=== PATIENT | female | born 1970 | race Caucasian/White ===

== ENCOUNTER 2019-10-05 21:14 | Emergency (ER) | payer MEDICARE, MEDICAID, SELFPAY ==
[2019-10-05 21:17] VITALS: BP 150/77; PULSE 112; RESP 20; TEMP 36.2; O2SAT 100
--- NOTE | 2019-10-05 21:22 | ED.BACK ---
HPI - Back Pain/Injury General Chief Complaint: Back Pain/Injury Stated Complaint: upper back pain Time Seen by Provider: 10/05/19 21:20 Source: patient Mode of arrival: ambulatory Limitations: no limitations History of Present Illness HPI Narrative: The pt is a 48 y/o female who presents to the ED with c/o upper back pain that began 3-4 days ago. The pt states that she has spinal stenosis and has always had back pain, but the last 3-4 days have been worse than nml. She has been getting random spells of excruciating pain in between her shoulder blades. She describes this as a stabbing pain that lasts 3-4 minutes and makes her legs and arms lock up. After the episodes, her legs get numb, she is very sore, and she has trouble breathing, which she believes is from the stress of the pain. The pt has tried taking muscle relaxers, Excedrin, Motrin, and Hydrocodone without relief. The pt reports neck pain and urinary frequency, which she relates to high blood glucose, but denies fever, dysuria, or urinary retention. She last had an MRI a couple of years ago to see if the spinal stenosis had worsened, but providers could not tell because of her size. Her PCP is Dipti Viveros NP. The pt has a PMHx of HLD, obesity, and DM. elicited complaint: back pain (upper) Pertinent past history: other (spinal stenosis) Onset (ago): day(s) (3-4) Timing: other (random) Associated symptoms: other (neck pain, urinary frequency) Related Data Home Medications Medication Instructions Recorded Confirmed cyclobenzaprine mg 08/03/19 dapagliflozin [Farxiga] mg 08/03/19 desvenlafaxine succinate mg PO 08/03/19 losartan 08/03/19 metformin mg 08/03/19 metoprolol succinate PO 08/03/19 Allergies Allergy/AdvReac Type Severity Reaction Status Date / Time No Known Allergies Allergy Unknown Unverified 08/03/19 12:02 Review of Systems Review of Systems: All systems reviewed & are unremarkable except as noted in HPI and below Constitutional: Constitutional: Denies fever(s) Genitourinary: Genitourinary: Reports nocturia, Denies dysuria and Denies other (urinary retention) Musculoskeletal: Musculoskeletal: Reports back pain (upper) and Reports neck pain [facility] Past Medical History Medical History Anxiety Arthritis Back pain Bipolar disorder Bronchitis Depression Diabetes Diverticulitis GERD (gastroesophageal reflux disease) Hypercholesteremia Mitral valve prolapse Obesity Seasonal allergies Sleep apnea Spinal stenosis Stress fracture in right foot Surgical History Surgical History History of bunionectomy Hx of cholecystectomy Social History Social History Smoking status: Former smoker Smoking end date: 08/20/06 Exam Const: General: no acute distress Nutritional Appearance: obese morbidly obese HENMT: Mouth: Yes lip normal and Yes moist mucous membranes Eyes: Conjunctivae: conjunctivae normal Pupils: Equal, round and reactive pupils present Resp: Effort & Inspection: normal respiratory effort Auscultation: clear to auscultation bilaterally Cardio: Rate: regular rate Rhythm: regular rhythm Heart sounds: no murmurs GI: GI Palp: Yes Soft to palpation and No Tenderness to palpation present (GI) Auscultation: normal bowel sounds Back/Spine/Pelvis: Back: other (full ROM) Thoracic/Lumbar Spine: other (thoracic paraspinal tenderness) Neuro: General: patient oriented x3 Speech: normal speech Extrem: General: full ROM and normal gait Psych: Mental Status: mental status grossly normal Affect: normal affect Course Vital Signs Vital signs: Vital Signs Temperature 36.2 C L 10/05/19 21:17 Pulse Rate 112 H 10/05/19 21:17 Respiratory Rate 20 10/05/19 21:17 Blood Pressure 150/77 H 10/05/19 21:17 Pulse Oximetry 100 10/05/19 21:17 Temp
[2019-10-05] MEDS: KETOROLAC (*BKC) 60 MG/2 ML VIAL IM (22:11)
== END 2019-10-05 23:00 | disposition home or self-care (01) ==
PROVIDERS: Emergency Provider Emergency Medicine; PCP Nurse Practitioner Family
DX: M54.6 Pain in thoracic spine (principal); G89.29 Other chronic pain; M19.90 Unspecified osteoarthritis, unspecified site; E11.9 Type 2 diabetes mellitus without complications; K21.9 Gastro-esophageal reflux disease without esophagitis; E78.00 Pure hypercholesterolemia, unspecified; I34.1 Nonrheumatic mitral (valve) prolapse; E66.9 Obesity, unspecified; G47.30 Sleep apnea, unspecified; Z87.891 Personal history of nicotine dependence; Z79.84 Long term (current) use of oral hypoglycemic drugs
CPT/HCPCS: 96372; 99284; J1885; J3360

== ENCOUNTER 2020-06-09 08:38 | Outpatient (CLI) | payer MEDICARE, MEDICAID, SELFPAY ==
--- NOTE | ~2020-06-09 | MM_ITS ---
EXAMINATION: MM screening bello BI w yuliet HISTORY: Screening mammogram TECHNIQUE: Craniocaudal and mediolateral oblique 3-D tomosynthesis images were obtained and synthetic 2-D images were generated. CAD analysis was submitted and interpreted. COMPARISON: 05/05/2017 bilateral digital screening mammogram BREAST PARENCHYMAL COMPOSITION: The breasts are almost entirely fatty. FINDINGS: There is no evidence of suspicious mass, calcification, or architectural distortion to sugg est malignancy in either breast. There has been no suspicious interval change. IMPRESSION: 1. No mammographic evidence of malignancy. 2. Recommend routine screening mammography in one year. BI-RADS Category 1: Negative Reviewed, dictated and finalized at location A.
[2020-06-09 09:52] LABS: Alanine Aminotransferase 26 U/L (4-35); Albumin Level 4.3 g/dL (3.5-5.1); Alkaline Phosphatase 93 U/L (38-126); Anion Gap 6 mmol/L (8-16); Aspartate Amino Transferase 26 U/L (14-36); Bilirubin,Total 0.3 mg/dL (0.2-1.3); Blood Urea Nitrogen 13 mg/dL (7-17); Carbon Dioxide 32 mmol/L (22-30); Chloride 101 mmol/L (98-107); Cholesterol 209 mg/dL (0-200); Estimated Glomerular Filt Rate > 60; Glucose 121 mg/dL (65-105); HDL Direct 50 mg/dL; Potassium 4.4 mmol/L (3.4-5.0); Sodium 139 mmol/L (137-145); Triglycerides 171 mg/dL (<150)
[2020-06-09 10:02] LABS: LDL Cholesterol Direct 128 mg/dL
[2020-06-09 11:43] LABS: Hemoglobin A1C 6.4 % (<5.7)
== END 2020-06-09 08:39 | disposition home or self-care (01) ==
PROVIDERS: PCP Nurse Practitioner Family; Visit Provider Nurse Practitioner Family
DX: Z12.31 Encounter for screening mammogram for malignant neoplasm of breast (principal); E11.9 Type 2 diabetes mellitus without complications; I10 Essential (primary) hypertension
CPT/HCPCS: 36415; 77063; 77067; 80053; 80061; 83036

== ENCOUNTER 2020-08-04 08:18 | Outpatient (CLI) | payer MEDICARE, MEDICAID, SELFPAY ==
--- NOTE | ~2020-08-04 | MR_ITS ---
EXAMINATION: MR lumbar spine wo con DATE: 08/04/2020 09:29 INDICATION: Lumbar spinal stenosis. Low back pain. Right leg numbness. TECHNIQUE: Magnetic resonance imaging (MRI) of the lumbar spine was performed without intravenous con trast. Sequences included sagittal T2-weighted FSE, sagittal STIR FSE, sagittal T1-weighted FSE, and axial T2-weighted FSE. COMPARISON: CT abdomen and pelvis 06/05/2019 FINDINGS: Bone alignment is normal. There is mild chronic anterior wedging of T11 and T12 vertebral b odies. There are Schmorl's nodes at multiple levels. The intervertebral disc heights are normal. The distal spinal cord signal intensity is normal. The conus medullaris is at T12-L1. The following disc levels are specifically discussed: L1-L2: The disc is bulging. There is mild bilateral facet joint osteoarthritis. There is mild left ne ural foraminal stenosis. There is mild central canal stenosis. L2-L3: The disc does not extend beyond the endplate margin. There is mild bilateral facet joint osteo arthritis. There is no neural foraminal stenosis. There is no central canal stenosis. L3-L4: The disc does not extend beyond the endplate margin. There is mild bilateral facet joint osteo arthritis. There is no neural foraminal stenosis. There is no central canal stenosis. L4-L5: The disc is bulging and has an annular fissure. There is severe bilateral facet joint osteoart hritis. There is mild bilateral neural foraminal stenosis. There is mild central canal stenosis. L5-S1: The disc is bulging. There is severe bilateral facet joint osteoarthritis. There is mild bilat eral neural foraminal stenosis. There is mild central canal stenosis. IMPRESSION: 1. Mild lumbar spondylosis. Reviewed, dictated and finalized at location A. SURGEON IMPRESSION: 1. Mild lumbar spondylosis.
== END 2020-08-04 08:19 | disposition home or self-care (01) ==
PROVIDERS: PCP Nurse Practitioner Family; Visit Provider Nurse Practitioner Family
DX: M48.061 Spinal stenosis, lumbar region without neurogenic claudication (principal); M47.816 Spondylosis without myelopathy or radiculopathy, lumbar region
CPT/HCPCS: 72148

== ENCOUNTER 2020-10-08 12:02 | Outpatient (CLI) | payer MEDICARE, MEDICAID, SELFPAY ==
--- NOTE | ~2020-10-08 | XR_ITS ---
XR knee LT 3V DATE: 10/08/2020 12:37 INDICATION: Left lower limb pain. Fall one week ago. TECHNIQUE: [place] and AP and lateral views COMPARISON: None FINDINGS: Severe periarticular spurring and joint space narrowing as well as some lateral subluxation at the patellofemoral joint. There is periarticular spurring at the lateral compartment but the medial and lateral compartment ace nt spaces are relatively preserved. No fracture or dislocation or joint effusion, radiopaque intra-articular loose body or chondrocalcino sis is evident. No periosteal reaction or bone destruction. 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 INFERTILITY SPECIALIST IMPRESSION: Osteoarthritis at the lateral and particularly patellofemoral karen rtments; lateral patellar subluxation
== END 2020-10-08 12:03 | disposition home or self-care (01) ==
LOC: ANHIMG 12:13
PROVIDERS: PCP Nurse Practitioner Family; Visit Provider Nurse Practitioner Family
DX: M79.605 Pain in left leg (principal); M17.12 Unilateral primary osteoarthritis, left knee
CPT/HCPCS: 73562

== ENCOUNTER 2020-11-02 18:01 | Inpatient (IN) | payer MEDICARE, MEDICAID, SELFPAY ==
[2020-11-02] VITALS (10 sets, daily range): BP systolic 121–145; BP diastolic 7–95; PULSE 72–85; RESP 16–22; TEMP 36–36.2; O2SAT 90–100; BMI 64.2
--- NOTE | ~2020-11-02 | XR_ITS ---
XR chest 1V DATE: 11/02/2020 19:01 INDICATION: Right facial numbness. History of hypertension. TECHNIQUE: AP chest COMPARISON: 01/06/2017 two-view chest FINDINGS: Normal heart size. No hilar or mediastinal enlargement is evident. The lungs appear clear. Consolidation. No pleural effusion, pulmonary vascular congestion or pneumothorax. Degenerative spurring of the thoracic spine. IMPRESSION: No active cardiopulmonary disease Reviewed, dictated and finalized at location A.
--- NOTE | ~2020-11-02 | US_ITS ---
EXAMINATION: US carotid duplex BI DATE: 11/03/2020 13:23 INDICATION: Subjective visual disturbance TECHNIQUE: Grayscale, color Doppler, and pulsed Doppler images of the cervical carotid arteries were obtained. The degree of vessel stenosis is placed in one of the following categories: normal, <50%, 5 0-69%, >=70% but less than near-occlusion, near-occlusion, or total occlusion. Note that percent sten osis relative to normal distal artery lumen diameter is indirectly measured from velocity measurement s as described by Efrain, et al. Radiology 2003; 229:340-346. COMPARISON: None. FINDINGS: RIGHT: The right common carotid artery (CCA) peak systolic velocity (PSV) is 127 cm/s. The right internal ca rotid artery (ICA) PSV is 67 cm/s. The right ICA end-diastolic velocity (EDV) is 18 cm/s. The right I CA/CCA PSV ratio is 0.5. Grayscale and color Doppler images yield an estimate of <50% diameter reduct ion from minimal plaque in the ICA. The external carotid artery (ECA) PSV is 103 cm/s. There is anteg rade flow in the right vertebral artery. LEFT: The left CCA PSV is 130 cm/s. The left ICA PSV is 84 cm/s. The left ICA EDV is 25 cm/s. The left ICA/ CCA PSV ratio is 0.6. Grayscale and color Doppler images yield an estimate of <50% diameter reduction from minimal plaque in the ICA. The ECA PSV is 83 cm/s. There is antegrade flow in the left vertebra l artery. IMPRESSION: 1. <50% stenosis from minimal plaque in the right internal carotid artery. 2. <50% stenosis from minimal plaque in the left internal carotid artery. Reviewed, dictated and finalized at location B.
--- NOTE | ~2020-11-02 | MR_ITS ---
EXAMINATION: MR brain/brain stem wo/w con DATE: 11/03/2020 12:59 INDICATION: Visual loss. Facial numbness. TECHNIQUE: Magnetic resonance imaging (MRI) of the brain and brainstem was performed without and with 20 mL MultiHance intravenous contrast. Sequences included sagittal and axial T1-weighted FSE, axial diffusion-weighted FS EPI, axial T2*-weighted GRE, axial T2-weighted FLAIR [place], and axial T2-we ighted Propeller. Postcontrast sequences included axial and coronal T1-weighted FSE. Apparent diffusi on coefficient (ADC) maps were created. COMPARISON: Head CT 11/02/2020 FINDINGS: There are scattered areas of nonspecific increased T2-weighted signal intensity in the cere bral white matter, which is within normal limits for the patient's age. There is no intracranial hemo rrhage, acute infarction, or abnormal intracranial mass lesion. The ventricles are normal in size. Th ere is a mucous retention cyst in left maxillary sinus. There is mild mucosal thickening in the ethmo id sinuses. The orbits are normal. There is a trace right mastoid effusion. IMPRESSION: 1. Normal aging brain. Reviewed, dictated and finalized at location A. IMPRESSION: 1. Normal aging brain.
--- NOTE | ~2020-11-02 | CT_ITS ---
EXAMINATION: CT brain wo con DATE: 11/02/2020 19:02 INDICATION: Right sided visual problems. Intermittent facial numbness. TECHNIQUE: Computed tomography (CT) of the head was performed without intravenous contrast. The mA wa s adjusted according to patient size. Iterative reconstruction technique was employed. Exam dose: 68 1.00 mGy-cm total exam DLP. COMPARISON: None FINDINGS: No intracranial mass lesion or hemorrhage or recent cerebrovascular accident. No midline sh ift or mass effect effect. Normal ventricular size. No subdural or epidural hematoma. No orbital mass lesion is evident. A mucus retention cyst or polyp is noted in the floor of the left maxillary sinus. Focal ethmoid air cell opacification is noted anteriorly and posteriorly on the right. The paranasal sinuses otherwise are unremarkable. Normal development and aeration of the mastoid air cells. No fracture or bone destruction of the cranial vault. IMPRESSION: No acute intracranial finding Reviewed, dictated and finalized at Location A. Reviewed, dictated and finalized at location A.
--- NOTE | 2020-11-02 18:39 | ECG_ITS ---
Measurements Intervals [place] Rate: 79 P: 36 RI: 189 QRS: 7 QRSD: 103 T: -1 QT: 353 QTc: 406 Interpretive Statements SINUS RHYTHM BORDERLINE T WAVE ABNORMALITY- INFERIOR LEADS BORDERLINE ECG Electronically Signed On 11-03-2020 9:13:07 CDT by Johann Berg D.O.
[2020-11-02 18:53] LABS: Basophils Absolute Auto 0.1 K/mm3 (0.0-0.1); Basophils Percent Auto 0.5 % (0.2-1.2); Eosinophils Absolute Auto 0.3 K/mm3 (0-0.3); Hematocrit 41.2 % (37.0-47.0); Hemoglobin 13.5 g/dL (12.0-15.0); Immature Granulocyte Absolute 0.02 K/mm3 (0.00-0.031); Immature Granulocyte Percent A 0.2 % (0-0.5); Lymphocytes Absolute Auto 4.32 K/mm3 (0.9-3.2); Lymphocytes Percent Auto 46.9 % (18.3-44.2); Mean Corpuscular HGB Conc 32.8 g/dl (32-36); Mean Corpuscular Hemoglobin 28.6 pg (26-34); Mean Corpuscular Volume 87.3 fl (80-100); Mean Platelet Volume 9.3 fl (7.4-10.4); Monocytes Absolute Auto 0.7 K/mm3 (0.1-0.6); Neutrophils Absolute Auto 3.8 K/mm3 (1.3-6.7); Neutrophils Percent Auto 41.4 % (45.5-73.1); Platelet Count Result 246 k/mm3 (150-375); Red Blood Count 4.72 M/mm3 (4.2-5.4); White Blood Count 9.2 K/mm3 (4.5-10.0)
[2020-11-02 19:03] LABS: INR 0.9; Partial Thromboplastin Time 27.8 SECONDS (22.3-36.8); Prothrombin Time 12.6 Seconds (11.1-14.7)
[2020-11-02 19:08] LABS: Anion Gap 8 mmol/L (8-16); Blood Urea Nitrogen 18 mg/dL (7-17); Calcium 8.6 mg/dL (8.4-10.2); Carbon Dioxide 27 mmol/L (22-30); Chloride 104 mmol/L (98-107); Estimated CRCL calculation 132 ml/min; Estimated Glomerular Filt Rate > 60; Glucose 143 mg/dL (65-105); Sodium 139 mmol/L (137-145)
[2020-11-02 19:20] LABS: Troponin I < 0.012 ng/mL (0.000-0.034)
--- NOTE | 2020-11-02 21:16 | ED.NEUROSD ---
HPI - Neuro Symptoms/Deficit General Chief Complaint: Neuro Symptoms/Deficit Stated Complaint: visual changes, facial numbness Time Seen by Provider: 11/02/20 19:02 Source: patient Mode of arrival: ambulatory Limitations: no limitations History of Present Illness HPI Narrative: 50-year-old with a history of hypertension, hyperlipidemia, diabetes here with complaints of partial loss of vision on the right side she said that she could not see anything on the right lateral aspect of her eye this afternoon she also complains that her face is being none numb on and off for past 1 week however today it was more profound. She states that she called her primary doctor who recommended her to go to the ER. At the time she came to the ER her symptoms have much subsided. She denies any loss of vision or numbness at this time. She denies any motor weakness.. No previous history of strokes. Onset (ago): day(s) (1) Location: right face History of same: Yes Severity: mild Related Data Home Medications Medication Instructions Recorded Confirmed cyclobenzaprine mg 08/03/19 dapagliflozin [Farxiga] mg 08/03/19 desvenlafaxine succinate mg PO 08/03/19 losartan 08/03/19 metformin mg 08/03/19 metoprolol succinate PO 08/03/19 Allergies Allergy/AdvReac Type Severity Reaction Status Date / Time No Known Allergies Allergy Unknown Unverified 10/22/19 13:20 Review of Systems Review of Systems: All systems reviewed & are unremarkable except as noted in HPI and below Constitutional: Constitutional: Reports no additional constitutional complaints Eyes: Eyes: Reports as per HPI ENT: Reports system reviewed and no additional complaints, except as documented Cardiovascular: Cardiovascular: Reports no additional cardiovascular complaints Respiratory: Respiratory: Reports no additional respiratory complaints Gastrointestinal: Gastrointestinal: Reports no additional gastrointestinal complaints Musculoskeletal: Musculoskeletal: Reports no additional musculoskeletal complaints Integumentary/Breasts: Skin/Breast: Reports system reviewed and no additional complaints, except as docu Neurologic: Reports system reviewed and no additional complaints, except as documented PMFSH Past Medical History Medical History Anxiety Arthritis Back pain Bipolar disorder Bronchitis Depression Diabetes Diverticulitis GERD (gastroesophageal reflux disease) Hypercholesteremia Mitral valve prolapse Obesity Seasonal allergies Sleep apnea Spinal stenosis Stress fracture in right foot Surgical History Surgical History History of bunionectomy Hx of cholecystectomy Family History Family History Mother Diabetes mellitus Family history of mental disorder Hypertension Family history of cardiovascular disease Family history of arthritis Family history of chronic obstructive pulmonary disease Sibling Family history of alcoholism Father Family history of alcoholism Social History Social History Smoking status: Former smoker Smoking end date: 08/20/06 Alcohol intake: never Gender identity (if verbalized by the patient): Female Exam Narrative: Exam Narrative: GENERAL: Well-appearing, well-nourished, and in no acute distress. HEAD: Normocephalic, atraumatic. EYES: PERRLA and EOMI. ENT: Nares clear, no rhinorrhea or epistaxis. Mucous membranes moist.no facial droop NECK: Supple. CHEST: Clear to auscultation. No respiratory distress. HEART: Regular rate and rhythm. No murmur heard. Normal peripheral pulses. ABDOMEN: Soft, nontender, nondistended, normal active bowel sounds. EXTREMITIES: Normal range of motion. No edema. SKIN: Warm, dry, no rash. NEURO: No focal deficits. Alert and oriented x3. PSYCH: Nicole
--- NOTE | 2020-11-02 22:29 | PM.IMHP ---
H&P: HPI History of Present Illness Date/Time: 11/02/20 22:29 Chief Complaint: Acute visual field loss and numbness of face+ Narrative: This is a pleasant 50-year-old morbidly obese diabetic female who is also known to have chronic hypertension and presented to the hospital [facility] with a complaint of about 10 minutes of right visual field loss while she was cleaning her ceiling fan. The patient noticed while she was cleaning her fan that she lost the right visual field of vision and this seemed to resolve after about 10 minutes. She did call her physical therapist clinic director who told her that she likely was just having a migraine headache because the patient was also complaining of right spiritism pain at that time. Her physical therapist clinic director also mentions that she believes that her visual deficit could be due to her recently changing her eating habits as the patient is no longer drinking sugary drinks. A short while afterwards the patient started to developed right-sided facial numbness which has now resolved. On further questioning the patient mentions to me that over the past few days she has had intermittent facial numbness which will usually include her whole face and last from 15-20 minutes in duration before it resolves. She reports having 3-4 of these episodes every day. The patient has no previous history of strokes. On my encounter with the patient megan she denies any focal neurological deficit and all of her symptoms have completely resolved. She denies any recent head trauma or seizure-like activity. She also denies any nausea, vomiting, fever, chills, coughing, chest pain, palpitations, abdominal pain, diarrhea, dysuria, hematuria, lower extremity swelling, numbness, tingling, or focal weakness. The patient was evaluated emergency room this evening and routine labs were unremarkable. CT brain was also unremarkable for any acute pathology. We been asked to admit the patient to the hospital for possible TIA. No other complaints at this time. Review of Systems Review of Systems: All systems reviewed & are unremarkable except as noted in HPI and below PMFSH Past Medical History Medical History Anxiety Arthritis Back pain Bipolar disorder Bronchitis Depression Diabetes Diverticulitis GERD (gastroesophageal reflux disease) Hypercholesteremia Mitral valve prolapse Obesity Seasonal allergies Sleep apnea Spinal stenosis Stress fracture in right foot Surgical History Surgical History History of bunionectomy Hx of cholecystectomy Family History Family History Mother Diabetes mellitus Family history of mental disorder Hypertension Family history of cardiovascular disease Family history of arthritis Family history of chronic obstructive pulmonary disease Sibling Family history of alcoholism Father Family history of alcoholism Social History Social History Smoking status: Former smoker Smoking end date: 08/20/06 Alcohol intake: never Gender identity (if verbalized by the patient): Female Meds Home Medications and Allergies Home Medications Medication Instructions Recorded Confirmed Type acetaminophen-codeine 1 tablet PO HS PRN #14 tablet 08/03/19 Rx [Tylenol-Codeine #3] cyclobenzaprine mg 08/03/19 History dapagliflozin [Farxiga] mg 08/03/19 History desvenlafaxine succinate mg PO 08/03/19 History losartan 08/03/19 History metformin mg 08/03/19 History metoprolol succinate PO 08/03/19 History tramadol 50 mg PO BID PRN #15 tablet 08/03/19 Rx diazepam [Valium] 5 mg PO TID PRN #6 tablet 10/05/19 Rx Allergies Allergy/AdvReac Type Severity Reaction Status Date / Time No Known Allergies Allergy Unknown Unverified 10/22/19 13:20 Vital Signs Vital Signs - 24 hr 11/02/20 18:27 03
[2020-11-02] MEDS: ONDANSETRON INJ 4 MG/2 ML VIAL IV PUSH (22:30)
[2020-11-02] MEDS: ACETAMINOPHEN 325 MG TABLET 650 MG PO (22:31)
--- NOTE | 2020-11-02 22:52 | ADMGEN ---
This patient, Shira Isaacs, was admitted to Medical Room 347-. Patient/family oriented to hospital policies and general routines including ID bracelet, bed and alarms, visiting hours, pain management, procedures, bathroom and other care routines, personal items, smoking policy, room service/diet, and visiting hours. Information on how to activate the Rapid Response Team has been discussed. Patient/Family are encouraged to report perceived risks to care and to ask questions if they do not understand what they are told or what they should do.
[2020-11-02 23:14] LABS: Glucose Point of Care 120 (65-105)
[2020-11-03] VITALS (14 sets, daily range): BP systolic 109–131; BP diastolic 62–72; PULSE 63–85; RESP 12–23; TEMP 36.3–36.6; O2SAT 94–97
--- NOTE | 2020-11-03 | ECHO_ITS ---
Patient Info Name: Shira Isaacs Age: 50 years : 1970 Gender: Female Ht: 67 in Wt: 410 lbs BSA: 3.09 m2 HR: 69 bpm BP: 109 / 65 mmHg Heart Rhythm: Sinus Rhythm Technical Quality: Poor Exam Date: 11/03/2020 9:13 AM Exam Location: [facility] Pulmonary Exam Room: 347 Patient Status: Inpatient Admit Date: 11/02/2020 Staff Ordering Physician: Melvin Whitaker MD Healthcare Liaison: Hannah Flaherty RDCS Attending Provider: Melvin Whitaker MD Exam Type: CA echo dop bubble study w con Study Info Indications - TIA R/O CSE Complete two-dimensional, color flow and Doppler transthoracic echocardiogram is performed with agitated saline. Complete two-dimensional, color flow and Doppler transthoracic echocardiogram is performed with contrast to opacify the left ventricle and to improve the deliniation of the left ventricle endocardial borders. Contrast/Agitated Saline Contrast/Ag. Saline: Definity Amount: 1.00 ml Administered By: Juany Hester RN Existing IV Access: Yes IV Access Condition: patent with no signs of infiltration Reason for Poor Study: patient body habitus Summary 1. No intracardiac shunt with injection of agitated saline with and without Valsalva. 2. Left ventricular systolic function is normal, estimated at 65-70%. 3. Left ventricular chamber dimension is normal without regional wall motion abnormalities identified.. 4. Technically difficult study with limited views. Definity echo contrast enhancement utilized to improve endomyocardial border definition. 5. There is moderately increased left ventricular wall thickness. 6. Left atrial chamber dimension is mildly enlarged. 7. There is trace mitral valve regurgitation. 8. There is trace tricuspid valve regurgitation. 9. No pulmonary hypertension, estimated pulmonary arterial systolic pressure is 23 mmHg. Recommendations * Consider transesophageal echocardiogram if clinically indicated. Left Ventricle Left ventricular chamber dimension is normal without regional wall motion abnormalities identified.. Left ventricular systolic function is normal, estimated at 65-70%. There is moderately increased left ventricular wall thickness. The left ventricular diastolic function is normal. Technically difficult study with limited views. Definity echo contrast enhancement utilized to improve endomyocardial border definition. Right Ventricle Right ventricular chamber dimension is normal. Right ventricular systolic function is normal. Left Atria Left atrial chamber dimension is mildly enlarged. Right Atria Right atrial chamber dimension is normal. Atrial Septum No intracardiac shunt with injection of agitated saline with and without Valsalva. Aortic Valve The aortic valve is not well visualized. There is no aortic valve stenosis. There is no aortic valve regurgitation. Pulmonic Valve The pulmonic valve is not well visualized. Mitral Valve The mitral valve has thickened leaflets. There is trace mitral valve regurgitation. The mitral valve annulus is mildly calcified. Tricuspid Valve The tricuspid valve leaflets are not well visualized. There is trace tricuspid valve regurgitation. No pulmonary hypertension, estimated pulmonary arterial systolic pressure is 23 mmHg. Pericardium/Pleural The pericardium appears normal. There is no pericardial effusion. Inferior Vena Cava Normal inferior vena cava with >50% collapse upon
[2020-11-03] MEDS: ASPIRIN 325 MG TABLET PO (00:32)
[2020-11-03] MEDS: LORazepam (*CRX) 0.5 MG TABLET PO (00:33)
[2020-11-03 06:41] LABS: Basophils Absolute Auto 0.1 K/mm3 (0.0-0.1); Basophils Percent Auto 0.8 % (0.2-1.2); Eosinophils Absolute Auto 0.3 K/mm3 (0-0.3); Eosinophils Percent Auto 3.6 % (0-4.4); Hematocrit 40.7 % (37.0-47.0); Hemoglobin 12.9 g/dL (12.0-15.0); Immature Granulocyte Absolute 0.04 K/mm3 (0.00-0.031); Immature Granulocyte Percent A 0.5 % (0-0.5); Lymphocytes Absolute Auto 4.25 K/mm3 (0.9-3.2); Lymphocytes Percent Auto 50.3 % (18.3-44.2); Mean Corpuscular HGB Conc 31.7 g/dl (32-36); Mean Corpuscular Hemoglobin 28.2 pg (26-34); Mean Corpuscular Volume 89.1 fl (80-100); Mean Platelet Volume 9.6 fl (7.4-10.4); Monocytes Absolute Auto 0.9 K/mm3 (0.1-0.6); Monocytes Percent Auto 10.4 % (2.6-8.5); Neutrophils Absolute Auto 2.9 K/mm3 (1.3-6.7); Neutrophils Percent Auto 34.4 % (45.5-73.1); Platelet Count Result 241 k/mm3 (150-375); Red Blood Count 4.57 M/mm3 (4.2-5.4); Red Cell Distribution Width 14.2 % (11.5-14.5); White Blood Count 8.5 K/mm3 (4.5-10.0)
[2020-11-03 06:53] LABS: Anion Gap 7 mmol/L (8-16); Blood Urea Nitrogen 17 mg/dL (7-17); Calcium 8.5 mg/dL (8.4-10.2); Carbon Dioxide 30 mmol/L (22-30); Chloride 103 mmol/L (98-107); Cholesterol 179 mg/dL (0-200); Estimated CRCL calculation 132 ml/min; Estimated Glomerular Filt Rate > 60; Glucose 127 mg/dL (65-105); HDL Direct 36 mg/dL; Magnesium 1.9 mg/dL (1.6-2.3); Potassium 3.9 mmol/L (3.4-5.0); Sodium 140 mmol/L (137-145); Triglycerides 163 mg/dL (<150)
[2020-11-03 07:08] LABS: LDL Cholesterol Direct 106 mg/dL
[2020-11-03] MEDS: LOSARTAN POTASSIUM 100 MG TABLET PO (08:17)
[2020-11-03] MEDS: METOPROLOL SUCCINATE EXT REL 50 MG TABCR PO (08:17)
[2020-11-03] MEDS: metFORMIN HCL 500 MG TABLET PO ×2 (08:17→16:36)
[2020-11-03] MEDS: PANTOPRAZOLE SOD SESQUIHYDRATE 20 MG TAB PO (08:17)
[2020-11-03] MEDS: ASPIRIN 81 MG CHEWABLE TABLET 324 MG PO (08:17)
[2020-11-03] MEDS: ACETAMINOPHEN 325 MG TABLET 650 MG PO ×2 (08:20→20:23)
[2020-11-03] MEDS: PERFLUTREN LIPID MICROSPHERES 1.5 ML VIAL DILUTED TO 10 ML TOTAL VOLUME IV PUSH (10:29)
--- NOTE | 2020-11-03 12:01 | PM.IMPN ---
Progress Note: A&P Assessment and Plan (1) Transient cerebral ischemia: Qualifiers: Transient cerebral ischemia type: unspecified Qualified Code(s): G45.9 - Transient cerebral ischemic attack, unspecified Code(s): G45.9 - Transient cerebral ischemic attack, unspecified Status: Acute Assessment and Plan: With rule out for acute stroke Patient undergoing work up Resolved (2) Sleep apnea: Qualifiers: Sleep apnea type: unspecified type Qualified Code(s): G47.30 - Sleep apnea, unspecified Code(s): G47.30 - Sleep apnea, unspecified Status: Chronic Assessment and Plan: CPAP at nighttime (3) Morbid obesity with BMI of 60.0-69.9, adult: Code(s): E66.01 - Morbid (severe) obesity due to excess calories; Z68.44 - Body mass index [BMI] 60.0-69.9, adult Status: Acute Assessment and Plan: Lifestyle and diet modification Calorie restricted diet to 1800 (4) GERD (gastroesophageal reflux disease): Qualifiers: Esophagitis presence: esophagitis presence not specified Qualified Code(s): K21.9 - Gastro-esophageal reflux disease without esophagitis Code(s): K21.9 - Gastro-esophageal reflux disease without esophagitis Status: Chronic Assessment and Plan: On PPI Continue to monitor (5) HTN (hypertension): Code(s): I10 - Essential (primary) hypertension Status: Acute Assessment and Plan: Continue home meds Continue to monitor or Well controlled (6) T2DM (type 2 diabetes mellitus): Code(s): E11.9 - Type 2 diabetes mellitus without complications Status: Acute Assessment and Plan: On metformin Accu-Cheks AC and HS Insulin sliding scale as needed Subjective Date/time seen: 11/03/20 12:01 I feel just fine. Review of Systems Review of Systems: Narrative: Patient was at home when all of a sudden she felt her right face numbness on the blurry vision of the right eye Constitutional: Comments: No rigors, no chills, no fevers Eyes: Eyes: Reports blurry vision (r eye) Cardiovascular: Comments: No chest pain, no shortness of breath ,no PND no orthopnea, no leg swelling Respiratory: Comments: No shortness of breath, no cough, no sputum production. Gastrointestinal: Comments: No nausea, no vomiting, no diarrhea, no abdominal pain. Musculoskeletal: Comments: No muscle aches or pains no joint pain Integumentary/Breasts: Comments: No rashes Neurologic: Comments: Her right face numbness, her right eye blurry vision Exam Narrative: Exam Narrative: Laying in bed in no acute distress Const: General: cooperative, comfortable, no acute distress, alert, awake and Physically active Nutritional Appearance: overweight (Morbid obesity) HENMT: Head: normal to inspection and normocephalic Ears: hearing grossly normal bilaterally General nose exam: Normal external nose present Face and sinus: normal facial exam Eyes: General: appearance normal, both eyes and all related structures Pupils: Equal, round and reactive pupils present EOM: EOMs intact bilaterally Neck: Neck: no lymphadenopathy, supple and no JVD Resp: Effort & Inspection: normal respiratory effort and able to speak in complete sentences Auscultation: clear to auscultation bilaterally Cardio: Jugular venous distension: no JVD Rate: regular rate Rhythm: regular rhythm GI: Inspection: Pannus present and obesity GI Palp: Yes Soft to palpation and Yes No hepatosplenomegaly present Skin: Rashes: no rashes Neuro: General: patient oriented x3 and CN's II-XI intact bilaterally Cranial nerves: Yes CN's II-XII intact bilaterally and Yes Equal, round and reactive pupils present Cognition (Neuro): normal cognition Speech: normal speech Gait exam (Neuro): Normal gait present Motor exam (neuro): 5/5 motor strength present throughout Extrem: General: no pedal edema Objective Data Vital Signs Vital Signs: Vital Signs - 24 hr 10/18
[2020-11-03 12:07] LABS: Glucose Point of Care 111 (65-105)
--- NOTE | 2020-11-03 12:09 | WPDNEURCNPN ---
Assessment and Plan Assessment and plan (1) T2DM (type 2 diabetes mellitus): Code(s): E11.9 - Type 2 diabetes mellitus without complications Status: Acute (2) HTN (hypertension): Code(s): I10 - Essential (primary) hypertension Status: Acute (3) Transient cerebral ischemia: Qualifiers: Transient cerebral ischemia type: unspecified Qualified Code(s): G45.9 - Transient cerebral ischemic attack, unspecified Code(s): G45.9 - Transient cerebral ischemic attack, unspecified Status: Acute Additional Plan considering the symptomatology started while she was working on the fan with hyperextension of the neck possibility of the posterior circulation insufficiency needs to be ruled out patient will have the MRI of the brain in addition to CTA and further recommendation will be made accordingly Consult date: 11/03/20 Time Seen: 11:00 HPI: Shira Isaacs is a 50 year old femaleAdmitted to the hospital for the complaints of numbness of the face along with the visual field dysfunction. Patient is known to have chronic hypertension she presented to the hospital with the complains of right visual field loss while she was cleaning her ceiling fan the defect resolved after 10 minutes. She initially called her solid waste facility operator who told her that she likely was just having migraine headaches but at the same time patient was also complaining of right judaism pain that made his him think of migraine headache he also thought it could be very well related to sugar drinks but subsequently she started developing right-sided facial numbness which was resolved by the time she came to the hospital she gave the history of intermittent facial numbness lasting for anywhere from 15 to 20 minutes she has had at least 3 to 4 episodes on the day of admission she gave no history of having had a stroke in the past and also she gave no history of associated any generalized symptomatology or neurological symptomatology initial CT scan of the brain in the emergency room was negative patient does have ongoing history of anxiety with bipolar disorder diabetes mellitus mitral valve prolapse hypercholesteremia Review of Systems Review of Systems: All systems reviewed & are unremarkable except as noted in HPI and below PMFSH Past Medical History Medical History Anxiety Arthritis Back pain Bipolar disorder Bronchitis Depression Diabetes Diverticulitis GERD (gastroesophageal reflux disease) Hypercholesteremia Mitral valve prolapse Obesity Seasonal allergies Sleep apnea Spinal stenosis Stress fracture in right foot Surgical History Surgical History History of bunionectomy Hx of cholecystectomy Family History Family History Mother Diabetes mellitus Family history of mental disorder Hypertension Family history of cardiovascular disease Family history of arthritis Family history of chronic obstructive pulmonary disease Sibling Family history of alcoholism Father Family history of alcoholism Social History Social History Smoking status: Former smoker Smoking end date: 08/20/06 Alcohol intake: never Substance use: never Living arrangements: with family Gender identity (if verbalized by the patient): Female Spiritual care concerns: No Meds Home Medications and Allergies Home Medications Medication Instructions Recorded Confirmed Type dapagliflozin [Farxiga] 5 mg PO DAILY 08/03/19 11/02/20 History desvenlafaxine succinate 50 mg PO DAILY 08/03/19 11/02/20 History losartan 100 mg PO DAILY 08/03/19 11/02/20 History metformin 500 mg PO BID 08/03/19 11/02/20 History metoprolol succinate 50 mg PO DAILY 08/03/19 11/02/20 History lurasidone [Latuda] 40 mg PO HS 11/02/20 11/02/20 History oxyb
--- NOTE | 2020-11-03 12:27 | PC.NURSE ---
Patient to MRI via hospital wheelchair.
[2020-11-03] MEDS: ALPRAZolam (*CRX) 0.5 MG TABLET PO (13:50)
[2020-11-03 21:07] LABS: Glucose Point of Care 143 (65-105)
[2020-11-04] VITALS: PULSE 60
[2020-11-04 03:31] VITALS: BP 121/65; PULSE 70; RESP 16; TEMP 36.1; O2SAT 97
[2020-11-04 04:00] VITALS: PULSE 62
[2020-11-04 04:15] VITALS: PULSE 64; RESP 20; O2SAT 97
[2020-11-04 08:00] VITALS: BP 128/68; PULSE 76; RESP 18; TEMP 36.1; O2SAT 97
[2020-11-04 09:33] VITALS: PULSE 76
[2020-11-04] MEDS: ASPIRIN 81 MG CHEWABLE TABLET 324 MG PO (09:33)
[2020-11-04] MEDS: METOPROLOL SUCCINATE EXT REL 50 MG TABCR PO (09:33)
[2020-11-04] MEDS: PANTOPRAZOLE SOD SESQUIHYDRATE 20 MG TAB PO (09:34)
[2020-11-04] MEDS: metFORMIN HCL 500 MG TABLET PO (09:34)
[2020-11-04] MEDS: LOSARTAN POTASSIUM 100 MG TABLET PO (09:34)
--- NOTE | 2020-11-04 10:18 | PM.DS ---
DS: Admitting Diagnosis Admitting Diagnosis Admitting Diagnosis: (1) Transient cerebral ischemia: (2) Chronic hypertension: (3) Sleep apnea: (4) Diabetes: DS: Discharge Diagnosis Discharge Diagnosis (1) T2DM (type 2 diabetes mellitus): Code(s): E11.9 - Type 2 diabetes mellitus without complications Status: Acute Assessment and Plan: orally control on Glucophage follow-up in outpatient setting quarterly glycated hemoglobin (2) HTN (hypertension): Code(s): I10 - Essential (primary) hypertension Status: Acute Assessment and Plan: well controlled continue present management follow-up in outpatient setting (3) Morbid obesity with BMI of 60.0-69.9, adult: Code(s): E66.01 - Morbid (severe) obesity due to excess calories; Z68.44 - Body mass index [BMI] 60.0-69.9, adult Status: Acute Assessment and Plan: lifestyle and diet modification (4) Chronic hypertension: Code(s): I10 - Essential (primary) hypertension Status: Chronic Assessment and Plan: well controlled (5) Sleep apnea: Qualifiers: Sleep apnea type: unspecified type Qualified Code(s): G47.30 - Sleep apnea, unspecified Code(s): G47.30 - Sleep apnea, unspecified Status: Chronic Assessment and Plan: on CPAP at nighttime (6) GERD (gastroesophageal reflux disease): Qualifiers: Esophagitis presence: esophagitis presence not specified Qualified Code(s): K21.9 - Gastro-esophageal reflux disease without esophagitis Code(s): K21.9 - Gastro-esophageal reflux disease without esophagitis Status: Chronic Assessment and Plan: stable follow-up in outpatient setting (7) Transient cerebral ischemia: Qualifiers: Transient cerebral ischemia type: unspecified Qualified Code(s): G45.9 - Transient cerebral ischemic attack, unspecified Code(s): G45.9 - Transient cerebral ischemic attack, unspecified Status: Acute Assessment and Plan: ruled out stroke DS: Summary Hospital Course Reason for hospitalization: Numbness. Hospital Course: This is a 50-year-old morbidly obese diabetic woman who has chronic hypertension and presented to the hospital with a complaint of about 10 minutes of right visual field loss and the blurriness while she was cleaning her ceiling fan. The patient noticed while she was cleaning her fan that she lost the right visual field and this seemed to have resolve after about 10 minutes. She called her baller tender who told her that she likely was just having a migraine headache because the patient was also complaining of right worship pain at that time. Her baller tender also mentions that she believes that her visual deficit could be due to her recently changing her stopping drinking coffee on cutting back on sugar. A short while afterwards the patient started to developed right-sided facial numbness. . CT brain was also unremarkable for any acute bleed. patient was admitted for observation and for their evaluation a neurologist consult was obtained. patient had extensive workup for stroke with no significant findings patient was discharged home in good and stable condition and will follow-up with her primary care physician Review of Systems Time Spent with Patient Time attestation: Total time spent providing and/or coordinating discharge services: Exam Const: General: cooperative, comfortable, no acute distress, alert, awake and Physically active Nutritional Appearance: other (Morbid obesity) Orientation/consciousness: patient oriented x3 HENMT: Head: normal to inspection, normocephalic and atraumatic Ears: hearing grossly normal bilaterally General nose exam: Normal external nose present Face and sinus: normal facial exam Eyes: General: appearance normal, both eyes and all related structures Pupils: Equal, round and reactive pup
== END 2020-11-04 11:00 | disposition home or self-care (01) | DRG 69 ==
LOC: ANHED 21:16 → ANH3MED 22:56
PROVIDERS: Emergency Medicine; Admitting Provider Family Medicine; Emergency Provider Family Medicine; PCP Nurse Practitioner Family; Visit Provider Internal Medicine
DX: G45.9 Transient cerebral ischemic attack, unspecified (principal); Z68.44 Body mass index [BMI] 60.0-69.9, adult; E66.01 Morbid (severe) obesity due to excess calories; E11.9 Type 2 diabetes mellitus without complications; I10 Essential (primary) hypertension; E78.00 Pure hypercholesterolemia, unspecified; G47.30 Sleep apnea, unspecified; K21.9 Gastro-esophageal reflux disease without esophagitis; I34.1 Nonrheumatic mitral (valve) prolapse; F31.9 Bipolar disorder, unspecified; F41.9 Anxiety disorder, unspecified; Z87.891 Personal history of nicotine dependence; Z79.84 Long term (current) use of oral hypoglycemic drugs
CPT/HCPCS: 36415; 70450; 70553; 71045; 80048; 80061; 82948; 83735; 84443; 84484; 85025; 85610; 85730; 93005; 93880; 96374; 96375; 99285; A9270; A9577; C8929; G0378; J2405; Q9957

== ENCOUNTER 2021-07-06 15:26 | Emergency (ER) | payer OTHER, SELFPAY ==
--- NOTE | ~2021-07-06 | XR_ITS ---
EXAMINATION: XR humerus LT DATE: 07/06/2021 16:13 INDICATION: Left upper arm pain. TECHNIQUE: 2 views of left humerus on 3 radiographs were obtained. COMPARISON: None. FINDINGS: Bone alignment is normal. No fracture. There is mild osteoarthritis of the elbow joint and acromioclavicular joint. IMPRESSION: 1. Mild polyarticular osteoarthritis. Reviewed, dictated and finalized at location A. STRIPPER
[2021-07-06 15:57] VITALS: BP 145/90; PULSE 83; RESP 18; TEMP 35.9; O2SAT 99
--- NOTE | 2021-07-06 17:24 | ED.UPPEXIN ---
HPI - Extremity Injury (Upper) General Chief Complaint: Extremity Injury, Upper Stated Complaint: lt arm pain Time Seen by Provider: 07/06/21 17:09 Source: patient and RN notes reviewed Mode of arrival: ambulatory Limitations: no limitations History of Present Illness HPI narrative: Patient presents today complaining of left upper arm pain. She was putting a small item into the back of a car when she felt 2 pops in her left upper arm. Since that time she has been unable to lift her arm at the shoulder and has had severe pain in the bicep area. She reports radiating burning pain to the wrist. Denies numbness or tingling. Denies shoulder pain. She currently rates her pain 1/10 at rest, which increases to 8/10 with movement. She has tried no [id number] treatment prior to arrival. MD complaint: injury to: left and arm Related Data Home Medications Medication Instructions Recorded Confirmed Farxiga 5 mg PO DAILY 08/03/19 07/06/21 desvenlafaxine succinate 50 mg PO DAILY 08/03/19 07/06/21 losartan 100 mg PO DAILY 08/03/19 07/06/21 metformin 500 mg PO BID 08/03/19 07/06/21 metoprolol succinate 50 mg PO DAILY 08/03/19 07/06/21 Latuda 40 mg PO HS 11/02/20 07/06/21 Rybelsus 7 mg PO DAILY 11/02/20 07/06/21 oxybutynin chloride 5 mg PO DAILY 11/02/20 07/06/21 baclofen 10 mg PO QID PRN 07/06/21 07/06/21 Allergies Allergy/AdvReac Type Severity Reaction Status Date / Time [id number] Reductase AdvReac Cough Verified 07/06/21 16:38 Inhibitor Review of Systems Review of Systems: CONSTITUTIONAL: Denies body aches, fever, chills, or sweats. EYES: Denies visual changes, redness, or discharge. ENT: Denies rhinorrhea, congestion, sore throat, or otalgia. CARDIOVASCULAR: Denies chest pain, palpitations, or edema. RESPIRATORY: Denies cough or dyspnea. GASTROINTESTINAL: Denies abdominal pain, nausea, vomiting, or diarrhea. GENITOURINARY: Denies dysuria or hematuria. SKIN: Denies rash, itching, or wounds. MUSCULOSKELETAL: Denies back pain. + Left arm pain NEUROLOGIC: Denies headache, numbness, tingling, or weakness. PSYCH: Denies depression or anxiety. [facility] Past Medical History Medical History Anxiety Arthritis Back pain Bipolar disorder Bronchitis Depression Diabetes Diverticulitis GERD (gastroesophageal reflux disease) Hypercholesteremia Mitral valve prolapse Obesity Seasonal allergies Sleep apnea Spinal stenosis Stress fracture in right foot Surgical History Surgical History History of bunionectomy Hx of cholecystectomy Family History Family History Mother Diabetes mellitus Family history of mental disorder Hypertension Family history of cardiovascular disease Family history of arthritis Family history of chronic obstructive pulmonary disease Sibling Family history of alcoholism Father Family history of alcoholism Social History Social History Smoking status: Former smoker Smoking end date: 08/20/06 Alcohol intake: never Substance use: never Gender identity (if verbalized by the patient): Female Spiritual care concerns: No Comments At time of signature, I have reviewed and agree with nursing past medical, surgical, social and family history unless otherwise noted. Please see nursing chart for further information. There is no relevant family history pertinent to the presenting complaint Exam Narrative: GENERAL: Well-appearing, well-nourished, and in no acute distress. HEAD: Normocephalic, atraumatic. EYES: EOMI. No redness or drainage. Conjunctivae normal. ENT: Mucous membranes pink and moist. NECK: Normal AROM. CHEST: No respiratory distress. EXTREMITIES: Left arm: Tenderness about the bicep. Due to patient's
== END 2021-07-06 17:41 | disposition home or self-care (01) ==
PROVIDERS: Emergency Provider Nurse Practitioner; PCP Nurse Practitioner Family
DX: M25.512 Pain in left shoulder (principal); Z87.891 Personal history of nicotine dependence; M19.90 Unspecified osteoarthritis, unspecified site; E11.9 Type 2 diabetes mellitus without complications; K21.9 Gastro-esophageal reflux disease without esophagitis; E78.00 Pure hypercholesterolemia, unspecified; I34.1 Nonrheumatic mitral (valve) prolapse; E66.9 Obesity, unspecified; Z68.44 Body mass index [BMI] 60.0-69.9, adult; G47.30 Sleep apnea, unspecified; M48.00 Spinal stenosis, site unspecified; F31.9 Bipolar disorder, unspecified
CPT/HCPCS: 73060; 99213; G0463

== ENCOUNTER 2021-10-02 16:02 | Emergency (ER) | payer OTHER, SELFPAY ==
--- NOTE | ~2021-10-02 | CT_ITS ---
EXAMINATION: CT abdomen pelvis w con INDICATION: Abdominal pain TECHNIQUE: Computed tomographic images of the abdomen and pelvis were obtained after the administrati on of 100 cc of Omnipaque 350 intravenous contrast. The dose-length product (DLP) was 1632.50 mGy-cm. Automated exposure control and iterative reconstruction technique were employed. COMPARISON: 06/05/2019 FINDINGS: The lung bases are clear. The heart size is normal. The liver is diffusely low in attenuati on when compared with the spleen, consistent with hepatic steatosis. The gallbladder is surgically ab sent. The pancreas and adrenal glands are normal. There is a 4 mm nonobstructing stone of the left ki dney. Cysts of the right kidney measure up to 1.5 cm. There is calcified atherosclerosis of the aorta and many of the other arteries. No pathologically enlarged abdominal or pelvic lymph nodes are ident ified. A small amount of free fluid in the pelvis is likely physiologic. There is mild wall thickenin g of the sigmoid colon. There is moderate lumbar spondylosis at L5-S1. IMPRESSION: 1. Mild wall thickening of the sigmoid colon which could be inflammatory however, would recommend cor relation with colonoscopy history as malignancy could have a similar appearance. Reviewed, dictated and finalized at location F. MANAGER IMPRESSION: 1. Mild wall thickening of the sigmoid colon which could be inflammatory suraj r, would recommend correlation with colonoscopy history as malignancy could hav e a similar appearance.
[2021-10-02 16:07] VITALS: BP 139/77; PULSE 85; RESP 20; TEMP 35.7; O2SAT 100
--- NOTE | 2021-10-02 17:02 | ED.GENADULT ---
HPI - General Adult General Chief complaint: Abdominal Pain Stated complaint: Left side abd pain that radiates to back/shoulder Time Seen by Provider: 10/02/21 16:17 Source: patient Mode of arrival: ambulatory Limitations: no limitations History of Present Illness HPI narrative: Patient presents for evaluation of left-sided abdominal pain for the last 4 to 5 days. She states the pain was initially intermittent but is now constant, rated between 6 and 7 out of 10 in severity. She describes the pain as stabbing. She has a history of diverticulitis and colitis and her current pain is consistent with that previously experienced with those. Her last bowel movement was this morning, loose in consistency, without the presence of blood or mucus in the stool. She has experienced nausea without vomiting. No fever or chills but she has experienced sweats. She has chronic urinary frequency, which is unchanged from her baseline. She denies other urinary symptoms. No vaginal bleeding or discharge. She does have underlying DM and states her BS have been in 110-120's at home. She is compliant with her oral diabetic medications. She does not consume ETOH. She is UTD on colonoscopy and states previous colonoscopy showed polyps. She believes she is next due in two years. Related Data Home Medications Medication Instructions Recorded Confirmed Farxiga 5 mg PO DAILY 08/03/19 07/06/21 desvenlafaxine succinate 50 mg PO DAILY 08/03/19 07/06/21 losartan 100 mg PO DAILY 08/03/19 07/06/21 metformin 500 mg PO BID 08/03/19 07/06/21 metoprolol succinate 50 mg PO DAILY 08/03/19 07/06/21 Latuda 40 mg PO HS 11/02/20 07/06/21 Rybelsus 7 mg PO DAILY 11/02/20 07/06/21 oxybutynin chloride 5 mg PO DAILY 11/02/20 07/06/21 baclofen 10 mg PO QID PRN 07/06/21 07/06/21 Allergies Allergy/AdvReac Type Severity Reaction Status Date / Time [id number] Reductase AdvReac Cough Verified 10/02/21 16:21 Inhibitor Review of Systems Review of Systems: CONSTITUTIONAL: Reports sweats. Denies fever and chills EYES: Denies visual changes, redness, or discharge. ENT: Denies rhinorrhea, congestion, sore throat, or otalgia. CARDIOVASCULAR: Denies chest pain, palpitations, or edema. RESPIRATORY: Denies cough or dyspnea. GASTROINTESTINAL: Reports abdominal pain, and nausea. Reports loose stool. Denies any vomiting, blood or mucus in the stool. GENITOURINARY: Reports chronic urinary frequency, unchanged. Denies dysuria or hematuria. SKIN: Denies rash or itching. MUSCULOSKELETAL: Denies back pain, joint pain, or myalgia. NEUROLOGIC: Denies headache, numbness, dizziness, or weakness. PSYCHIATRIC: Denies anxiety or depression. [facility] Past Medical History Medical History (Updated 10/02/21 @ 20:31 by Stu Schultz, NATALIA, BC) Abdominal pain Anxiety Arthritis Back pain Bipolar disorder Bronchitis Colitis Depression Diabetes Diverticulitis GERD (gastroesophageal reflux disease) Hypercholesteremia Mitral valve prolapse Obesity Seasonal allergies Sleep apnea Spinal stenosis Stress fracture in right foot Surgical History Surgical History History of bunionectomy Hx of cholecystectomy Family History Family History Mother Diabetes mellitus Family history of mental disorder Hypertension Family history of cardiovascular disease Family history of arthritis Family history of chronic obstructive pulmonary disease Sibling Family history of alcoholism Father Family history of alcoholism Social History Social History Smoking status: Former smoker Smoking end date: 08/20/06 Alcohol intake: never Substance use: never Gender identity (if verbalized by the patient): Female Spiritual care concerns: No Exam Narrative: GENERAL: Well-appearing, well
[2021-10-02 17:49] LABS: Basophils Absolute Auto 0.1 K/mm3 (0.0-0.1); Basophils Percent Auto 0.5 % (0.2-1.2); Eosinophils Absolute Auto 0.2 K/mm3 (0-0.3); Eosinophils Percent Auto 2.1 % (0-4.4); Hematocrit 43.9 % (37.0-47.0); Hemoglobin 14.5 g/dL (12.0-15.0); Immature Granulocyte Absolute 0.04 K/mm3 (0.00-0.031); Immature Granulocyte Percent A 0.4 % (0-0.5); Lymphocytes Absolute Auto 4.43 K/mm3 (0.9-3.2); Lymphocytes Percent Auto 45.9 % (18.3-44.2); Mean Corpuscular Hemoglobin 29.9 pg (26-34); Mean Corpuscular Volume 90.5 fl (80-100); Mean Platelet Volume 9.6 fl (7.4-10.4); Monocytes Absolute Auto 0.7 K/mm3 (0.1-0.6); Monocytes Percent Auto 7.7 % (2.6-8.5); Neutrophils Absolute Auto 4.2 K/mm3 (1.3-6.7); Neutrophils Percent Auto 43.4 % (45.5-73.1); Platelet Count Result 238 k/mm3 (150-375); Red Blood Count 4.85 M/mm3 (4.2-5.4); Red Cell Distribution Width 13.3 % (11.5-14.5); White Blood Count 9.7 K/mm3 (4.5-10.0)
[2021-10-02] MEDS: MORPHINE SULFATE (*CRX) 4 MG/ML INJ IV PUSH (17:49)
[2021-10-02] MEDS: SODIUM CHLORIDE 0.9% IV 1,000 ML 999 ML IV CONT (17:51)
[2021-10-02] MEDS: ONDANSETRON INJ 4 MG/2 ML VIAL IV PUSH (17:52)
[2021-10-02 18:01] LABS: Alanine Aminotransferase 33 U/L (4-35); Albumin Level 4.2 g/dL (3.5-5.1); Alkaline Phosphatase 101 U/L (38-126); Anion Gap 9 mmol/L (8-16); Aspartate Amino Transferase 30 U/L (14-36); Bilirubin,Total 0.3 mg/dL (0.2-1.3); Blood Urea Nitrogen 14 mg/dL (7-17); Calcium 9.2 mg/dL (8.4-10.2); Carbon Dioxide 27 mmol/L (22-30); Chloride 100 mmol/L (98-107); Estimated CRCL calculation 173 ml/min; Estimated Glomerular Filt Rate > 60; Glucose 125 mg/dL (65-110); Lipase 94 U/L (23-300); Potassium 4.1 mmol/L (3.4-5.0); Sodium 136 mmol/L (137-145)
[2021-10-02 18:10] LABS: INR 0.9; Prothrombin Time 12.1 Seconds (11.1-14.7)
[2021-10-02 18:11] LABS: Partial Thromboplastin Time 28.9 SECONDS (22.3-36.8)
[2021-10-02 18:13] LABS: Pregnancy On Board Control Positive; Urine Pregnancy Test Negative
[2021-10-02 18:18] LABS: Add Urine Microscopic? YES; Appearance Urine Clear (Clear); Bilirubin Urine Negative (Negative); Blood Urine Negative (Negative); Color Urine Yellow (Yellow); Glucose Urine UA 3+ mg/dL (Negative); Ketones Urine Negative (Negative); Leukocyte Esterase Ur Negative LEU/UL (Negative); Mucus Urine Rare /lpf; Nitrate Urine Negative (Negative); Protein Urine Negative (Negative); RBC Urine 0-2 /hpf (0-2); Specific Grav Ur 1.025 (1.001-1.035); Squamous Epithelial Cell Urine Moderate /hpf (Few); Urobilinogen Urine Negative mg/dL (<2.0); WBC Urine 0-3 /hpf
[2021-10-02 18:21] LABS: Atypical Lymphocytes Present; Platelet Estimate Adequate (Adequate)
[2021-10-02 18:46] VITALS: BP 114/66; PULSE 80; RESP 18; O2SAT 99
--- NOTE | 2021-10-02 19:11 | PC.NURSE ---
Report received from ELSA Malik. This RN assumed care of patient at this time.
[2021-10-02] MEDS: oxyCODONE/ACETAMINOPHEN (*CRX) 5-325 MG TABLET 2 TABLET PO (19:23)
--- NOTE | 2021-10-02 19:27 | PC.NURSE ---
Patient tearful in room, requesting to speak with provider. ERP notified.
[2021-10-02 20:53] VITALS: BP 109/53; PULSE 96; RESP 16; O2SAT 96
== END 2021-10-02 20:53 | disposition home or self-care (01) ==
PROVIDERS: Emergency Provider Nurse Practitioner; PCP Nurse Practitioner Family
DX: K52.9 Noninfective gastroenteritis and colitis, unspecified (principal); R10.84 Generalized abdominal pain; E11.9 Type 2 diabetes mellitus without complications; K21.9 Gastro-esophageal reflux disease without esophagitis; E78.00 Pure hypercholesterolemia, unspecified; I34.1 Nonrheumatic mitral (valve) prolapse; M19.90 Unspecified osteoarthritis, unspecified site; G47.30 Sleep apnea, unspecified; E66.9 Obesity, unspecified; F41.9 Anxiety disorder, unspecified; F31.9 Bipolar disorder, unspecified; Z79.84 Long term (current) use of oral hypoglycemic drugs; Z87.891 Personal history of nicotine dependence
CPT/HCPCS: 36415; 74177; 80053; 81001; 81025; 83690; 85025; 85610; 85730; 96361; 96374; 96375; 99284; A9270; J2270; J2405; J7030; Q9967

== ENCOUNTER 2022-02-23 18:33 | Observation (INO) | payer OTHER, SELFPAY ==
[2022-02-23] VITALS (22 sets, daily range): BP systolic 113–149; BP diastolic 63–88; PULSE 75–87; RESP 12–24; TEMP 36.3–36.4; O2SAT 94–98
--- NOTE | ~2022-02-23 | MR_ITS ---
EXAMINATION: MR brain/brain stem wo/w con DATE: 02/24/2022 11:21 CDT INDICATION: Visual loss. Facial numbness. TECHNIQUE: Magnetic resonance imaging (MRI) of the brain and brainstem was performed without and with 20 cc MultiHance intravenous contrast. Sequences included sagittal and axial T1-weighted SE, axial diffusion-weighted FS SE, axial T2*-weighted GRE, axial T2-weighted FLAIR Propeller, and axial T2-jovany ghted Propeller. Apparent diffusion coefficient (ADC) maps were created. COMPARISON: CT dated 02/23/2022 and MRI dated 11/03/2020 FINDINGS: The brain volume and ventricular system are within normal limits. The brain parenchymal si gnal intensity pattern and kendall/white matter is normal and there is no evidence of hemorrhage, space occupying masses or infarctions. The flow signal voids of the major arterial structures about the [place] of [place] and within the noah r dural venous sinuses appear grossly unremarkable and patent. The seventh and eighth cranial nerve complexes are normal. The mid sagittal image demonstrates a normal craniovertebral junction and jessica us callosum. There is a small mucous retention cyst of the left maxillary sinus. Orbits are symmetric without disconjugate gaze. No abnormal contrast enhancement was appreciated. IMPRESSION: 1: Unremarkable MRI of the brain.No significant interval change. Reviewed, dictated and finalized at location A.
--- NOTE | ~2022-02-23 | CT_ITS ---
EXAMINATION: CT brain wo con DATE: 02/23/2022 18:55 INDICATION: Right facial numbness TECHNIQUE: Computed tomography (CT) of the head was performed without intravenous contrast. The mA wa s adjusted according to patient size. Iterative reconstruction technique was employed. Exam dose: 68 1.00 mGy-cm total exam DLP. COMPARISON: 11/03/2020 MRI brain/brainstem 11/02/2020 CT brain FINDINGS: Vertebral, basilar and bilateral carotid siphon internal carotid artery calcifications. No intracranial mass lesion or hemorrhage or cerebrovascular accident, midline shift or mass effect i s noted. Normal ventricular size. No subdural or epidural hematoma. No orbital mass lesion. There is prominent mucoperiosteal thickening of the lower portion of the left axillary sinus, minimal new comparison thickening of the lower lateral wall the right maxillary sinus and minimal focal opac ification of right ethmoid air cells. The mastoid air cells are normally developed and aerated. No fracture or bone destruction of the cranial vault. IMPRESSION: Cerebral atherosclerosis No acute intracranial finding Reviewed, dictated and finalized at Location A. Reviewed, dictated and finalized at location A.
--- NOTE | ~2022-02-23 | XR_ITS ---
XR chest 1V DATE: 02/23/2022 19:03 INDICATION: Stroke symptoms TECHNIQUE: AP chest COMPARISON: 11/02/2020 AP chest FINDINGS: Normal heart size. No hilar or mediastinal enlargement. Mild bibasilar infiltrate or atelectasis. The lungs otherwise appear clear. No apparent pleural effus ion. No pulmonary vascular congestion or pneumothorax. IMPRESSION: Mild bibasilar infiltrate or atelectasis Reviewed, dictated and finalized at location A.
[2022-02-23 18:41] LABS: Glucose Point of Care 126 mg/dl (65-105)
--- NOTE | 2022-02-23 18:43 | ECG_ITS ---
Measurements Intervals [place] Rate: 76 P: 29 MT: 184 QRS: 8 QRSD: 138 T: 2 QT: 355 QTc: 399 Interpretive Statements SINUS RHYTHM DELAYED PRECORDIAL R/S TRANSITION BORDERLINE T WAVE ABNORMALITY- INFERIOR LEADS BASELINE ARTIFACT- I, III, AVL, AVF BORDERLINE ECG Electronically Signed On 02-23-2022 20:28:43 CDT by Johann Berg D.O.
[2022-02-23 19:14] LABS: Basophils Absolute Auto 0.1 K/mm3 (0.0-0.1); Basophils Percent Auto 0.6 % (0.2-1.2); Eosinophils Absolute Auto 0.3 K/mm3 (0-0.3); Hematocrit 41.4 % (37.0-47.0); Hemoglobin 13.8 g/dL (12.0-15.0); Immature Granulocyte Absolute 0.05 K/mm3 (0.00-0.031); Immature Granulocyte Percent A 0.5 % (0-0.5); Lymphocytes Absolute Auto 4.86 K/mm3 (0.9-3.2); Lymphocytes Percent Auto 45.1 % (18.3-44.2); Mean Corpuscular HGB Conc 33.3 g/dl (32-36); Mean Corpuscular Hemoglobin 30.3 pg (26-34); Mean Platelet Volume 9.2 fl (7.4-10.4); Monocytes Absolute Auto 0.8 K/mm3 (0.1-0.6); Monocytes Percent Auto 7.4 % (2.6-8.5); Neutrophils Absolute Auto 4.7 K/mm3 (1.3-6.7); Neutrophils Percent Auto 43.4 % (45.5-73.1); Platelet Count Result 274 k/mm3 (150-375); Red Blood Count 4.55 M/mm3 (4.2-5.4); Red Cell Distribution Width 12.8 % (11.5-14.5); White Blood Count 10.8 K/mm3 (4.5-10.0)
--- NOTE | 2022-02-23 19:17 | ED.NEUROSD ---
HPI - Neuro Symptoms/Deficit General Chief Complaint: Neuro Symptoms/Deficit Stated Complaint: numbness Time Seen by Provider: 02/23/22 18:40 History of Present Illness HPI Narrative: Patient is a 51-year-old female who presents ER with right-sided jaw numbness. Began 1 hour and a half prior to arrival. Still persistent. No facial droop or slurred speech. Patient reports yesterday she had left-sided headache with right-sided facial tingling. It is associated with forgetfulness and confusion while at a store and she had difficulty seeing out of her right eye. She reports a little bit of cloudiness in her right eye that was short-lived but tingling still persist. She reports she was seen for similar symptoms a year ago and diagnosed with TIA. She does not take any antiplatelet medication. Related Data Home Medications Medication Instructions Recorded Confirmed dapagliflozin 5 mg tablet (Farxiga) 5 mg PO DAILY 08/03/19 07/06/21 desvenlafaxine succinate 50 mg 50 mg PO DAILY 08/03/19 07/06/21 tablet,extended release 24 hr losartan 100 mg tablet 100 mg PO DAILY 08/03/19 07/06/21 metformin 500 mg tablet 500 mg PO BID 08/03/19 07/06/21 metoprolol succinate 50 mg 50 mg PO DAILY 08/03/19 07/06/21 tablet,extended release 24 hr lurasidone 40 mg tablet (Latuda) 40 mg PO HS 11/02/20 07/06/21 oxybutynin chloride 5 mg 5 mg PO DAILY 11/02/20 07/06/21 tablet,extended release 24 hr semaglutide 7 mg tablet (Rybelsus) 7 mg PO DAILY 11/02/20 07/06/21 baclofen 10 mg tablet 10 mg PO QID PRN Muscle Spasm 07/06/21 07/06/21 Allergies Allergy/AdvReac Type Severity Reaction Status Date / Time [id number] Reductase AdvReac Cough Verified 10/02/21 16:21 Inhibitor Review of Systems Review of Systems: All systems reviewed & are unremarkable except as noted in HPI and below Constitutional: Constitutional: Denies chills, Denies fatigue and Denies fever(s) Eyes: Eyes: Reports change in vision ENT: Denies nasal congestion and Denies sore throat Cardiovascular: Cardiovascular: Denies chest pain, Denies rapid heart rate and Denies radiating jaw, neck or arm pain Respiratory: Respiratory: Denies cough and Denies dyspnea Gastrointestinal: Gastrointestinal: Denies abdominal pain, Denies nausea and Denies vomiting Neurologic: Denies syncope, Reports headache(s), Denies focal weakness and Denies numbness Comments: facial tingling PMFSH Past Medical History Medical History (Updated 10/03/21 @ 00:00 by Background Daemon) Abdominal pain Anxiety Arthritis Back pain Bipolar disorder Bronchitis Colitis Depression Diabetes Diverticulitis GERD (gastroesophageal reflux disease) Hypercholesteremia Mitral valve prolapse Obesity Seasonal allergies Sleep apnea Spinal stenosis Stress fracture in right foot Surgical History Surgical History History of bunionectomy Hx of cholecystectomy Family History Family History Mother Diabetes mellitus Family history of mental disorder Hypertension Family history of cardiovascular disease Family history of arthritis Family history of chronic obstructive pulmonary disease Sibling Family history of alcoholism Father Family history of alcoholism Social History Social History Smoking status: Former smoker Smoking end date: 08/20/06 Alcohol intake: never Substance use: never Gender identity (if verbalized by the patient): Female Spiritual care concerns: No Exam Narrative: GENERAL: Well-appearing, well-nourished, and in no acute distress. HEAD: Normocephalic, atraumatic. EYES: PERRL and EOMI. ENT: Mucous membranes moist. CHEST: Clear to auscultation. No respiratory distress. HEART: Regular rate and rhythm. Normal peripheral pulses. ABDOMEN: Soft, nontender, nondistend
[2022-02-23 19:24] LABS: Alanine Aminotransferase 36 U/L (6-35); Albumin Level 4.4 g/dL (3.5-5.1); Alkaline Phosphatase 104 U/L (38-126); Anion Gap 7 mmol/L (8-16); Aspartate Amino Transferase 28 U/L (14-36); Bilirubin,Total < 0.1 mg/dL (0.2-1.3); Blood Urea Nitrogen 15 mg/dL (7-17); Calcium 8.9 mg/dL (8.4-10.2); Carbon Dioxide 27 mmol/L (22-30); Chloride 101 mmol/L (98-107); Estimated Glomerular Filt Rate > 60; Glucose 124 mg/dL (65-110); Sodium 135 mmol/L (137-145)
[2022-02-23 19:35] LABS: Troponin I < 0.012 ng/mL (0.000-0.034)
[2022-02-23 19:40] LABS: Prothrombin Time 12.8 Seconds (11.1-14.7)
[2022-02-23 19:41] LABS: Partial Thromboplastin Time 28.8 SECONDS (22.3-36.8)
[2022-02-23] MEDS: ASPIRIN 325 MG TABLET PO (20:18)
--- NOTE | 2022-02-23 20:25 | PC.NURSE ---
urine preg canceled pt reports she is in a same sex marriage and did not feel this was a necessary test needed
--- NOTE | 2022-02-23 22:40 | ADMGEN ---
This patient, Shira Isaacs, was admitted to Medical Room 253-01. Patient/family oriented to hospital policies and general routines including ID bracelet, bed and alarms, visiting hours, pain management, procedures, bathroom and other care routines, personal items, smoking policy, room service/diet, and visiting hours. Information on how to activate the Rapid Response Team has been discussed. Patient/Family are encouraged to report perceived risks to care and to ask questions if they do not understand what they are told or what they should do.
[2022-02-24] VITALS (7 sets, daily range): BP systolic 105–120; BP diastolic 63–68; PULSE 64–103; RESP 16–18; TEMP 36.3–36.4; O2SAT 94–100; BMI 64.3
--- NOTE | 2022-02-24 00:03 | PM.IMHP ---
H&P: HPI History of Present Illness Date/Time: 02/23/22 23:30 Chief Complaint: Facial numbness Narrative: 51-year-old female with past medical history of bipolar depression, anxiety, morbid obesity, obstructive sleep apnea and type 2 diabetes mellitus who presented to the ER with complaints of right facial paresthesias and transient vision changes.The patient's distribution of neurologic symptoms seems odd. Moved her having localized paresthesias 1st to the lateral cheek and then to the corner of the mouth. She reports that the symptoms and rates lasted about 10 minutes and felt as if she had had some lidocaine. She felt as if the corner of her right eye was drooping. Towards into the symptoms she did have a brief episode where she had dimming of her vision in her right eye for less than a minute. She had an MRI October 2020 due to similar symptoms that was negative. She received aspirin via EMS. Her symptoms had essentially resolved by cm came to the ER except for the corner of the right mouth still felt ?tingly?. She reports that the symptoms occurred while she was dealing with severe social stressors. She evidently has custody of her step grandson and was in a disagreement with her stepson due to some family issues. For she denies feeling anxious at the time of the onset of the symptoms. She states that she was sitting still and not doing anything in the few minutes prior to the onset of symptoms. She did not have any accompanying symptoms to the unilateral arm or leg. She reports that her right leg is always weak but this is unchanged from baseline. On exam patient's strength of the right upper extremity or equal compared to the left. Apnea she denies any chest pain or palpitations. She reports that she started on phentermine about a month ago to do attempt with weight loss. She has been evaluated in the past for possible bariatric surgery but she is scared to have bariatric surgery due to some complications her daughter had with bariatric surgery. She has lost 20 lb on the phentermine. She reports there her allergy to statin was cough. But after further discussion it sounds as if her allergy may have been too lisinopril not to statin therapy. Review of Systems Review of Systems: 12 systems were reviewed with pertinent positives and negatives per HPI. Except as documented in the HPI, all other systems were reviewed and are negative. [facility] Past Medical History Medical History (Updated 02/24/22 @ 05:34 by April Perez DO) Anxiety Arthritis Bipolar disorder Diverticulitis (07/2016) With multiple episodes of diverticulitis starting in January of 2016 Essential hypertension GERD (gastroesophageal reflux disease) Hypercholesteremia Mitral valve prolapse Morbid obesity with BMI of 60.0-69.9, adult Seasonal allergies Sleep apnea CPAP of 11 Spinal stenosis Stress fracture in right foot Type 2 diabetes mellitus Surgical History Surgical History (Updated 02/24/22 @ 02:19 by April Perez DO) History of bunionectomy History of myringotomy Hx of cholecystectomy Bilateral Family History Family History Mother Diabetes mellitus Family history of mental disorder Hypertension Family history of cardiovascular disease Family history of arthritis Family history of chronic obstructive pulmonary disease Sibling Family history of alcoholism Father Family history of alcoholism Social History Social History (Updated 02/24/22 @ 05:38 by April Perez DO) Social History: Code status: Full code Surrogate decision maker: Smoking packs per day: 0.5 Smoking cigarettes per day: 10.0 Years smoked: 21 Smoking pack-years: 10.50 Smoking status: Former smoker Tobacco type: cigarettes Smoking end date: 08/20/06 Additional smoking assessment comments: She smoked from age 15 to age 36. Alcohol intake: never Substance us
[2022-02-24] MEDS: EMPAGLIFLOZIN 10 MG TABLET BY MOUTH (08:39)
[2022-02-24] MEDS: metFORMIN HCL 500 MG TABLET PO (08:39)
[2022-02-24] MEDS: DESVENLAFAXINE SUCCINATE 50 MG TAB.ER.24H PO (08:40)
[2022-02-24] MEDS: METOPROLOL SUCCINATE EXT REL 50 MG TABCR PO (08:40)
[2022-02-24] MEDS: LOSARTAN POTASSIUM 100 MG TABLET PO (08:40)
[2022-02-24] MEDS: LORazepam INJ (*CRX) 2 MG/ML VIAL 1 MG IV PUSH (09:30)
--- NOTE | 2022-02-24 10:09 | WPDNEURCNPN ---
Assessment and Plan Assessment and plan (1) Facial paresthesia: Code(s): R20.2 - Paresthesia of skin Status: Acute Plan considering the symptomatology brainstem involvement needs to be ruled out before making the diagnosis of brief considering the diagnosis of peripheral max and mandibular division of trigeminal nerve involvement. MRI of the brain and brainstem will be obtained Consult date: 02/24/22 Time Seen: 09:00 Reason for consult: Numbness HPI: Shira Isaacs is a 51 year old female admitted to the [facility] through the emergency room for the complaints of numbness of the right side of the jaw of 1-1/2 hours duration before coming to the emergency room without associated facial droop or dysarthria or dysphagia but in addition to the complaints of left-sided headache at the same time she also complained of forgetfulness on confusion while she was at a store and having difficulties seeing out of her right eye the cloudiness in the right eye was very short-lived lasting but the tingling of the face persisted she had the same symptomatology about a year ago and was diagnosed to have TIA . Her outpatient medications included farxiga 5mg daily, losartan 100 mg daily, metformin 500 mg twice a day, metoprolol 50 mg daily, Latuda 40 mg HS, oxybutynin 5 mg daily, Major glue tight 7 mg p.o. daily, and baclofen 10 mg q.i.d. on p.r.n. basis, she has ongoing history of anxiety with bipolar disorder chronic back pain depression, diabetes mellitus, and mitral valve prolapse, she is a former smoker but no alcohol intake, initial examination in the emergency room was normal and evaluation included routine blood studies which were normal except the borderline sodium and blood sugar, CT scan of the head revealed no evidence of bleed or space-occupying lesion and x-ray chest documented mild bibasilar infiltration or atelectasis EKG revealed no atrial fibrillation Review of Systems Review of Systems: All systems reviewed & are unremarkable except as noted in HPI and below [facility] Past Medical History Medical History (Updated 02/24/22 @ 05:34 by April Perez DO) Anxiety Arthritis Bipolar disorder Diverticulitis (07/2016) With multiple episodes of diverticulitis starting in January of 2016 Essential hypertension GERD (gastroesophageal reflux disease) Hypercholesteremia Mitral valve prolapse Morbid obesity with BMI of 60.0-69.9, adult Seasonal allergies Sleep apnea CPAP of 11 Spinal stenosis Stress fracture in right foot Type 2 diabetes mellitus Surgical History Surgical History (Updated 02/24/22 @ 02:19 by April Perez DO) History of bunionectomy History of myringotomy Hx of cholecystectomy Bilateral Family History Family History Mother Diabetes mellitus Family history of mental disorder Hypertension Family history of cardiovascular disease Family history of arthritis Family history of chronic obstructive pulmonary disease Sibling Family history of alcoholism Father Family history of alcoholism Social History Social History (Updated 02/24/22 @ 05:38 by April Perez DO) Social History: Code status: Full code Surrogate decision maker: Smoking packs per day: 0.5 Smoking cigarettes per day: 10.0 Years smoked: 21 Smoking pack-years: 10.50 Smoking status: Former smoker Tobacco type: cigarettes Smoking end date: 08/20/06 Additional smoking assessment comments: She smoked from age 15 to age 36. Alcohol intake: never Substance use: never Additional living arrangements comments: She lives at home with her of 22 years. They have 6 children. She has 1 biological child and 5 adopted children who are all girls. Her age is [id number] who of all moved out and 3 daughters remain at home age 18 and 2 12-year-old twins. One of the twins has autism. Additional occupation/education comments:
--- NOTE | 2022-02-24 11:46 | PCCCNOTE ---
On 02/24/22, the student, [Franny Smith ], provided care and completed [facility] documentation on this patient. I have reviewed the student's documentation and agree with the findings.
--- NOTE | 2022-02-24 14:28 | PM.DS ---
DS: Admitting Diagnosis Discharge Date 02/24/2022 1428 Admitting Diagnosis Facial paresthesia DS: Discharge Diagnosis Discharge Diagnosis (1) Facial paresthesia: Code(s): R20.2 - Paresthesia of skin Status: Acute (2) Diabetes with neurologic complications: Code(s): E11.49 - Type 2 diabetes mellitus with other diabetic neurological complication Status: Acute DS: Summary Hospital Course Reason for hospitalization: Facial numbness Hospital Course: Shira Isaacs is a 51-year-old female with past medical history of bipolar depression, anxiety, morbid obesity, obstructive sleep apnea and type 2 diabetes mellitus. She presented to the ER with complaints of right facial paresthesias and transient vision changes. She reported localized paresthesias 1st to the lateral cheek and then to the corner of the mouth on the right side.? She reports symptoms lasted about 10 minutes and felt as if she had had some lidocaine.? She felt as if the corner of her right eye was drooping and a brief episode where she had dimming of her vision in her right eye for less than a minute.? She had an MRI October 2020 due to similar symptoms that was negative.? She received aspirin 325 mg PO via EMS.? Her symptoms had essentially resolved by the time she came to the ER except for the corner of the right mouth still felt ?tingly?.? She reported that the symptoms occurred while she was dealing with severe social stressors.? She evidently has custody of her step grandson and was in a disagreement for family issues.? She denies feeling anxious at the time of the onset of the symptoms.? She was sitting still and not doing anything in the few minutes prior to the onset of symptoms.? She did not have any accompanying symptoms to the unilateral arm or leg.? Her right leg is always weak but this is unchanged from baseline.? On exam patient's strength of the right upper extremity or equal compared to the left.? No chest pain or palpitations.? She started on phentermine about a month ago to attempt weight loss.?She has lost 20 lb on the phentermine. She was referred for observation. Neurology was consulted. CT head and Brain MRI was completed and unremarkable. Her facial paresthesia was thought to be associated to her diabetes and neuropathy. Her pregabalin was increased to 150 mg BID. The patient was discharged home in stable condition. Status at Discharge Cognitive/behavioral status at discharge: AAOx4, pleasant Functional status at discharge: independent ambulation Overall status at discharge: patient is back to baseline Time Spent with Patient Time attestation: Total time spent providing and/or coordinating discharge services: Time spent: Less than 30 minutes Exam Narrative: General: No acute distress.? Obese adult female lying in bed. Mental Status/Psych: Awake, alert and oriented to person and place with clear speech. Neutral mood and affect. Pleasant and cooperate. Skin: fair, warm, dry and intact without rashes or lesions. No open wounds. Good turgor.? HEENT: Normocephalic. Conjunctivae are clear. Sclera is non-icteric. EOM intact. PERRL. Grossly normal hearing. Oral mucosa pink and moist. Tongue midline. Oropharynx within normal limits. Neck: Supple. Thyroid not palpable. Trachea midline. No JVD. Heart: S1 and S2 regular rate and rhythm. No murmurs, gallops, or rubs auscultated. Chest: Respirations even and unlabored. Lung sounds are clear to auscultation in all lobes bilaterally without wheezes, rhonchi, or rales. Abdomen: Soft, round and non-tender to palpation.? Bowel sounds present in all 4 quadrants. Extremities:? Grossly normal ROM all extremities. No edema. Radial and dorsalis pedis pulses +2 bilaterally. Neurological: Cranial nerves 2-12 intact.?Muscle strength 5/5 all extremities, hand grasps equal, decreased sensation to light touch right facial region at corner of upper and lower lips. DS: Data Data Completed and Pending
[2022-02-24] MEDS: GABAPENTIN 100 MG CAPSULE PO (14:52)
== END 2022-02-24 15:10 | disposition home or self-care (01) ==
LOC: ANHED 19:17 → ANH2MED 21:59
PROVIDERS: Admitting Provider Internal Medicine; Emergency Provider Emergency Medicine; PCP Nurse Practitioner Family; Visit Provider Internal Medicine
DX: R20.2 Paresthesia of skin (principal); R41.0 Disorientation, unspecified; R41.3 Other amnesia; H53.8 Other visual disturbances; I67.2 Cerebral atherosclerosis; R91.8 Other nonspecific abnormal finding of lung field; F41.9 Anxiety disorder, unspecified; F31.9 Bipolar disorder, unspecified; E11.49 Type 2 diabetes mellitus with other diabetic neurological complication; E78.00 Pure hypercholesterolemia, unspecified; I10 Essential (primary) hypertension; M48.00 Spinal stenosis, site unspecified; E66.01 Morbid (severe) obesity due to excess calories; Z68.44 Body mass index [BMI] 60.0-69.9, adult; G47.33 Obstructive sleep apnea (adult) (pediatric); Z87.891 Personal history of nicotine dependence; Z79.84 Long term (current) use of oral hypoglycemic drugs; Z79.899 Other long term (current) drug therapy; Z79.891 Long term (current) use of opiate analgesic
CPT/HCPCS: 36415; 70450; 70553; 71045; 80053; 82948; 84484; 85025; 85610; 85730; 93005; 96374; 99285; A9270; A9577; G0378; J2060

== ENCOUNTER 2023-09-13 17:09 | Emergency (ER) | payer OTHER, SELFPAY ==
--- NOTE | 2023-09-13 17:17 | ED.EAR ---
HPI - Ear Problem General Chief complaint: Ear Stated complaint: rt earache Time Seen by Provider: 09/13/23 17:16 Source: patient Mode of arrival: ambulatory Limitations: no limitations History of Present Illness HPI Narrative: Shira is a 52 year old female patient presenting to the clinic today with complaints of right ear pain x3 day. She reports she is getting some tarry wax out of her ear that started yesterday. She reports no known fever or chills. Related Data Home Medications Medication Instructions Recorded Confirmed dapagliflozin propanediol 5 mg 5 mg PO DAILY 08/03/19 02/23/22 tablet (Farxiga) desvenlafaxine succinate 50 mg 50 mg PO DAILY 08/03/19 02/23/22 tablet,extended release 24 hr losartan 100 mg tablet 100 mg PO DAILY 08/03/19 02/23/22 metformin 500 mg tablet 500 mg PO BID 08/03/19 02/23/22 metoprolol succinate 50 mg 50 mg PO DAILY 08/03/19 02/23/22 tablet,extended release 24 hr lurasidone 40 mg tablet (Latuda) 40 mg PO HS 11/02/20 02/23/22 oxybutynin chloride 5 mg 5 mg PO DAILY 11/02/20 02/23/22 tablet,extended release 24 hr Allergies Allergy/AdvReac Type Severity Reaction Status Date / Time [id number] Reductase AdvReac Cough Verified 09/13/23 17:26 Inhibitor Review of Systems Review of Systems: Pertinent positives per HPI. Patient denies any fever, chills, rash, headache, visual changes, dizziness, cough, shortness of breath, chest pain, palpitations, nausea, vomiting, diarrhea, constipation, abdominal pain, or any urinary issues. [facility] Past Medical History Medical History (Updated 09/13/23 @ 17:35 by Gerald Aldrich APRN) Anxiety Arthritis Bipolar disorder Diverticulitis (07/2016) With multiple episodes of diverticulitis starting in January of 2016 Essential hypertension GERD (gastroesophageal reflux disease) Hypercholesteremia Mitral valve prolapse Morbid obesity with BMI of 60.0-69.9, adult Seasonal allergies Sleep apnea CPAP of 11 Spinal stenosis Stress fracture in right foot Type 2 diabetes mellitus Surgical History Surgical History History of bunionectomy History of myringotomy Hx of cholecystectomy Bilateral Family History Family History Mother Diabetes mellitus Family history of mental disorder Hypertension Family history of cardiovascular disease Family history of arthritis Family history of chronic obstructive pulmonary disease Sibling Family history of alcoholism Father Family history of alcoholism Social History Social History Social History: Code status: Full code Surrogate decision maker: Smoking packs per day: 0.5 Smoking cigarettes per day: 10.0 Years smoked: 21 Smoking pack-years: 10.50 Smoking status: Former smoker Tobacco type: cigarettes Smoking end date: 08/20/06 Additional smoking assessment comments: She smoked from age 15 to age 36. Alcohol intake: never Substance use: never Living arrangements: with family Additional living arrangements comments: She lives at home with her of 22 years. They have 6 children. She has 1 biological child and 5 adopted children who are all girls. Her age is [id number] who of all moved out and 3 daughters remain at home age 18 and 2 12-year-old twins. One of the twins has autism. Additional occupation/education comments: She is on disability due to her psychiatric illnesses. 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 Gender identity (if verbalized by the patient): Female Spiritual care concerns: No Comments At the time of my signature, I reviewed and agree with the nursing past medical, surgical, social, and family history. There is no relevant family history pertinent to the patient complaint. Exam Narrative: General: Well-developed, morbidly ob
[2023-09-13 17:27] VITALS: BP 131/66; PULSE 66; RESP 20; TEMP 36.4; O2SAT 96
== END 2023-09-13 17:38 | disposition home or self-care (01) ==
PROVIDERS: Emergency Provider Nurse Practitioner Family; PCP Nurse Practitioner Family
DX: H66.91 Otitis media, unspecified, right ear (principal); Z87.891 Personal history of nicotine dependence; M19.90 Unspecified osteoarthritis, unspecified site; I10 Essential (primary) hypertension; K21.9 Gastro-esophageal reflux disease without esophagitis; E78.00 Pure hypercholesterolemia, unspecified; I34.1 Nonrheumatic mitral (valve) prolapse; E66.01 Morbid (severe) obesity due to excess calories; Z68.44 Body mass index [BMI] 60.0-69.9, adult; G47.33 Obstructive sleep apnea (adult) (pediatric); M48.00 Spinal stenosis, site unspecified; E11.9 Type 2 diabetes mellitus without complications
CPT/HCPCS: 99213; G0463

== ENCOUNTER 2023-09-16 10:31 | Emergency (ER) | payer OTHER, SELFPAY ==
--- NOTE | ~2023-09-16 | CT_ITS ---
EXAMINATION: CT abdomen pelvis w con DATE: 09/16/2023 14:58 INDICATION: LLQ tenderness, hx of diverticulitis TECHNIQUE: Computed tomography (CT) of the abdomen and pelvis was performed with 100 mL Omnipaque-350 intravenous contrast. Automated exposure control and iterative reconstruction technique were employe d. The dose-length product was 1713.80 mGy-cm. COMPARISON: 10/02/2021. FINDINGS: Lower thorax: Mitral and coronary artery calcification. Liver: Enlarged. Diffuse fatty infiltration. Biliary/Gallbladder: Gallbladder is absent. No bile duct dilation. Pancreas: No mass or duct dilation. Spleen: Normal. Adrenals:No mass. Kidneys: No suspicious mass, obstructing stone, or hydronephrosis. The previously described 4 mm left lower pole calcification no longer present. Simple right midpole cyst. GI tract: No small or large bowel dilation. Normal appendix. Diverticulosis. Inflamed diverticulum wi th perisigmoid inflammatory changes in the proximal sigmoid, in the left lower quadrant. Segmental wa ll thickening in the proximal sigmoid. No abscess or free air. Mesentery/Peritoneum: No ascites, mass, or free air. Retroperitoneum: No mass. Atherosclerotic abdominal aortic and/or arterial calcifications. Pelvis: Pelvic organs are within normal limits. Soft Tissues: Small fat-containing uncomplicated umbilical hernia. Bones: No acute osseous finding. IMPRESSION: Hepatomegaly and steatosis. Acute uncomplicated proximal sigmoid diverticulitis. There is persistent segmental wall thickening in the proximal sigmoid, to a greater extent than expec luan. As previously recommended, consider referral for nonemergent but timely colonoscopy, unless alre chris performed. Reviewed, dictated and finalized at location K. ACT CENTER MANAGER IMPRESSION: Hepatomegaly and steatosis. Acute uncomplicated proximal sigmoid diverticulitis. There is persistent segmental wall thickening in the proximal sigmoid, to a gre ater extent than expected. As previously recommended, consider referral for non emergent but timely colonoscopy, unless already performed.
[2023-09-16 10:50] VITALS: BP 130/72; PULSE 87; RESP 18; TEMP 36.2; O2SAT 99
--- NOTE | 2023-09-16 13:44 | ED.ABDPAIN ---
HPI - Abdominal Pain General Chief Complaint: Abdominal Pain Stated Complaint: abd pain Time Seen by Provider: 09/16/23 13:28 History of Present Illness HPI narrative: Patient is a 52-year-old female presenting with abdominal pain. States that she has a history of diverticulitis and that is what it feels like. Started a couple nights ago, most severe is in the left lower quadrant. Associated diarrhea and nausea. States that she called her PCP called in Cipro and Flagyl of which she has taken 2 doses and she continues to have severe pain. Also complains of dysuria. No further complaints. Related Data Home Medications Medication Instructions Recorded Confirmed dapagliflozin propanediol 5 mg 5 mg PO DAILY 08/03/19 09/13/23 tablet (Farxiga) desvenlafaxine succinate 50 mg 50 mg PO DAILY 08/03/19 09/13/23 tablet,extended release 24 hr losartan 100 mg tablet 100 mg PO DAILY 08/03/19 09/13/23 metformin 500 mg tablet 500 mg PO BID 08/03/19 09/13/23 metoprolol succinate 50 mg 50 mg PO DAILY 08/03/19 09/13/23 tablet,extended release 24 hr lurasidone 40 mg tablet (Latuda) 40 mg PO HS 11/02/20 09/13/23 oxybutynin chloride 5 mg 5 mg PO DAILY 11/02/20 09/13/23 tablet,extended release 24 hr Allergies Allergy/AdvReac Type Severity Reaction Status Date / Time Kcwnlfm-YIC-[id number] Reductase AdvReac Cough Verified 09/13/23 17:26 Inhibitor Review of Systems Review of Systems: All systems reviewed & are unremarkable except as noted in HPI and below PMFSH Past Medical History Medical History Anxiety Arthritis Bipolar disorder Diverticulitis (07/2016) With multiple episodes of diverticulitis starting in January of 2016 Essential hypertension GERD (gastroesophageal reflux disease) Hypercholesteremia Mitral valve prolapse Morbid obesity with BMI of 60.0-69.9, adult Seasonal allergies Sleep apnea CPAP of 11 Spinal stenosis Stress fracture in right foot Type 2 diabetes mellitus Surgical History Surgical History History of bunionectomy History of myringotomy Hx of cholecystectomy Bilateral Family History Family History Mother Diabetes mellitus Family history of mental disorder Hypertension Family history of cardiovascular disease Family history of arthritis Family history of chronic obstructive pulmonary disease Sibling Family history of alcoholism Father Family history of alcoholism Social History Social History Social History: Code status: Full code Surrogate decision maker: Smoking packs per day: 0.5 Smoking cigarettes per day: 10.0 Years smoked: 21 Smoking pack-years: 10.50 Smoking status: Former smoker Tobacco type: cigarettes Smoking end date: 08/20/06 Additional smoking assessment comments: She smoked from age 15 to age 36. Alcohol intake: never Substance use: never Living arrangements: with family Additional living arrangements comments: She lives at home with her of 22 years. They have 6 children. She has 1 biological child and 5 adopted children who are all girls. Her age is [id number] who of all moved out and 3 daughters remain at home age 18 and 2 12-year-old twins. One of the twins has autism. Additional occupation/education comments: She is on disability due to her psychiatric illnesses. 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 Gender identity (if verbalized by the patient): Female Spiritual care concerns: No Exam Narrative: GENERAL: Nontoxic, no acute distress HEAD: Normocephalic, atraumatic. EYES: PERRLA and EOMI. ENT: Mucous membranes moist. NECK: Supple. CHEST: Clear to auscultation. No respiratory distress. HEART: Regular rate and rhythm ABDOMEN: Soft, +LLQ tenderness w/o
[2023-09-16 13:53] VITALS: BP 124/75; PULSE 86; RESP 22; O2SAT 97
[2023-09-16] MEDS: SODIUM CHLORIDE 0.9% IV 1,000 ML 999 ML IV CONT (14:04)
[2023-09-16] MEDS: ONDANSETRON INJ 4 MG/2 ML VIAL IV PUSH (14:04)
[2023-09-16] MEDS: HYDROmorphone HCL INJ (*CRX) 1 MG/ML SYR IV PUSH (14:04)
[2023-09-16 14:09] LABS: Basophils Absolute Auto 0.1 K/mm3 (0.0-0.1); Basophils Percent Auto 0.5 % (0.2-1.2); Eosinophils Absolute Auto 0.1 K/mm3 (0-0.3); Eosinophils Percent Auto 0.8 % (0-4.4); Hematocrit 48.8 % (37.0-47.0); Hemoglobin 15.5 g/dL (12.0-15.0); Immature Granulocyte Absolute 0.05 K/mm3 (0.00-0.031); Immature Granulocyte Percent A 0.4 % (0-0.5); Lymphocytes Absolute Auto 3.47 K/mm3 (0.9-3.2); Lymphocytes Percent Auto 26.2 % (18.3-44.2); Mean Corpuscular HGB Conc 31.8 g/dl (32-36); Mean Corpuscular Hemoglobin 29.5 pg (26-34); Mean Platelet Volume 9.7 fl (7.4-10.4); Monocytes Absolute Auto 1.2 K/mm3 (0.1-0.6); Monocytes Percent Auto 8.7 % (2.6-8.5); Neutrophils Absolute Auto 8.4 K/mm3 (1.3-6.7); Neutrophils Percent Auto 63.4 % (45.5-73.1); Platelet Count Result 235 k/mm3 (150-375); Red Blood Count 5.25 M/mm3 (4.2-5.4); Red Cell Distribution Width 13.3 % (11.5-14.5); White Blood Count 13.2 K/mm3 (4.5-10.0)
[2023-09-16 14:21] LABS: Alanine Aminotransferase 49 U/L (6-35); Albumin Level 4.4 g/dL (3.5-5.1); Alkaline Phosphatase 112 U/L (38-126); Anion Gap 8 mmol/L (8-16); Aspartate Amino Transferase 39 U/L (14-36); Bilirubin,Total 0.8 mg/dL (0.2-1.3); Blood Urea Nitrogen 13 mg/dL (7-17); Calcium 9.1 mg/dL (8.4-10.2); Carbon Dioxide 26 mmol/L (22-30); Chloride 100 mmol/L (98-107); Estimated Glomerular Filt Rate > 60; Glucose 137 mg/dL (65-110); Lipase 47 U/L (23-300); Potassium 4.2 mmol/L (3.4-5.0); Sodium 134 mmol/L (137-145)
[2023-09-16 15:59] VITALS: PULSE 86; RESP 23; O2SAT 98
[2023-09-16 16:06] LABS: Appearance Urine Clear (Clear); Bilirubin Urine Negative (Negative); Blood Urine Negative (Negative); Color Urine Yellow (Yellow); Glucose Urine UA 3+ mg/dL (Negative); Ketones Urine Negative (Negative); Leukocyte Esterase Ur Negative LEU/UL (Negative); Nitrate Urine Negative (Negative); Protein Urine Negative (Negative); Urobilinogen Urine 0.2 mg/dL (<2.0)
[2023-09-16 16:10] LABS: Add Urine Microscopic? NO
[2023-09-16] MEDS: oxyCODONE/ACETAMINOPHEN (*CRX) 5-325 MG TABLET 1 TABLET PO (16:13)
[2023-09-16] MEDS: ONDANSETRON HCL ODT 4 MG TABLET PO (16:13)
[2023-09-16 18:00] VITALS: BP 128/71; PULSE 87; RESP 20; O2SAT 98
== END 2023-09-16 18:00 | disposition home or self-care (01) ==
PROVIDERS: Emergency Provider Emergency Medicine; PCP Nurse Practitioner Family
DX: K57.32 Diverticulitis of large intestine without perforation or abscess without bleeding (principal); I10 Essential (primary) hypertension; I34.1 Nonrheumatic mitral (valve) prolapse; E11.9 Type 2 diabetes mellitus without complications; E78.00 Pure hypercholesterolemia, unspecified; E66.01 Morbid (severe) obesity due to excess calories; G47.30 Sleep apnea, unspecified; K21.9 Gastro-esophageal reflux disease without esophagitis; M19.90 Unspecified osteoarthritis, unspecified site; F31.9 Bipolar disorder, unspecified; Z87.891 Personal history of nicotine dependence; Z79.84 Long term (current) use of oral hypoglycemic drugs; K76.0 Fatty (change of) liver, not elsewhere classified
CPT/HCPCS: 36415; 74177; 80053; 81003; 83690; 85025; 96361; 96374; 96375; 99284; A9270; J1170; J2405; J7030; Q9967

== ENCOUNTER 2023-09-28 08:33 | Outpatient (CLI) | payer OTHER, SELFPAY | END 2023-09-28 08:34 | disposition home or self-care (01) | LOC: ANHAUDIO 08:33 | PROVIDERS: PCP Nurse Practitioner Family; Visit Provider Nurse Practitioner Family | DX: H90.71 Mixed conductive and sensorineural hearing loss, unilateral, right ear, with unrestricted hearing on the contralateral side (principal); H90.42 Sensorineural hearing loss, unilateral, left ear, with unrestricted hearing on the contralateral side | CPT/HCPCS: 92557; 92567 ==

== ENCOUNTER 2023-10-19 08:27 | Outpatient (CLI) | payer OTHER, SELFPAY ==
--- NOTE | ~2023-10-19 | MM_ITS ---
EXAMINATION: MM screening bello BI w yuliet HISTORY: Screening TECHNIQUE: Craniocaudal and mediolateral oblique 3-D tomosynthesis images were obtained and synthetic 2-D images were generated. CAD analysis was submitted and interpreted. COMPARISON: No prior mammogram is available for comparison at this institution. BREAST PARENCHYMAL COMPOSITION: Not Dense: Breast are almost entirely fatty. FINDINGS: There is no evidence of suspicious mass, calcification, or architectural distortion to sugg est malignancy in either breast. There has been no suspicious interval change. IMPRESSION: 1. No mammographic evidence of malignancy. 2. Recommend routine screening mammography in one year. BI-RADS Category 1: Negative Reviewed, dictated and finalized at location A. OLOGIC TECHNOLOGY PROGRAM DIRECTOR
== END 2023-10-19 08:28 | disposition home or self-care (01) ==
LOC: ANHIMG 08:31
PROVIDERS: PCP Nurse Practitioner Family; Visit Provider Nurse Practitioner Family
DX: Z12.31 Encounter for screening mammogram for malignant neoplasm of breast (principal)
CPT/HCPCS: 77063; 77067

== ENCOUNTER 2023-11-01 14:11 | Emergency (ER) | payer OTHER, SELFPAY ==
--- NOTE | ~2023-11-01 | XR_ITS ---
XR thoracic spine 3V 11/01/2023 17:30 Indication: Back pain with muscle spasm Procedure: 4 views thoracic spine Comparison: No prior studies for comparison. Findings: There is diffuse idiopathic skeletal hyperostosis (DISH) of the thoracic spine. Mildly acce ntuated thoracic kyphosis. No paraspinal soft tissue abnormality. Surrounding osseous structures with in normal limits. Evaluation of C1 and C2 is limited due to patient body habitus. Mild multilevel tho racic spondylosis. Impression: 1: Mild thoracic spondylosis. Evaluation of the upper thoracic spine limited due to patient body habi tus. Reviewed, dictated and finalized at location A. Impression: 1: Mild thoracic spondylosis. Evaluation of the upper thoracic spine limited du e to patient body habitus.
[2023-11-01 14:13] VITALS: BP 137/84; PULSE 97; RESP 18; TEMP 36.4; O2SAT 97
[2023-11-01] MEDS: KETOROLAC (*BKC) 60 MG/2 ML VIAL IM (17:29)
[2023-11-01] MEDS: diazePAM (*CRX) 5 MG TABLET PO (17:33)
--- NOTE | 2023-11-01 19:31 | ED.BACK ---
HPI - Back Pain/Injury General Chief Complaint: Back Pain/Injury Stated Complaint: shooting back pain Time Seen by Provider: 11/01/23 16:35 History of Present Illness HPI Narrative: Patient is a 53-year-old female who presents to the ER with back pain. Intermittent for the last few months. No trauma. She has been on muscle relaxers without improvement. No numbness or tingling to the arms or legs. No focal weakness. Denies fevers or chills or sweats. She has not yet had imaging. Related Data Home Medications Medication Instructions Recorded Confirmed dapagliflozin propanediol 5 mg 5 mg PO DAILY 08/03/19 10/03/23 tablet (Farxiga) desvenlafaxine succinate 50 mg 50 mg PO DAILY 08/03/19 10/03/23 tablet,extended release 24 hr losartan 100 mg tablet 100 mg PO DAILY 08/03/19 10/03/23 metformin 500 mg tablet 500 mg PO BID 08/03/19 10/03/23 metoprolol succinate 50 mg 50 mg PO DAILY 08/03/19 10/03/23 tablet,extended release 24 hr oxybutynin chloride 5 mg 5 mg PO DAILY 11/02/20 10/03/23 tablet,extended release 24 hr lurasidone 40 mg tablet (Latuda) 60 mg PO HS 09/25/23 10/03/23 Allergies Allergy/AdvReac Type Severity Reaction Status Date / Time Qxykcam-EFF-LmC Reductase AdvReac Cough Verified 10/03/23 10:56 Inhibitor Review of Systems Constitutional: Constitutional: Reports no additional constitutional complaints Respiratory: Respiratory: Reports no additional respiratory complaints Gastrointestinal: Gastrointestinal: Reports no additional gastrointestinal complaints Musculoskeletal: Musculoskeletal: Reports back pain, Denies arthralgias and Denies joint swelling Neurologic: Denies focal weakness and Denies numbness [facility] Past Medical History Medical History (Updated 11/01/23 @ 19:39 by Shon Rangel MD) Anxiety Arthritis Bipolar disorder Diverticulitis (07/2016) With multiple episodes of diverticulitis starting in January of 2016 Diverticulitis of sigmoid colon Essential hypertension GERD (gastroesophageal reflux disease) Hypercholesteremia Lumbar spinal stenosis Mitral valve prolapse Morbid obesity with BMI of 60.0-69.9, adult Mural thickening of sigmoid colon Obstructive sleep apnea Seasonal allergies Sleep apnea CPAP of 11 Spinal stenosis Stress fracture in right foot Type 2 diabetes mellitus Surgical History Surgical History History of bunionectomy History of myringotomy Hx of cholecystectomy Bilateral Family History Family History Mother Diabetes mellitus Family history of mental disorder Hypertension Family history of cardiovascular disease Family history of arthritis Family history of chronic obstructive pulmonary disease Sibling Family history of alcoholism Father Family history of alcoholism Social History Social History (Updated 09/25/23 @ 09:31 by Araceli Garcia MA) Social History: Code status: Full code Surrogate decision maker: Smoking packs per day: 0.5 Smoking cigarettes per day: 10.0 Years smoked: 21 Smoking pack-years: 10.50 Smoking status: Former smoker Tobacco type: cigarettes Smoking end date: 08/20/06 Additional smoking assessment comments: She smoked from age 15 to age 36. Alcohol intake: never Substance use: never Do You Feel Safe in your Home?: Yes Lack of Transportation: No Lack of Food: Sometimes True Current Housing: I Do Not Have Housing Concerned About Future Housing: No Difficulty Paying Gas/Electric Bills: No Difficulty Paying for Meds: No Currently Unemployed: No Education: High School Diploma/GED Difficulty w/ Childcare or Family Care: No Living arrangements: with family Additional living arrangements comments: She lives at home with her of 22 years. They have 6 children. She has 1 biological child and 5 adopted children who are all girls.
== END 2023-11-01 20:30 | disposition home or self-care (01) ==
PROVIDERS: Emergency Provider Emergency Medicine; PCP Nurse Practitioner Family
DX: M62.830 Muscle spasm of back (principal); I10 Essential (primary) hypertension; I34.1 Nonrheumatic mitral (valve) prolapse; E78.00 Pure hypercholesterolemia, unspecified; E66.01 Morbid (severe) obesity due to excess calories; Z68.45 Body mass index [BMI] 70 or greater, adult; G47.33 Obstructive sleep apnea (adult) (pediatric); E11.9 Type 2 diabetes mellitus without complications; K21.9 Gastro-esophageal reflux disease without esophagitis; M19.90 Unspecified osteoarthritis, unspecified site; F31.9 Bipolar disorder, unspecified; F41.9 Anxiety disorder, unspecified; Z87.891 Personal history of nicotine dependence; Z90.49 Acquired absence of other specified parts of digestive tract; Z79.84 Long term (current) use of oral hypoglycemic drugs; M47.814 Spondylosis without myelopathy or radiculopathy, thoracic region
CPT/HCPCS: 72072; 96372; 99283; A9270; J1885

== ENCOUNTER 2024-01-10 17:45 | Emergency (ER) | payer OTHER, SELFPAY ==
--- NOTE | ~2024-01-10 | XR_ITS ---
EXAMINATION: XR chest 2V DATE: 01/10/2024 20:35 INDICATION: Weakness and headaches TECHNIQUE: PA and lateral views of the chest were obtained. COMPARISON: Chest radiograph dated 02/23/2022 FINDINGS: The lungs remain clear with no focal airspace opacities, pulmonary edema, pleural effusion or pneumot horax. The cardiomediastinal silhouette is normal. There are prominent anterior bridging osteophytes at multiple levels consistent with diffuse idiopathic skeletal hyperostosis (DISH). Likely cholecyst ectomy clips the upper abdomen. IMPRESSION: 1. No acute cardiopulmonary disease. Reviewed, dictated and finalized at location A.
--- NOTE | ~2024-01-10 | CT_ITS ---
EXAMINATION: CTA BRAIN/CAROTID DATE: 01/10/2024 22:45 INDICATION: Headache and facial numbness TECHNIQUE: Computed tomographic angiography (CTA) of the head and neck was performed with 100 mL Omni paque-350 intravenous contrast. Multiplanar reconstructions and maximum intensity projection 3D-recon structions of the carotid arteries and of the intracranial arteries were created by the technologist on a separate workstation. Precontrast CT of the head was also obtained. Automated exposure control and iterative reconstruction technique were employed.The dose-length product was 1793.10 mGy-cm. COMPARISON: CT dated 02/23/2022 and MRI dated 02/24/2022 FINDINGS: Carotid arteries: Visualized portion of the aortic arch is normal in caliber with no dissection. There is 0% stenosis o f the right and left carotid bulbs relative to normal distal artery lumen diameter (NASCET criteria). Visualized portion of the upper lungs are clear. Mild cervical and upper thoracic spondylosis. Cervi rafael soft tissues are otherwise unremarkable. Head: No acute intracranial hemorrhage, acute infarction or abnormal extra axial fluid collection. Ventricl es are normal and symmetric. 9 x 8 x 7 mm partially calcified enhancing extra-axial mass along the an terior left side of the falx which is without significant interval change since the prior MRI consist ent with a meningioma. Mucous retention cyst along the base of the left maxillary sinus. The orbits a nd mastoid air cells are normal. Intracranial arteries There is suboptimal contrast opacification of the cerebral arteries with the majority of the contrast seen in the cerebral veins. There is no hemodynamically significant stenosis in the vertebral, basil ar and internal carotid arteries. Vertebral arteries are codominant. There are no aneurysms identifie d. Both A1 and P1 segments are patent. The left P1 segment is diminutive with the majority of flow t o the left posterior cerebral artery supplied via a patent large caliber left posterior communicating artery. There also appears be a contribution to the right posterior cerebral artery via a diminutive right posterior communicating artery. Cerebral arterial arborization appears symmetric. IMPRESSION: 1. 0% stenosis of the right and left carotid bulbs relative to normal distal artery lumen diameter (N ASCET criteria). 2. No hemodynamically significant cerebral arterial stenosis, aneurysm or thrombosis. Evaluation is m ildly limited by suboptimal timing of the contrast bolus. 3. No acute intracranial process. 4. Stable 9 x 8 x 7 mm meningioma along the left side of the anterior falx. Reviewed, dictated and finalized at location A. IMPRESSION: 1. 0% stenosis of the right and left carotid bulbs relative to normal distal ar macy lumen diameter (NASCET criteria). 2. No hemodynamically significant cerebral arterial stenosis, aneurysm or throm bosis. Evaluation is mildly limited by suboptimal timing of the contrast bolus. 3. No acute intracranial process. 4. Stable 9 x 8 x 7 mm meningioma along the left side of the anterior falx.
[2024-01-10 17:49] VITALS: BP 140/75; PULSE 78; RESP 16; TEMP 36.3; O2SAT 98
[2024-01-10 20:19] VITALS: PULSE 72
[2024-01-10 20:20] VITALS: BP 118/66; PULSE 72; RESP 16; O2SAT 98; O2SAT 99
[2024-01-10 20:57] LABS: Alanine Aminotransferase 38 U/L (6-35); Albumin Level 4.2 g/dL (3.5-5.1); Alkaline Phosphatase 106 U/L (38-126); Anion Gap 4 mmol/L (4-12); Aspartate Amino Transferase 29 U/L (14-36); Bilirubin,Total 0.5 mg/dL (0.2-1.3); Blood Urea Nitrogen 14 mg/dL (7-17); Calcium 9.6 mg/dL (8.4-10.2); Carbon Dioxide 29 mmol/L (22-30); Chloride 104 mmol/L (98-107); Estimated CRCL calculation 146 ml/min; Estimated Glomerular Filt Rate > 60; Glucose 106 mg/dL (65-110); Potassium 4.1 mmol/L (3.4-5.0); Sodium 137 mmol/L (137-145)
[2024-01-10 21:00] LABS: Basophils Absolute Auto 0.1 K/mm3 (0.0-0.1); Basophils Percent Auto 0.6 % (0.2-1.2); Eosinophils Absolute Auto 0.3 K/mm3 (0-0.3); Eosinophils Percent Auto 3.2 % (0-4.4); Hematocrit 44.7 % (37.0-47.0); Hemoglobin 14.8 g/dL (12.0-15.0); Immature Granulocyte Absolute 0.03 K/mm3 (0.00-0.031); Immature Granulocyte Percent A 0.3 % (0-0.5); Lymphocytes Absolute Auto 4.87 K/mm3 (0.9-3.2); Lymphocytes Percent Auto 50.9 % (18.3-44.2); Mean Corpuscular HGB Conc 33.1 g/dl (32-36); Mean Corpuscular Hemoglobin 30.1 pg (26-34); Mean Corpuscular Volume 90.9 fl (80-100); Mean Platelet Volume 9.5 fl (7.4-10.4); Monocytes Absolute Auto 0.8 K/mm3 (0.1-0.6); Monocytes Percent Auto 8.6 % (2.6-8.5); Neutrophils Absolute Auto 3.5 K/mm3 (1.3-6.7); Neutrophils Percent Auto 36.4 % (45.5-73.1); Platelet Count Result 225 k/mm3 (150-375); Red Blood Count 4.92 M/mm3 (4.2-5.4); Red Cell Distribution Width 13.2 % (11.5-14.5); White Blood Count 9.6 K/mm3 (4.5-10.0)
[2024-01-10 21:11] LABS: Appearance Urine Cloudy (Clear); Bacteria Urine 4+ /hpf; Bilirubin Urine Negative (Negative); Blood Urine Negative (Negative); Color Urine Yellow (Yellow); Glucose Urine UA Negative (Negative); Ketones Urine Trace mg/dL (Negative); Leukocyte Esterase Ur 2+ LEU/UL (Negative); Need Manual Microscopic Reviewed; Nitrate Urine Positive (Negative); Non Pathogenic Casts 0-2; Protein Urine Negative (Negative); Specific Grav Ur 1.022 (1.001-1.035); Squamous Epithelial Cell Urine Few /hpf (Few); WBC Urine >100 /hpf (0-3); pH Urine 5.5 (5.0-9.0)
[2024-01-10 21:12] LABS: Add Urine Microscopic? YES
[2024-01-11 00:03] VITALS: BP 112/66; PULSE 78; RESP 16; O2SAT 96
--- NOTE | 2024-01-11 01:03 | ED.GENADULT ---
HPI - General Adult General Chief complaint: Weakness Stated complaint: L face sided numbness Time Seen by Provider: 01/10/24 20:46 History of Present Illness HPI narrative: This is a 53-year-old female presenting ED with chief complaint of left face numbness. Starting at 11:00 a.m. this morning patient developed pain on the left side of her tongue that then developed into a numbness of her tongue and the left side of her face. She then developed a throbbing left-sided headache and streaks of light in her vision. Symptoms lasted several hours before resolving without intervention. Patient denies similar symptoms in the past however in review of the EMR she was seen for identical presentation in 2020 and 2021 where she was admitted for extensive TIA/ CVA workup which was negative. Related Data Home Medications Medication Instructions Recorded Confirmed dapagliflozin propanediol 5 mg 5 mg PO DAILY 08/03/19 11/13/23 tablet (Farxiga) desvenlafaxine succinate 50 mg 50 mg PO DAILY 08/03/19 11/13/23 tablet,extended release 24 hr losartan 100 mg tablet 100 mg PO DAILY 08/03/19 11/13/23 metformin 500 mg tablet 500 mg PO BID 08/03/19 11/13/23 metoprolol succinate 50 mg 50 mg PO DAILY 08/03/19 11/13/23 tablet,extended release 24 hr oxybutynin chloride 5 mg 5 mg PO DAILY 11/02/20 11/13/23 tablet,extended release 24 hr lurasidone 40 mg tablet (Latuda) 60 mg PO HS 09/25/23 11/13/23 Allergies Allergy/AdvReac Type Severity Reaction Status Date / Time Gsebetm-OIH-ReM Reductase AdvReac Cough Verified 11/13/23 10:39 Inhibitor [facility] Past Medical History Medical History Anxiety Arthritis Bipolar disorder Diverticulitis (07/2016) With multiple episodes of diverticulitis starting in January of 2016 Diverticulitis of sigmoid colon Essential hypertension GERD (gastroesophageal reflux disease) Hypercholesteremia Lumbar spinal stenosis Mitral valve prolapse Morbid obesity with BMI of 60.0-69.9, adult Mural thickening of sigmoid colon Obstructive sleep apnea Seasonal allergies Sleep apnea CPAP of 11 Spinal stenosis Stress fracture in right foot Type 2 diabetes mellitus Surgical History Surgical History History of bunionectomy History of myringotomy Hx of cholecystectomy Bilateral Family History Family History Mother Diabetes mellitus Family history of mental disorder Hypertension Family history of cardiovascular disease Family history of arthritis Family history of chronic obstructive pulmonary disease Sibling Family history of alcoholism Father Family history of alcoholism Social History Social History Social History: Code status: Full code Surrogate decision maker: Smoking packs per day: 0.5 Smoking cigarettes per day: 10.0 Years smoked: 21 Smoking pack-years: 10.50 Smoking status: Former smoker Tobacco type: cigarettes Smoking end date: 10/24/23 Additional smoking assessment comments: She smoked from age 15 to age 36. Alcohol intake: never Substance use: never Substance use type: does not use Do You Feel Safe in your Home?: Yes Lack of Transportation: No Lack of Food: Sometimes True Current Housing: I Do Not Have Housing Concerned About Future Housing: No Difficulty Paying Gas/Electric Bills: No Difficulty Paying for Meds: No Currently Unemployed: No Education: High School Diploma/GED Difficulty w/ Childcare or Family Care: No Living arrangements: with family Additional living arrangements comments: She lives at home with her of 22 years. They have 6 children. She has 1 biological child and 5 adopted children who are all girls. Her age is [id number] who of all moved out and 3 daughters remain at home age
[2024-01-11] MEDS: CEPHALEXIN 500 MG CAPSULE PO (01:38)
[2024-01-11 01:40] VITALS: BP 128/84; PULSE 76; RESP 15; O2SAT 96
--- NOTE | 2024-01-18 12:43 | PCCARD ---
NO EKG IN CHART OR ON MACHINES - CHARTED DONE AT 21:04 BUT CAN NOT FIND EKG - CANCELLING EKG ORDER NOT DONE
== END 2024-01-11 01:41 | disposition home or self-care (01) ==
PROVIDERS: Emergency Provider Emergency Medicine
DX: G43.909 Migraine, unspecified, not intractable, without status migrainosus (principal); N39.0 Urinary tract infection, site not specified; I34.1 Nonrheumatic mitral (valve) prolapse; I10 Essential (primary) hypertension; E11.9 Type 2 diabetes mellitus without complications; E78.00 Pure hypercholesterolemia, unspecified; E66.01 Morbid (severe) obesity due to excess calories; Z68.44 Body mass index [BMI] 60.0-69.9, adult; G47.33 Obstructive sleep apnea (adult) (pediatric); K21.9 Gastro-esophageal reflux disease without esophagitis; M19.90 Unspecified osteoarthritis, unspecified site; F31.9 Bipolar disorder, unspecified; F41.9 Anxiety disorder, unspecified; Z79.84 Long term (current) use of oral hypoglycemic drugs; Z79.899 Other long term (current) drug therapy; Z87.891 Personal history of nicotine dependence; Z90.49 Acquired absence of other specified parts of digestive tract
CPT/HCPCS: 36415; 70496; 70498; 71046; 80053; 81001; 81025; 85025; 87077; 87086; 87088; 87186; 99284; A9270; Q9967

== ENCOUNTER 2024-02-16 09:34 | Emergency (ER) | payer OTHER, SELFPAY ==
--- NOTE | 2024-02-16 09:36 | ED.SKABFB ---
HPI - Skin/Abscess/Foreign Bdy General Chief complaint: Skin/Abscess/Foreign Body Stated complaint: pos spider bite all over body Time Seen by Provider: 02/16/24 09:36 Source: patient Mode of arrival: ambulatory Limitations: no limitations History of Present Illness HPI narrative: Shira is a 53-year-old female patient presenting to the clinic today with complaints of possible insect bite to her right upper arm. She reports that she noticed an insect bite 2 days ago to her right upper arm that was very small. States she showed it to her primary care provider and they recommend she watch the area and follow-up with the urgent care/ER if states her symptoms worsen. Patient reports that the redness and itching has increased and worsened. She denies any fever or chills. Just finished up Augmentin yesterday for a throat condition. States that she is now developed a rash on her chest and her face feels itchy as well. She denies any shortness of breath, chest pain, tongue swelling, drooling, or difficulty swallowing. Denies any environmental changes. Related Data Home Medications Medication Instructions Recorded Confirmed dapagliflozin propanediol 5 mg 5 mg PO DAILY 08/03/19 02/16/24 tablet (Farxiga) desvenlafaxine succinate 50 mg 50 mg PO DAILY 08/03/19 02/16/24 tablet,extended release 24 hr losartan 100 mg tablet 100 mg PO DAILY 08/03/19 02/16/24 metformin 500 mg tablet 500 mg PO BID 08/03/19 02/16/24 metoprolol succinate 50 mg 50 mg PO DAILY 08/03/19 02/16/24 tablet,extended release 24 hr oxybutynin chloride 5 mg 5 mg PO DAILY 11/02/20 02/16/24 tablet,extended release 24 hr lurasidone 40 mg tablet (Latuda) 60 mg PO HS 09/25/23 02/16/24 amoxicillin 875 mg-potassium tablet 02/16/24 02/16/24 clavulanate 125 mg tablet sulfamethoxazole 800 1 tablet PO BID 02/16/24 02/16/24 mg-trimethoprim 160 mg tablet Allergies Allergy/AdvReac Type Severity Reaction Status Date / Time [id number]-WYO-UwO Reductase AdvReac Cough Verified 11/13/23 10:39 Inhibitor Review of Systems Review of Systems: Pertinent positives per HPI. Patient denies any fever, chills, headache, visual changes, dizziness, cough, runny nose, sore throat, shortness of breath, chest pain, palpitations, nausea, vomiting, diarrhea, constipation, abdominal pain, or any urinary issues. [facility] Past Medical History Medical History Anxiety Arthritis Bipolar disorder Diverticulitis (07/2016) With multiple episodes of diverticulitis starting in January of 2016 Diverticulitis of sigmoid colon Essential hypertension GERD (gastroesophageal reflux disease) Hypercholesteremia Lumbar spinal stenosis Mitral valve prolapse Morbid obesity with BMI of 60.0-69.9, adult Mural thickening of sigmoid colon Obstructive sleep apnea Seasonal allergies Sleep apnea CPAP of 11 Spinal stenosis Stress fracture in right foot Type 2 diabetes mellitus Surgical History Surgical History History of bunionectomy History of myringotomy Hx of cholecystectomy Bilateral Family History Family History Mother Diabetes mellitus Family history of mental disorder Hypertension Family history of cardiovascular disease Family history of arthritis Family history of chronic obstructive pulmonary disease Sibling Family history of alcoholism Father Family history of alcoholism Social History Social History Social History: Code status: Full code Surrogate decision maker: Smoking packs per day: 0.5 Smoking cigarettes per day: 10.0 Years smoked: 21 Smoking pack-years: 10.50 Smoking status: Former smoker Tobacco type: cigarettes Smoking end date: 10/24/23 Additional smoking assessment comments: She smok
[2024-02-16 09:45] VITALS: BP 114/64; PULSE 80; RESP 20; TEMP 36.7; O2SAT 99
== END 2024-02-16 09:59 | disposition home or self-care (01) ==
PROVIDERS: Emergency Provider Nurse Practitioner Family
DX: S40.861A Insect bite (nonvenomous) of right upper arm, initial encounter (principal); W57.XXXA Bitten or stung by nonvenomous insect and other nonvenomous arthropods, initial encounter; T78.40XA Allergy, unspecified, initial encounter; Z87.891 Personal history of nicotine dependence; I10 Essential (primary) hypertension; K21.9 Gastro-esophageal reflux disease without esophagitis; E78.00 Pure hypercholesterolemia, unspecified; M48.061 Spinal stenosis, lumbar region without neurogenic claudication; I34.1 Nonrheumatic mitral (valve) prolapse; E66.01 Morbid (severe) obesity due to excess calories; Z68.44 Body mass index [BMI] 60.0-69.9, adult; G47.30 Sleep apnea, unspecified; E11.9 Type 2 diabetes mellitus without complications; Z79.84 Long term (current) use of oral hypoglycemic drugs; F31.9 Bipolar disorder, unspecified
CPT/HCPCS: 99213; G0463

== ENCOUNTER 2024-02-20 19:25 | Emergency (ER) | payer OTHER, SELFPAY ==
--- NOTE | 2024-02-20 19:58 | PC.NURSE ---
redness is currently 18cm x 11cm and border is marked. patient states that on Sunday it was measuring 12 cm x 9cm.
[2024-02-20 20:40] VITALS: BP 122/67; PULSE 74; RESP 13; TEMP 35.9; O2SAT 96
--- NOTE | 2024-02-20 21:51 | ED.SKABFB ---
HPI - Skin/Abscess/Foreign Bdy General Chief complaint: Skin/Abscess/Foreign Body Stated complaint: worsening brown recluse bite Time Seen by Provider: 02/20/24 21:34 Source: patient Limitations: no limitations History of Present Illness HPI narrative: Patient is a 53-year-old female presents to the emergency department complaining of a wound and rash to her right upper arm. Patient notes this all started on she started developing a rash, thought it was maybe allergic reaction but then saw that there was a small amount of necrotic tissue on her right upper medial arm and that is a brown recluse bite, she was started on antibiotics being doxycycline on Sunday this been taking these as prescribed in addition to she was also prescribed a steroid cream and Benadryl and overall she felt like they redness was markedly improved but now seems to be returning, not rapidly spreading, overall does feel itchy, was told she needed to see a surgeon for possible excision of the tissue with denies any severe increase in pain, denies fever. Related Data Home Medications Medication Instructions Recorded Confirmed dapagliflozin propanediol 5 mg 5 mg PO DAILY 08/03/19 02/16/24 tablet (Farxiga) desvenlafaxine succinate 50 mg 50 mg PO DAILY 08/03/19 02/16/24 tablet,extended release 24 hr losartan 100 mg tablet 100 mg PO DAILY 08/03/19 02/16/24 metformin 500 mg tablet 500 mg PO BID 08/03/19 02/16/24 metoprolol succinate 50 mg 50 mg PO DAILY 08/03/19 02/16/24 tablet,extended release 24 hr oxybutynin chloride 5 mg 5 mg PO DAILY 11/02/20 02/16/24 tablet,extended release 24 hr lurasidone 40 mg tablet (Latuda) 60 mg PO HS 09/25/23 02/16/24 amoxicillin 875 mg-potassium tablet 02/16/24 02/16/24 clavulanate 125 mg tablet sulfamethoxazole 800 1 tablet PO BID 02/16/24 02/16/24 mg-trimethoprim 160 mg tablet Allergies Allergy/AdvReac Type Severity Reaction Status Date / Time Khilciv-OHC-ZuG Reductase AdvReac Cough Verified 02/20/24 19:26 Inhibitor Review of Systems Review of Systems: A 10 system review of systems was completed on the patient and is negative except for what is stated in the HPI. Nursing and ancillary documentation was reviewed. FOR[facility]LY [facility] Past Medical History Medical History Anxiety Arthritis Bipolar disorder Diverticulitis (07/2016) With multiple episodes of diverticulitis starting in January of 2016 Diverticulitis of sigmoid colon Essential hypertension GERD (gastroesophageal reflux disease) Hypercholesteremia Lumbar spinal stenosis Mitral valve prolapse Morbid obesity with BMI of 60.0-69.9, adult Mural thickening of sigmoid colon Obstructive sleep apnea Seasonal allergies Sleep apnea CPAP of 11 Spinal stenosis Stress fracture in right foot Type 2 diabetes mellitus Surgical History Surgical History History of bunionectomy History of myringotomy Hx of cholecystectomy Bilateral Family History Family History Mother Diabetes mellitus Family history of mental disorder Hypertension Family history of cardiovascular disease Family history of arthritis Family history of chronic obstructive pulmonary disease Sibling Family history of alcoholism Father Family history of alcoholism Social History Social History Social History: Code status: Full code Surrogate decision maker: Smoking packs per day: 0.5 Smoking cigarettes per day: 10.0 Years smoked: 21 Smoking pack-years: 10.50 Smoking status: Former smoker Tobacco type: cigarettes Smoking end date: 10/24/23 Additional smoking assessment comments: She smoked from age 15 to age 36. Alcohol intake: never Substance use: never Substance use type: does not use Do
[2024-02-20] MEDS: CEPHALEXIN 500 MG CAPSULE PO (22:13)
== END 2024-02-20 22:20 | disposition home or self-care (01) ==
PROVIDERS: Emergency Provider Student in an Organized Health Care Education/Training Program
DX: L03.113 Cellulitis of right upper limb (principal); F31.9 Bipolar disorder, unspecified; K21.9 Gastro-esophageal reflux disease without esophagitis; E78.00 Pure hypercholesterolemia, unspecified; E66.01 Morbid (severe) obesity due to excess calories; Z68.44 Body mass index [BMI] 60.0-69.9, adult; G47.33 Obstructive sleep apnea (adult) (pediatric); E11.9 Type 2 diabetes mellitus without complications; Z87.891 Personal history of nicotine dependence
CPT/HCPCS: 99283; A9270

== ENCOUNTER 2024-06-14 11:28 | Outpatient (CLI) | payer OTHER, SELFPAY ==
[2024-06-14 12:57] LABS: Vitamin D 25 Hydroxy 26.5 ng/mL
== END 2024-06-14 11:29 | disposition home or self-care (01) ==
DX: Z01.818 Encounter for other preprocedural examination (principal); E55.9 Vitamin D deficiency, unspecified
CPT/HCPCS: 36415; 82306

== ENCOUNTER 2025-03-25 18:10 | Emergency (ER) | payer OTHER, SELFPAY ==
--- NOTE | ~2025-03-25 | CT_ITS ---
CLINICAL INDICATION: Right flank pain COMPARISON: 09/16/2023. TECHNIQUE: Multiple contiguous axial images of the abdomen and pelvis were performed without the admi nistration of intravenous contrast The dose-length product (DLP) was 2431.57 mGy-cm. Automated exposure control and iterative reconstruction technique were employed. FINDINGS/OBSERVATIONS: Visualized lower thorax: The bilateral lung bases are clear. The heart is of normal size, without pericardial effusion. Liver: The liver demonstrates homogeneous attenuation and is enlarged, unchanged, measuring 24 cm in longitu dinal dimension. Gallbladder and biliary system: The gallbladder is surgically absent. Pancreas: Limited evaluation of the pancreas secondary to the lack of intravenous contrast. Spleen: The spleen demonstrates homogeneous attenuation and is not enlarged. Kidneys: The bilateral kidneys are unremarkable, without hydronephrosis or renal calculi. Adrenal glands: Unremarkable. Gastrointestinal tract: Colonic diverticulosis without surrounding inflammatory change. Appendix: The air-filled appendix is of normal caliber (axial series, images 135 through 140). Vasculature: Narrowing of the infrarenal abdominal aorta with dense wall calcifications measuring 16 x 9.6 mm just above the bifurcation. Lymph nodes: Limited evaluation without intravenous contrast Pelvic structures: The bladder is decompressed, limiting its evaluation The uterus is anteverted and anteflexed, and otherwise unremarkable. Body wall and musculoskeletal: Small fat-containing umbilical hernia. 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 IMPRESSION: No obstructive uropathy. Abdominal aortic stenosis for which follow-up with vascular surgery is recommended. Reviewed, dictated and finalized at location A. IMPRESSION: No obstructive uropathy. Abdominal aortic stenosis for which follow-up with vascular surgery is recommen ded.
[2025-03-25 18:13] VITALS: BP 127/69; PULSE 81; RESP 20; TEMP 36.3; O2SAT 95
--- OUTSIDE RECORDS SUMMARY | 2025-03-25 18:14 | XMS_ITS | Clinical Summary ---
Author Organization [facility] [employer] Address [address] [place] [address] Care Team Providers Care Retail Client Solutions Consultant Name Role Phone Eliz Haywood Primary Care Provider [phone] Source Comments [facility] [employer],non-owned Affiliates and Associated Physician Practices is amultiple site organization consisting of ambulatory clinics and hospital sitesin [place], [place], [place] and [place]. This disclosure is being madepursuant to the Care Everywhere program and may not contain all information available regarding this patient. Last updated 18.[employer] Allergies Active Allergy Reactions Criticality Noted Date Comments Pseudoephedrine Base Unknown 01/13/2011 Hmg-Coa-R Inhibitors Cough 09/29/2021 Medications * Be aware that medications may not be up to date on this document. Alwaysverify current medications with the patient. desvenlafaxine succinate ER 24hr (Pristiq) 100 MG tablet Take 1 (one) tablet by mouth once daily Active losartan (COZAAR) 100 MG tablet Take 1 (one) tablet by mouth once daily Active pregabalin (LYRICA) 150 MG capsule pregabalin 150 mg capsule TAKE 1 CAPSULE BY MOUTH TWICE DAILY Active ibuprofen (Motrin) 200 MG tablet Take 4 (four) tablets by mouth every 6 hours as needed for Pain Active Farxiga 10 MG tablet Take 1 (one) tablet by mouth once daily 3 Active lurasidone (Latuda) 60 MG tablet Take 1 (one) tablet by mouth once daily 4 Active omeprazole (PriLOSEC) 20 MG capsule Take 1 (one) capsule by mouth as needed Active ALPRAZolam (Xanax) 0.5 MG tablet Take 1 (one) tablet by mouth 3 times daily as needed Active tiZANidine (Zanaflex) 4 MG tablet TAKE 1 TABLET BY MOUTH EVERY 8 HOURS NEEDED FOR MUSCLE SPASTICITY. 4 Active metoprolol succinate XL 24hr (Toprol XL) 25 MG tablet Oral 4 Active Mounjaro 7.5 MG/0.5ML injection Inject 0.5 mL every week by subcutaneous route as directed for 28 days. Active Continuous Glucose Sensor (FreeStyle Jonathan 3 Sensor) MISC as directed 4 Active Multiple Vitamins-Minera ls (CENTRUM SILVER PO) Take 1 tablet by mouth once daily Active oxyBUTYnin CR 24hr (Ditropan XL) 15 MG tablet Take 1 (one) tablet by mouth once daily 4 Active vitamin D, ergocalciferol, (Drisdol) 1.25 MG (19426 UT) capsuleIndicati ons:Vitamin D Deficiency Take 1 (one) capsule by mouth every 7 days Reasons: Vitamin D Deficiency 4 capsule 3 4 Active Active Problems Problem Noted Date Diagnosed Date Morbid obesity with BMI of 60.0-69.9, adult 12/2023 Palpitations 10/23/2023 History of diverticulitis of colon 10/23/2023 Other hemorrhoids 10/23/2023 Hyperplastic colon polyp 10/23/2023 Anxiety 10/23/2023 Gastroesophageal reflux disease without esophagi tis 10/23/2023 Depressive disorder 10/23/2023 Ex-smoker 10/23/2023 Diabetes Hypertension Joint pain Sleep apnea Overview (10/23/2023): Has CPAP Arthritis Family History Medical History Relation Name Comments CAD (Coronary Artery Disease) Maternal Grandmother Cancer Maternal Grandmother Diabetes - Type 2 Maternal Grandmother CAD (Coronary Artery Disease) Mother Diabetes - Type 2 Mother Relation Name Status Comments Maternal Grandmother Mother Social History Tobacco Use Types Packs/Day Years Used Date Smoking Tobacco: Former Cigarettes Q uit: 2006 Smokeless Tobacco: Never Tobacco Cessation:Counseling Given: Not Answered Alcohol Use Standard Drinks/Week Comments Not Currently 0 (1 standard drink = 0.6 oz pur e alcohol) PHQ-2 Answer Date Recorded Patient Health Questionnaire-2 Score 6 06/16/2024 Comments No Sex and Gender Information Value Date Recorded Sex Assigned at Not on file Legal Sex Female 10:10 AM COREMAKER HELPER Gender Identity Not on file Sexual Orientation Not on file Last Filed Vital Signs Vital Sign Reading Time Taken Comments Blood Pressure 127/85 06/16/2024 10:26 AM CDT Pulse 81 06/16/2024 10:26 AM CDT Temperature 36 C (96.8 F) 06/16/2024 10:26 AM CDT Respiratory Rate 20 06/16/2024 10:26 AM CDT Oxygen Saturation 95% 06/16/2024 10:26 AM CDT Inhaled Oxygen Concentration 95% 04/07/2024 8 :57 AM CDT Weight 189.1 kg (417 lb) 08/14/2024 10:00 AM COREMAKER HELPER Height 165.1 cm (5' 5) 08/14/2024 10:00 AM COREMAKER HELPER Body Mass Index 69.39 08/14/2024 10:00 AM COREMAKER HELPER Plan of Treatment Health Maintenance Due Date Last Done Comments COLOGUARD (AGES 45-75) - COLON CA SCREENING 1972 COLON MONITORING 1972 COLONOSCOPY - COLON CA SCREENING 1972 CT COLONOGRAPHY - COLON CA SCREENING 1972 Colorectal Cancer Screening 1972 FIT - COLON CA SCREENING 1972 FLEX SIG - COLON CA SCREENING 1972 MAMMOGRAM 1972 HIV SCREENING 10/26/1987 HEPATITIS C SCREENING 10/21/1990 DTAP/TDAP/TD VACCINES (1 - Tdap) 10/26/1991 HEPATITIS B VACCINE (1 of 3 - 19+ 3-dose series) 10/26/1991 PNEUMOCOCCAL VACCINE 50+ (1 of 2 - PCV) 10/26/1991 PAP SMEAR 1993 DIABETES-STATIN 2012 ZOSTER VACCINE (1 of 2) 2022 DIABETES RETINOPATHY SCREENING 10/23/2023 DIABETES-FOOT EXAM WITH MONOFILAMENT 10/23/2023 COVID-19 VACCINE (1 - season) 2024 DIABETES-HGB A1C 04/24/2024 10/23/2023, 01/18/2022 DEPRESSION SCREENING 08/20/2024 10/23/2023 DIABETES - URINE PROTEIN SCREENING 08/20/2024 DIABETES-SERUM CREATININE 10/22/2024 10/23/2023, 08/2021 INFLUENZA VACCINE (#1) 2025 2, 05/30/2021, 06/17/2020, Additional history exists HIB VACCINE Aged Out No longer eligi ble based on patient's age to complete this topic HPV VACCINE Aged Out No longer eligi ble based on patient's age to complete this topic MENINGOCOCCAL (Group B) VACCINE SHARED DECISION-MAKING Aged Out No longer eligible based on patient's age to complete this topic MENINGOCOCCAL GROUPS A/C/Y/W VACCINE Aged Out No longer eligible based on patient's age to complete this topic Procedures Procedure Name Priority Date/Time Associated Diagnosis Comments COMPREHENSIVE METABOLIC PANEL Routine 10/23/2023 2:57 PM COREMAKER HELPER Pre-op testing Morbid obesity HEMOGLOBIN A1C Routine 10/23/2023 2:57 PM COREMAKER HELPER Pre-op testing Morbid obesity from Last 3 Months or Most Recently Relevant to Health Maintenance Results * (ABNORMAL) HEMOGLOBIN A1C (10/23/2023 2:57 PM COREMAKER HELPER) Hemoglobin A1c 7.4(H) 4.2 - 5.6 % 10/23/2023 3:33 PM COREMAKER HELPER [facility] Estimated Average Glucose 166 mg/dL 10/23/2023 3:33 PM COREMAKER HELPER [facility] Blood BLOOD SPECIMEN / Unknown Venipuncture / Unknown 10/23/2023 2:57 PM COREMAKER HELPER 10/23/2023 3:14 PM COREMAKER HELPER Narrative [facility] - 10/23/2023 3:33 PM COREMAKER HELPER HbA1c Interpretation: Normal: < 5.7% Pre-diabetes: 5.7-6.4% Diabetes: Equal to or greater than 6.5% Test results diagnostic of diabetes should be repeated for confirmation. Treatment target values recommended by ADA and other clinical organizations should be used to evaluate metabolic control in patients. This test should not replace glucose testing for patients with Type 1 diabetes, pediatric patients, or women. Falsely low HbA1c results may be observed in patients with clinical conditions that shorten erythrocyte life span or decrease mean erythrocyte age such as the presence of unstable hemoglobin variants, elevated hemoglobin F level or other causes of hemolytic anemia. HbA1c may not accurately reflect glycemic control when clinical conditions that affect erythrocyte survival are present. Severe Iron deficiency anemia may yield falsely high results. Hemoglobin A1c assay should not be used to diagnose or monitor diabetes in patients with malignancy, recent blood transfusion, chronic kidney or liver disease. This method may yield falsely low results when hemoglobin (HbF) exceeds 5% in the specimen. The Damon Alinity assay for the measurement of HbA1c is a National Glycohemoglobin Standardization Program (NGSP) certified method. Naz Barbour BROKERAGE OFFICE MANAGER-MATERIALS INSPECTOR LAB - CHEMISTRY ORDERABLES F inal Result [facility] [address] [place], [place] [id number] [place] [address] * (ABNORMAL) COMPREHENSIVE METABOLIC PANEL (10/23/2023 2:57 PM COREMAKER HELPER) Glucose 182(H) 70 - 125 mg/dL 10/23/2023 3:41 PM COREMAKER HELPER [facility] Sodium 139 136 - 145 mmol/L 10/23/2023 3:41 PM COREMAKER HELPER [facility] Potassium 4.0 3.4 - 5.1 mmol/L 10/23/2023 3:41 PM COREMAKER HELPER [facility] Chloride 102 98 - 107 mmol/L 10/23/2023 3:41 PM COREMAKER HELPER [facility] CO2 29 22 - 29 mmol/L 10/23/2023 3:41 PM COREMAKER HELPER [facility] Calcium 9.33 8.4 - 10.2 mg/dL 10/23/2023 3:41 PM COREMAKER HELPER [facility] Anion Gap 8 6 - 16 mmol/L 10/23/2023 3:41 PM COREMAKER HELPER [facility] BUN 12.6 9.8 - 20.1 mg/dL 10/23/2023 3:41 PM COREMAKER HELPER [facility] Creatinine 0.69 0.57 - 1.11 mg/dL 10/23/2023 3:41 PM COREMAKER HELPER [facility] Alkaline Phosphatase 123 40 - 150 U/L 10/23/2023 3:41 PM COREMAKER HELPER [facility] ALT 36 <=55 U/L 10/23/2023 3:41 PM COREMAKER HELPER [facility] AST 20 5 - 34 U/L 10/23/2023 3:41 PM COREMAKER HELPER [facility] Protein Total 7.4 6.4 - 8.3 gm/dL 10/23/2023 3:41 PM COREMAKER HELPER [facility] Albumin 3.7 3.4 - 4.8 gm/dL 10/23/2023 3:41 PM COREMAKER HELPER [facility] Globulin Total 3.7 2.6 - 4.0 gm/dL 10/23/2023 3:41 PM COREMAKER HELPER [facility] Albumin/Globulin Ratio 1.0 0.9 - 1.6 10/23/2023 3:41 PM COREMAKER HELPER [facility] Bilirubin Total 0.3 0.2 - 1.2 mg/dL 10/23/2023 3:41 PM COREMAKER HELPER [facility] eGFR >90 >90 mL/min/1.7 3m2 10/23/2023 3:41 PM COREMAKER HELPER [facility] Comment:The GFR result was c alculated using the updated CKD-EPI Creatinine Equation (2020). Blood BLOOD SPECIMEN / Unknown Venipuncture / Unknown 10/23/2023 2:57 PM COREMAKER HELPER 10/23/2023 3:14 PM COREMAKER HELPER Naz Barbour BROKERAGE OFFICE MANAGER-MATERIALS INSPECTOR LAB - CHEMISTRY ORDERABLES F inal Result [facility] [address] [place] [address], [facility] from Last 3 Months or Most Recently Relevant to Health Maintenance Insurance MEDICARE MANAGED CARE PLAN GENERIC MEDICARE ADV Care Teams Retail Client Solutions Consultant Relationship Specialty Start Date End Date Eliz Haywood [address] [place] [address] PCP - General 12/18/23 Dipti Viveros [address] [place] [address] Primary Care Provider 10/30/23
--- OUTSIDE RECORDS SUMMARY | 2025-03-25 18:14 | XMS_ITS | Patient Health Record ---
Author Organization [facility] Address [address] [address] Care Team Providers Care Alining Inspector Name Role Phone Brayden Rainey Primary Care Provider Reason For Referral No Information Plan Of Treatment No Information Insurance Providers Payer Name Payer Address Payer Phone Subscriber Number Group Number Insured Name Patient Relationship to Insured Coverage Start Date Coverage End Date MEDICARE PART AB [address] [place] [address] [phone] [id number] JAVIER MAXWELL Self - patient is the insured [place] [address] [address] [place], [place] [id number] JAVIER MAXWELL Self - patient is the insured
--- OUTSIDE RECORDS SUMMARY | 2025-03-25 18:15 | XMS_ITS | Patient Health Record ---
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 Name Role Phone Eliz Whitman Primary Care Provider Unavaila Vicki Alonzo Unavailable [phone] Allergies Allergen (clinical drug ingredient) Drug/Non Drug Allergy documented on EMR Reaction Allergy Type Onset Date Status lamotrigine lamoTRIgine Unknown Drug Allergy 11/27/2023 Ac tive Reason For Referral No Information Medications Medication SIG (Take, Route, Frequency, Duration) Notes Start Date End Date Status Lurasidone HCl 60 MG 1 tablet with food Oral Once a day; Duration: 90 days Active Ketoconazole 2% External 11/27/2023 Act delmer Lurasidone HCl 60 MG 1 tablet with food Oral Once a day; Duration: 30 days appointment needed Active ALPRAZolam 0.5 MG 1 tablet Oral once a day; Duration: 30 days As needed 02/09/2025 Active Triamcinolone Acetonide 0.1% External 11/27/2023 Active lamoTRIgine 25 MG 2 tablets daily Orally 2 tablets daily; Duration: 90 days Active hydrOXYzine HCl 25 MG 1 tablet Orally twice a day; Duration: 90 days No PA needed d/c 10 mg dose Active oxyBUTYnin Chloride ER 15 MG Oral 11/27/2023 Active tiZANidine HCl 4 MG Oral PRN 11/27/2023 Active Ondansetron HCl 8 MG Oral PRN 11/27/2023 Active oxyBUTYnin Chloride ER 10 MG Oral 11/27/2023 Active Diclofenac Sodium 75 MG Oral 11/27/2023 Active Losartan Potassium 100 MG Oral 11/27/2023 Active Farxiga 10 MG Oral 11/27/2023 Activ e Metoprolol Succinate ER 50 MG Oral 11/27/2023 Active Dicyclomine HCl 20 MG Oral 11/27/2023 Active Pregabalin 150 MG Oral 11/27/2023 A ctive Desvenlafaxine Succinate ER 100 MG 1 tablet Oral Once a day; Duration: 90 days Active Omeprazole 20 MG Oral 11/27/2023 Ac tive Mounjaro 10 MG/0.5ML as directed Subcutaneous *Reorder from [facility] for eRx and Interaction Alerts* 11/27/2023 Active Immunizations Vaccine Route Administration Date Status Comme nts Influenza, seasonal, injecta ble, preservative free, 3 yrs and above Unknown 05/27/2014 Administered Influenza, unspecified formulation Unknown 06/20/2022 A dministered Novel [id number], preservative free Unknown 06/24/2019 Administered Novel [id number], preservative free Unknown 06/17/2020 Administered Social History Tobacco Use: Social History Observation Description Date Details (start date - stop date) Former Smoker NA - NA Sex Assigned At : Social History Observation Description Sex Assigned At Female Tobacco Control (Standard) Question Answer Notes Tobacco use: Former smoker AUDIT-C (Standard) Question Answer Notes Did you have a drink containing alcohol in the p ast year? No Section Notes: Do you or have you ever smok ed tobacco?: Former smokerHow many years have you smoked tobacco?: 15How much tobacco do you smoke?: NoneWhen did you quit smoking?: 11- 15 years since last cigaretteDo you or have you ever used any other forms of tobacco or nicotine?: NoDo you or have you ever used e-cigarettes or vape?: Never used electronic cigarettesDo you or have you ever used smokeless tobacco?: Never used smokeless tobaccoHow much tobacco do you chew?: noneWhat was the date of your most recent tobacco screening?: 11/27/2023Has tobacco cessation counseling been provided?: NoOn what date was tobacco cessation counseling provided?: (Notes: [email or web address] answered No to the Tobacco cessation counseling provided question .)What is your level of alcohol consumption?: NoneDo you use any illicit or recreational drugs?: NoWhich illicit or recreational drugs have you used?: noneHave you used IV drugs?: NoWhat is your level of caffeine consumption?: NoneEducation and OccupationWhat is the highest grade or level of school you have completed or the highest degree you have received?: Some college, no degreeAre you currently in school?: NoAre you currently employed?: NoMarriage and SexualityWhat is your relationship status?: Domestic partnerAre you sexually active?: NoDo you use protection during sex?: NoHow many children do you have?: 6Home and EnvironmentAre you a caregiver?: NoDo you have any pets?: YesDo you have smoke and carbon monoxide detectors in your home?: YesAre there any smokers in your house?: NoAre there any guns present in your home?: NoLifestyleDo you feel stressed (tense, restless, nervous, or anxious, or unable to sleep at night)?: To some extentDo you use your seat belt or car seat routinely?: YesAdvance DirectiveDo you have an advance directive?: YesWhat is your code status?: Full CodeDo you have a medical power of civil attorney?: NoActivities of Daily LivingAre you able to care for yourself?: YesAre you blind or do you have difficulty seeing?: NoAre you deaf or do you have serious difficulty hearing? : NoDo you have difficulty concentrating, remembering or making decisions?: YesDo you have difficulty walking or climbing stairs?: YesDo you have difficulty dressing or bathing?: NoDo you have difficulty doing errands alone?: NoAre you able to walk?: Yes: walks without restrictionsDo you have transportation difficulties?: NoOtherPast steroid/HgH use?: NoGender Identity and LGBTQ IdentityGender identity: Identifies as FemaleAssigned sex at : FemaleSexual orientation: Lesbian, john or homosexual Problems Problem Type SNOMED Code ICD Code Onset Dates Problem Status W/U Status Risk Notes Problem Generalized anxiety disorder (42419854) Generalized anxiety disorder (F41.1) 4 Active confirmed Problem Posttraumatic stress disorder (07682065) Post-traumatic stress disorder, chronic (F43.12) 4 Active confirmed Problem Primary insomnia (5810795) Primary insomnia (F51.01) 4 Active confirmed Problem Long-term current use of drug therapy (297457163) Other half-way (current) drug therapy (Z79.899) 4 Active confirmed Problem Obsessive compulsive disorder (572526910) Other obsessive-compul sive disorder (F42.8) 4 Active confirmed Problem Primary hypertension (28269966) Primary hypertension (I10) Active confirmed Problem Bipolar disorder (25564016) Bipolar disorder with depression (F31.9) Active confirmed Vital Signs Heart Rate 77 /min 02/09/2025 Height-cm 170.18 cm 02/09/2025 Blood pressure diastolic 74 mm Hg 02/09/2025 Weight-kg 182.8 kg 02/09/2025 Height 67.00 in 02/09/2025 Blood pressure systolic 117 mm Hg 02/09/2025 Weight 403.0 lbs 02/09/2025 BMI 63.11 kg/m2 02/09/2025 Encounters Encounter Location Date Provider Diagnosis [facility] [employer] [facility] [address] [facility] [address] [address] 08/19/2024 Vicki Mobley Bipolar disorder wit h depression F31.9 ; Generalized anxiety disorder F41.1 ; Post-traumatic stress disorder, chronic F43.12 ; Other obsessive-compulsive disorder F42.8 ; Primary insomnia F51.01 ; Other intermediate project manager (current) drug therapy Z79.899 and Primary hypertension I10 [facility] [facility] [address] [facility] [address] [address] 09/16/2024 Vicki Mobley Bipolar disorder wit h depression F31.9 ; Generalized anxiety disorder F41.1 ; Post-traumatic stress disorder, chronic F43.12 ; Other obsessive-compulsive disorder F42.8 ; Primary insomnia F51.01 ; Other intermediate project manager (current) drug therapy Z79.899 and Primary hypertension I10 [facility] [address] [facility] [address] [address] 11/10/2024 Vicki Mobley Bipolar disorder wit h depression F31.9 ; Generalized anxiety disorder F41.1 ; Post-traumatic stress disorder, chronic F43.12 ; Other obsessive-compulsive disorder F42.8 ; Primary insomnia F51.01 ; Other intermediate project manager (current) drug therapy Z79.899 ; Primary hypertension I10 and Encounter for screening for depression Z13.31 [facility] [address] [place] [address] 02/09/2025 Vicki Mobley Encounter for screen ing for depression Z13.31 ; Bipolar disorder with depression F31.9 ; Encounter for screening for cardiovascular disorders Z13.6 ; Generalized anxiety disorder F41.1 ; Post-traumatic stress disorder, chronic F43.12 ; Other obsessive-compulsive disorder F42.8 ; Primary insomnia F51.01 ; Other intermediate project manager (current) drug therapy Z79.899 and Primary hypertension I10 [facility] [facility] [address] [place] [address] 11/10/2024 Vicki Mobley Assessments Encounter Date Diagnosis (ICD Code) Assessment Notes Treatment Notes Treatment Clinical Notes Section Notes 08/19/2024 Generalized anxiety disorder (ICD-10 - F41.1) Learning About Generalized Anxiety Disorder material was published, Generalized Anxiety Disorder: Care Instructions material was published, Learning About Anxiety Disorders material was published 1. Bipolar I disorder - Latuda 60 mg in eveningeat 350 calories with Latuda educated and discuss adding LAMOTRIGINE 25 mg daily for 2 weeks then increase to 50 mg daily Lamotrigine lamotrigine has a serious rashes requiring hospitalization and discontinue treatment including Jacques Rudi syndrome rare case of toxic epidermal necrolysis and cache related deaths. Incidence with adjunct of epilepsy treatment 0.8% in 2 to 16 years old and 0.3% in adults, bipolar and other mood disorders incidence 0.8% this initial monotherapy and 0.13% as adjunctive treatment. Other risk factor may include concomitant use of valproate acid derivative or exceeding initial lamotrigine does or does as clinician recommendation; most life-threatening rash of occurring first 2 to 8 week of treatment with isolated cases after prolonged treatment; though benign may occur, discontinue treatment at first sign of rash unless clearly not a drug related; TC treatment may not prevent trash from becoming life-threatening or permanently disabling or disfiguring. Comment reaction include, nausea/vomiting, dizziness/vertigo, visual disturbances, somnolence, ataxia, pruritus/rash, pharyngitis, headache, rhinitis, diarrhea, fever, asthenia, insomnia, tremor, abdominal pain, cough, accidental injury, constipation, dysmenorrhea, incoordination, anxiety, seizures, irritability, anorexia, xerostomia, and photosensitivity. Serious reactions include: Rash, severe; Jackson Rudi syndrome; toxic epidermal necrosis; injury edema, hypersensitivity reactions. Including fatal, multiple organ failure to safe fatal, rash with eosinophilia systemic symptoms, DIC, neutropenia, leukopenia, thrombocytopenia, pancytopenia, aplastic anemia, hemolytic anemia, i pancreatitis, hepatic failure, rhabdomyolysis, worsening of suicidal ideation, worsening of depression, cleft lip/palate [first trimester use] DO not Change Cosmetic, perfumes or soap for next 4 weeks. The patient was advice to take lamotrigine as prescribed the patient was instructed not to deviate from the prescription dosages. Stop lamotrigine is the first sign of rash. Patient was insisted to inform office if any of the serious side effect develops. discuss [place] pharmacy and pill packs and patient is wanting all rx sent educated on all medications, benefits, side effects and risk, and educated on depression, anxiety, and , mood d/o and educated on compliance of medications, metabolic and movement d/o education appointment's, continue therapy discussion with patient about course of treatmentand patient instructions. SSRI/SNRI side effects discussed including but not limited to, gastric upset, nausea, vomiting, diarrhea and/or constipation, weight changes, sexual side effects including loss of libido, increased suicidal thoughts/behaviors in children and young adults, and serotonin syndrome.Second generation antipsychotics (SGAs) have metabolic syndrome issues with weight gain, increase in prolactin, increased waist circumference, increased lipids, and increased glucose. Thus routine monitoring of weight, metabolic labs, etc. is indicated. A general rank ordering of antipsychotics that have the greatest to the least risk of metabolic effects is olanzapine, quetiapine, risperidone, ziprasidone, and aripiprazole. However, weight gain can occur with all of these drugs and considerable variability exists among patients receiving the same drug regarding the risk of metabolic effects. Anti-psychotic agents not only increase the risk of metabolic disorder, they also increase the risk of CVA, akathisia, and movement disorders including EPS or tardive dyskinesia (more common with first generation antipsychotics) and more. AIMS= 0 10/29/23 AIMS= 0 08/19/24 [place] Prescription program reviewed therapy refer [facility] 2. Generalized anxiety disorder - therapy Pristiq 100 mg daily- monitor B/P -Monitor depression and anxiety Xanax 0.5 mg daily as needed - not taking rx often - refill needed today Discussed and educated pt regarding benzodiazepines are generally not intended for prolonged use and that use can cause tolerance, dependence, depression, and associated memory issues including dementias (this list is not exhaustive). Benzodiazepine use is generally not recommended concurrently with pain medications and/or other controlled substances due to increased risks of profound sedation, respiratory depression, coma, and even . They are not to be used with any alcohol, as this combination can also be lethal. Patient was provided caution 3. Primary insomnia -Melatonin 3-5 mg OTC CPAP 4. Chronic post-traumatic stress disorder - refer to therapy- situational stress with family 5. Obsessive-compulsi ve disorder - therapy stable 6. Long-term drug therapy 08/19/2024 Bipolar disorder with depression (ICD-10 - F31.9) 1. Bipolar I disorder - Latuda 60 mg in eveningeat 350 calories with Latuda educated and discuss adding LAMOTRIGINE 25 mg daily for 2 weeks then increase to 50 mg daily Lamotrigine lamotrigine has a serious rashes requiring hospitalization and discontinue treatment including Jacques Rudi syndrome rare case of toxic epidermal necrolysis and cache related deaths. Incidence with adjunct of epilepsy treatment 0.8% in 2 to 16 years old and 0.3% in adults, bipolar and other mood disorders incidence 0.8% this initial monotherapy and 0.13% as adjunctive treatment. Other risk factor may include concomitant use of valproate acid derivative or exceeding initial lamotrigine does or does as clinician recommendation; most life-threatening rash of occurring first 2 to 8 week of treatment with isolated cases after prolonged treatment; though benign may occur, discontinue treatment at first sign of rash unless clearly not a drug related; TC treatment may not prevent trash from becoming life-threatening or permanently disabling or disfiguring. Comment reaction include, nausea/vomiting, dizziness/vertigo, visual disturbances, somnolence, ataxia, pruritus/rash, pharyngitis, headache, rhinitis, diarrhea, fever, asthenia, insomnia, tremor, abdominal pain, cough, accidental injury, constipation, dysmenorrhea, incoordination, anxiety, seizures, irritability, anorexia, xerostomia, and photosensitivity. Serious reactions include: Rash, severe; Jackson Rudi syndrome; toxic epidermal necrosis; injury edema, hypersensitivity reactions. Including fatal, multiple organ failure to safe fatal, rash with eosinophilia systemic symptoms, DIC, neutropenia, leukopenia, thrombocytopenia, pancytopenia, aplastic anemia, hemolytic anemia, i pancreatitis, hepatic failure, rhabdomyolysis, worsening of suicidal ideation, worsening of depression, cleft lip/palate [first trimester use] DO not Change Cosmetic, perfumes or soap for next 4 weeks. The patient was advice to take lamotrigine as prescribed the patient was instructed not to deviate from the prescription dosages. Stop lamotrigine is the first sign of rash. Patient was insisted to inform office if any of the serious side effect develops. discuss [place] pharmacy and pill packs and patient is wanting all rx sent educated on all medications, benefits, side effects and risk, and educated on depression, anxiety, and , mood d/o and educated on compliance of medications, metabolic and movement d/o education appointment's, continue therapy discussion with patient about course of treatmentand patient instructions. SSRI/SNRI side effects discussed including but not limited to, gastric upset, nausea, vomiting, diarrhea and/or constipation, weight changes, sexual side effects including loss of libido, increased suicidal thoughts/behaviors in children and young adults, and serotonin syndrome.Second generation antipsychotics (SGAs) have metabolic syndrome issues with weight gain, increase in prolactin, increased waist circumference, increased lipids, and increased glucose. Thus routine monitoring of weight, metabolic labs, etc. is indicated. A general rank ordering of antipsychotics that have the greatest to the least risk of metabolic effects is olanzapine, quetiapine, risperidone, ziprasidone, and aripiprazole. However, weight gain can occur with all of these drugs and considerable variability exists among patients receiving the same drug regarding the risk of metabolic effects. Anti-psychotic agents not only increase the risk of metabolic disorder, they also increase the risk of CVA, akathisia, and movement disorders including EPS or tardive dyskinesia (more common with first generation antipsychotics) and more. AIMS= 0 10/29/23 AIMS= 0 08/19/24 [place] Prescription program reviewed therapy refer [facility] 2. Generalized anxiety disorder - therapy Pristiq 100 mg daily- monitor B/P -Monitor depression and anxiety Xanax 0.5 mg daily as needed - not taking rx often - refill needed today Discussed and educated pt regarding benzodiazepines are generally not intended for prolonged use and that use can cause tolerance, dependence, depression, and associated memory issues including dementias (this list is not exhaustive). Benzodiazepine use is generally not recommended concurrently with pain medications and/or other controlled substances due to increased risks of profound sedation, respiratory depression, coma, and even . They are not to be used with any alcohol, as this combination can also be lethal. Patient was provided caution 3. Primary insomnia -Melatonin 3-5 mg OTC CPAP 4. Chronic post-traumatic stress disorder - refer to therapy- situational stress with family 5. Obsessive-compulsi ve disorder - therapy stable 6. Long-term drug therapy 09/16/2024 Bipolar disorder with depression (ICD-10 - F31.9) 1. Bipolar I disorder - Latuda 60 mg in evening eat 350 calories with Latuda educated and discuss all RX LAMOTRIGINE 50 mg daily- start this week Lamotrigine lamotrigine has a serious rashes requiring hospitalization and discontinue treatment including Jacques Rudi syndrome rare case of toxic epidermal necrolysis and cache related deaths. Incidence with adjunct of epilepsy treatment 0.8% in 2 to 16 years old and 0.3% in adults, bipolar and other mood disorders incidence 0.8% this initial monotherapy and 0.13% as adjunctive treatment. Other risk factor may include concomitant use of valproate acid derivative or exceeding initial lamotrigine does or does as clinician recommendation; most life-threatening rash of occurring first 2 to 8 week of treatment with isolated cases after prolonged treatment; though benign may occur, discontinue treatment at first sign of rash unless clearly not a drug related; TC treatment may not prevent trash from becoming life-threatening or permanently disabling or disfiguring. Comment reaction include, nausea/vomiting, dizziness/vertigo, visual disturbances, somnolence, ataxia, pruritus/rash, pharyngitis, headache, rhinitis, diarrhea, fever, asthenia, insomnia, tremor, abdominal pain, cough, accidental injury, constipation, dysmenorrhea, incoordination, anxiety, seizures, irritability, anorexia, xerostomia, and photosensitivity. Serious reactions include: Rash, severe; Jackson Rudi syndrome; toxic epidermal necrosis; injury edema, hypersensitivity reactions. Including fatal, multiple organ failure to safe fatal, rash with eosinophilia systemic symptoms, DIC, neutropenia, leukopenia, thrombocytopenia, pancytopenia, aplastic anemia, hemolytic anemia, i pancreatitis, hepatic failure, rhabdomyolysis, worsening of suicidal ideation, worsening of depression, cleft lip/palate [first trimester use] DO not Change Cosmetic, perfumes or soap for next 4 weeks. The patient was advice to take lamotrigine as prescribed the patient was instructed not to deviate from the prescription dosages. Stop lamotrigine is the first sign of rash. Patient was insisted to inform office if any of the serious side effect develops. discuss [place] pharmacy and pill packs and patient is wanting all rx sent educated on all medications, benefits, side effects and risk, and educated on depression, anxiety, and , mood d/o and educated on compliance of medications, metabolic and movement d/o education appointment's, continue therapy discussion with patient about course of treatmentand patient instructions. SSRI/SNRI side effects discussed including but not limited to, gastric upset, nausea, vomiting, diarrhea and/or constipation, weight changes, sexual side effects including loss of libido, increased suicidal thoughts/behaviors in children and young adults, and serotonin syndrome.Second generation antipsychotics (SGAs) have metabolic syndrome issues with weight gain, increase in prolactin, increased waist circumference, increased lipids, and increased glucose. Thus routine monitoring of weight, metabolic labs, etc. is indicated. A general rank ordering of antipsychotics that have the greatest to the least risk of metabolic effects is olanzapine, quetiapine, risperidone, ziprasidone, and aripiprazole. However, weight gain can occur with all of these drugs and considerable variability exists among patients receiving the same drug regarding the risk of metabolic effects. Anti-psychotic agents not only increase the risk of metabolic disorder, they also increase the risk of CVA, akathisia, and movement disorders including EPS or tardive dyskinesia (more common with first generation antipsychotics) and more. AIMS= 0 10/29/23 AIMS= 0 08/19/24 [place] Prescription program reviewed therapy refer [facility] 2. Generalized anxiety disorder - therapy Pristiq 100 mg daily- monitor B/P -Monitor depression and anxiety Xanax 0.5 mg daily as needed - not taking rx often - refill needed today- educated to take daily if needed- reported taking every other day and having anxiety more recently Discussed and educated pt regarding benzodiazepines are generally not intended for prolonged use and that use can cause tolerance, dependence, depression, and associated memory issues including dementias (this list is not exhaustive). Benzodiazepine use is generally not recommended concurrently with pain medications and/or other controlled substances due to increased risks of profound sedation, respiratory depression, coma, and even . They are not to be used with any alcohol, as this combination can also be lethal. Patient was provided caution 3. Primary insomnia -Melatonin 3-5 mg OTC CPAP 4. Chronic post-traumatic stress disorder - refer to therapy- situational stress with family 5. Obsessive-compulsi ve disorder - therapy stable 6. Long-term drug therapy 11/10/2024 Bipolar disorder with depression (ICD-10 - F31.9) 1. Bipolar I disorder - stable Latuda 60 mg in evening eat 350 calories with Latuda educated and discuss all RX LAMOTRIGINE 50 mg daily- Lamotrigine lamotrigine has a serious rashes requiring hospitalization and discontinue treatment including Jacques Rudi syndrome rare case of toxic epidermal necrolysis and cache related deaths. Incidence with adjunct of epilepsy treatment 0.8% in 2 to 16 years old and 0.3% in adults, bipolar and other mood disorders incidence 0.8% this initial monotherapy and 0.13% as adjunctive treatment. Other risk factor may include concomitant use of valproate acid derivative or exceeding initial lamotrigine does or does as clinician recommendation; most life-threatening rash of occurring first 2 to 8 week of treatment with isolated cases after prolonged treatment; though benign may occur, discontinue treatment at first sign of rash unless clearly not a drug related; TC treatment may not prevent trash from becoming life-threatening or permanently disabling or disfiguring. Comment reaction include, nausea/vomiting, dizziness/vertigo, visual disturbances, somnolence, ataxia, pruritus/rash, pharyngitis, headache, rhinitis, diarrhea, fever, asthenia, insomnia, tremor, abdominal pain, cough, accidental injury, constipation, dysmenorrhea, incoordination, anxiety, seizures, irritability, anorexia, xerostomia, and photosensitivity. Serious reactions include: Rash, severe; Jackson Rudi syndrome; toxic epidermal necrosis; injury edema, hypersensitivity reactions. Including fatal, multiple organ failure to safe fatal, rash with eosinophilia systemic symptoms, DIC, neutropenia, leukopenia, thrombocytopenia, pancytopenia, aplastic anemia, hemolytic anemia, i pancreatitis, hepatic failure, rhabdomyolysis, worsening of suicidal ideation, worsening of depression, cleft lip/palate [first trimester use] DO not Change Cosmetic, perfumes or soap for next 4 weeks. The patient was advice to take lamotrigine as prescribed the patient was instructed not to deviate from the prescription dosages. Stop lamotrigine is the first sign of rash. Patient was insisted to inform office if any of the serious side effect develops. discuss [place] pharmacy and pill packs and patient is wanting all rx sent educated on all medications, benefits, side effects and risk, and educated on depression, anxiety, and , mood d/o and educated on compliance of medications, metabolic and movement d/o education appointment's, continue therapy discussion with patient about course of treatmentand patient instructions. SSRI/SNRI side effects discussed including but not limited to, gastric upset, nausea, vomiting, diarrhea and/or constipation, weight changes, sexual side effects including loss of libido, increased suicidal thoughts/behaviors in children and young adults, and serotonin syndrome.Second generation antipsychotics (SGAs) have metabolic syndrome issues with weight gain, increase in prolactin, increased waist circumference, increased lipids, and increased glucose. Thus routine monitoring of weight, metabolic labs, etc. is indicated. A general rank ordering of antipsychotics that have the greatest to the least risk of metabolic effects is olanzapine, quetiapine, risperidone, ziprasidone, and aripiprazole. However, weight gain can occur with all of these drugs and considerable variability exists among patients receiving the same drug regarding the risk of metabolic effects. Anti-psychotic agents not only increase the risk of metabolic disorder, they also increase the risk of CVA, akathisia, and movement disorders including EPS or tardive dyskinesia (more common with first generation antipsychotics) and more. AIMS= 0 10/29/23 AIMS= 0 08/19/24 [place] Prescription program reviewed therapy refer [facility] 2. Generalized anxiety disorder - therapy discuss and educated on adding Vistaril 10 mg twice a day as needed for anxiety Pristiq 100 mg daily- monitor B/P -Monitor depression and anxiety Xanax 0.5 mg daily as needed - not taking rx often - refill NO needed today- educated to take daily if needed- reported takes PRN Discussed and educated pt regarding benzodiazepines are generally not intended for prolonged use and that use can cause tolerance, dependence, depression, and associated memory issues including dementias (this list is not exhaustive). Benzodiazepine use is generally not recommended concurrently with pain medications and/or other controlled substances due to increased risks of profound sedation, respiratory depression, coma, and even . They are not to be used with any alcohol, as this combination can also be lethal. Patient was provided caution 3. Primary insomnia -Melatonin 3-5 mg OTC CPAP 4. Chronic post-traumatic stress disorder - refer to therapy- situational stress with family 5. Obsessive-compulsi ve disorder - therapy stable 6. Long-term drug therapy 02/09/2025 Encounter for screening for depression (ICD-10 - Z13.31) 1. Bipolar I disorder - stable Latuda 60 mg in evening eat 350 calories with Latuda educated and discuss all RX LAMOTRIGINE 50 mg daily- Lamotrigine lamotrigine has a serious rashes requiring hospitalization and discontinue treatment including Jacques Rudi syndrome rare case of toxic epidermal necrolysis and cache related deaths. Incidence with adjunct of epilepsy treatment 0.8% in 2 to 16 years old and 0.3% in adults, bipolar and other mood disorders incidence 0.8% this initial monotherapy and 0.13% as adjunctive treatment. Other risk factor may include concomitant use of valproate acid derivative or exceeding initial lamotrigine does or does as clinician recommendation; most life-threatening rash of occurring first 2 to 8 week of treatment with isolated cases after prolonged treatment; though benign may occur, discontinue treatment at first sign of rash unless clearly not a drug related; TC treatment may not prevent trash from becoming life-threatening or permanently disabling or disfiguring. Comment reaction include, nausea/vomiting, dizziness/vertigo, visual disturbances, somnolence, ataxia, pruritus/rash, pharyngitis, headache, rhinitis, diarrhea, fever, asthenia, insomnia, tremor, abdominal pain, cough, accidental injury, constipation, dysmenorrhea, incoordination, anxiety, seizures, irritability, anorexia, xerostomia, and photosensitivity. Serious reactions include: Rash, severe; Jackson Rudi syndrome; toxic epidermal necrosis; injury edema, hypersensitivity reactions. Including fatal, multiple organ failure to safe fatal, rash with eosinophilia systemic symptoms, DIC, neutropenia, leukopenia, thrombocytopenia, pancytopenia, aplastic anemia, hemolytic anemia, i pancreatitis, hepatic failure, rhabdomyolysis, worsening of suicidal ideation, worsening of depression, cleft lip/palate [first trimester use] DO not Change Cosmetic, perfumes or soap for next 4 weeks. The patient was advice to take lamotrigine as prescribed the patient was instructed not to deviate from the prescription dosages. Stop lamotrigine is the first sign of rash. Patient was insisted to inform office if any of the serious side effect develops. discuss [place] pharmacy and pill packs and patient is wanting all rx sent educated on all medications, benefits, side effects and risk, and educated on depression, anxiety, and , mood d/o and educated on compliance of medications, metabolic and movement d/o education appointment's, continue therapy discussion with patient about course of treatmentand patient instructions. SSRI/SNRI side effects discussed including but not limited to, gastric upset, nausea, vomiting, diarrhea and/or constipation, weight changes, sexual side effects including loss of libido, increased suicidal thoughts/behaviors in children and young adults, and serotonin syndrome.Second generation antipsychotics (SGAs) have metabolic syndrome issues with weight gain, increase in prolactin, increased waist circumference, increased lipids, and increased glucose. Thus routine monitoring of weight, metabolic labs, etc. is indicated. A general rank ordering of antipsychotics that have the greatest to the least risk of metabolic effects is olanzapine, quetiapine, risperidone, ziprasidone, and aripiprazole. However, weight gain can occur with all of these drugs and considerable variability exists among patients receiving the same drug regarding the risk of metabolic effects. Anti-psychotic agents not only increase the risk of metabolic disorder, they also increase the risk of CVA, akathisia, and movement disorders including EPS or tardive dyskinesia (more common with first generation antipsychotics) and more. AIMS= 0 10/29/23 AIMS= 0 08/19/24 AIMS= 0 02/09/25 [place] Prescription program reviewed therapy refer [facility] 2. Generalized anxiety disorder - therapy discuss and educated on all rx Increase Vistaril 25 mg twice a day as needed for anxiety Pristiq 100 mg daily- monitor B/P -Monitor depression and anxiety Xanax 0.5 mg daily as needed - not taking rx often - refill NO needed today- educated to take daily if needed- reported takes PRN Discussed and educated pt regarding benzodiazepines are generally not intended for prolonged use and that use can cause tolerance, dependence, depression, and associated memory issues including dementias (this list is not exhaustive). Benzodiazepine use is generally not recommended concurrently with pain medications and/or other controlled substances due to increased risks of profound sedation, respiratory depression, coma, and even . They are not to be used with any alcohol, as this combination can also be lethal. Patient was provided caution 3. Primary insomnia - Melatonin 3-5 mg OTC- REPORTED NOT TAKING CPAP 4. Chronic post-traumatic stress disorder - refer to therapy- situational stress with family 5. Obsessive-compulsi ve disorder - therapy stable 6. Long-term drug therapy 02/09/2025 Bipolar disorder with depression (ICD-10 - F31.9) 1. Bipolar I disorder - stable Latuda 60 mg in evening eat 350 calories with Latuda educated and discuss all RX LAMOTRIGINE 50 mg daily- Lamotrigine lamotrigine has a serious rashes requiring hospitalization and discontinue treatment including Jacques Rudi syndrome rare case of toxic epidermal necrolysis and cache related deaths. Incidence with adjunct of epilepsy treatment 0.8% in 2 to 16 years old and 0.3% in adults, bipolar and other mood disorders incidence 0.8% this initial monotherapy and 0.13% as adjunctive treatment. Other risk factor may include concomitant use of valproate acid derivative or exceeding initial lamotrigine does or does as clinician recommendation; most life-threatening rash of occurring first 2 to 8 week of treatment with isolated cases after prolonged treatment; though benign may occur, discontinue treatment at first sign of rash unless clearly not a drug related; TC treatment may not prevent trash from becoming life-threatening or permanently disabling or disfiguring. Comment reaction include, nausea/vomiting, dizziness/vertigo, visual disturbances, somnolence, ataxia, pruritus/rash, pharyngitis, headache, rhinitis, diarrhea, fever, asthenia, insomnia, tremor, abdominal pain, cough, accidental injury, constipation, dysmenorrhea, incoordination, anxiety, seizures, irritability, anorexia, xerostomia, and photosensitivity. Serious reactions include: Rash, severe; Jackson Rudi syndrome; toxic epidermal necrosis; injury edema, hypersensitivity reactions. Including fatal, multiple organ failure to safe fatal, rash with eosinophilia systemic symptoms, DIC, neutropenia, leukopenia, thrombocytopenia, pancytopenia, aplastic anemia, hemolytic anemia, i pancreatitis, hepatic failure, rhabdomyolysis, worsening of suicidal ideation, worsening of depression, cleft lip/palate [first trimester use] DO not Change Cosmetic, perfumes or soap for next 4 weeks. The patient was advice to take lamotrigine as prescribed the patient was instructed not to deviate from the prescription dosages. Stop lamotrigine is the first sign of rash. Patient was insisted to inform office if any of the serious side effect develops. discuss [place] pharmacy and pill packs and patient is wanting all rx sent educated on all medications, benefits, side effects and risk, and educated on depression, anxiety, and , mood d/o and educated on compliance of medications, metabolic and movement d/o education appointment's, continue therapy discussion with patient about course of treatmentand patient instructions. SSRI/SNRI side effects discussed including but not limited to, gastric upset, nausea, vomiting, diarrhea and/or constipation, weight changes, sexual side effects including loss of libido, increased suicidal thoughts/behaviors in children and young adults, and serotonin syndrome.Second generation antipsychotics (SGAs) have metabolic syndrome issues with weight gain, increase in prolactin, increased waist circumference, increased lipids, and increased glucose. Thus routine monitoring of weight, metabolic labs, etc. is indicated. A general rank ordering of antipsychotics that have the greatest to the least risk of metabolic effects is olanzapine, quetiapine, risperidone, ziprasidone, and aripiprazole. However, weight gain can occur with all of these drugs and considerable variability exists among patients receiving the same drug regarding the risk of metabolic effects. Anti-psychotic agents not only increase the risk of metabolic disorder, they also increase the risk of CVA, akathisia, and movement disorders including EPS or tardive dyskinesia (more common with first generation antipsychotics) and more. AIMS= 0 10/29/23 AIMS= 0 08/19/24 AIMS= 0 02/09/25 [place] Prescription program reviewed therapy refer [facility] 2. Generalized anxiety disorder - therapy discuss and educated on all rx Increase Vistaril 25 mg twice a day as needed for anxiety Pristiq 100 mg daily- monitor B/P -Monitor depression and anxiety Xanax 0.5 mg daily as needed - not taking rx often - refill NO needed today- educated to take daily if needed- reported takes PRN Discussed and educated pt regarding benzodiazepines are generally not intended for prolonged use and that use can cause tolerance, dependence, depression, and associated memory issues including dementias (this list is not exhaustive). Benzodiazepine use is generally not recommended concurrently with pain medications and/or other controlled substances due to increased risks of profound sedation, respiratory depression, coma, and even . They are not to be used with any alcohol, as this combination can also be lethal. Patient was provided caution 3. Primary insomnia - Melatonin 3-5 mg OTC- REPORTED NOT TAKING CPAP 4. Chronic post-traumatic stress disorder - refer to therapy- situational stress with family 5. Obsessive-compulsi ve disorder - therapy stable 6. Long-term drug therapy 02/09/2025 Encounter for screening for cardiovascular disorders (ICD-10 - Z13.6) 1. Bipolar I disorder - stable Latuda 60 mg in evening eat 350 calories with Latuda educated and discuss all RX LAMOTRIGINE 50 mg daily- Lamotrigine lamotrigine has a serious rashes requiring hospitalization and discontinue treatment including Jacqeus Rudi syndrome rare case of toxic epidermal necrolysis and cache related deaths. Incidence with adjunct of epilepsy treatment 0.8% in 2 to 16 years old and 0.3% in adults, bipolar and other mood disorders incidence 0.8% this initial monotherapy and 0.13% as adjunctive treatment. Other risk factor may include concomitant use of valproate acid derivative or exceeding initial lamotrigine does or does as clinician recommendation; most life-threatening rash of occurring first 2 to 8 week of treatment with isolated cases after prolonged treatment; though benign may occur, discontinue treatment at first sign of rash unless clearly not a drug related; TC treatment may not prevent trash from becoming life-threatening or permanently disabling or disfiguring. Comment reaction include, nausea/vomiting, dizziness/vertigo, visual disturbances, somnolence, ataxia, pruritus/rash, pharyngitis, headache, rhinitis, diarrhea, fever, asthenia, insomnia, tremor, abdominal pain, cough, accidental injury, constipation, dysmenorrhea, incoordination, anxiety, seizures, irritability, anorexia, xerostomia, and photosensitivity. Serious reactions include: Rash, severe; Jackson Rudi syndrome; toxic epidermal necrosis; injury edema, hypersensitivity reactions. Including fatal, multiple organ failure to safe fatal, rash with eosinophilia systemic symptoms, DIC, neutropenia, leukopenia, thrombocytopenia, pancytopenia, aplastic anemia, hemolytic anemia, i pancreatitis, hepatic failure, rhabdomyolysis, worsening of suicidal ideation, worsening of depression, cleft lip/palate [first trimester use] DO not Change Cosmetic, perfumes or soap for next 4 weeks. The patient was advice to take lamotrigine as prescribed the patient was instructed not to deviate from the prescription dosages. Stop lamotrigine is the first sign of rash. Patient was insisted to inform office if any of the serious side effect develops. discuss [place] pharmacy and pill packs and patient is wanting all rx sent educated on all medications, benefits, side effects and risk, and educated on depression, anxiety, and , mood d/o and educated on compliance of medications, metabolic and movement d/o education appointment's, continue therapy discussion with patient about course of treatmentand patient instructions. SSRI/SNRI side effects discussed including but not limited to, gastric upset, nausea, vomiting, diarrhea and/or constipation, weight changes, sexual side effects including loss of libido, increased suicidal thoughts/behaviors in children and young adults, and serotonin syndrome.Second generation antipsychotics (SGAs) have metabolic syndrome issues with weight gain, increase in prolactin, increased waist circumference, increased lipids, and increased glucose. Thus routine monitoring of weight, metabolic labs, etc. is indicated. A general rank ordering of antipsychotics that have the greatest to the least risk of metabolic effects is olanzapine, quetiapine, risperidone, ziprasidone, and aripiprazole. However, weight gain can occur with all of these drugs and considerable variability exists among patients receiving the same drug regarding the risk of metabolic effects. Anti-psychotic agents not only increase the risk of metabolic disorder, they also increase the risk of CVA, akathisia, and movement disorders including EPS or tardive dyskinesia (more common with first generation antipsychotics) and more. AIMS= 0 10/29/23 AIMS= 0 08/19/24 AIMS= 0 02/09/25 [place] Prescription program reviewed therapy refer [facility] 2. Generalized anxiety disorder - therapy discuss and educated on all rx Increase Vistaril 25 mg twice a day as needed for anxiety Pristiq 100 mg daily- monitor B/P -Monitor depression and anxiety Xanax 0.5 mg daily as needed - not taking rx often - refill NO needed today- educated to take daily if needed- reported takes PRN Discussed and educated pt regarding benzodiazepines are generally not intended for prolonged use and that use can cause tolerance, dependence, depression, and associated memory issues including dementias (this list is not exhaustive). Benzodiazepine use is generally not recommended concurrently with pain medications and/or other controlled substances due to increased risks of profound sedation, respiratory depression, coma, and even . They are not to be used with any alcohol, as this combination can also be lethal. Patient was provided caution 3. Primary insomnia - Melatonin 3-5 mg OTC- REPORTED NOT TAKING CPAP 4. Chronic post-traumatic stress disorder - refer to therapy- situational stress with family 5. Obsessive-compulsi ve disorder - therapy stable 6. Long-term drug therapy 11/10/2024 Generalized anxiety disorder (ICD-10 - F41.1) Learning About Generalized Anxiety Disorder material was published, Generalized Anxiety Disorder: Care Instructions material was published, Learning About Anxiety Disorders material was published Electronic Prior Authorization was requested for hydrOXYzine HCl 10 MG Tablet. Provider can order medication once approval received. 1. Bipolar I disorder - stable Latuda 60 mg in evening eat 350 calories with Latuda educated and discuss all RX LAMOTRIGINE 50 mg daily- Lamotrigine lamotrigine has a serious rashes requiring hospitalization and discontinue treatment including Jacques Rudi syndrome rare case of toxic epidermal necrolysis and cache related deaths. Incidence with adjunct of epilepsy treatment 0.8% in 2 to 16 years old and 0.3% in adults, bipolar and other mood disorders incidence 0.8% this initial monotherapy and 0.13% as adjunctive treatment. Other risk factor may include concomitant use of valproate acid derivative or exceeding initial lamotrigine does or does as clinician recommendation; most life-threatening rash of occurring first 2 to 8 week of treatment with isolated cases after prolonged treatment; though benign may occur, discontinue treatment at first sign of rash unless clearly not a drug related; TC treatment may not prevent trash from becoming life-threatening or permanently disabling or disfiguring. Comment reaction include, nausea/vomiting, dizziness/vertigo, visual disturbances, somnolence, ataxia, pruritus/rash, pharyngitis, headache, rhinitis, diarrhea, fever, asthenia, insomnia, tremor, abdominal pain, cough, accidental injury, constipation, dysmenorrhea, incoordination, anxiety, seizures, irritability, anorexia, xerostomia, and photosensitivity. Serious reactions include: Rash, severe; Jackson Rudi syndrome; toxic epidermal necrosis; injury edema, hypersensitivity reactions. Including fatal, multiple organ failure to safe fatal, rash with eosinophilia systemic symptoms, DIC, neutropenia, leukopenia, thrombocytopenia, pancytopenia, aplastic anemia, hemolytic anemia, i pancreatitis, hepatic failure, rhabdomyolysis, worsening of suicidal ideation, worsening of depression, cleft lip/palate [first trimester use] DO not Change Cosmetic, perfumes or soap for next 4 weeks. The patient was advice to take lamotrigine as prescribed the patient was instructed not to deviate from the prescription dosages. Stop lamotrigine is the first sign of rash. Patient was insisted to inform office if any of the serious side effect develops. discuss [place] pharmacy and pill packs and patient is wanting all rx sent educated on all medications, benefits, side effects and risk, and educated on depression, anxiety, and , mood d/o and educated on compliance of medications, metabolic and movement d/o education appointment's, continue therapy discussion with patient about course of treatmentand patient instructions. SSRI/SNRI side effects discussed including but not limited to, gastric upset, nausea, vomiting, diarrhea and/or constipation, weight changes, sexual side effects including loss of libido, increased suicidal thoughts/behaviors in children and young adults, and serotonin syndrome.Second generation antipsychotics (SGAs) have metabolic syndrome issues with weight gain, increase in prolactin, increased waist circumference, increased lipids, and increased glucose. Thus routine monitoring of weight, metabolic labs, etc. is indicated. A general rank ordering of antipsychotics that have the greatest to the least risk of metabolic effects is olanzapine, quetiapine, risperidone, ziprasidone, and aripiprazole. However, weight gain can occur with all of these drugs and considerable variability exists among patients receiving the same drug regarding the risk of metabolic effects. Anti-psychotic agents not only increase the risk of metabolic disorder, they also increase the risk of CVA, akathisia, and movement disorders including EPS or tardive dyskinesia (more common with first generation antipsychotics) and more. AIMS= 0 10/29/23 AIMS= 0 08/19/24 [place] Prescription program reviewed therapy refer [facility] 2. Generalized anxiety disorder - therapy discuss and educated on adding Vistaril 10 mg twice a day as needed for anxiety Pristiq 100 mg daily- monitor B/P -Monitor depression and anxiety Xanax 0.5 mg daily as needed - not taking rx often - refill NO needed today- educated to take daily if needed- reported takes PRN Discussed and educated pt regarding benzodiazepines are generally not intended for prolonged use and that use can cause tolerance, dependence, depression, and associated memory issues including dementias (this list is not exhaustive). Benzodiazepine use is generally not recommended concurrently with pain medications and/or other controlled substances due to increased risks of profound sedation, respiratory depression, coma, and even . They are not to be used with any alcohol, as this combination can also be lethal. Patient was provided caution 3. Primary insomnia -Melatonin 3-5 mg OTC CPAP 4. Chronic post-traumatic stress disorder - refer to therapy- situational stress with family 5. Obsessive-compulsi ve disorder - therapy stable 6. Long-term drug therapy 09/16/2024 Generalized anxiety disorder (ICD-10 - F41.1) Learning About Generalized Anxiety Disorder material was published, Generalized Anxiety Disorder: Care Instructions material was published, Learning About Anxiety Disorders material was published 1. Bipolar I disorder - Latuda 60 mg in evening eat 350 calories with Latuda educated and discuss all RX LAMOTRIGINE 50 mg daily- start this week Lamotrigine lamotrigine has a serious rashes requiring hospitalization and discontinue treatment including Jacques Rudi syndrome rare case of toxic epidermal necrolysis and cache related deaths. Incidence with adjunct of epilepsy treatment 0.8% in 2 to 16 years old and 0.3% in adults, bipolar and other mood disorders incidence 0.8% this initial monotherapy and 0.13% as adjunctive treatment. Other risk factor may include concomitant use of valproate acid derivative or exceeding initial lamotrigine does or does as clinician recommendation; most life-threatening rash of occurring first 2 to 8 week of treatment with isolated cases after prolonged treatment; though benign may occur, discontinue treatment at first sign of rash unless clearly not a drug related; TC treatment may not prevent trash from becoming life-threatening or permanently disabling or disfiguring. Comment reaction include, nausea/vomiting, dizziness/vertigo, visual disturbances, somnolence, ataxia, pruritus/rash, pharyngitis, headache, rhinitis, diarrhea, fever, asthenia, insomnia, tremor, abdominal pain, cough, accidental injury, constipation, dysmenorrhea, incoordination, anxiety, seizures, irritability, anorexia, xerostomia, and photosensitivity. Serious reactions include: Rash, severe; Jackson Rudi syndrome; toxic epidermal necrosis; injury edema, hypersensitivity reactions. Including fatal, multiple organ failure to safe fatal, rash with eosinophilia systemic symptoms, DIC, neutropenia, leukopenia, thrombocytopenia, pancytopenia, aplastic anemia, hemolytic anemia, i pancreatitis, hepatic failure, rhabdomyolysis, worsening of suicidal ideation, worsening of depression, cleft lip/palate [first trimester use] DO not Change Cosmetic, perfumes or soap for next 4 weeks. The patient was advice to take lamotrigine as prescribed the patient was instructed not to deviate from the prescription dosages. Stop lamotrigine is the first sign of rash. Patient was insisted to inform office if any of the serious side effect develops. discuss [place] pharmacy and pill packs and patient is wanting all rx sent educated on all medications, benefits, side effects and risk, and educated on depression, anxiety, and , mood d/o and educated on compliance of medications, metabolic and movement d/o education appointment's, continue therapy discussion with patient about course of treatmentand patient instructions. SSRI/SNRI side effects discussed including but not limited to, gastric upset, nausea, vomiting, diarrhea and/or constipation, weight changes, sexual side effects including loss of libido, increased suicidal thoughts/behaviors in children and young adults, and serotonin syndrome.Second generation antipsychotics (SGAs) have metabolic syndrome issues with weight gain, increase in prolactin, increased waist circumference, increased lipids, and increased glucose. Thus routine monitoring of weight, metabolic labs, etc. is indicated. A general rank ordering of antipsychotics that have the greatest to the least risk of metabolic effects is olanzapine, quetiapine, risperidone, ziprasidone, and aripiprazole. However, weight gain can occur with all of these drugs and considerable variability exists among patients receiving the same drug regarding the risk of metabolic effects. Anti-psychotic agents not only increase the risk of metabolic disorder, they also increase the risk of CVA, akathisia, and movement disorders including EPS or tardive dyskinesia (more common with first generation antipsychotics) and more. AIMS= 0 10/29/23 AIMS= 0 08/19/24 [place] Prescription program reviewed therapy refer [facility] 2. Generalized anxiety disorder - therapy Pristiq 100 mg daily- monitor B/P -Monitor depression and anxiety Xanax 0.5 mg daily as needed - not taking rx often - refill needed today- educated to take daily if needed- reported taking every other day and having anxiety more recently Discussed and educated pt regarding benzodiazepines are generally not intended for prolonged use and that use can cause tolerance, dependence, depression, and associated memory issues including dementias (this list is not exhaustive). Benzodiazepine use is generally not recommended concurrently with pain medications and/or other controlled substances due to increased risks of profound sedation, respiratory depression, coma, and even . They are not to be used with any alcohol, as this combination can also be lethal. Patient was provided caution 3. Primary insomnia -Melatonin 3-5 mg OTC CPAP 4. Chronic post-traumatic stress disorder - refer to therapy- situational stress with family 5. Obsessive-compulsi ve disorder - therapy stable 6. Long-term drug therapy 08/19/2024 Post-traumatic stress disorder, chronic (ICD-10 - F43.12) Post-Traumatic Stress Disorder (PTSD): Care Instructions material was published 1. Bipolar I disorder - Latuda 60 mg in eveningeat 350 calories with Latuda educated and discuss adding LAMOTRIGINE 25 mg daily for 2 weeks then increase to 50 mg daily Lamotrigine lamotrigine has a serious rashes requiring hospitalization and discontinue treatment including Jacques Rudi syndrome rare case of toxic epidermal necrolysis and cache related deaths. Incidence with adjunct of epilepsy treatment 0.8% in 2 to 16 years old and 0.3% in adults, bipolar and other mood disorders incidence 0.8% this initial monotherapy and 0.13% as adjunctive treatment. Other risk factor may include concomitant use of valproate acid derivative or exceeding initial lamotrigine does or does as clinician recommendation; most life-threatening rash of occurring first 2 to 8 week of treatment with isolated cases after prolonged treatment; though benign may occur, discontinue treatment at first sign of rash unless clearly not a drug related; TC treatment may not prevent trash from becoming life-threatening or permanently disabling or disfiguring. Comment reaction include, nausea/vomiting, dizziness/vertigo, visual disturbances, somnolence, ataxia, pruritus/rash, pharyngitis, headache, rhinitis, diarrhea, fever, asthenia, insomnia, tremor, abdominal pain, cough, accidental injury, constipation, dysmenorrhea, incoordination, anxiety, seizures, irritability, anorexia, xerostomia, and photosensitivity. Serious reactions include: Rash, severe; Jackson Rudi syndrome; toxic epidermal necrosis; injury edema, hypersensitivity reactions. Including fatal, multiple organ failure to safe fatal, rash with eosinophilia systemic symptoms, DIC, neutropenia, leukopenia, thrombocytopenia, pancytopenia, aplastic anemia, hemolytic anemia, i pancreatitis, hepatic failure, rhabdomyolysis, worsening of suicidal ideation, worsening of depression, cleft lip/palate [first trimester use] DO not Change Cosmetic, perfumes or soap for next 4 weeks. The patient was advice to take lamotrigine as prescribed the patient was instructed not to deviate from the prescription dosages. Stop lamotrigine is the first sign of rash. Patient was insisted to inform office if any of the serious side effect develops. discuss [place] pharmacy and pill packs and patient is wanting all rx sent educated on all medications, benefits, side effects and risk, and educated on depression, anxiety, and , mood d/o and educated on compliance of medications, metabolic and movement d/o education appointment's, continue therapy discussion with patient about course of treatmentand patient instructions. SSRI/SNRI side effects discussed including but not limited to, gastric upset, nausea, vomiting, diarrhea and/or constipation, weight changes, sexual side effects including loss of libido, increased suicidal thoughts/behaviors in children and young adults, and serotonin syndrome.Second generation antipsychotics (SGAs) have metabolic syndrome issues with weight gain, increase in prolactin, increased waist circumference, increased lipids, and increased glucose. Thus routine monitoring of weight, metabolic labs, etc. is indicated. A general rank ordering of antipsychotics that have the greatest to the least risk of metabolic effects is olanzapine, quetiapine, risperidone, ziprasidone, and aripiprazole. However, weight gain can occur with all of these drugs and considerable variability exists among patients receiving the same drug regarding the risk of metabolic effects. Anti-psychotic agents not only increase the risk of metabolic disorder, they also increase the risk of CVA, akathisia, and movement disorders including EPS or tardive dyskinesia (more common with first generation antipsychotics) and more. AIMS= 0 10/29/23 AIMS= 0 08/19/24 [place] Prescription program reviewed therapy refer [facility] 2. Generalized anxiety disorder - therapy Pristiq 100 mg daily- monitor B/P -Monitor depression and anxiety Xanax 0.5 mg daily as needed - not taking rx often - refill needed today Discussed and educated pt regarding benzodiazepines are generally not intended for prolonged use and that use can cause tolerance, dependence, depression, and associated memory issues including dementias (this list is not exhaustive). Benzodiazepine use is generally not recommended concurrently with pain medications and/or other controlled substances due to increased risks of profound sedation, respiratory depression, coma, and even . They are not to be used with any alcohol, as this combination can also be lethal. Patient was provided caution 3. Primary insomnia -Melatonin 3-5 mg OTC CPAP 4. Chronic post-traumatic stress disorder - refer to therapy- situational stress with family 5. Obsessive-compulsi ve disorder - therapy stable 6. Long-term drug therapy 09/16/2024 Post-traumatic stress disorder, chronic (ICD-10 - F43.12) Post-Traumatic Stress Disorder (PTSD): Care Instructions material was published 1. Bipolar I disorder - Latuda 60 mg in evening eat 350 calories with Latuda educated and discuss all RX LAMOTRIGINE 50 mg daily- start this week Lamotrigine lamotrigine has a serious rashes requiring hospitalization and discontinue treatment including Jacques Rudi syndrome rare case of toxic epidermal necrolysis and cache related deaths. Incidence with adjunct of epilepsy treatment 0.8% in 2 to 16 years old and 0.3% in adults, bipolar and other mood disorders incidence 0.8% this initial monotherapy and 0.13% as adjunctive treatment. Other risk factor may include concomitant use of valproate acid derivative or exceeding initial lamotrigine does or does as clinician recommendation; most life-threatening rash of occurring first 2 to 8 week of treatment with isolated cases after prolonged treatment; though benign may occur, discontinue treatment at first sign of rash unless clearly not a drug related; TC treatment may not prevent trash from becoming life-threatening or permanently disabling or disfiguring. Comment reaction include, nausea/vomiting, dizziness/vertigo, visual disturbances, somnolence, ataxia, pruritus/rash, pharyngitis, headache, rhinitis, diarrhea, fever, asthenia, insomnia, tremor, abdominal pain, cough, accidental injury, constipation, dysmenorrhea, incoordination, anxiety, seizures, irritability, anorexia, xerostomia, and photosensitivity. Serious reactions include: Rash, severe; Jackson Rudi syndrome; toxic epidermal necrosis; injury edema, hypersensitivity reactions. Including fatal, multiple organ failure to safe fatal, rash with eosinophilia systemic symptoms, DIC, neutropenia, leukopenia, thrombocytopenia, pancytopenia, aplastic anemia, hemolytic anemia, i pancreatitis, hepatic failure, rhabdomyolysis, worsening of suicidal ideation, worsening of depression, cleft lip/palate [first trimester use] DO not Change Cosmetic, perfumes or soap for next 4 weeks. The patient was advice to take lamotrigine as prescribed the patient was instructed not to deviate from the prescription dosages. Stop lamotrigine is the first sign of rash. Patient was insisted to inform office if any of the serious side effect develops. discuss [place] pharmacy and pill packs and patient is wanting all rx sent educated on all medications, benefits, side effects and risk, and educated on depression, anxiety, and , mood d/o and educated on compliance of medications, metabolic and movement d/o education appointment's, continue therapy discussion with patient about course of treatmentand patient instructions. SSRI/SNRI side effects discussed including but not limited to, gastric upset, nausea, vomiting, diarrhea and/or constipation, weight changes, sexual side effects including loss of libido, increased suicidal thoughts/behaviors in children and young adults, and serotonin syndrome.Second generation antipsychotics (SGAs) have metabolic syndrome issues with weight gain, increase in prolactin, increased waist circumference, increased lipids, and increased glucose. Thus routine monitoring of weight, metabolic labs, etc. is indicated. A general rank ordering of antipsychotics that have the greatest to the least risk of metabolic effects is olanzapine, quetiapine, risperidone, ziprasidone, and aripiprazole. However, weight gain can occur with all of these drugs and considerable variability exists among patients receiving the same drug regarding the risk of metabolic effects. Anti-psychotic agents not only increase the risk of metabolic disorder, they also increase the risk of CVA, akathisia, and movement disorders including EPS or tardive dyskinesia (more common with first generation antipsychotics) and more. AIMS= 0 10/29/23 AIMS= 0 08/19/24 [place] Prescription program reviewed therapy refer [facility] 2. Generalized anxiety disorder - therapy Pristiq 100 mg daily- monitor B/P -Monitor depression and anxiety Xanax 0.5 mg daily as needed - not taking rx often - refill needed today- educated to take daily if needed- reported taking every other day and having anxiety more recently Discussed and educated pt regarding benzodiazepines are generally not intended for prolonged use and that use can cause tolerance, dependence, depression, and associated memory issues including dementias (this list is not exhaustive). Benzodiazepine use is generally not recommended concurrently with pain medications and/or other controlled substances due to increased risks of profound sedation, respiratory depression, coma, and even . They are not to be used with any alcohol, as this combination can also be lethal. Patient was provided caution 3. Primary insomnia -Melatonin 3-5 mg OTC CPAP 4. Chronic post-traumatic stress disorder - refer to therapy- situational stress with family 5. Obsessive-compulsi ve disorder - therapy stable 6. Long-term drug therapy 08/19/2024 Other obsessive-compuls delmer disorder (ICD-10 - F42.8) Obsessive-Compu lsive Disorder: Care Instructions material was published 1. Bipolar I disorder - Latuda 60 mg in eveningeat 350 calories with Latuda educated and discuss adding LAMOTRIGINE 25 mg daily for 2 weeks then increase to 50 mg daily Lamotrigine lamotrigine has a serious rashes requiring hospitalization and discontinue treatment including Jacques Rudi syndrome rare case of toxic epidermal necrolysis and cache related deaths. Incidence with adjunct of epilepsy treatment 0.8% in 2 to 16 years old and 0.3% in adults, bipolar and other mood disorders incidence 0.8% this initial monotherapy and 0.13% as adjunctive treatment. Other risk factor may include concomitant use of valproate acid derivative or exceeding initial lamotrigine does or does as clinician recommendation; most life-threatening rash of occurring first 2 to 8 week of treatment with isolated cases after prolonged treatment; though benign may occur, discontinue treatment at first sign of rash unless clearly not a drug related; TC treatment may not prevent trash from becoming life-threatening or permanently disabling or disfiguring. Comment reaction include, nausea/vomiting, dizziness/vertigo, visual disturbances, somnolence, ataxia, pruritus/rash, pharyngitis, headache, rhinitis, diarrhea, fever, asthenia, insomnia, tremor, abdominal pain, cough, accidental injury, constipation, dysmenorrhea, incoordination, anxiety, seizures, irritability, anorexia, xerostomia, and photosensitivity. Serious reactions include: Rash, severe; Jackson Rudi syndrome; toxic epidermal necrosis; injury edema, hypersensitivity reactions. Including fatal, multiple organ failure to safe fatal, rash with eosinophilia systemic symptoms, DIC, neutropenia, leukopenia, thrombocytopenia, pancytopenia, aplastic anemia, hemolytic anemia, i pancreatitis, hepatic failure, rhabdomyolysis, worsening of suicidal ideation, worsening of depression, cleft lip/palate [first trimester use] DO not Change Cosmetic, perfumes or soap for next 4 weeks. The patient was advice to take lamotrigine as prescribed the patient was instructed not to deviate from the prescription dosages. Stop lamotrigine is the first sign of rash. Patient was insisted to inform office if any of the serious side effect develops. discuss [place] pharmacy and pill packs and patient is wanting all rx sent educated on all medications, benefits, side effects and risk, and educated on depression, anxiety, and , mood d/o and educated on compliance of medications, metabolic and movement d/o education appointment's, continue therapy discussion with patient about course of treatmentand patient instructions. SSRI/SNRI side effects discussed including but not limited to, gastric upset, nausea, vomiting, diarrhea and/or constipation, weight changes, sexual side effects including loss of libido, increased suicidal thoughts/behaviors in children and young adults, and serotonin syndrome.Second generation antipsychotics (SGAs) have metabolic syndrome issues with weight gain, increase in prolactin, increased waist circumference, increased lipids, and increased glucose. Thus routine monitoring of weight, metabolic labs, etc. is indicated. A general rank ordering of antipsychotics that have the greatest to the least risk of metabolic effects is olanzapine, quetiapine, risperidone, ziprasidone, and aripiprazole. However, weight gain can occur with all of these drugs and considerable variability exists among patients receiving the same drug regarding the risk of metabolic effects. Anti-psychotic agents not only increase the risk of metabolic disorder, they also increase the risk of CVA, akathisia, and movement disorders including EPS or tardive dyskinesia (more common with first generation antipsychotics) and more. AIMS= 0 10/29/23 AIMS= 0 08/19/24 [place] Prescription program reviewed therapy refer [facility] 2. Generalized anxiety disorder - therapy Pristiq 100 mg daily- monitor B/P -Monitor depression and anxiety Xanax 0.5 mg daily as needed - not taking rx often - refill needed today Discussed and educated pt regarding benzodiazepines are generally not intended for prolonged use and that use can cause tolerance, dependence, depression, and associated memory issues including dementias (this list is not exhaustive). Benzodiazepine use is generally not recommended concurrently with pain medications and/or other controlled substances due to increased risks of profound sedation, respiratory depression, coma, and even . They are not to be used with any alcohol, as this combination can also be lethal. Patient was provided caution 3. Primary insomnia -Melatonin 3-5 mg OTC CPAP 4. Chronic post-traumatic stress disorder - refer to therapy- situational stress with family 5. Obsessive-compulsi ve disorder - therapy stable 6. Long-term drug therapy 11/10/2024 Post-traumatic stress disorder, chronic (ICD-10 - F43.12) Post-Traumatic Stress Disorder (PTSD): Care Instructions material was published 1. Bipolar I disorder - stable Latuda 60 mg in evening eat 350 calories with Latuda educated and discuss all RX LAMOTRIGINE 50 mg daily- Lamotrigine lamotrigine has a serious rashes requiring hospitalization and discontinue treatment including Jacques Rudi syndrome rare case of toxic epidermal necrolysis and cache related deaths. Incidence with adjunct of epilepsy treatment 0.8% in 2 to 16 years old and 0.3% in adults, bipolar and other mood disorders incidence 0.8% this initial monotherapy and 0.13% as adjunctive treatment. Other risk factor may include concomitant use of valproate acid derivative or exceeding initial lamotrigine does or does as clinician recommendation; most life-threatening rash of occurring first 2 to 8 week of treatment with isolated cases after prolonged treatment; though benign may occur, discontinue treatment at first sign of rash unless clearly not a drug related; TC treatment may not prevent trash from becoming life-threatening or permanently disabling or disfiguring. Comment reaction include, nausea/vomiting, dizziness/vertigo, visual disturbances, somnolence, ataxia, pruritus/rash, pharyngitis, headache, rhinitis, diarrhea, fever, asthenia, insomnia, tremor, abdominal pain, cough, accidental injury, constipation, dysmenorrhea, incoordination, anxiety, seizures, irritability, anorexia, xerostomia, and photosensitivity. Serious reactions include: Rash, severe; Jackson Rudi syndrome; toxic epidermal necrosis; injury edema, hypersensitivity reactions. Including fatal, multiple organ failure to safe fatal, rash with eosinophilia systemic symptoms, DIC, neutropenia, leukopenia, thrombocytopenia, pancytopenia, aplastic anemia, hemolytic anemia, i pancreatitis, hepatic failure, rhabdomyolysis, worsening of suicidal ideation, worsening of depression, cleft lip/palate [first trimester use] DO not Change Cosmetic, perfumes or soap for next 4 weeks. The patient was advice to take lamotrigine as prescribed the patient was instructed not to deviate from the prescription dosages. Stop lamotrigine is the first sign of rash. Patient was insisted to inform office if any of the serious side effect develops. discuss [place] pharmacy and pill packs and patient is wanting all rx sent educated on all medications, benefits, side effects and risk, and educated on depression, anxiety, and , mood d/o and educated on compliance of medications, metabolic and movement d/o education appointment's, continue therapy discussion with patient about course of treatmentand patient instructions. SSRI/SNRI side effects discussed including but not limited to, gastric upset, nausea, vomiting, diarrhea and/or constipation, weight changes, sexual side effects including loss of libido, increased suicidal thoughts/behaviors in children and young adults, and serotonin syndrome.Second generation antipsychotics (SGAs) have metabolic syndrome issues with weight gain, increase in prolactin, increased waist circumference, increased lipids, and increased glucose. Thus routine monitoring of weight, metabolic labs, etc. is indicated. A general rank ordering of antipsychotics that have the greatest to the least risk of metabolic effects is olanzapine, quetiapine, risperidone, ziprasidone, and aripiprazole. However, weight gain can occur with all of these drugs and considerable variability exists among patients receiving the same drug regarding the risk of metabolic effects. Anti-psychotic agents not only increase the risk of metabolic disorder, they also increase the risk of CVA, akathisia, and movement disorders including EPS or tardive dyskinesia (more common with first generation antipsychotics) and more. AIMS= 0 10/29/23 AIMS= 0 08/19/24 [place] Prescription program reviewed therapy refer [facility] 2. Generalized anxiety disorder - therapy discuss and educated on adding Vistaril 10 mg twice a day as needed for anxiety Pristiq 100 mg daily- monitor B/P -Monitor depression and anxiety Xanax 0.5 mg daily as needed - not taking rx often - refill NO needed today- educated to take daily if needed- reported takes PRN Discussed and educated pt regarding benzodiazepines are generally not intended for prolonged use and that use can cause tolerance, dependence, depression, and associated memory issues including dementias (this list is not exhaustive). Benzodiazepine use is generally not recommended concurrently with pain medications and/or other controlled substances due to increased risks of profound sedation, respiratory depression, coma, and even . They are not to be used with any alcohol, as this combination can also be lethal. Patient was provided caution 3. Primary insomnia -Melatonin 3-5 mg OTC CPAP 4. Chronic post-traumatic stress disorder - refer to therapy- situational stress with family 5. Obsessive-compulsi ve disorder - therapy stable 6. Long-term drug therapy 02/09/2025 Generalized anxiety disorder (ICD-10 - F41.1) Learning About Generalized Anxiety Disorder material was published, Generalized Anxiety Disorder: Care Instructions material was published, Learning About Anxiety Disorders material was published Electronic Prior Authorization was requested for hydrOXYzine HCl 10 MG Tablet. Provider can order medication once approval received. 1. Bipolar I disorder - stable Latuda 60 mg in evening eat 350 calories with Latuda educated and discuss all RX LAMOTRIGINE 50 mg daily- Lamotrigine lamotrigine has a serious rashes requiring hospitalization and discontinue treatment including Jacques Rudi syndrome rare case of toxic epidermal necrolysis and cache related deaths. Incidence with adjunct of epilepsy treatment 0.8% in 2 to 16 years old and 0.3% in adults, bipolar and other mood disorders incidence 0.8% this initial monotherapy and 0.13% as adjunctive treatment. Other risk factor may include concomitant use of valproate acid derivative or exceeding initial lamotrigine does or does as clinician recommendation; most life-threatening rash of occurring first 2 to 8 week of treatment with isolated cases after prolonged treatment; though benign may occur, discontinue treatment at first sign of rash unless clearly not a drug related; TC treatment may not prevent trash from becoming life-threatening or permanently disabling or disfiguring. Comment reaction include, nausea/vomiting, dizziness/vertigo, visual disturbances, somnolence, ataxia, pruritus/rash, pharyngitis, headache, rhinitis, diarrhea, fever, asthenia, insomnia, tremor, abdominal pain, cough, accidental injury, constipation, dysmenorrhea, incoordination, anxiety, seizures, irritability, anorexia, xerostomia, and photosensitivity. Serious reactions include: Rash, severe; Jackson Rudi syndrome; toxic epidermal necrosis; injury edema, hypersensitivity reactions. Including fatal, multiple organ failure to safe fatal, rash with eosinophilia systemic symptoms, DIC, neutropenia, leukopenia, thrombocytopenia, pancytopenia, aplastic anemia, hemolytic anemia, i pancreatitis, hepatic failure, rhabdomyolysis, worsening of suicidal ideation, worsening of depression, cleft lip/palate [first trimester use] DO not Change Cosmetic, perfumes or soap for next 4 weeks. The patient was advice to take lamotrigine as prescribed the patient was instructed not to deviate from the prescription dosages. Stop lamotrigine is the first sign of rash. Patient was insisted to inform office if any of the serious side effect develops. discuss [place] pharmacy and pill packs and patient is wanting all rx sent educated on all medications, benefits, side effects and risk, and educated on depression, anxiety, and , mood d/o and educated on compliance of medications, metabolic and movement d/o education appointment's, continue therapy discussion with patient about course of treatmentand patient instructions. SSRI/SNRI side effects discussed including but not limited to, gastric upset, nausea, vomiting, diarrhea and/or constipation, weight changes, sexual side effects including loss of libido, increased suicidal thoughts/behaviors in children and young adults, and serotonin syndrome.Second generation antipsychotics (SGAs) have metabolic syndrome issues with weight gain, increase in prolactin, increased waist circumference, increased lipids, and increased glucose. Thus routine monitoring of weight, metabolic labs, etc. is indicated. A general rank ordering of antipsychotics that have the greatest to the least risk of metabolic effects is olanzapine, quetiapine, risperidone, ziprasidone, and aripiprazole. However, weight gain can occur with all of these drugs and considerable variability exists among patients receiving the same drug regarding the risk of metabolic effects. Anti-psychotic agents not only increase the risk of metabolic disorder, they also increase the risk of CVA, akathisia, and movement disorders including EPS or tardive dyskinesia (more common with first generation antipsychotics) and more. AIMS= 0 10/29/23 AIMS= 0 08/19/24 AIMS= 0 02/09/25 [place] Prescription program reviewed therapy refer [facility] 2. Generalized anxiety disorder - therapy discuss and educated on all rx Increase Vistaril 25 mg twice a day as needed for anxiety Pristiq 100 mg daily- monitor B/P -Monitor depression and anxiety Xanax 0.5 mg daily as needed - not taking rx often - refill NO needed today- educated to take daily if needed- reported takes PRN Discussed and educated pt regarding benzodiazepines are generally not intended for prolonged use and that use can cause tolerance, dependence, depression, and associated memory issues including dementias (this list is not exhaustive). Benzodiazepine use is generally not recommended concurrently with pain medications and/or other controlled substances due to increased risks of profound sedation, respiratory depression, coma, and even . They are not to be used with any alcohol, as this combination can also be lethal. Patient was provided caution 3. Primary insomnia - Melatonin 3-5 mg OTC- REPORTED NOT TAKING CPAP 4. Chronic post-traumatic stress disorder - refer to therapy- situational stress with family 5. Obsessive-compulsi ve disorder - therapy stable 6. Long-term drug therapy 02/09/2025 Post-traumatic stress disorder, chronic (ICD-10 - F43.12) Post-Traumatic Stress Disorder (PTSD): Care Instructions material was published 1. Bipolar I disorder - stable Latuda 60 mg in evening eat 350 calories with Latuda educated and discuss all RX LAMOTRIGINE 50 mg daily- Lamotrigine lamotrigine has a serious rashes requiring hospitalization and discontinue treatment including Jacques Rudi syndrome rare case of toxic epidermal necrolysis and cache related deaths. Incidence with adjunct of epilepsy treatment 0.8% in 2 to 16 years old and 0.3% in adults, bipolar and other mood disorders incidence 0.8% this initial monotherapy and 0.13% as adjunctive treatment. Other risk factor may include concomitant use of valproate acid derivative or exceeding initial lamotrigine does or does as clinician recommendation; most life-threatening rash of occurring first 2 to 8 week of treatment with isolated cases after prolonged treatment; though benign may occur, discontinue treatment at first sign of rash unless clearly not a drug related; TC treatment may not prevent trash from becoming life-threatening or permanently disabling or disfiguring. Comment reaction include, nausea/vomiting, dizziness/vertigo, visual disturbances, somnolence, ataxia, pruritus/rash, pharyngitis, headache, rhinitis, diarrhea, fever, asthenia, insomnia, tremor, abdominal pain, cough, accidental injury, constipation, dysmenorrhea, incoordination, anxiety, seizures, irritability, anorexia, xerostomia, and photosensitivity. Serious reactions include: Rash, severe; Jackson Rudi syndrome; toxic epidermal necrosis; injury edema, hypersensitivity reactions. Including fatal, multiple organ failure to safe fatal, rash with eosinophilia systemic symptoms, DIC, neutropenia, leukopenia, thrombocytopenia, pancytopenia, aplastic anemia, hemolytic anemia, i pancreatitis, hepatic failure, rhabdomyolysis, worsening of suicidal ideation, worsening of depression, cleft lip/palate [first trimester use] DO not Change Cosmetic, perfumes or soap for next 4 weeks. The patient was advice to take lamotrigine as prescribed the patient was instructed not to deviate from the prescription dosages. Stop lamotrigine is the first sign of rash. Patient was insisted to inform office if any of the serious side effect develops. discuss [place] pharmacy and pill packs and patient is wanting all rx sent educated on all medications, benefits, side effects and risk, and educated on depression, anxiety, and , mood d/o and educated on compliance of medications, metabolic and movement d/o education appointment's, continue therapy discussion with patient about course of treatmentand patient instructions. SSRI/SNRI side effects discussed including but not limited to, gastric upset, nausea, vomiting, diarrhea and/or constipation, weight changes, sexual side effects including loss of libido, increased suicidal thoughts/behaviors in children and young adults, and serotonin syndrome.Second generation antipsychotics (SGAs) have metabolic syndrome issues with weight gain, increase in prolactin, increased waist circumference, increased lipids, and increased glucose. Thus routine monitoring of weight, metabolic labs, etc. is indicated. A general rank ordering of antipsychotics that have the greatest to the least risk of metabolic effects is olanzapine, quetiapine, risperidone, ziprasidone, and aripiprazole. However, weight gain can occur with all of these drugs and considerable variability exists among patients receiving the same drug regarding the risk of metabolic effects. Anti-psychotic agents not only increase the risk of metabolic disorder, they also increase the risk of CVA, akathisia, and movement disorders including EPS or tardive dyskinesia (more common with first generation antipsychotics) and more. AIMS= 0 10/29/23 AIMS= 0 08/19/24 AIMS= 0 02/09/25 [place] Prescription program reviewed therapy refer [facility] 2. Generalized anxiety disorder - therapy discuss and educated on all rx Increase Vistaril 25 mg twice a day as needed for anxiety Pristiq 100 mg daily- monitor B/P -Monitor depression and anxiety Xanax 0.5 mg daily as needed - not taking rx often - refill NO needed today- educated to take daily if needed- reported takes PRN Discussed and educated pt regarding benzodiazepines are generally not intended for prolonged use and that use can cause tolerance, dependence, depression, and associated memory issues including dementias (this list is not exhaustive). Benzodiazepine use is generally not recommended concurrently with pain medications and/or other controlled substances due to increased risks of profound sedation, respiratory depression, coma, and even . They are not to be used with any alcohol, as this combination can also be lethal. Patient was provided caution 3. Primary insomnia - Melatonin 3-5 mg OTC- REPORTED NOT TAKING CPAP 4. Chronic post-traumatic stress disorder - refer to therapy- situational stress with family 5. Obsessive-compulsi ve disorder - therapy stable 6. Long-term drug therapy 11/10/2024 Other obsessive-compuls delmer disorder (ICD-10 - F42.8) Obsessive-Compu lsive Disorder: Care Instructions material was published 1. Bipolar I disorder - stable Latuda 60 mg in evening eat 350 calories with Latuda educated and discuss all RX LAMOTRIGINE 50 mg daily- Lamotrigine lamotrigine has a serious rashes requiring hospitalization and discontinue treatment including Jacques Urdi syndrome rare case of toxic epidermal necrolysis and cache related deaths. Incidence with adjunct of epilepsy treatment 0.8% in 2 to 16 years old and 0.3% in adults, bipolar and other mood disorders incidence 0.8% this initial monotherapy and 0.13% as adjunctive treatment. Other risk factor may include concomitant use of valproate acid derivative or exceeding initial lamotrigine does or does as clinician recommendation; most life-threatening rash of occurring first 2 to 8 week of treatment with isolated cases after prolonged treatment; though benign may occur, discontinue treatment at first sign of rash unless clearly not a drug related; TC treatment may not prevent trash from becoming life-threatening or permanently disabling or disfiguring. Comment reaction include, nausea/vomiting, dizziness/vertigo, visual disturbances, somnolence, ataxia, pruritus/rash, pharyngitis, headache, rhinitis, diarrhea, fever, asthenia, insomnia, tremor, abdominal pain, cough, accidental injury, constipation, dysmenorrhea, incoordination, anxiety, seizures, irritability, anorexia, xerostomia, and photosensitivity. Serious reactions include: Rash, severe; Jackson Rudi syndrome; toxic epidermal necrosis; injury edema, hypersensitivity reactions. Including fatal, multiple organ failure to safe fatal, rash with eosinophilia systemic symptoms, DIC, neutropenia, leukopenia, thrombocytopenia, pancytopenia, aplastic anemia, hemolytic anemia, i pancreatitis, hepatic failure, rhabdomyolysis, worsening of suicidal ideation, worsening of depression, cleft lip/palate [first trimester use] DO not Change Cosmetic, perfumes or soap for next 4 weeks. The patient was advice to take lamotrigine as prescribed the patient was instructed not to deviate from the prescription dosages. Stop lamotrigine is the first sign of rash. Patient was insisted to inform office if any of the serious side effect develops. discuss [place] pharmacy and pill packs and patient is wanting all rx sent educated on all medications, benefits, side effects and risk, and educated on depression, anxiety, and , mood d/o and educated on compliance of medications, metabolic and movement d/o education appointment's, continue therapy discussion with patient about course of treatmentand patient instructions. SSRI/SNRI side effects discussed including but not limited to, gastric upset, nausea, vomiting, diarrhea and/or constipation, weight changes, sexual side effects including loss of libido, increased suicidal thoughts/behaviors in children and young adults, and serotonin syndrome.Second generation antipsychotics (SGAs) have metabolic syndrome issues with weight gain, increase in prolactin, increased waist circumference, increased lipids, and increased glucose. Thus routine monitoring of weight, metabolic labs, etc. is indicated. A general rank ordering of antipsychotics that have the greatest to the least risk of metabolic effects is olanzapine, quetiapine, risperidone, ziprasidone, and aripiprazole. However, weight gain can occur with all of these drugs and considerable variability exists among patients receiving the same drug regarding the risk of metabolic effects. Anti-psychotic agents not only increase the risk of metabolic disorder, they also increase the risk of CVA, akathisia, and movement disorders including EPS or tardive dyskinesia (more common with first generation antipsychotics) and more. AIMS= 0 10/29/23 AIMS= 0 08/19/24 [place] Prescription program reviewed therapy refer [facility] 2. Generalized anxiety disorder - therapy discuss and educated on adding Vistaril 10 mg twice a day as needed for anxiety Pristiq 100 mg daily- monitor B/P -Monitor depression and anxiety Xanax 0.5 mg daily as needed - not taking rx often - refill NO needed today- educated to take daily if needed- reported takes PRN Discussed and educated pt regarding benzodiazepines are generally not intended for prolonged use and that use can cause tolerance, dependence, depression, and associated memory issues including dementias (this list is not exhaustive). Benzodiazepine use is generally not recommended concurrently with pain medications and/or other controlled substances due to increased risks of profound sedation, respiratory depression, coma, and even . They are not to be used with any alcohol, as this combination can also be lethal. Patient was provided caution 3. Primary insomnia -Melatonin 3-5 mg OTC CPAP 4. Chronic post-traumatic stress disorder - refer to therapy- situational stress with family 5. Obsessive-compulsi ve disorder - therapy stable 6. Long-term drug therapy 09/16/2024 Other obsessive-compuls delmer disorder (ICD-10 - F42.8) Obsessive-Compu lsive Disorder: Care Instructions material was published 1. Bipolar I disorder - Latuda 60 mg in evening eat 350 calories with Latuda educated and discuss all RX LAMOTRIGINE 50 mg daily- start this week Lamotrigine lamotrigine has a serious rashes requiring hospitalization and discontinue treatment including Jacques Rudi syndrome rare case of toxic epidermal necrolysis and cache related deaths. Incidence with adjunct of epilepsy treatment 0.8% in 2 to 16 years old and 0.3% in adults, bipolar and other mood disorders incidence 0.8% this initial monotherapy and 0.13% as adjunctive treatment. Other risk factor may include concomitant use of valproate acid derivative or exceeding initial lamotrigine does or does as clinician recommendation; most life-threatening rash of occurring first 2 to 8 week of treatment with isolated cases after prolonged treatment; though benign may occur, discontinue treatment at first sign of rash unless clearly not a drug related; TC treatment may not prevent trash from becoming life-threatening or permanently disabling or disfiguring. Comment reaction include, nausea/vomiting, dizziness/vertigo, visual disturbances, somnolence, ataxia, pruritus/rash, pharyngitis, headache, rhinitis, diarrhea, fever, asthenia, insomnia, tremor, abdominal pain, cough, accidental injury, constipation, dysmenorrhea, incoordination, anxiety, seizures, irritability, anorexia, xerostomia, and photosensitivity. Serious reactions include: Rash, severe; Jackson Rudi syndrome; toxic epidermal necrosis; injury edema, hypersensitivity reactions. Including fatal, multiple organ failure to safe fatal, rash with eosinophilia systemic symptoms, DIC, neutropenia, leukopenia, thrombocytopenia, pancytopenia, aplastic anemia, hemolytic anemia, i pancreatitis, hepatic failure, rhabdomyolysis, worsening of suicidal ideation, worsening of depression, cleft lip/palate [first trimester use] DO not Change Cosmetic, perfumes or soap for next 4 weeks. The patient was advice to take lamotrigine as prescribed the patient was instructed not to deviate from the prescription dosages. Stop lamotrigine is the first sign of rash. Patient was insisted to inform office if any of the serious side effect develops. discuss [place] pharmacy and pill packs and patient is wanting all rx sent educated on all medications, benefits, side effects and risk, and educated on depression, anxiety, and , mood d/o and educated on compliance of medications, metabolic and movement d/o education appointment's, continue therapy discussion with patient about course of treatmentand patient instructions. SSRI/SNRI side effects discussed including but not limited to, gastric upset, nausea, vomiting, diarrhea and/or constipation, weight changes, sexual side effects including loss of libido, increased suicidal thoughts/behaviors in children and young adults, and serotonin syndrome.Second generation antipsychotics (SGAs) have metabolic syndrome issues with weight gain, increase in prolactin, increased waist circumference, increased lipids, and increased glucose. Thus routine monitoring of weight, metabolic labs, etc. is indicated. A general rank ordering of antipsychotics that have the greatest to the least risk of metabolic effects is olanzapine, quetiapine, risperidone, ziprasidone, and aripiprazole. However, weight gain can occur with all of these drugs and considerable variability exists among patients receiving the same drug regarding the risk of metabolic effects. Anti-psychotic agents not only increase the risk of metabolic disorder, they also increase the risk of CVA, akathisia, and movement disorders including EPS or tardive dyskinesia (more common with first generation antipsychotics) and more. AIMS= 0 10/29/23 AIMS= 0 08/19/24 [place] Prescription program reviewed therapy refer [facility] 2. Generalized anxiety disorder - therapy Pristiq 100 mg daily- monitor B/P -Monitor depression and anxiety Xanax 0.5 mg daily as needed - not taking rx often - refill needed today- educated to take daily if needed- reported taking every other day and having anxiety more recently Discussed and educated pt regarding benzodiazepines are generally not intended for prolonged use and that use can cause tolerance, dependence, depression, and associated memory issues including dementias (this list is not exhaustive). Benzodiazepine use is generally not recommended concurrently with pain medications and/or other controlled substances due to increased risks of profound sedation, respiratory depression, coma, and even . They are not to be used with any alcohol, as this combination can also be lethal. Patient was provided caution 3. Primary insomnia -Melatonin 3-5 mg OTC CPAP 4. Chronic post-traumatic stress disorder - refer to therapy- situational stress with family 5. Obsessive-compulsi ve disorder - therapy stable 6. Long-term drug therapy 08/19/2024 Primary insomnia (ICD-10 - F51.01) Insomnia: Care Instructions material was published, Learning About Sleeping Well material was published 1. Bipolar I disorder - Latuda 60 mg in eveningeat 350 calories with Latuda educated and discuss adding LAMOTRIGINE 25 mg daily for 2 weeks then increase to 50 mg daily Lamotrigine lamotrigine has a serious rashes requiring hospitalization and discontinue treatment including Jacques Rudi syndrome rare case of toxic epidermal necrolysis and cache related deaths. Incidence with adjunct of epilepsy treatment 0.8% in 2 to 16 years old and 0.3% in adults, bipolar and other mood disorders incidence 0.8% this initial monotherapy and 0.13% as adjunctive treatment. Other risk factor may include concomitant use of valproate acid derivative or exceeding initial lamotrigine does or does as clinician recommendation; most life-threatening rash of occurring first 2 to 8 week of treatment with isolated cases after prolonged treatment; though benign may occur, discontinue treatment at first sign of rash unless clearly not a drug related; TC treatment may not prevent trash from becoming life-threatening or permanently disabling or disfiguring. Comment reaction include, nausea/vomiting, dizziness/vertigo, visual disturbances, somnolence, ataxia, pruritus/rash, pharyngitis, headache, rhinitis, diarrhea, fever, asthenia, insomnia, tremor, abdominal pain, cough, accidental injury, constipation, dysmenorrhea, incoordination, anxiety, seizures, irritability, anorexia, xerostomia, and photosensitivity. Serious reactions include: Rash, severe; Jackson Rudi syndrome; toxic epidermal necrosis; injury edema, hypersensitivity reactions. Including fatal, multiple organ failure to safe fatal, rash with eosinophilia systemic symptoms, DIC, neutropenia, leukopenia, thrombocytopenia, pancytopenia, aplastic anemia, hemolytic anemia, i pancreatitis, hepatic failure, rhabdomyolysis, worsening of suicidal ideation, worsening of depression, cleft lip/palate [first trimester use] DO not Change Cosmetic, perfumes or soap for next 4 weeks. The patient was advice to take lamotrigine as prescribed the patient was instructed not to deviate from the prescription dosages. Stop lamotrigine is the first sign of rash. Patient was insisted to inform office if any of the serious side effect develops. discuss [place] pharmacy and pill packs and patient is wanting all rx sent educated on all medications, benefits, side effects and risk, and educated on depression, anxiety, and , mood d/o and educated on compliance of medications, metabolic and movement d/o education appointment's, continue therapy discussion with patient about course of treatmentand patient instructions. SSRI/SNRI side effects discussed including but not limited to, gastric upset, nausea, vomiting, diarrhea and/or constipation, weight changes, sexual side effects including loss of libido, increased suicidal thoughts/behaviors in children and young adults, and serotonin syndrome.Second generation antipsychotics (SGAs) have metabolic syndrome issues with weight gain, increase in prolactin, increased waist circumference, increased lipids, and increased glucose. Thus routine monitoring of weight, metabolic labs, etc. is indicated. A general rank ordering of antipsychotics that have the greatest to the least risk of metabolic effects is olanzapine, quetiapine, risperidone, ziprasidone, and aripiprazole. However, weight gain can occur with all of these drugs and considerable variability exists among patients receiving the same drug regarding the risk of metabolic effects. Anti-psychotic agents not only increase the risk of metabolic disorder, they also increase the risk of CVA, akathisia, and movement disorders including EPS or tardive dyskinesia (more common with first generation antipsychotics) and more. AIMS= 0 10/29/23 AIMS= 0 08/19/24 [place] Prescription program reviewed therapy refer [facility] 2. Generalized anxiety disorder - therapy Pristiq 100 mg daily- monitor B/P -Monitor depression and anxiety Xanax 0.5 mg daily as needed - not taking rx often - refill needed today Discussed and educated pt regarding benzodiazepines are generally not intended for prolonged use and that use can cause tolerance, dependence, depression, and associated memory issues including dementias (this list is not exhaustive). Benzodiazepine use is generally not recommended concurrently with pain medications and/or other controlled substances due to increased risks of profound sedation, respiratory depression, coma, and even . They are not to be used with any alcohol, as this combination can also be lethal. Patient was provided caution 3. Primary insomnia -Melatonin 3-5 mg OTC CPAP 4. Chronic post-traumatic stress disorder - refer to therapy- situational stress with family 5. Obsessive-compulsi ve disorder - therapy stable 6. 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 Bipolar I disorder - Latuda 60 mg in eveningeat 350 calories with Latuda educated and discuss adding LAMOTRIGINE 25 mg daily for 2 weeks then increase to 50 mg daily Lamotrigine lamotrigine has a serious rashes requiring hospitalization and discontinue treatment including Jacques Rudi syndrome rare case of toxic epidermal necrolysis and cache related deaths. Incidence with adjunct of epilepsy treatment 0.8% in 2 to 16 years old and 0.3% in adults, bipolar and other mood disorders incidence 0.8% this initial monotherapy and 0.13% as adjunctive treatment. Other risk factor may include concomitant use of valproate acid derivative or exceeding initial lamotrigine does or does as clinician recommendation; most life-threatening rash of occurring first 2 to 8 week of treatment with isolated cases after prolonged treatment; though benign may occur, discontinue treatment at first sign of rash unless clearly not a drug related; TC treatment may not prevent trash from becoming life-threatening or permanently disabling or disfiguring. Comment reaction include, nausea/vomiting, dizziness/vertigo, visual disturbances, somnolence, ataxia, pruritus/rash, pharyngitis, headache, rhinitis, diarrhea, fever, asthenia, insomnia, tremor, abdominal pain, cough, accidental injury, constipation, dysmenorrhea, incoordination, anxiety, seizures, irritability, anorexia, xerostomia, and photosensitivity. Serious reactions include: Rash, severe; Jackson Rudi syndrome; toxic epidermal necrosis; injury edema, hypersensitivity reactions. Including fatal, multiple organ failure to safe fatal, rash with eosinophilia systemic symptoms, DIC, neutropenia, leukopenia, thrombocytopenia, pancytopenia, aplastic anemia, hemolytic anemia, i pancreatitis, hepatic failure, rhabdomyolysis, worsening of suicidal ideation, worsening of depression, cleft lip/palate [first trimester use] DO not Change Cosmetic, perfumes or soap for next 4 weeks. The patient was advice to take lamotrigine as prescribed the patient was instructed not to deviate from the prescription dosages. Stop lamotrigine is the first sign of rash. Patient was insisted to inform office if any of the serious side effect develops. discuss [place] pharmacy and pill packs and patient is wanting all rx sent educated on all medications, benefits, side effects and risk, and educated on depression, anxiety, and , mood d/o and educated on compliance of medications, metabolic and movement d/o education appointment's, continue therapy discussion with patient about course of treatmentand patient instructions. SSRI/SNRI side effects discussed including but not limited to, gastric upset, nausea, vomiting, diarrhea and/or constipation, weight changes, sexual side effects including loss of libido, increased suicidal thoughts/behaviors in children and young adults, and serotonin syndrome.Second generation antipsychotics (SGAs) have metabolic syndrome issues with weight gain, increase in prolactin, increased waist circumference, increased lipids, and increased glucose. Thus routine monitoring of weight, metabolic labs, etc. is indicated. A general rank ordering of antipsychotics that have the greatest to the least risk of metabolic effects is olanzapine, quetiapine, risperidone, ziprasidone, and aripiprazole. However, weight gain can occur with all of these drugs and considerable variability exists among patients receiving the same drug regarding the risk of metabolic effects. Anti-psychotic agents not only increase the risk of metabolic disorder, they also increase the risk of CVA, akathisia, and movement disorders including EPS or tardive dyskinesia (more common with first generation antipsychotics) and more. AIMS= 0 10/29/23 AIMS= 0 08/19/24 [place] Prescription program reviewed therapy refer [facility] 2. Generalized anxiety disorder - therapy Pristiq 100 mg daily- monitor B/P -Monitor depression and anxiety Xanax 0.5 mg daily as needed - not taking rx often - refill needed today Discussed and educated pt regarding benzodiazepines are generally not intended for prolonged use and that use can cause tolerance, dependence, depression, and associated memory issues including dementias (this list is not exhaustive). Benzodiazepine use is generally not recommended concurrently with pain medications and/or other controlled substances due to increased risks of profound sedation, respiratory depression, coma, and even . They are not to be used with any alcohol, as this combination can also be lethal. Patient was provided caution 3. Primary insomnia -Melatonin 3-5 mg OTC CPAP 4. Chronic post-traumatic stress disorder - refer to therapy- situational stress with family 5. Obsessive-compulsi ve disorder - therapy stable 6. Long-term drug therapy 09/16/2024 Primary insomnia (ICD-10 - F51.01) Insomnia: Care Instructions material was published, [facility] material was published 1. Bipolar I disorder - Latuda 60 mg in evening eat 350 calories with Latuda educated and discuss all RX LAMOTRIGINE 50 mg daily- start this week Lamotrigine lamotrigine has a serious rashes requiring hospitalization and discontinue treatment including Jacques Rudi syndrome rare case of toxic epidermal necrolysis and cache related deaths. Incidence with adjunct of epilepsy treatment 0.8% in 2 to 16 years old and 0.3% in adults, bipolar and other mood disorders incidence 0.8% this initial monotherapy and 0.13% as adjunctive treatment. Other risk factor may include concomitant use of valproate acid derivative or exceeding initial lamotrigine does or does as clinician recommendation; most life-threatening rash of occurring first 2 to 8 week of treatment with isolated cases after prolonged treatment; though benign may occur, discontinue treatment at first sign of rash unless clearly not a drug related; TC treatment may not prevent trash from becoming life-threatening or permanently disabling or disfiguring. Comment reaction include, nausea/vomiting, dizziness/vertigo, visual disturbances, somnolence, ataxia, pruritus/rash, pharyngitis, headache, rhinitis, diarrhea, fever, asthenia, insomnia, tremor, abdominal pain, cough, accidental injury, constipation, dysmenorrhea, incoordination, anxiety, seizures, irritability, anorexia, xerostomia, and photosensitivity. Serious reactions include: Rash, severe; Jackson Rudi syndrome; toxic epidermal necrosis; injury edema, hypersensitivity reactions. Including fatal, multiple organ failure to safe fatal, rash with eosinophilia systemic symptoms, DIC, neutropenia, leukopenia, thrombocytopenia, pancytopenia, aplastic anemia, hemolytic anemia, i pancreatitis, hepatic failure, rhabdomyolysis, worsening of suicidal ideation, worsening of depression, cleft lip/palate [first trimester use] DO not Change Cosmetic, perfumes or soap for next 4 weeks. The patient was advice to take lamotrigine as prescribed the patient was instructed not to deviate from the prescription dosages. Stop lamotrigine is the first sign of rash. Patient was insisted to inform office if any of the serious side effect develops. discuss [place] pharmacy and pill packs and patient is wanting all rx sent educated on all medications, benefits, side effects and risk, and educated on depression, anxiety, and , mood d/o and educated on compliance of medications, metabolic and movement d/o education appointment's, continue therapy discussion with patient about course of treatmentand patient instructions. SSRI/SNRI side effects discussed including but not limited to, gastric upset, nausea, vomiting, diarrhea and/or constipation, weight changes, sexual side effects including loss of libido, increased suicidal thoughts/behaviors in children and young adults, and serotonin syndrome.Second generation antipsychotics (SGAs) have metabolic syndrome issues with weight gain, increase in prolactin, increased waist circumference, increased lipids, and increased glucose. Thus routine monitoring of weight, metabolic labs, etc. is indicated. A general rank ordering of antipsychotics that have the greatest to the least risk of metabolic effects is olanzapine, quetiapine, risperidone, ziprasidone, and aripiprazole. However, weight gain can occur with all of these drugs and considerable variability exists among patients receiving the same drug regarding the risk of metabolic effects. Anti-psychotic agents not only increase the risk of metabolic disorder, they also increase the risk of CVA, akathisia, and movement disorders including EPS or tardive dyskinesia (more common with first generation antipsychotics) and more. AIMS= 0 10/29/23 AIMS= 0 08/19/24 [place] Prescription program reviewed therapy refer [facility] 2. Generalized anxiety disorder - therapy Pristiq 100 mg daily- monitor B/P -Monitor depression and anxiety Xanax 0.5 mg daily as needed - not taking rx often - refill needed today- educated to take daily if needed- reported taking every other day and having anxiety more recently Discussed and educated pt regarding benzodiazepines are generally not intended for prolonged use and that use can cause tolerance, dependence, depression, and associated memory issues including dementias (this list is not exhaustive). Benzodiazepine use is generally not recommended concurrently with pain medications and/or other controlled substances due to increased risks of profound sedation, respiratory depression, coma, and even . They are not to be used with any alcohol, as this combination can also be lethal. Patient was provided caution 3. Primary insomnia -Melatonin 3-5 mg OTC CPAP 4. Chronic post-traumatic stress disorder - refer to therapy- situational stress with family 5. Obsessive-compulsi ve disorder - therapy stable 6. Long-term drug therapy 11/10/2024 Primary insomnia (ICD-10 - F51.01) Insomnia: Care Instructions material was published, [facility] material was published 1. Bipolar I disorder - stable Latuda 60 mg in evening eat 350 calories with Latuda educated and discuss all RX LAMOTRIGINE 50 mg daily- Lamotrigine lamotrigine has a serious rashes requiring hospitalization and discontinue treatment including Jacques Rudi syndrome rare case of toxic epidermal necrolysis and cache related deaths. Incidence with adjunct of epilepsy treatment 0.8% in 2 to 16 years old and 0.3% in adults, bipolar and other mood disorders incidence 0.8% this initial monotherapy and 0.13% as adjunctive treatment. Other risk factor may include concomitant use of valproate acid derivative or exceeding initial lamotrigine does or does as clinician recommendation; most life-threatening rash of occurring first 2 to 8 week of treatment with isolated cases after prolonged treatment; though benign may occur, discontinue treatment at first sign of rash unless clearly not a drug related; TC treatment may not prevent trash from becoming life-threatening or permanently disabling or disfiguring. Comment reaction include, nausea/vomiting, dizziness/vertigo, visual disturbances, somnolence, ataxia, pruritus/rash, pharyngitis, headache, rhinitis, diarrhea, fever, asthenia, insomnia, tremor, abdominal pain, cough, accidental injury, constipation, dysmenorrhea, incoordination, anxiety, seizures, irritability, anorexia, xerostomia, and photosensitivity. Serious reactions include: Rash, severe; Jackson Rudi syndrome; toxic epidermal necrosis; injury edema, hypersensitivity reactions. Including fatal, multiple organ failure to safe fatal, rash with eosinophilia systemic symptoms, DIC, neutropenia, leukopenia, thrombocytopenia, pancytopenia, aplastic anemia, hemolytic anemia, i pancreatitis, hepatic failure, rhabdomyolysis, worsening of suicidal ideation, worsening of depression, cleft lip/palate [first trimester use] DO not Change Cosmetic, perfumes or soap for next 4 weeks. The patient was advice to take lamotrigine as prescribed the patient was instructed not to deviate from the prescription dosages. Stop lamotrigine is the first sign of rash. Patient was insisted to inform office if any of the serious side effect develops. discuss [place] pharmacy and pill packs and patient is wanting all rx sent educated on all medications, benefits, side effects and risk, and educated on depression, anxiety, and , mood d/o and educated on compliance of medications, metabolic and movement d/o education appointment's, continue therapy discussion with patient about course of treatmentand patient instructions. SSRI/SNRI side effects discussed including but not limited to, gastric upset, nausea, vomiting, diarrhea and/or constipation, weight changes, sexual side effects including loss of libido, increased suicidal thoughts/behaviors in children and young adults, and serotonin syndrome.Second generation antipsychotics (SGAs) have metabolic syndrome issues with weight gain, increase in prolactin, increased waist circumference, increased lipids, and increased glucose. Thus routine monitoring of weight, metabolic labs, etc. is indicated. A general rank ordering of antipsychotics that have the greatest to the least risk of metabolic effects is olanzapine, quetiapine, risperidone, ziprasidone, and aripiprazole. However, weight gain can occur with all of these drugs and considerable variability exists among patients receiving the same drug regarding the risk of metabolic effects. Anti-psychotic agents not only increase the risk of metabolic disorder, they also increase the risk of CVA, akathisia, and movement disorders including EPS or tardive dyskinesia (more common with first generation antipsychotics) and more. AIMS= 0 10/29/23 AIMS= 0 08/19/24 [place] Prescription program reviewed therapy refer [facility] 2. Generalized anxiety disorder - therapy discuss and educated on adding Vistaril 10 mg twice a day as needed for anxiety Pristiq 100 mg daily- monitor B/P -Monitor depression and anxiety Xanax 0.5 mg daily as needed - not taking rx often - refill NO needed today- educated to take daily if needed- reported takes PRN Discussed and educated pt regarding benzodiazepines are generally not intended for prolonged use and that use can cause tolerance, dependence, depression, and associated memory issues including dementias (this list is not exhaustive). Benzodiazepine use is generally not recommended concurrently with pain medications and/or other controlled substances due to increased risks of profound sedation, respiratory depression, coma, and even . They are not to be used with any alcohol, as this combination can also be lethal. Patient was provided caution 3. Primary insomnia -Melatonin 3-5 mg OTC CPAP 4. Chronic post-traumatic stress disorder - refer to therapy- situational stress with family 5. Obsessive-compulsi ve disorder - therapy stable 6. Long-term drug therapy 02/09/2025 Other obsessive-compuls delmer disorder (ICD-10 - F42.8) Obsessive-Compu lsive Disorder: Care Instructions material was published 1. Bipolar I disorder - stable Latuda 60 mg in evening eat 350 calories with Latuda educated and discuss all RX LAMOTRIGINE 50 mg daily- Lamotrigine lamotrigine has a serious rashes requiring hospitalization and discontinue treatment including Jacques Rudi syndrome rare case of toxic epidermal necrolysis and cache related deaths. Incidence with adjunct of epilepsy treatment 0.8% in 2 to 16 years old and 0.3% in adults, bipolar and other mood disorders incidence 0.8% this initial monotherapy and 0.13% as adjunctive treatment. Other risk factor may include concomitant use of valproate acid derivative or exceeding initial lamotrigine does or does as clinician recommendation; most life-threatening rash of occurring first 2 to 8 week of treatment with isolated cases after prolonged treatment; though benign may occur, discontinue treatment at first sign of rash unless clearly not a drug related; TC treatment may not prevent trash from becoming life-threatening or permanently disabling or disfiguring. Comment reaction include, nausea/vomiting, dizziness/vertigo, visual disturbances, somnolence, ataxia, pruritus/rash, pharyngitis, headache, rhinitis, diarrhea, fever, asthenia, insomnia, tremor, abdominal pain, cough, accidental injury, constipation, dysmenorrhea, incoordination, anxiety, seizures, irritability, anorexia, xerostomia, and photosensitivity. Serious reactions include: Rash, severe; Jackson Rudi syndrome; toxic epidermal necrosis; injury edema, hypersensitivity reactions. Including fatal, multiple organ failure to safe fatal, rash with eosinophilia systemic symptoms, DIC, neutropenia, leukopenia, thrombocytopenia, pancytopenia, aplastic anemia, hemolytic anemia, i pancreatitis, hepatic failure, rhabdomyolysis, worsening of suicidal ideation, worsening of depression, cleft lip/palate [first trimester use] DO not Change Cosmetic, perfumes or soap for next 4 weeks. The patient was advice to take lamotrigine as prescribed the patient was instructed not to deviate from the prescription dosages. Stop lamotrigine is the first sign of rash. Patient was insisted to inform office if any of the serious side effect develops. discuss [place] pharmacy and pill packs and patient is wanting all rx sent educated on all medications, benefits, side effects and risk, and educated on depression, anxiety, and , mood d/o and educated on compliance of medications, metabolic and movement d/o education appointment's, continue therapy discussion with patient about course of treatmentand patient instructions. SSRI/SNRI side effects discussed including but not limited to, gastric upset, nausea, vomiting, diarrhea and/or constipation, weight changes, sexual side effects including loss of libido, increased suicidal thoughts/behaviors in children and young adults, and serotonin syndrome.Second generation antipsychotics (SGAs) have metabolic syndrome issues with weight gain, increase in prolactin, increased waist circumference, increased lipids, and increased glucose. Thus routine monitoring of weight, metabolic labs, etc. is indicated. A general rank ordering of antipsychotics that have the greatest to the least risk of metabolic effects is olanzapine, quetiapine, risperidone, ziprasidone, and aripiprazole. However, weight gain can occur with all of these drugs and considerable variability exists among patients receiving the same drug regarding the risk of metabolic effects. Anti-psychotic agents not only increase the risk of metabolic disorder, they also increase the risk of CVA, akathisia, and movement disorders including EPS or tardive dyskinesia (more common with first generation antipsychotics) and more. AIMS= 0 10/29/23 AIMS= 0 08/19/24 AIMS= 0 02/09/25 [place] Prescription program reviewed therapy refer [facility] 2. Generalized anxiety disorder - therapy discuss and educated on all rx Increase Vistaril 25 mg twice a day as needed for anxiety Pristiq 100 mg daily- monitor B/P -Monitor depression and anxiety Xanax 0.5 mg daily as needed - not taking rx often - refill NO needed today- educated to take daily if needed- reported takes PRN Discussed and educated pt regarding benzodiazepines are generally not intended for prolonged use and that use can cause tolerance, dependence, depression, and associated memory issues including dementias (this list is not exhaustive). Benzodiazepine use is generally not recommended concurrently with pain medications and/or other controlled substances due to increased risks of profound sedation, respiratory depression, coma, and even . They are not to be used with any alcohol, as this combination can also be lethal. Patient was provided caution 3. Primary insomnia - Melatonin 3-5 mg OTC- REPORTED NOT TAKING CPAP 4. Chronic post-traumatic stress disorder - refer to therapy- situational stress with family 5. Obsessive-compulsi ve disorder - therapy stable 6. Long-term drug therapy 11/10/2024 Other half-way (current) drug therapy (ICD-10 - Z79.899) Medication Refill: Care Instructions material was published 1. Bipolar I disorder - stable Latuda 60 mg in evening eat 350 calories with Latuda educated and discuss all RX LAMOTRIGINE 50 mg daily- Lamotrigine lamotrigine has a serious rashes requiring hospitalization and discontinue treatment including Jacques Rudi syndrome rare case of toxic epidermal necrolysis and cache related deaths. Incidence with adjunct of epilepsy treatment 0.8% in 2 to 16 years old and 0.3% in adults, bipolar and other mood disorders incidence 0.8% this initial monotherapy and 0.13% as adjunctive treatment. Other risk factor may include concomitant use of valproate acid derivative or exceeding initial lamotrigine does or does as clinician recommendation; most life-threatening rash of occurring first 2 to 8 week of treatment with isolated cases after prolonged treatment; though benign may occur, discontinue treatment at first sign of rash unless clearly not a drug related; TC treatment may not prevent trash from becoming life-threatening or permanently disabling or disfiguring. Comment reaction include, nausea/vomiting, dizziness/vertigo, visual disturbances, somnolence, ataxia, pruritus/rash, pharyngitis, headache, rhinitis, diarrhea, fever, asthenia, insomnia, tremor, abdominal pain, cough, accidental injury, constipation, dysmenorrhea, incoordination, anxiety, seizures, irritability, anorexia, xerostomia, and photosensitivity. Serious reactions include: Rash, severe; Jackson Rudi syndrome; toxic epidermal necrosis; injury edema, hypersensitivity reactions. Including fatal, multiple organ failure to safe fatal, rash with eosinophilia systemic symptoms, DIC, neutropenia, leukopenia, thrombocytopenia, pancytopenia, aplastic anemia, hemolytic anemia, i pancreatitis, hepatic failure, rhabdomyolysis, worsening of suicidal ideation, worsening of depression, cleft lip/palate [first trimester use] DO not Change Cosmetic, perfumes or soap for next 4 weeks. The patient was advice to take lamotrigine as prescribed the patient was instructed not to deviate from the prescription dosages. Stop lamotrigine is the first sign of rash. Patient was insisted to inform office if any of the serious side effect develops. discuss [place] [facility] and pill packs and patient is wanting all rx sent educated on all medications, benefits, side effects and risk, and educated on depression, anxiety, and , mood d/o and educated on compliance of medications, metabolic and movement d/o education appointment's, continue therapy discussion with patient about course of treatmentand patient instructions. SSRI/SNRI side effects discussed including but not limited to, gastric upset, nausea, vomiting, diarrhea and/or constipation, weight changes, sexual side effects including loss of libido, increased suicidal thoughts/behaviors in children and young adults, and serotonin syndrome.Second generation antipsychotics (SGAs) have metabolic syndrome issues with weight gain, increase in prolactin, increased waist circumference, increased lipids, and increased glucose. Thus routine monitoring of weight, metabolic labs, etc. is indicated. A general rank ordering of antipsychotics that have the greatest to the least risk of metabolic effects is olanzapine, quetiapine, risperidone, ziprasidone, and aripiprazole. However, weight gain can occur with all of these drugs and considerable variability exists among patients receiving the same drug regarding the risk of metabolic effects. Anti-psychotic agents not only increase the risk of metabolic disorder, they also increase the risk of CVA, akathisia, and movement disorders including EPS or tardive dyskinesia (more common with first generation antipsychotics) and more. AIMS= 0 10/29/23 AIMS= 0 08/19/24 [place] Prescription program reviewed therapy refer [facility] 2. Generalized anxiety disorder - therapy discuss and educated on adding Vistaril 10 mg twice a day as needed for anxiety Pristiq 100 mg daily- monitor B/P -Monitor depression and anxiety Xanax 0.5 mg daily as needed - not taking rx often - refill NO needed today- educated to take daily if needed- reported takes PRN Discussed and educated pt regarding benzodiazepines are generally not intended for prolonged use and that use can cause tolerance, dependence, depression, and associated memory issues including dementias (this list is not exhaustive). Benzodiazepine use is generally not recommended concurrently with pain medications and/or other controlled substances due to increased risks of profound sedation, respiratory depression, coma, and even . They are not to be used with any alcohol, as this combination can also be lethal. Patient was provided caution 3. Primary insomnia -Melatonin 3-5 mg OTC CPAP 4. Chronic post-traumatic stress disorder - refer to therapy- situational stress with family 5. Obsessive-compulsi ve disorder - therapy stable 6. Long-term drug therapy 02/09/2025 Primary insomnia (ICD-10 - F51.01) Insomnia: Care Instructions material was published, [facility] material was published 1. Bipolar I disorder - stable Latuda 60 mg in evening eat 350 calories with Latuda educated and discuss all RX LAMOTRIGINE 50 mg daily- Lamotrigine lamotrigine has a serious rashes requiring hospitalization and discontinue treatment including Jacques Rudi syndrome rare case of toxic epidermal necrolysis and cache related deaths. Incidence with adjunct of epilepsy treatment 0.8% in 2 to 16 years old and 0.3% in adults, bipolar and other mood disorders incidence 0.8% this initial monotherapy and 0.13% as adjunctive treatment. Other risk factor may include concomitant use of valproate acid derivative or exceeding initial lamotrigine does or does as clinician recommendation; most life-threatening rash of occurring first 2 to 8 week of treatment with isolated cases after prolonged treatment; though benign may occur, discontinue treatment at first sign of rash unless clearly not a drug related; TC treatment may not prevent trash from becoming life-threatening or permanently disabling or disfiguring. Comment reaction include, nausea/vomiting, dizziness/vertigo, visual disturbances, somnolence, ataxia, pruritus/rash, pharyngitis, headache, rhinitis, diarrhea, fever, asthenia, insomnia, tremor, abdominal pain, cough, accidental injury, constipation, dysmenorrhea, incoordination, anxiety, seizures, irritability, anorexia, xerostomia, and photosensitivity. Serious reactions include: Rash, severe; Jackson Rudi syndrome; toxic epidermal necrosis; injury edema, hypersensitivity reactions. Including fatal, multiple organ failure to safe fatal, rash with eosinophilia systemic symptoms, DIC, neutropenia, leukopenia, thrombocytopenia, pancytopenia, aplastic anemia, hemolytic anemia, i pancreatitis, hepatic failure, rhabdomyolysis, worsening of suicidal ideation, worsening of depression, cleft lip/palate [first trimester use] DO not Change Cosmetic, perfumes or soap for next 4 weeks. The patient was advice to take lamotrigine as prescribed the patient was instructed not to deviate from the prescription dosages. Stop lamotrigine is the first sign of rash. Patient was insisted to inform office if any of the serious side effect develops. discuss [place] pharmacy and pill packs and patient is wanting all rx sent educated on all medications, benefits, side effects and risk, and educated on depression, anxiety, and , mood d/o and educated on compliance of medications, metabolic and movement d/o education appointment's, continue therapy discussion with patient about course of treatmentand patient instructions. SSRI/SNRI side effects discussed including but not limited to, gastric upset, nausea, vomiting, diarrhea and/or constipation, weight changes, sexual side effects including loss of libido, increased suicidal thoughts/behaviors in children and young adults, and serotonin syndrome.Second generation antipsychotics (SGAs) have metabolic syndrome issues with weight gain, increase in prolactin, increased waist circumference, increased lipids, and increased glucose. Thus routine monitoring of weight, metabolic labs, etc. is indicated. A general rank ordering of antipsychotics that have the greatest to the least risk of metabolic effects is olanzapine, quetiapine, risperidone, ziprasidone, and aripiprazole. However, weight gain can occur with all of these drugs and considerable variability exists among patients receiving the same drug regarding the risk of metabolic effects. Anti-psychotic agents not only increase the risk of metabolic disorder, they also increase the risk of CVA, akathisia, and movement disorders including EPS or tardive dyskinesia (more common with first generation antipsychotics) and more. AIMS= 0 10/29/23 AIMS= 0 08/19/24 AIMS= 0 02/09/25 [place] Prescription program reviewed therapy refer [facility] 2. Generalized anxiety disorder - therapy discuss and educated on all rx Increase Vistaril 25 mg twice a day as needed for anxiety Pristiq 100 mg daily- monitor B/P -Monitor depression and anxiety Xanax 0.5 mg daily as needed - not taking rx often - refill NO needed today- educated to take daily if needed- reported takes PRN Discussed and educated pt regarding benzodiazepines are generally not intended for prolonged use and that use can cause tolerance, dependence, depression, and associated memory issues including dementias (this list is not exhaustive). Benzodiazepine use is generally not recommended concurrently with pain medications and/or other controlled substances due to increased risks of profound sedation, respiratory depression, coma, and even . They are not to be used with any alcohol, as this combination can also be lethal. Patient was provided caution 3. Primary insomnia - Melatonin 3-5 mg OTC- REPORTED NOT TAKING CPAP 4. Chronic post-traumatic stress disorder - refer to therapy- situational stress with family 5. Obsessive-compulsi ve disorder - therapy stable 6. Long-term drug therapy 09/16/2024 Other half-way (current) drug therapy (ICD-10 - Z79.899) Medication Refill: Care Instructions material was published 1. Bipolar I disorder - Latuda 60 mg in evening eat 350 calories with Latuda educated and discuss all RX LAMOTRIGINE 50 mg daily- start this week Lamotrigine lamotrigine has a serious rashes requiring hospitalization and discontinue treatment including Jacques Rudi syndrome rare case of toxic epidermal necrolysis and cache related deaths. Incidence with adjunct of epilepsy treatment 0.8% in 2 to 16 years old and 0.3% in adults, bipolar and other mood disorders incidence 0.8% this initial monotherapy and 0.13% as adjunctive treatment. Other risk factor may include concomitant use of valproate acid derivative or exceeding initial lamotrigine does or does as clinician recommendation; most life-threatening rash of occurring first 2 to 8 week of treatment with isolated cases after prolonged treatment; though benign may occur, discontinue treatment at first sign of rash unless clearly not a drug related; TC treatment may not prevent trash from becoming life-threatening or permanently disabling or disfiguring. Comment reaction include, nausea/vomiting, dizziness/vertigo, visual disturbances, somnolence, ataxia, pruritus/rash, pharyngitis, headache, rhinitis, diarrhea, fever, asthenia, insomnia, tremor, abdominal pain, cough, accidental injury, constipation, dysmenorrhea, incoordination, anxiety, seizures, irritability, anorexia, xerostomia, and photosensitivity. Serious reactions include: Rash, severe; Jackson Rudi syndrome; toxic epidermal necrosis; injury edema, hypersensitivity reactions. Including fatal, multiple organ failure to safe fatal, rash with eosinophilia systemic symptoms, DIC, neutropenia, leukopenia, thrombocytopenia, pancytopenia, aplastic anemia, hemolytic anemia, i pancreatitis, hepatic failure, rhabdomyolysis, worsening of suicidal ideation, worsening of depression, cleft lip/palate [first trimester use] DO not Change Cosmetic, perfumes or soap for next 4 weeks. The patient was advice to take lamotrigine as prescribed the patient was instructed not to deviate from the prescription dosages. Stop lamotrigine is the first sign of rash. Patient was insisted to inform office if any of the serious side effect develops. discuss [place] pharmacy and pill packs and patient is wanting all rx sent educated on all medications, benefits, side effects and risk, and educated on depression, anxiety, and , mood d/o and educated on compliance of medications, metabolic and movement d/o education appointment's, continue therapy discussion with patient about course of treatmentand patient instructions. SSRI/SNRI side effects discussed including but not limited to, gastric upset, nausea, vomiting, diarrhea and/or constipation, weight changes, sexual side effects including loss of libido, increased suicidal thoughts/behaviors in children and young adults, and serotonin syndrome.Second generation antipsychotics (SGAs) have metabolic syndrome issues with weight gain, increase in prolactin, increased waist circumference, increased lipids, and increased glucose. Thus routine monitoring of weight, metabolic labs, etc. is indicated. A general rank ordering of antipsychotics that have the greatest to the least risk of metabolic effects is olanzapine, quetiapine, risperidone, ziprasidone, and aripiprazole. However, weight gain can occur with all of these drugs and considerable variability exists among patients receiving the same drug regarding the risk of metabolic effects. Anti-psychotic agents not only increase the risk of metabolic disorder, they also increase the risk of CVA, akathisia, and movement disorders including EPS or tardive dyskinesia (more common with first generation antipsychotics) and more. AIMS= 0 10/29/23 AIMS= 0 08/19/24 [place] Prescription program reviewed therapy refer [facility] 2. Generalized anxiety disorder - therapy Pristiq 100 mg daily- monitor B/P -Monitor depression and anxiety Xanax 0.5 mg daily as needed - not taking rx often - refill needed today- educated to take daily if needed- reported taking every other day and having anxiety more recently Discussed and educated pt regarding benzodiazepines are generally not intended for prolonged use and that use can cause tolerance, dependence, depression, and associated memory issues including dementias (this list is not exhaustive). Benzodiazepine use is generally not recommended concurrently with pain medications and/or other controlled substances due to increased risks of profound sedation, respiratory depression, coma, and even . They are not to be used with any alcohol, as this combination can also be lethal. Patient was provided caution 3. Primary insomnia -Melatonin 3-5 mg OTC CPAP 4. Chronic post-traumatic stress disorder - refer to therapy- situational stress with family 5. Obsessive-compulsi ve disorder - therapy stable 6. Long-term drug therapy 08/19/2024 Primary hypertension (ICD-10 - I10) 1. Bipolar I disorder - Latuda 60 mg in eveningeat 350 calories with Latuda educated and discuss adding LAMOTRIGINE 25 mg daily for 2 weeks then increase to 50 mg daily Lamotrigine lamotrigine has a serious rashes requiring hospitalization and discontinue treatment including Jacques Rudi syndrome rare case of toxic epidermal necrolysis and cache related deaths. Incidence with adjunct of epilepsy treatment 0.8% in 2 to 16 years old and 0.3% in adults, bipolar and other mood disorders incidence 0.8% this initial monotherapy and 0.13% as adjunctive treatment. Other risk factor may include concomitant use of valproate acid derivative or exceeding initial lamotrigine does or does as clinician recommendation; most life-threatening rash of occurring first 2 to 8 week of treatment with isolated cases after prolonged treatment; though benign may occur, discontinue treatment at first sign of rash unless clearly not a drug related; TC treatment may not prevent trash from becoming life-threatening or permanently disabling or disfiguring. Comment reaction include, nausea/vomiting, dizziness/vertigo, visual disturbances, somnolence, ataxia, pruritus/rash, pharyngitis, headache, rhinitis, diarrhea, fever, asthenia, insomnia, tremor, abdominal pain, cough, accidental injury, constipation, dysmenorrhea, incoordination, anxiety, seizures, irritability, anorexia, xerostomia, and photosensitivity. Serious reactions include: Rash, severe; Jackson Rudi syndrome; toxic epidermal necrosis; injury edema, hypersensitivity reactions. Including fatal, multiple organ failure to safe fatal, rash with eosinophilia systemic symptoms, DIC, neutropenia, leukopenia, thrombocytopenia, pancytopenia, aplastic anemia, hemolytic anemia, i pancreatitis, hepatic failure, rhabdomyolysis, worsening of suicidal ideation, worsening of depression, cleft lip/palate [first trimester use] DO not Change Cosmetic, perfumes or soap for next 4 weeks. The patient was advice to take lamotrigine as prescribed the patient was instructed not to deviate from the prescription dosages. Stop lamotrigine is the first sign of rash. Patient was insisted to inform office if any of the serious side effect develops. discuss [place] pharmacy and pill packs and patient is wanting all rx sent educated on all medications, benefits, side effects and risk, and educated on depression, anxiety, and , mood d/o and educated on compliance of medications, metabolic and movement d/o education appointment's, continue therapy discussion with patient about course of treatmentand patient instructions. SSRI/SNRI side effects discussed including but not limited to, gastric upset, nausea, vomiting, diarrhea and/or constipation, weight changes, sexual side effects including loss of libido, increased suicidal thoughts/behaviors in children and young adults, and serotonin syndrome.Second generation antipsychotics (SGAs) have metabolic syndrome issues with weight gain, increase in prolactin, increased waist circumference, increased lipids, and increased glucose. Thus routine monitoring of weight, metabolic labs, etc. is indicated. A general rank ordering of antipsychotics that have the greatest to the least risk of metabolic effects is olanzapine, quetiapine, risperidone, ziprasidone, and aripiprazole. However, weight gain can occur with all of these drugs and considerable variability exists among patients receiving the same drug regarding the risk of metabolic effects. Anti-psychotic agents not only increase the risk of metabolic disorder, they also increase the risk of CVA, akathisia, and movement disorders including EPS or tardive dyskinesia (more common with first generation antipsychotics) and more. AIMS= 0 10/29/23 AIMS= 0 08/19/24 [place] Prescription program reviewed therapy refer [facility] 2. Generalized anxiety disorder - therapy Pristiq 100 mg daily- monitor B/P -Monitor depression and anxiety Xanax 0.5 mg daily as needed - not taking rx often - refill needed today Discussed and educated pt regarding benzodiazepines are generally not intended for prolonged use and that use can cause tolerance, dependence, depression, and associated memory issues including dementias (this list is not exhaustive). Benzodiazepine use is generally not recommended concurrently with pain medications and/or other controlled substances due to increased risks of profound sedation, respiratory depression, coma, and even . They are not to be used with any alcohol, as this combination can also be lethal. Patient was provided caution 3. Primary insomnia -Melatonin 3-5 mg OTC CPAP 4. Chronic post-traumatic stress disorder - refer to therapy- situational stress with family 5. Obsessive-compulsi ve disorder - therapy stable 6. Long-term drug therapy 09/16/2024 Primary hypertension (ICD-10 - I10) 1. Bipolar I disorder - Latuda 60 mg in evening eat 350 calories with Latuda educated and discuss all RX LAMOTRIGINE 50 mg daily- start this week Lamotrigine lamotrigine has a serious rashes requiring hospitalization and discontinue treatment including Jacques Rudi syndrome rare case of toxic epidermal necrolysis and cache related deaths. Incidence with adjunct of epilepsy treatment 0.8% in 2 to 16 years old and 0.3% in adults, bipolar and other mood disorders incidence 0.8% this initial monotherapy and 0.13% as adjunctive treatment. Other risk factor may include concomitant use of valproate acid derivative or exceeding initial lamotrigine does or does as clinician recommendation; most life-threatening rash of occurring first 2 to 8 week of treatment with isolated cases after prolonged treatment; though benign may occur, discontinue treatment at first sign of rash unless clearly not a drug related; TC treatment may not prevent trash from becoming life-threatening or permanently disabling or disfiguring. Comment reaction include, nausea/vomiting, dizziness/vertigo, visual disturbances, somnolence, ataxia, pruritus/rash, pharyngitis, headache, rhinitis, diarrhea, fever, asthenia, insomnia, tremor, abdominal pain, cough, accidental injury, constipation, dysmenorrhea, incoordination, anxiety, seizures, irritability, anorexia, xerostomia, and photosensitivity. Serious reactions include: Rash, severe; Jackson Rudi syndrome; toxic epidermal necrosis; injury edema, hypersensitivity reactions. Including fatal, multiple organ failure to safe fatal, rash with eosinophilia systemic symptoms, DIC, neutropenia, leukopenia, thrombocytopenia, pancytopenia, aplastic anemia, hemolytic anemia, i pancreatitis, hepatic failure, rhabdomyolysis, worsening of suicidal ideation, worsening of depression, cleft lip/palate [first trimester use] DO not Change Cosmetic, perfumes or soap for next 4 weeks. The patient was advice to take lamotrigine as prescribed the patient was instructed not to deviate from the prescription dosages. Stop lamotrigine is the first sign of rash. Patient was insisted to inform office if any of the serious side effect develops. discuss [place] pharmacy and pill packs and patient is wanting all rx sent educated on all medications, benefits, side effects and risk, and educated on depression, anxiety, and , mood d/o and educated on compliance of medications, metabolic and movement d/o education appointment's, continue therapy discussion with patient about course of treatmentand patient instructions. SSRI/SNRI side effects discussed including but not limited to, gastric upset, nausea, vomiting, diarrhea and/or constipation, weight changes, sexual side effects including loss of libido, increased suicidal thoughts/behaviors in children and young adults, and serotonin syndrome.Second generation antipsychotics (SGAs) have metabolic syndrome issues with weight gain, increase in prolactin, increased waist circumference, increased lipids, and increased glucose. Thus routine monitoring of weight, metabolic labs, etc. is indicated. A general rank ordering of antipsychotics that have the greatest to the least risk of metabolic effects is olanzapine, quetiapine, risperidone, ziprasidone, and aripiprazole. However, weight gain can occur with all of these drugs and considerable variability exists among patients receiving the same drug regarding the risk of metabolic effects. Anti-psychotic agents not only increase the risk of metabolic disorder, they also increase the risk of CVA, akathisia, and movement disorders including EPS or tardive dyskinesia (more common with first generation antipsychotics) and more. AIMS= 0 10/29/23 AIMS= 0 08/19/24 [place] Prescription program reviewed therapy refer [facility] 2. Generalized anxiety disorder - therapy Pristiq 100 mg daily- monitor B/P -Monitor depression and anxiety Xanax 0.5 mg daily as needed - not taking rx often - refill needed today- educated to take daily if needed- reported taking every other day and having anxiety more recently Discussed and educated pt regarding benzodiazepines are generally not intended for prolonged use and that use can cause tolerance, dependence, depression, and associated memory issues including dementias (this list is not exhaustive). Benzodiazepine use is generally not recommended concurrently with pain medications and/or other controlled substances due to increased risks of profound sedation, respiratory depression, coma, and even . They are not to be used with any alcohol, as this combination can also be lethal. Patient was provided caution 3. Primary insomnia -Melatonin 3-5 mg OTC CPAP 4. Chronic post-traumatic stress disorder - refer to therapy- situational stress with family 5. Obsessive-compulsi ve disorder - therapy stable 6. Long-term drug therapy 02/09/2025 Other half-way (current) drug therapy (ICD-10 - Z79.899) Medication Refill: Care Instructions material was published 1. Bipolar I disorder - stable Latuda 60 mg in evening eat 350 calories with Latuda educated and discuss all RX LAMOTRIGINE 50 mg daily- Lamotrigine lamotrigine has a serious rashes requiring hospitalization and discontinue treatment including Jacques Rudi syndrome rare case of toxic epidermal necrolysis and cache related deaths. Incidence with adjunct of epilepsy treatment 0.8% in 2 to 16 years old and 0.3% in adults, bipolar and other mood disorders incidence 0.8% this initial monotherapy and 0.13% as adjunctive treatment. Other risk factor may include concomitant use of valproate acid derivative or exceeding initial lamotrigine does or does as clinician recommendation; most life-threatening rash of occurring first 2 to 8 week of treatment with isolated cases after prolonged treatment; though benign may occur, discontinue treatment at first sign of rash unless clearly not a drug related; TC treatment may not prevent trash from becoming life-threatening or permanently disabling or disfiguring. Comment reaction include, nausea/vomiting, dizziness/vertigo, visual disturbances, somnolence, ataxia, pruritus/rash, pharyngitis, headache, rhinitis, diarrhea, fever, asthenia, insomnia, tremor, abdominal pain, cough, accidental injury, constipation, dysmenorrhea, incoordination, anxiety, seizures, irritability, anorexia, xerostomia, and photosensitivity. Serious reactions include: Rash, severe; Jackson Rudi syndrome; toxic epidermal necrosis; injury edema, hypersensitivity reactions. Including fatal, multiple organ failure to safe fatal, rash with eosinophilia systemic symptoms, DIC, neutropenia, leukopenia, thrombocytopenia, pancytopenia, aplastic anemia, hemolytic anemia, i pancreatitis, hepatic failure, rhabdomyolysis, worsening of suicidal ideation, worsening of depression, cleft lip/palate [first trimester use] DO not Change Cosmetic, perfumes or soap for next 4 weeks. The patient was advice to take lamotrigine as prescribed the patient was instructed not to deviate from the prescription dosages. Stop lamotrigine is the first sign of rash. Patient was insisted to inform office if any of the serious side effect develops. discuss [place] pharmacy and pill packs and patient is wanting all rx sent educated on all medications, benefits, side effects and risk, and educated on depression, anxiety, and , mood d/o and educated on compliance of medications, metabolic and movement d/o education appointment's, continue therapy discussion with patient about course of treatmentand patient instructions. SSRI/SNRI side effects discussed including but not limited to, gastric upset, nausea, vomiting, diarrhea and/or constipation, weight changes, sexual side effects including loss of libido, increased suicidal thoughts/behaviors in children and young adults, and serotonin syndrome.Second generation antipsychotics (SGAs) have metabolic syndrome issues with weight gain, increase in prolactin, increased waist circumference, increased lipids, and increased glucose. Thus routine monitoring of weight, metabolic labs, etc. is indicated. A general rank ordering of antipsychotics that have the greatest to the least risk of metabolic effects is olanzapine, quetiapine, risperidone, ziprasidone, and aripiprazole. However, weight gain can occur with all of these drugs and considerable variability exists among patients receiving the same drug regarding the risk of metabolic effects. Anti-psychotic agents not only increase the risk of metabolic disorder, they also increase the risk of CVA, akathisia, and movement disorders including EPS or tardive dyskinesia (more common with first generation antipsychotics) and more. AIMS= 0 10/29/23 AIMS= 0 08/19/24 AIMS= 0 02/09/25 [place] Prescription program reviewed therapy refer EMILEE 2. Generalized anxiety disorder - therapy discuss and educated on all rx Increase Vistaril 25 mg twice a day as needed for anxiety Pristiq 100 mg daily- monitor B/P -Monitor depression and anxiety Xanax 0.5 mg daily as needed - not taking rx often - refill NO needed today- educated to take daily if needed- reported takes PRN Discussed and educated pt regarding benzodiazepines are generally not intended for prolonged use and that use can cause tolerance, dependence, depression, and associated memory issues including dementias (this list is not exhaustive). Benzodiazepine use is generally not recommended concurrently with pain medications and/or other controlled substances due to increased risks of profound sedation, respiratory depression, coma, and even . They are not to be used with any alcohol, as this combination can also be lethal. Patient was provided caution 3. Primary insomnia - Melatonin 3-5 mg OTC- REPORTED NOT TAKING CPAP 4. Chronic post-traumatic stress disorder - refer to therapy- situational stress with family 5. Obsessive-compulsi ve disorder - therapy stable 6. Long-term drug therapy 11/10/2024 Primary hypertension (ICD-10 - I10) 1. Bipolar I disorder - stable Latuda 60 mg in evening eat 350 calories with Latuda educated and discuss all RX LAMOTRIGINE 50 mg daily- Lamotrigine lamotrigine has a serious rashes requiring hospitalization and discontinue treatment including Jacques Rudi syndrome rare case of toxic epidermal necrolysis and cache related deaths. Incidence with adjunct of epilepsy treatment 0.8% in 2 to 16 years old and 0.3% in adults, bipolar and other mood disorders incidence 0.8% this initial monotherapy and 0.13% as adjunctive treatment. Other risk factor may include concomitant use of valproate acid derivative or exceeding initial lamotrigine does or does as clinician recommendation; most life-threatening rash of occurring first 2 to 8 week of treatment with isolated cases after prolonged treatment; though benign may occur, discontinue treatment at first sign of rash unless clearly not a drug related; TC treatment may not prevent trash from becoming life-threatening or permanently disabling or disfiguring. Comment reaction include, nausea/vomiting, dizziness/vertigo, visual disturbances, somnolence, ataxia, pruritus/rash, pharyngitis, headache, rhinitis, diarrhea, fever, asthenia, insomnia, tremor, abdominal pain, cough, accidental injury, constipation, dysmenorrhea, incoordination, anxiety, seizures, irritability, anorexia, xerostomia, and photosensitivity. Serious reactions include: Rash, severe; Jackson Rudi syndrome; toxic epidermal necrosis; injury edema, hypersensitivity reactions. Including fatal, multiple organ failure to safe fatal, rash with eosinophilia systemic symptoms, DIC, neutropenia, leukopenia, thrombocytopenia, pancytopenia, aplastic anemia, hemolytic anemia, i pancreatitis, hepatic failure, rhabdomyolysis, worsening of suicidal ideation, worsening of depression, cleft lip/palate [first trimester use] DO not Change Cosmetic, perfumes or soap for next 4 weeks. The patient was advice to take lamotrigine as prescribed the patient was instructed not to deviate from the prescription dosages. Stop lamotrigine is the first sign of rash. Patient was insisted to inform office if any of the serious side effect develops. discuss [place] pharmacy and pill packs and patient is wanting all rx sent educated on all medications, benefits, side effects and risk, and educated on depression, anxiety, and , mood d/o and educated on compliance of medications, metabolic and movement d/o education appointment's, continue therapy discussion with patient about course of treatmentand patient instructions. SSRI/SNRI side effects discussed including but not limited to, gastric upset, nausea, vomiting, diarrhea and/or constipation, weight changes, sexual side effects including loss of libido, increased suicidal thoughts/behaviors in children and young adults, and serotonin syndrome.Second generation antipsychotics (SGAs) have metabolic syndrome issues with weight gain, increase in prolactin, increased waist circumference, increased lipids, and increased glucose. Thus routine monitoring of weight, metabolic labs, etc. is indicated. A general rank ordering of antipsychotics that have the greatest to the least risk of metabolic effects is olanzapine, quetiapine, risperidone, ziprasidone, and aripiprazole. However, weight gain can occur with all of these drugs and considerable variability exists among patients receiving the same drug regarding the risk of metabolic effects. Anti-psychotic agents not only increase the risk of metabolic disorder, they also increase the risk of CVA, akathisia, and movement disorders including EPS or tardive dyskinesia (more common with first generation antipsychotics) and more. AIMS= 0 10/29/23 AIMS= 0 08/19/24 [place] Prescription program reviewed therapy refer EMILEE 2. Generalized anxiety disorder - therapy discuss and educated on adding Vistaril 10 mg twice a day as needed for anxiety Pristiq 100 mg daily- monitor B/P -Monitor depression and anxiety Xanax 0.5 mg daily as needed - not taking rx often - refill NO needed today- educated to take daily if needed- reported takes PRN Discussed and educated pt regarding benzodiazepines are generally not intended for prolonged use and that use can cause tolerance, dependence, depression, and associated memory issues including dementias (this list is not exhaustive). Benzodiazepine use is generally not recommended concurrently with pain medications and/or other controlled substances due to increased risks of profound sedation, respiratory depression, coma, and even . They are not to be used with any alcohol, as this combination can also be lethal. Patient was provided caution 3. Primary insomnia -Melatonin 3-5 mg OTC CPAP 4. Chronic post-traumatic stress disorder - refer to therapy- situational stress with family 5. Obsessive-compulsi ve disorder - therapy stable 6. Long-term drug therapy 11/10/2024 Encounter for screening for depression (ICD-10 - Z13.31) 1. Bipolar I disorder - stable Latuda 60 mg in evening eat 350 calories with Latuda educated and discuss all RX LAMOTRIGINE 50 mg daily- Lamotrigine lamotrigine has a serious rashes requiring hospitalization and discontinue treatment including Jacques Rudi syndrome rare case of toxic epidermal necrolysis and cache related deaths. Incidence with adjunct of epilepsy treatment 0.8% in 2 to 16 years old and 0.3% in adults, bipolar and other mood disorders incidence 0.8% this initial monotherapy and 0.13% as adjunctive treatment. Other risk factor may include concomitant use of valproate acid derivative or exceeding initial lamotrigine does or does as clinician recommendation; most life-threatening rash of occurring first 2 to 8 week of treatment with isolated cases after prolonged treatment; though benign may occur, discontinue treatment at first sign of rash unless clearly not a drug related; TC treatment may not prevent trash from becoming life-threatening or permanently disabling or disfiguring. Comment reaction include, nausea/vomiting, dizziness/vertigo, visual disturbances, somnolence, ataxia, pruritus/rash, pharyngitis, headache, rhinitis, diarrhea, fever, asthenia, insomnia, tremor, abdominal pain, cough, accidental injury, constipation, dysmenorrhea, incoordination, anxiety, seizures, irritability, anorexia, xerostomia, and photosensitivity. Serious reactions include: Rash, severe; Jackson Rudi syndrome; toxic epidermal necrosis; injury edema, hypersensitivity reactions. Including fatal, multiple organ failure to safe fatal, rash with eosinophilia systemic symptoms, DIC, neutropenia, leukopenia, thrombocytopenia, pancytopenia, aplastic anemia, hemolytic anemia, i pancreatitis, hepatic failure, rhabdomyolysis, worsening of suicidal ideation, worsening of depression, cleft lip/palate [first trimester use] DO not Change Cosmetic, perfumes or soap for next 4 weeks. The patient was advice to take lamotrigine as prescribed the patient was instructed not to deviate from the prescription dosages. Stop lamotrigine is the first sign of rash. Patient was insisted to inform office if any of the serious side effect develops. discuss [place] pharmacy and pill packs and patient is wanting all rx sent educated on all medications, benefits, side effects and risk, and educated on depression, anxiety, and , mood d/o and educated on compliance of medications, metabolic and movement d/o education appointment's, continue therapy discussion with patient about course of treatmentand patient instructions. SSRI/SNRI side effects discussed including but not limited to, gastric upset, nausea, vomiting, diarrhea and/or constipation, weight changes, sexual side effects including loss of libido, increased suicidal thoughts/behaviors in children and young adults, and serotonin syndrome.Second generation antipsychotics (SGAs) have metabolic syndrome issues with weight gain, increase in prolactin, increased waist circumference, increased lipids, and increased glucose. Thus routine monitoring of weight, metabolic labs, etc. is indicated. A general rank ordering of antipsychotics that have the greatest to the least risk of metabolic effects is olanzapine, quetiapine, risperidone, ziprasidone, and aripiprazole. However, weight gain can occur with all of these drugs and considerable variability exists among patients receiving the same drug regarding the risk of metabolic effects. Anti-psychotic agents not only increase the risk of metabolic disorder, they also increase the risk of CVA, akathisia, and movement disorders including EPS or tardive dyskinesia (more common with first generation antipsychotics) and more. AIMS= 0 10/29/23 AIMS= 0 08/19/24 [place] Prescription program reviewed therapy refer EMILEE 2. Generalized anxiety disorder - therapy discuss and educated on adding Vistaril 10 mg twice a day as needed for anxiety Pristiq 100 mg daily- monitor B/P -Monitor depression and anxiety Xanax 0.5 mg daily as needed - not taking rx often - refill NO needed today- educated to take daily if needed- reported takes PRN Discussed and educated pt regarding benzodiazepines are generally not intended for prolonged use and that use can cause tolerance, dependence, depression, and associated memory issues including dementias (this list is not exhaustive). Benzodiazepine use is generally not recommended concurrently with pain medications and/or other controlled substances due to increased risks of profound sedation, respiratory depression, coma, and even . They are not to be used with any alcohol, as this combination can also be lethal. Patient was provided caution 3. Primary insomnia -Melatonin 3-5 mg OTC CPAP 4. Chronic post-traumatic stress disorder - refer to therapy- situational stress with family 5. Obsessive-compulsi ve disorder - therapy stable 6. Long-term drug therapy 02/09/2025 Primary hypertension (ICD-10 - I10) 1. Bipolar I disorder - stable Latuda 60 mg in evening eat 350 calories with Latuda educated and discuss all RX LAMOTRIGINE 50 mg daily- Lamotrigine lamotrigine has a serious rashes requiring hospitalization and discontinue treatment including Jacques Rudi syndrome rare case of toxic epidermal necrolysis and cache related deaths. Incidence with adjunct of epilepsy treatment 0.8% in 2 to 16 years old and 0.3% in adults, bipolar and other mood disorders incidence 0.8% this initial monotherapy and 0.13% as adjunctive treatment. Other risk factor may include concomitant use of valproate acid derivative or exceeding initial lamotrigine does or does as clinician recommendation; most life-threatening rash of occurring first 2 to 8 week of treatment with isolated cases after prolonged treatment; though benign may occur, discontinue treatment at first sign of rash unless clearly not a drug related; TC treatment may not prevent trash from becoming life-threatening or permanently disabling or disfiguring. Comment reaction include, nausea/vomiting, dizziness/vertigo, visual disturbances, somnolence, ataxia, pruritus/rash, pharyngitis, headache, rhinitis, diarrhea, fever, asthenia, insomnia, tremor, abdominal pain, cough, accidental injury, constipation, dysmenorrhea, incoordination, anxiety, seizures, irritability, anorexia, xerostomia, and photosensitivity. Serious reactions include: Rash, severe; Jackson Urdi syndrome; toxic epidermal necrosis; injury edema, hypersensitivity reactions. Including fatal, multiple organ failure to safe fatal, rash with eosinophilia systemic symptoms, DIC, neutropenia, leukopenia, thrombocytopenia, pancytopenia, aplastic anemia, hemolytic anemia, i pancreatitis, hepatic failure, rhabdomyolysis, worsening of suicidal ideation, worsening of depression, cleft lip/palate [first trimester use] DO not Change Cosmetic, perfumes or soap for next 4 weeks. The patient was advice to take lamotrigine as prescribed the patient was instructed not to deviate from the prescription dosages. Stop lamotrigine is the first sign of rash. Patient was insisted to inform office if any of the serious side effect develops. discuss [place] pharmacy and pill packs and patient is wanting all rx sent educated on all medications, benefits, side effects and risk, and educated on depression, anxiety, and , mood d/o and educated on compliance of medications, metabolic and movement d/o education appointment's, continue therapy discussion with patient about course of treatmentand patient instructions. SSRI/SNRI side effects discussed including but not limited to, gastric upset, nausea, vomiting, diarrhea and/or constipation, weight changes, sexual side effects including loss of libido, increased suicidal thoughts/behaviors in children and young adults, and serotonin syndrome.Second generation antipsychotics (SGAs) have metabolic syndrome issues with weight gain, increase in prolactin, increased waist circumference, increased lipids, and increased glucose. Thus routine monitoring of weight, metabolic labs, etc. is indicated. A general rank ordering of antipsychotics that have the greatest to the least risk of metabolic effects is olanzapine, quetiapine, risperidone, ziprasidone, and aripiprazole. However, weight gain can occur with all of these drugs and considerable variability exists among patients receiving the same drug regarding the risk of metabolic effects. Anti-psychotic agents not only increase the risk of metabolic disorder, they also increase the risk of CVA, akathisia, and movement disorders including EPS or tardive dyskinesia (more common with first generation antipsychotics) and more. AIMS= 0 10/29/23 AIMS= 0 08/19/24 AIMS= 0 02/09/25 [place] Prescription program reviewed therapy refer EMILEE 2. Generalized anxiety disorder - therapy discuss and educated on all rx Increase Vistaril 25 mg twice a day as needed for anxiety Pristiq 100 mg daily- monitor B/P -Monitor depression and anxiety Xanax 0.5 mg daily as needed - not taking rx often - refill NO needed today- educated to take daily if needed- reported takes PRN Discussed and educated pt regarding benzodiazepines are generally not intended for prolonged use and that use can cause tolerance, dependence, depression, and associated memory issues including dementias (this list is not exhaustive). Benzodiazepine use is generally not recommended concurrently with pain medications and/or other controlled substances due to increased risks of profound sedation, respiratory depression, coma, and even . They are not to be used with any alcohol, as this combination can also be lethal. Patient was provided caution 3. Primary insomnia - Melatonin 3-5 mg OTC- REPORTED NOT TAKING CPAP 4. Chronic post-traumatic stress disorder - refer to therapy- situational stress with family 5. Obsessive-compulsi ve disorder - therapy stable 6. Long-term drug therapy Plan Of Treatment Next Appt Details Provider Name:Vicki Mobley , 05/11/2025 09:00:00 AM, [address], [address], [place], [address], Insurance Providers Payer Name Payer Address Payer Phone Subscriber Number Group Number Insured Name Patient Relationship to Insured Coverage Start Date Coverage End Date [facility] - On Or After 2020 [address] [place] [address] [id number] TEETEE JAVIER PRATT Self - patient is the insured Medical (General) History Medical History History ICD Code Problems: Bipolar I disorder Chronic post-traumatic stress disorder Generalized anxiety disorder Long-term drug therapy Moderate recurrent major depression Obesity Obsessive-compulsive disorder Primary insomnia , Past Psychiatric Hospitaliza tions: Y Past Suicide Attempt: Y if yes, how many attempts in the past: Y - age 17, Methods use: Cutting: Y - age 17 Methods use: other: Y - to jump off bridge 2016 thoughts no FOID card Anxiety Disorder: Y Bipolar Disorder: Y Depression Major: Y Panic Episodes: Y PTSD: Y Substance Abuse: Y Alcoholism: Y Asthma: Y Colitis: Y Diabetes Mellitus: Y GERD/Reflux: Y Hypertension: Y Obesity: Y Osteoarthritis: Y Notes: spinal stenosis Surgical History Surgery Date(Month/Year) Removal of gallbladder (29703) Removal of gallbladder gallbladder, cath , feet surgery bunion,
--- OUTSIDE RECORDS SUMMARY | 2025-03-25 18:15 | XMS_ITS | Clinical Summary ---
Author Organization [facility] Address [address] [place] [address] Phone Care Team Providers Care [employer] Nurse Name Role Phone Eliz Haywood KATHERIN, DARREN Primary Care Provider [phone] Allergies Active Allergy Reactions Criticality Noted Date Comments Statins Other (see Comments) 03/04/2025 myalgias Medications ALPRAZolam (XANAX) 0.5 MG Tablet Take 0.5 mg by mouth. Active Desvenlafaxine Succinate 100 MG TABLET SR 24 HR Take by mouth. Activ e Dapagliflozin Propanediol (Farxiga) 10 MG Tablet Take 10 mg by mouth daily. Active HYDROcodone-Hermes taminophen 7.5-325 MG/15ML Solution Take by mouth every 6 hours as needed. Active lamoTRIgine (LaMICtal) 25 MG Tablet Take 25 mg by mouth daily. Active losartan (COZAAR) 100 MG Tablet Take 100 mg by mouth daily. Active Lurasidone HCl 60 MG Tablet Take by mouth. Ac tive metoprolol Succinate (TOPROL-XL) 25 MG TABLET SR 24 HR Take 25 mg by mouth daily. Active Tirzepatide (Mounjaro) 12.5 MG/0.5ML Solution Auto-injector by Subcutaneous route. Active omeprazole (PriLOSEC) 20 MG CAPSULE DELAYED RELEASE Take 20 mg by mouth daily. Active oxybutynin (DITROPAN-XL) 10 MG TABLET SR 24 HR Take 10 mg by mouth daily. Active pregabalin (LYRICA) 225 MG Capsule Take 225 mg by mouth 2 times daily. Active tiZANidine HCl 4 MG Capsule Take 4 mg by mouth 3 times daily. Active Social History Tobacco Use Types Packs/Day Years Used Date Smoking Tobacco: Former Cigarettes Smokeless Tobacco: Never Tobacco Cessation:Counseling Given: Not Answered Sexually Active Control Partners Comments Never Comments Unknown Sex and Gender Information Value Date Recorded Sex Assigned at Not on file Legal Sex Female 5:41 PM CDT Gender Identity Not on file Sexual Orientation Not on file Last Filed Vital Signs Vital Sign Reading Time Taken Comments Blood Pressure - - Pulse - - Temperature - - Respiratory Rate - - Oxygen Saturation - - Inhaled Oxygen Concentration - - Weight - - Height 170.2 cm (5' 7) 03/04/2025 8:21 AM CDT Body Mass Index - - Plan of Treatment Upcoming Encounters Date Type Department Care Team (Late st Contact Info) Description 09/21/2025 9:30 AM [facility] [facility] Office Visit [facility] - [facility]rology - [place] [address] [place] [address] Yehuda Ortega MD [address] [place] [address] Health Maintenance Due Date Last Done Comments Hepatitis C Virus (HCV) Screening 1972 Mammogram 1972 TdaP Immunization 1972 Hepatitis B Immunization (1 of 3 - 19+ 3-dose series) 10/26/1991 Pap Smear 1993 Cervical Cancer Screening (CCS) 2002 HPV/Cotest 2002 Cologuard 2017 Colonoscopy 2017 Colorectal Cancer Screening 2017 Immunochemical Fecal Occult Blood 2017 Pneumococcal Immunization (50+ years) (1 of 1 - PCV) 2022 Zoster Immunization (1 of 2) 2022 SARS-COV-2 Immunization ( - season) 2024 Influenza Immunization (#1) 04/20/202505/20, 06/17/2020, 06/24/2019, Additional history exists Respiratory Syncytial Virus (RSV) Immunization (Adult) (1 - 1-dose 75+ series) 10/26/2047 Human Papillomavirus (HPV) Immunization Aged Out No longer eligible based on patient's age to complete this topic Meningococcal Immunization (ACWY) Aged Out No longer eligible based on patient's age to complete this topic Rotavirus Immunization Aged Out No lo nger eligible based on patient's age to complete this topic Insurance MEDICAID [facility] Care Teams [employer] Nurse Relationship Specialty Start Date End Date Eliz Haywood APRN, [employer] [address] [place] [id number] PCP - General Advanced Practice Nurse 03/04/25
--- OUTSIDE RECORDS SUMMARY | 2025-03-25 18:15 | XMS_ITS | Encounter Summary ---
Author Organization [facility] Address [address] [place] [address] Phone Care Team Providers Care Highway Maintenance Supervisor Name Role Phone Dipti Viveros APRN, DARREN Primary Care Pro vider Eliz Haywood APRN, CNP Primary Care Provider [phone] Reason for Referral * Radiology Services (Routine) - Closed Specialty Diagnoses / Procedures Referred By Loida t Referred To Contact Radiology Diagnoses Bilateral low back pain with bilateral sciatica, unspecified chronicity Procedures MRI L-SPINE W/O CONTRAST Dipti Viveros APRN, CNP [address] [place] [address] Phone: tel: fax: Referral ID Status Reason Start Date Expiration Date Visits Re quested Visits Authorized [id number] Closed 04/06/2023 1 1 Encounter Details Date Type Department Care Team (Late st Contact Info) Description 04/06/2023 Transcribe Orders [facility] Central Scheduling [address] [place] [address] Dipti Viveros APRN, CNP [address] [place] [address] Bilateral low back pain with bilateral sciatica, unspecified chronicity (Primary Dx) Social History Tobacco Use Types Packs/Day Years Used Date Smoking Tobacco: Never Assessed Comments Unknown Sex and Gender Information Value Date Recorded Sex Assigned at Not on file Legal Sex Female 5:41 PM CDT Gender Identity Not on file Sexual Orientation Not on file documented as of this encounter Plan of Treatment Upcoming Encounters Date Type Department Care Team (Late st Contact Info) Description 09/21/2025 9:30 AM CAR LUBRICATOR Office Visit [facility] - Neurology [facility] [address] [place] [address] Yehuda Ortega MD [address] [place] [address] Scheduled Orders Name Type Priority Associated Diagnoses Orde r Schedule MRI L-SPINE W/O CONTRAST Imaging Routine Bilateral low back pain with bilateral sciatica, unspecified chronicity Expected: 04/06/2023, Expires: 04/06/2024 documented as of this encounter Visit Diagnoses Diagnosis Bilateral low back pain with bilateral sciatica, unspecified chronicity- Primary documented in this encounter Care Teams Highway Maintenance Supervisor Relationship Specialty Start Date End Date Dipti Viveros APRN, ADDICTION SOCIAL WORKER [address] [place] [address] PCP - General Certified Nurse Practitioner 04/06/23 03/03/25 Eliz Haywood APRN, ADDICTION SOCIAL WORKER [address] [place] [address] PCP - General Advanced Practice Nurse 03/04/25 documented as of this encounter
--- NOTE | 2025-03-25 18:17 | ED.GENADULT ---
HPI - General Adult General Chief complaint: Urogenital-Female <Rob Pate JeovanyMINAL porrasN - Last Filed: 03/25/25 18:19> Stated complaint: right back pain <Rob Pate JeovanyKATHERIN porras - Last Filed: 03/25/25 18:19> Time Seen by Provider: 03/25/25 19:43 <Rob Pate JeovanyMINAL porrasN - Last Filed: 03/25/25 18:19> Focused HPI: 54-year-old female presents [facility] complaining of right flank pain for proximal month. Patient denies any injuries or falls. Patient denies any urinary symptoms, or bloody urine. Patient denies any fevers, body aches, chills, nausea vomiting, diarrhea. Patient has a history of kidney stones. Patient has a history of diabetes. GENERAL: Well-appearing, well-nourished, and in no acute distress. Patient is morbidly obese. Physical exam limited due to large body habitus. HEAD: Normocephalic, atraumatic. CHEST: Clear to auscultation. ?No respiratory distress. HEART: Regular rate and rhythm.? NEURO: ?Alert and oriented x3. GI: Right flank tenderness to palpation. Abdomen large, nontender, nondistended. Bowel sounds present. No guarding or rigidity. No rebound tenderness. Patient screened in triage and initial orders placed.? ?Additional care and disposition to be based upon?diagnostic testing and treatment. <Rob Keller APRN - Last Filed: 03/25/25 18:19> History of Present Illness HPI narrative: Agree with the above with the following additions/corrections: Patient presents with right back/flank pain of 1 month duration no increasing over the past 2 weeks. She confirms she has a primary care physician, Eliz Da Silva. She denies any hematuria, urgency, frequency, dysuria. She notes occasionally she will experience intermittent nausea 0 when the pain intensifies but other than that is not constant. No vomiting, diarrhea, fevers or chills. She denies any vaginal discharge. She denies any buttock pain although she states that occasionally her right leg will not work right although she has been told that she has spinal stenosis and issues with her disc. Denies any paresthesias or saddle anesthesia. Denies any bowel or bladder incontinence. No IV drug use. She denies any midline pain only that it is across her right back and does not extend into her abdomen. Not chronically on steroids and no history of cancer. She knows that she is on hydrocodone for an issue related to her right jaw pain that is prescribed by her primary care physician and she also has trialed Excedrin/Motrin. <Carlee Gomez MD - Last Filed: 03/26/25 18:46> Related Data Home medications: Home Medications ?Medication ?Instructions ?Recorded ?Confirmed ?Last Taken ?Type dapagliflozin propanediol 5 mg 5 mg PO DAILY 08/03/19 02/16/24 Unknown History tablet (Farxiga) desvenlafaxine succinate 50 mg 50 mg PO DAILY 08/03/19 02/16/24 Unknown History tablet,extended release 24 hr losartan 100 mg tablet 100 mg PO DAILY 08/03/19 02/16/24 Unknown History metformin 500 mg tablet 500 mg PO BID 08/03/19 02/16/24 Unknown History metoprolol succinate 50 mg 50 mg PO DAILY 08/03/19 02/16/24 Unknown History tablet,extended release 24 hr oxybutynin chloride 5 mg 5 mg PO DAILY 11/02/20 02/16/24 Unknown History tablet,extended release 24 hr lurasidone 40 mg tablet (Latuda) 60 mg PO HS 09/25/23 02/16/24 Unknown History amoxicillin 875 mg-potassium tablet 02/16/24 02/16/24 Unknown History clavulanate 125 mg tablet sulfamethoxazole 800 1 tablet PO BID 02/16/24 02/16/24 Unknown History mg-trimethoprim 160 mg tablet <Rob Keller APRN - Last Filed: 03/25/25 18:19> Allergies/adverse reactions: Allergies Allergy/AdvReac Type Severity Reaction Status Date / Time Noponrv-AIU-GmT Reductase AdvReac Cough Verified 03/25/25 18:20 Inhibitor <Rob Keller APRN - Last Filed: 03/25/25 18:19> [facility] Past Medical History Medical History: Medical History Diverticulitis of sigmoid colon Mural thickening of sigmoid colon Lumbar spinal stenosis Obstructive sleep apnea Essential hypertension Type 2 diabetes mellitus Morbid obesity with BMI of 60.0-69.9, adult Bipolar disorder Anxiety Spinal stenosis Arthritis GERD (gastroesophageal reflux disease) Diverticulitis (07/2016) With multiple episodes of diverticulitis starting in January of 2016 Sleep apnea CPAP of 11 Hypercholesteremia Seasonal allergies Mitral valve prolapse Stress fracture in right foot <Rob Keller APRN - Last Filed: 03/25/25 18:19> Surgical History Surgical History: Surgical History History of myringotomy History of bunionectomy Hx of cholecystectomy Bilateral <Rob Keller APRN - Last Filed: 03/25/25 18:19> Family History Family History: Family History Mother Diabetes mellitus Family history of mental disorder Hypertension Family history of cardiovascular disease Family history of arthritis Family history of chronic obstructive pulmonary disease Sibling Family history of alcoholism Father Family history of alcoholism <Rob Keller APRN - Last Filed: 03/25/25 18:19> Social History Social History: Social History Social History: Code status: Full code Surrogate decision maker: Smoking packs per day: 0.5 Smoking cigarettes per day: 10.0 Years smoked: 21 Smoking pack-years: 10.50 Smoking status: Former smoker Tobacco type: cigarettes Smoking end date: 10/24/23 Additional smoking assessment comments: She smoked from age 15 to age 36. Alcohol intake: never Substance use: never Substance use type: does not use Do You Feel Safe in your Home?: Yes Lack of Transportation: No Lack of Food: Sometimes True Current Housing: I Do Not Have Housing Concerned About Future Housing: No Difficulty Paying Gas/Electric Bills: No Difficulty Paying for Meds: No Currently Unemployed: No Education: High School Diploma/GED Difficulty w/ Childcare or Family Care: No Living arrangements: with family Additional living arrangements comments: She lives at home with her of 22 years. They have 6 children. She has 1 biological child and 5 adopted children who are all girls. Her age is [id number] who of all moved out and 3 daughters remain at home age 18 and 2 12-year-old twins. One of the twins has autism. Occupation/Education: other Additional occupation/education comments: She is on disability due to her psychiatric illnesses. 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 Gender identity (if verbalized by the patient): Female Spiritual care concerns: No <Rob Keller APRN - Last Filed: 03/25/25 18:19> Exam Narrative: GENERAL: Well-appearing, well-nourished, and in no acute distress. HEAD: Normocephalic, atraumatic. EYES: Non injected, non icteric ENT: Nares clear, no rhinorrhea or epistaxis. Gross auditory acuity intact. NECK: Supple. No meningismus. CHEST: Speaking in full sentences. No respiratory distress. HEART: Regular rate and rhythm. . Back/: No midline TTP of thoracic/lumbar spinal processes which are midline and without bony step-offs. No obvious bony deformity. No paraspinal/paravertebral tenderness. No appreciable muscle spasm. Deep palpation right back/flank does not reproduce pain. No CVA tenderness. ABDOMEN: Morbidly obese but Soft, nondistended. No rigidity or guarding. Not peritoneal EXTREMITIES: No lower extremity edema. She is able to move her legs. SKIN: Warm, dry, no rash. NEURO: No focal deficits. Alert and oriented. Answering questions. Following commands. Normal speech without aphasia or dysarthria. Sensation intact to touch in bilateral lower extremities. PSYCH: Normal mood and affect. <Carlee Gomez MD - Last Filed: 03/26/25 18:46> Course Vital Signs Vital signs: Vital Signs Temperature 97.4 F L 03/25/25 18:13 Pulse Rate 81 03/25/25 18:13 Respiratory Rate 20 03/25/25 18:13 Blood Pressure 127/69 03/25/25 18:13 Pulse Oximetry 95 03/25/25 18:13 Oxygen Delivery Room Air 03/25/25 18:13 Temperature 97.4 F L 03/25/25 18:13 Pulse Rate 82 03/25/25 21:39 Respiratory Rate 16 03/25/25 21:39 Blood Pressure 121/72 03/25/25 21:39 Pulse Oximetry 94 03/25/25 21:39 Oxygen Delivery Room Air 03/25/25 19:42 <Rob Keller APRN - Last Filed: 03/25/25 18:19> Vital Signs Temperature 97.4 F L 03/25/25 18:13 Pulse Rate 81 03/25/25 18:13 Respiratory Rate 20 03/25/25 18:13 Blood Pressure 127/69 03/25/25 18:13 Pulse Oximetry 95 03/25/25 18:13 Oxygen Delivery Room Air 03/25/25 18:13 Temperature 97.4 F L 03/25/25 18:13 Pulse Rate 82 03/25/25 21:39 Respiratory Rate 16 03/25/25 21:39 Blood Pressure 121/72 03/25/25 21:39 Pulse Oximetry 94 03/25/25 21:39 Oxygen Delivery Room Air 03/25/25 19:42 <Carlee Gomez MD - Last Filed: 03/26/25 18:46> Medical Decision Making MDM Narrative Medical decision making narrative: Patient presents with right back/flank pain of approximately 1 months duration but increasing over the past 2 weeks. In the emergency department they are afebrile with vital signs within normal limits. Very mild leukocytosis and hemoglobin and hematocrit are slightly elevated. These are likely due to a degree of hemoconcentration. Given Dilaudid for pain. She has evidence of urinary tract infection. Urine culture is in process. Previous culture from 01/11/2024 grew E coli that was sensitive to: Ceftazidime, cefepime, ceftriaxone, gentamicin, imipenem, meropenem, nitrofurantoin, PipTazo, and Bactrim. Although patient is without the other classic signs of pyelonephritis such as fevers and nausea (only intermittently) she is otherwise well-appearing, given the presence of flank pain in the duration of symptoms, reasonable to treat as such. Bactrim DS BID 10 days Rx; also given a dose in the ED CT with the findings as below although this does not appear to be an emergent issue. Discharged home with prescriptions for [id number]-[id number] analgesics medication as well. Advised follow-up with primary care provider. Given strict ED return precautions. Patient otherwise stable for discharge. Vital signs have remained normal. <Carlee Gomez MD - Last Filed: 03/26/25 18:46> Differential Diagnosis Differential Diagnosis: Musculoskeletal/sprain or strain, pyelonephritis, spinal stenosis; constipation; diverticulitis <Carlee Gomez MD - Last Filed: 03/26/25 18:46> Vital Signs Vital Signs: Vital Signs Temperature 97.4 F L 03/25/25 18:13 Pulse Rate 81 03/25/25 18:13 Respiratory Rate 20 03/25/25 18:13 Blood Pressure 127/69 03/25/25 18:13 Pulse Oximetry 95 03/25/25 18:13 Oxygen Delivery Room Air 03/25/25 18:13 Temperature 97.4 F L 03/25/25 18:13 Pulse Rate 82 03/25/25 21:39 Respiratory Rate 16 03/25/25 21:39 Blood Pressure 121/72 03/25/25 21:39 Pulse Oximetry 94 03/25/25 21:39 Oxygen Delivery Room Air 03/25/25 19:42 <Rob Keller APRN - Last Filed: 03/25/25 18:19> Vital Signs Temperature 97.4 F L 03/25/25 18:13 Pulse Rate 81 03/25/25 18:13 Respiratory Rate 20 03/25/25 18:13 Blood Pressure 127/69 03/25/25 18:13 Pulse Oximetry 95 03/25/25 18:13 Oxygen Delivery Room Air 03/25/25 18:13 Temperature 97.4 F L 03/25/25 18:13 Pulse Rate 82 03/25/25 21:39 Respiratory Rate 16 03/25/25 21:39 Blood Pressure 121/72 03/25/25 21:39 Pulse Oximetry 94 03/25/25 21:39 Oxygen Delivery Room Air 03/25/25 19:42 <Carlee Gomez MD - Last Filed: 03/26/25 18:46> Lab Data Lab results reviewed: Yes I reviewed the patient's lab results. <Carlee Gomez MD - Last Filed: 03/26/25 18:46> Result diagrams: 03/25/25 20:00 03/25/25 20:00 <Rob Keller APRN - Last Filed: 03/25/25 18:19> Labs: Lab Results 03/25/25 Range/Units 20:00 WBC 10.6 H (4.5-10.0) K/mm3 RBC 5.24 (4.2-5.4) M/mm3 Hgb 15.6 H (12.0-15.0) g/dL Hct 47.1 H (37.0-47.0) % MCV 89.9 (80-100) fl MCH 29.8 (26-34) pg MCHC 33.1 (32-36) g/dl RDW 12.9 (11.5-14.5) % Plt Count 273 (150-375) k/mm3 MPV 9.2 (7.4-10.4) fl Immature Gran % (Auto) 0.4 (0-0.5) % Neut % (Auto) 41.2 L (45.5-73.1) % Lymph % (Auto) 46.7 H (18.3-44.2) % [place] % (Auto) 7.3 (2.6-8.5) % Eos % (Auto) 3.7 (0-4.4) % Baso % (Auto) 0.7 (0.2-1.2) % Lymph # (Auto) 4.95 H (0.9-3.2) K/mm3 [place] # (Auto) 0.8 H (0.1-0.6) K/mm3 Eos # (Auto) 0.4 H (0-0.3) K/mm3 Baso # (Auto) 0.1 (0.0-0.1) K/mm3 Abs Immat Gran (auto) 0.04 H (0.00-0.031) K/mm3 Absolute Neuts (auto) 4.4 (1.3-6.7) K/mm3 Absolute Nucleated RBC 0.000 (0.0-0.012) K/mm3 Nucleated RBC % 0.0 (0.0-0.2) % Sodium 139 (137-145) mmol/L Potassium 4.2 (3.4-5.0) mmol/L Chloride 104 (98-107) mmol/L Carbon Dioxide 24 (22-30) mmol/L Anion Gap 11 (4-12) mmol/L BUN 15 (7-17) mg/dL Creatinine 0.83 (0.7-1.0) mg/dL Estim Creat Clear Calc 122 ml/min Estimated GFR > 60 (59 - ) Glucose 100 (65-110) mg/dL Calcium 9.0 (8.4-10.2) mg/dL Total Bilirubin 0.4 (0.2-1.3) mg/dL AST 30 (14-36) U/L ALT 31 (6-35) U/L Alkaline Phosphatase 113 (38-126) U/L Total Protein 7.9 (6.3-8.2) g/dL Albumin 4.2 (3.5-5.1) g/dL Lipase 87 (23-300) U/L Urine Color Yellow (Yellow) Urine Appearance Cloudy H (Clear) Urine pH 5.5 (5.0-9.0) Ur Specific [place] 1.029 (1.001-1.035) Urine Protein Negative (Negative) mg/dL Urine Glucose (UA) 3+ H (Negative) mg/dL Urine Ketones Negative (Negative) mg/dL Ur Blood (Man) Negative (Negative) Urine Nitrate Negative (Negative) Urine Bilirubin Negative (Negative) Urine Urobilinogen 1.0 (<2.0) mg/dL Add Ur Microanalysis Reviewed Leukocyte Esterase Rfl Trace H (Negative) DURAN/UL Urine RBC 6-10 H (0-2) /hpf Urine WBC 21-50 H (0-3) /hpf Ur Squamous Epith Cells Occasional (Few) /hpf Urine Bacteria 4+ H /hpf Urine Casts 0-2 <Rob Keller, DEVELOPMENT TEAM LEAD - Last Filed: 03/25/25 18:19> Lab Results 03/25/25 Range/Units 20:00 WBC 10.6 H (4.5-10.0) K/mm3 RBC 5.24 (4.2-5.4) M/mm3 Hgb 15.6 H (12.0-15.0) g/dL Hct 47.1 H (37.0-47.0) % MCV 89.9 (80-100) fl MCH 29.8 (26-34) pg MCHC 33.1 (32-36) g/dl RDW 12.9 (11.5-14.5) % Plt Count 273 (150-375) k/mm3 MPV 9.2 (7.4-10.4) fl Immature Gran % (Auto) 0.4 (0-0.5) % Neut % (Auto) 41.2 L (45.5-73.1) % Lymph % (Auto) 46.7 H (18.3-44.2) % [place] % (Auto) 7.3 (2.6-8.5) % Eos % (Auto) 3.7 (0-4.4) % Baso % (Auto) 0.7 (0.2-1.2) % Lymph # (Auto) 4.95 H (0.9-3.2) K/mm3 [place] # (Auto) 0.8 H (0.1-0.6) K/mm3 Eos # (Auto) 0.4 H (0-0.3) K/mm3 Baso # (Auto) 0.1 (0.0-0.1) K/mm3 Abs Immat Gran (auto) 0.04 H (0.00-0.031) K/mm3 Absolute Neuts (auto) 4.4 (1.3-6.7) K/mm3 Absolute Nucleated RBC 0.000 (0.0-0.012) K/mm3 Nucleated RBC % 0.0 (0.0-0.2) % Sodium 139 (137-145) mmol/L Potassium 4.2 (3.4-5.0) mmol/L Chloride 104 (98-107) mmol/L Carbon Dioxide 24 (22-30) mmol/L Anion Gap 11 (4-12) mmol/L BUN 15 (7-17) mg/dL Creatinine 0.83 (0.7-1.0) mg/dL Estim Creat Clear Calc 122 ml/min Estimated GFR > 60 (59 - ) Glucose 100 (65-110) mg/dL Calcium 9.0 (8.4-10.2) mg/dL Total Bilirubin 0.4 (0.2-1.3) mg/dL AST 30 (14-36) U/L ALT 31 (6-35) U/L Alkaline Phosphatase 113 (38-126) U/L Total Protein 7.9 (6.3-8.2) g/dL Albumin 4.2 (3.5-5.1) g/dL Lipase 87 (23-300) U/L Urine Color Yellow (Yellow) Urine Appearance Cloudy H (Clear) Urine pH 5.5 (5.0-9.0) Ur Specific [place] 1.029 (1.001-1.035) Urine Protein Negative (Negative) mg/dL Urine Glucose (UA) 3+ H (Negative) mg/dL Urine Ketones Negative (Negative) mg/dL Ur Blood (Man) Negative (Negative) Urine Nitrate Negative (Negative) Urine Bilirubin Negative (Negative) Urine Urobilinogen 1.0 (<2.0) mg/dL Add Ur Microanalysis Reviewed Leukocyte Esterase Rfl Trace H (Negative) DURAN/UL Urine RBC 6-10 H (0-2) /hpf Urine WBC 21-50 H (0-3) /hpf Ur Squamous Epith Cells Occasional (Few) /hpf Urine Bacteria 4+ H /hpf Urine Casts 0-2 <Carlee Gomez MD - Last Filed: 03/26/25 18:46> Imaging Data Radiologist's impression: Impressions Abdomen/Pelvis CT 03/25/25 20:16 IMPRESSION: No obstructive uropathy. Abdominal aortic stenosis for which follow-up with vascular surgery is recommended. <Carlee Gomez MD - Last Filed: 03/26/25 18:46> Discharge Plan Discharge Clinical Impression: Right-sided back pain, UTI (urinary tract infection), Abdominal aortic stenosis <Rob Keller APRN - Last Filed: 03/25/25 18:19> Patient Disposition: Home <Rob Keller APRN - Last Filed: 03/25/25 18:19> Condition: Stable <Rob Keller APRN - Last Filed: 03/25/25 18:19> Instructions: Antibiotic Form, Urinary Tract Infection in Women (ED), Kidney Infection (ED), Flank Pain (ED), Aortic Disease (DC) <Rob Keller APRN - Last Filed: 03/25/25 18:19> Additional Instructions: You have evidence of urinary tract infection and sometimes this infection can ascend towards the kidney and become a kidney infection known as pyelonephritis. You are being treated for this with a course of antibiotics. Incidentally noted on your CT scan: Narrowing of the infrarenal abdominal aorta with dense wall calcifications measuring 16 x 9.6 mm just above the bifurcation. Follow-up with primary care physician who can refer you to a vascular surgeon for follow up of this abdominal aortic stenosis. Acetaminophen/Tylenol (maximum 4000 mg per day) is safe to take with NSAIDs (ibuprofen/Motrin) for pain relief. Return to the ER if you have increased pain in your back, you develop lower extremity weakness/numbness/paralysis, you have numbness or tingling in your private parts, or you are unable to control your ability to urinate/stool. <Rob Keller APRN - Last Filed: 03/25/25 18:19> Patient Language: Icelandic <Rob Keller APRN - Last Filed: 03/25/25 18:19> Prescriptions: New acetaminophen 500 mg capsule 1,000 mg PO Q6H PRN (Reason: pain) Qty: 30 0RF ibuprofen 800 mg tablet 800 mg PO TID PRN (Reason: pain) Qty: 30 0RF sulfamethoxazole-trimethoprim [Bactrim DS] 800-160 mg tablet 1 tablet PO Q12H 10 Days Qty: 20 0RF No Action sulfamethoxazole-trimethoprim 800-160 mg tablet 1 tablet PO BID amoxicillin-pot clavulanate 875-125 mg tablet triamcinolone acetonide 0.1 % cream 1 applic topical BID 7 Days Qty: 30 0RF prednisone 20 mg tablet 40 mg PO DAILY 5 Days Qty: 10 0RF doxycycline monohydrate 100 mg capsule 100 mg PO BID 7 Days Qty: 14 0RF fluconazole 150 mg tablet 150 mg PO ONCE Qty: 2 0RF Rx Instructions: as a single dose. May repeat in 72 hours if needed. metformin 500 mg tablet 500 mg PO BID metoprolol succinate 50 mg tablet extended release 24 hr 50 mg PO DAILY losartan 100 mg tablet 100 mg PO DAILY desvenlafaxine succinate 50 mg tablet extended release 24 hr 50 mg PO DAILY dapagliflozin propanediol [Farxiga] 5 mg tablet 5 mg PO DAILY pregabalin 150 mg capsule 150 mg PO BID Qty: 180 1RF oxybutynin chloride 5 mg tablet extended release 24hr 5 mg PO DAILY lurasidone [Latuda] 40 mg tablet 60 mg PO HS cephalexin 500 mg capsule 500 mg PO Q6H 7 Days Qty: 28 0RF acetaminophen 500 mg tablet 500 mg PO Q6H PRN (Reason: pain) Qty: 30 0RF Rybelsus 7 mg tablet 7 mg PO DAILY Qty: 30 0RF Rx Instructions: use second Rybelsus 14 mg tablet 14 mg PO DAILY Qty: 90 0RF Rx Instructions: use 3rd and continuous months tizanidine 4 mg tablet 4 mg PO Q8H PRN (Reason: muscle spasticity) Qty: 90 2RF Rx Instructions: dc capsules...too $$$ <Rob Keller APRN - Last Filed: 03/25/25 18:19> Follow-up/Referrals: Chastity,Eliz Pate, DEVELOPMENT TEAM LEAD [Primary Care Provider] - <Rob Keller APRN - Last Filed: 03/25/25 18:19> Stand Alone Forms: Work/School Release IP <Rob Keller APRN - Last Filed: 03/25/25 18:19> Time of Disposition: 21:27 <Rob Keller APRN - Last Filed: 03/25/25 18:19> 21:27 <Carlee Gomez MD - Last Filed: 03/26/25 18:46>
[2025-03-25 19:42] VITALS: BP 147/76; PULSE 77; RESP 13; O2SAT 99
--- OUTSIDE RECORDS SUMMARY | 2025-03-25 19:57 | XMS_ITS | Encounter Summary ---
Author Organization [facility] Address [address] [address] Phone Care Team Providers Care Transit Operations Supervisor Name Role Phone Dipti Viveros APRN, DARREN Primary Care Pro vider Eliz Haywood APRN, CNP Primary Care Provider [phone] Reason for Referral * Radiology Services (Routine) - Closed Specialty Diagnoses / Procedures Referred By Loida t Referred To Contact Radiology Diagnoses Bilateral low back pain with bilateral sciatica, unspecified chronicity Procedures MRI L-SPINE W/O CONTRAST Dipti Viveros APRN, CNP [address] [place] [address] Phone: tel: fax: Referral ID Status Reason Start Date Expiration Date Visits Re quested Visits Authorized [id number] Closed 04/06/2023 1 1 Encounter Details Date Type Department Care Team (Late st Contact Info) Description 04/06/2023 Transcribe Orders [facility] Central Scheduling [address] [place] [address] Dipti Viveros APRN, CNP [address] [place] [address] Bilateral low back pain with [...] st Contact Info) Description 09/21/2025 9:30 AM JET OPERATOR Office Visit [facility] - Neurology [facility] [address] [place] [address] Yehuda Ortega MD [address] [place] [address] Scheduled Orders Name Type Priority Associated Diagnoses Orde r Schedule MRI L-SPINE W/O CONTRAST Imaging Routine Bilateral low back pain with bilateral sciatica, unspecified chronicity Expected: 04/06/2023, Expires: 04/06/2024 documented as of this encounter Visit Diagnoses Diagnosis Bilateral low back pain with bilateral sciatica, unspecified chronicity- Primary documented in this encounter Care Teams Transit Operations Supervisor Relationship Specialty Start Date End Date Dipti Viveros APRN, ENGINEERING TEACHER [address] [place] [address] PCP - General Certified Nurse Practitioner 04/06/23 03/03/25 Eliz Haywood APRN, ENGINEERING TEACHER [address] [place] [address] PCP - General Advanced Practice Nurse 03/04/25 documented as of this encounter
--- OUTSIDE RECORDS SUMMARY | 2025-03-25 19:57 | XMS_ITS | Clinical Summary ---
Author Organization [facility] Address [address] [place] [address] Phone Care Team Providers Care Grain Miller Helper Name Role Phone Eliz Haywood KATHERIN, DARREN Primary Care Provider [phone] Allergies Active Allergy Reactions Criticality Noted Date [...] st Contact Info) Description 09/21/2025 9:30 AM INFORMATION SYSTEMS ANALYST Office Visit [facility] - [facility]rology - [place] [address] [place] [address] Yehuda Ortega MD [address] [place] [address] Health Maintenance Due Date Last Done Comments [...] age to complete this topic Insurance MEDICAID [facility] [employer] Care Teams Grain Miller Helper Relationship Specialty Start Date End Date Eliz Haywood APRN, GASOLINE PUMP INSTALLER [address] [place] [id number] PCP - General Advanced Practice Nurse 03/04/25
--- OUTSIDE RECORDS SUMMARY | 2025-03-25 19:57 | XMS_ITS | Clinical Summary ---
Author Organization [facility] [employer] Address [address] [place] [address] Care Team Providers Care Hearing Aid Fitter Name Role Phone Eliz Haywood Primary Care Provider [phone] Source Comments [facility] [employer],non-owned Affiliates and Associated Physician Practices is amultiple site organization consisting of ambulatory clinics and hospital sitesin [place], [place], [place] and [place]. This disclosure is being madepursuant to the Care Everywhere program and may not contain all information available regarding this patient. Last updated 18.[employer] Allergies Active Allergy Reactions Criticality Noted Date [...] Active vitamin D, ergocalciferol, (Drisdol) 1.25 MG (15448 UT) capsuleIndicati ons:Vitamin D Deficiency Take 1 [...] on file Legal Sex Female 10:10 AM BOTTOM PAINTER Gender Identity Not on file Sexual Orientation [...] 189.1 kg (417 lb) 08/14/2024 10:00 AM BOTTOM PAINTER Height 165.1 cm (5' 5) 08/14/2024 10:00 AM BOTTOM PAINTER Body Mass Index 69.39 08/14/2024 10:00 AM BOTTOM PAINTER Plan of Treatment Health Maintenance Due Date [...] COMPREHENSIVE METABOLIC PANEL Routine 10/23/2023 2:57 PM BOTTOM PAINTER Pre-op testing Morbid obesity HEMOGLOBIN A1C Routine 10/23/2023 2:57 PM BOTTOM PAINTER Pre-op testing Morbid obesity from Last 3 Months or Most Recently Relevant to Health Maintenance Results * (ABNORMAL) HEMOGLOBIN A1C (10/23/2023 2:57 PM BOTTOM PAINTER) Hemoglobin A1c 7.4(H) 4.2 - 5.6 % 10/23/2023 3:33 PM BOTTOM PAINTER [facility] Estimated Average Glucose 166 mg/dL 10/23/2023 3:33 PM BOTTOM PAINTER [facility] Blood BLOOD SPECIMEN / Unknown Venipuncture / Unknown 10/23/2023 2:57 PM BOTTOM PAINTER 10/23/2023 3:14 PM BOTTOM PAINTER Narrative [facility] - 10/23/2023 3:33 PM BOTTOM PAINTER HbA1c Interpretation: Normal: < 5.7% Pre-diabetes: 5.7-6.4% [...] Standardization Program (NGSP) certified method. Naz Barbour CELL MAKER-APPLIED BIOLOGY PROFESSOR LAB - CHEMISTRY ORDERABLES F inal Result [facility] [address] [place], [place] [id number] [place] [address] * (ABNORMAL) COMPREHENSIVE METABOLIC PANEL (10/23/2023 2:57 PM BOTTOM PAINTER) Glucose 182(H) 70 - 125 mg/dL 10/23/2023 3:41 PM BOTTOM PAINTER [facility] Sodium 139 136 - 145 mmol/L 10/23/2023 3:41 PM BOTTOM PAINTER [facility] Potassium 4.0 3.4 - 5.1 mmol/L 10/23/2023 3:41 PM BOTTOM PAINTER [facility] Chloride 102 98 - 107 mmol/L 10/23/2023 3:41 PM BOTTOM PAINTER [facility] CO2 29 22 - 29 mmol/L 10/23/2023 3:41 PM BOTTOM PAINTER [facility] Calcium 9.33 8.4 - 10.2 mg/dL 10/23/2023 3:41 PM BOTTOM PAINTER [facility] Anion Gap 8 6 - 16 mmol/L 10/23/2023 3:41 PM BOTTOM PAINTER [facility] BUN 12.6 9.8 - 20.1 mg/dL 10/23/2023 3:41 PM BOTTOM PAINTER [facility] Creatinine 0.69 0.57 - 1.11 mg/dL 10/23/2023 3:41 PM BOTTOM PAINTER [facility] Alkaline Phosphatase 123 40 - 150 U/L 10/23/2023 3:41 PM BOTTOM PAINTER [facility] ALT 36 <=55 U/L 10/23/2023 3:41 PM BOTTOM PAINTER [facility] AST 20 5 - 34 U/L 10/23/2023 3:41 PM BOTTOM PAINTER [facility] Protein Total 7.4 6.4 - 8.3 gm/dL 10/23/2023 3:41 PM BOTTOM PAINTER [facility] Albumin 3.7 3.4 - 4.8 gm/dL 10/23/2023 3:41 PM BOTTOM PAINTER [facility] Globulin Total 3.7 2.6 - 4.0 gm/dL 10/23/2023 3:41 PM BOTTOM PAINTER [facility] Albumin/Globulin Ratio 1.0 0.9 - 1.6 10/23/2023 3:41 PM BOTTOM PAINTER [facility] Bilirubin Total 0.3 0.2 - 1.2 mg/dL 10/23/2023 3:41 PM BOTTOM PAINTER [facility] eGFR >90 >90 mL/min/1.7 3m2 10/23/2023 3:41 PM BOTTOM PAINTER [facility] Comment:The GFR result was c alculated using the updated CKD-EPI Creatinine Equation (2020). Blood BLOOD SPECIMEN / Unknown Venipuncture / Unknown 10/23/2023 2:57 PM BOTTOM PAINTER 10/23/2023 3:14 PM BOTTOM PAINTER Naz Barbour CELL MAKER-APPLIED BIOLOGY PROFESSOR LAB - CHEMISTRY ORDERABLES F inal Result [facility] [address] [place] [address], [facility] from Last 3 Months or Most Recently Relevant to Health Maintenance Insurance MEDICARE MANAGED CARE PLAN GENERIC MEDICARE ADV Care Teams Hearing Aid Fitter Relationship Specialty Start Date End Date Eliz Haywood [address] [place] [address] PCP - General 12/18/23 Dipti Viveros [address] [place] [address] Primary Care Provider 10/30/23
[2025-03-25 20:08] LABS: Hematocrit 47.1 % (37.0-47.0); Hemoglobin 15.6 g/dL (12.0-15.0); Immature Granulocyte Percent A 0.4 % (0-0.5); Lymphocytes Absolute Auto 4.95 K/mm3 (0.9-3.2); Mean Corpuscular HGB Conc 33.1 g/dl (32-36); Mean Corpuscular Hemoglobin 29.8 pg (26-34); Mean Corpuscular Volume 89.9 fl (80-100); Nucleated Red Blood Cells Absolute Auto 0.000 K/mm3 (0.0-0.012); Nucleated Red Blood Cells Perc 0.0 % (0.0-0.2); Platelet Count Result 273 k/mm3 (150-375); Red Blood Count 5.24 M/mm3 (4.2-5.4); White Blood Count 10.6 K/mm3 (4.5-10.0)
[2025-03-25 20:22] LABS: Add Urine Microscopic? YES; Appearance Urine Cloudy (Clear); Glucose Urine UA 3+ mg/dL (Negative); Leukocyte Esterase Ur Trace LEU/UL (Negative); Need Manual Microscopic Reviewed; Nitrate Urine Negative (Negative); Non Pathogenic Casts 0-2; Specific Grav Ur 1.029 (1.001-1.035)
[2025-03-25 20:24] LABS: Alanine Aminotransferase 31 U/L (6-35); Albumin Level 4.2 g/dL (3.5-5.1); Alkaline Phosphatase 113 U/L (38-126); Anion Gap 11 mmol/L (4-12); Aspartate Amino Transferase 30 U/L (14-36); Bilirubin,Total 0.4 mg/dL (0.2-1.3); Blood Urea Nitrogen 15 mg/dL (7-17); Calcium 9.0 mg/dL (8.4-10.2); Carbon Dioxide 24 mmol/L (22-30); Chloride 104 mmol/L (98-107); Estimated CRCL calculation 122 ml/min; Estimated Glomerular Filt Rate > 60; Glucose 100 mg/dL (65-110); Lipase 87 U/L (23-300); Potassium 4.2 mmol/L (3.4-5.0); Sodium 139 mmol/L (137-145); Total Protein 7.9 g/dL (6.3-8.2)
[2025-03-25] MEDS: HYDROmorphone HCL INJ (*CRX) 2 MG/ML VIAL 1 MG IV PUSH (20:24)
--- NOTE | 2025-03-25 20:43 | PC.NURSE ---
When this rn went to give dilaudid the cap broke when inserting syringe and medicine went everywhere. This RN overrid another bottle to administer med through pt iv.
[2025-03-25 21:11] VITALS: BP 118/69; PULSE 81; RESP 19; O2SAT 95
[2025-03-25] MEDS: SULFAMETHOXAZOLE/TRIMETHOPRIM 800/160 MG DS TABLET 1 TAB PO (21:20)
[2025-03-25 21:39] VITALS: BP 121/72; PULSE 82; RESP 16; O2SAT 94
== END 2025-03-25 21:40 | disposition home or self-care (01) ==
PROVIDERS: Emergency Provider Student in an Organized Health Care Education/Training Program
DX: N39.0 Urinary tract infection, site not specified (principal); I35.0 Nonrheumatic aortic (valve) stenosis; I10 Essential (primary) hypertension; I34.1 Nonrheumatic mitral (valve) prolapse; E11.9 Type 2 diabetes mellitus without complications; E66.01 Morbid (severe) obesity due to excess calories; Z68.44 Body mass index [BMI] 60.0-69.9, adult; E78.00 Pure hypercholesterolemia, unspecified; K21.9 Gastro-esophageal reflux disease without esophagitis; G47.33 Obstructive sleep apnea (adult) (pediatric); M19.90 Unspecified osteoarthritis, unspecified site; F41.9 Anxiety disorder, unspecified; F31.9 Bipolar disorder, unspecified; Z90.49 Acquired absence of other specified parts of digestive tract; Z87.891 Personal history of nicotine dependence; Z79.84 Long term (current) use of oral hypoglycemic drugs; Z79.899 Other long term (current) drug therapy
CPT/HCPCS: 36415; 74176; 80053; 81001; 83690; 85025; 87086; 96374; 99284; A9270; J1171

== ENCOUNTER 2025-03-30 12:56 | Emergency (ER) | payer OTHER, SELFPAY ==
--- NOTE | ~2025-03-30 | CT_ITS ---
EXAMINATION: CT abdomen pelvis wo con DATE: 03/30/2025 14:34 INDICATION: Right flank pain TECHNIQUE: Computed tomography (CT) of the abdomen and pelvis was performed without intravenous contr ast. Automated exposure control and iterative reconstruction technique were employed. The dose-length product was 1752.19 mGy-cm. COMPARISON: 03/25/2025 FINDINGS: Lung bases are clear. Heart size is normal. Atherosclerotic coronary artery calcification. No pericar dial or pleural effusion. Diffuse hepatic steatosis. Cholecystectomy clips at the gallbladder fossa. Spleen, pancreas and bilateral adrenal glands are normal. Kidneys and ureters are normal with no urol ithiasis, hydroureteronephrosis or perinephric/ureteral stranding. Large amount of colonic stool whi ch can be seen with constipation. Small bowel and appendix are normal. Bladder, anteverted uterus and bilateral adnexa are unremarkable. No free intraperitoneal gas or fluid. No pathologically enlarged abdominal or pelvic lymphadenopathy. Small fat-containing umbilical hernia. Mild to moderate lumbar a nd lower thoracic spondylosis with bridging osteophytes at multiple levels in the thoracic spine cons istent with diffuse idiopathic skeletal hyperostosis (DISH). IMPRESSION: 1. No urolithiasis or acute intra-abdominal/pelvic process. Reviewed, dictated and finalized at location A.
[2025-03-30 13:02] VITALS: BP 128/66; PULSE 85; RESP 20; TEMP 36.6; O2SAT 97
--- OUTSIDE RECORDS SUMMARY | 2025-03-30 13:15 | XMS_ITS | Clinical Summary ---
Author Organization [facility] [employer] Address [address] [place] [address] Care Team Providers Care Society Reporter Name Role Phone Chastity Eliz Primary Care Provider [phone] Source Comments [facility] [employer],non-owned Affiliates and Associated Physician Practices is amultiple site organization consisting of ambulatory clinics and hospital sitesin [place], [place], [place] and [place]. This disclosure is being madepursuant to the Care Everywhere program and may not contain all information available regarding this patient. Last updated 18.[employer] Allergies Active Allergy Reactions Criticality Noted Date [...] Active vitamin D, ergocalciferol, (Drisdol) 1.25 MG (83165 UT) capsuleIndicati ons:Vitamin D Deficiency Take 1 [...] on file Legal Sex Female 10:10 AM SENIOR ANDROID SOFTWARE ENGINEER Gender Identity Not on file Sexual Orientation [...] 189.1 kg (417 lb) 08/14/2024 10:00 AM SENIOR ANDROID SOFTWARE ENGINEER Height 165.1 cm (5' 5) 08/14/2024 10:00 AM SENIOR ANDROID SOFTWARE ENGINEER Body Mass Index 69.39 08/14/2024 10:00 AM SENIOR ANDROID SOFTWARE ENGINEER Plan of Treatment Health Maintenance Due Date [...] COMPREHENSIVE METABOLIC PANEL Routine 10/23/2023 2:57 PM SENIOR ANDROID SOFTWARE ENGINEER Pre-op testing Morbid obesity HEMOGLOBIN A1C Routine 10/23/2023 2:57 PM SENIOR ANDROID SOFTWARE ENGINEER Pre-op testing Morbid obesity from Last 3 Months or Most Recently Relevant to Health Maintenance Results * (ABNORMAL) HEMOGLOBIN A1C (10/23/2023 2:57 PM SENIOR ANDROID SOFTWARE ENGINEER) Hemoglobin A1c 7.4(H) 4.2 - 5.6 % 10/23/2023 3:33 PM SENIOR ANDROID SOFTWARE ENGINEER [facility] Estimated Average Glucose 166 mg/dL 10/23/2023 3:33 PM SENIOR ANDROID SOFTWARE ENGINEER [facility] Blood BLOOD SPECIMEN / Unknown Venipuncture / Unknown 10/23/2023 2:57 PM SENIOR ANDROID SOFTWARE ENGINEER 10/23/2023 3:14 PM SENIOR ANDROID SOFTWARE ENGINEER Narrative [facility] - 10/23/2023 3:33 PM SENIOR ANDROID SOFTWARE ENGINEER HbA1c Interpretation: Normal: < 5.7% Pre-diabetes: 5.7-6.4% [...] Standardization Program (NGSP) certified method. Naz Barbour COMPUTER BUILDER-PROTEIN SPECIALIST LAB - CHEMISTRY ORDERABLES F inal Result [facility] [address] [place], [place] [id number] [place] [address] * (ABNORMAL) COMPREHENSIVE METABOLIC PANEL (10/23/2023 2:57 PM SENIOR ANDROID SOFTWARE ENGINEER) Glucose 182(H) 70 - 125 mg/dL 10/23/2023 3:41 PM SENIOR ANDROID SOFTWARE ENGINEER [facility] Sodium 139 136 - 145 mmol/L 10/23/2023 3:41 PM SENIOR ANDROID SOFTWARE ENGINEER [facility] Potassium 4.0 3.4 - 5.1 mmol/L 10/23/2023 3:41 PM SENIOR ANDROID SOFTWARE ENGINEER [facility] Chloride 102 98 - 107 mmol/L 10/23/2023 3:41 PM SENIOR ANDROID SOFTWARE ENGINEER [facility] CO2 29 22 - 29 mmol/L 10/23/2023 3:41 PM SENIOR ANDROID SOFTWARE ENGINEER [facility] Calcium 9.33 8.4 - 10.2 mg/dL 10/23/2023 3:41 PM SENIOR ANDROID SOFTWARE ENGINEER [facility] Anion Gap 8 6 - 16 mmol/L 10/23/2023 3:41 PM SENIOR ANDROID SOFTWARE ENGINEER [facility] BUN 12.6 9.8 - 20.1 mg/dL 10/23/2023 3:41 PM SENIOR ANDROID SOFTWARE ENGINEER [facility] Creatinine 0.69 0.57 - 1.11 mg/dL 10/23/2023 3:41 PM SENIOR ANDROID SOFTWARE ENGINEER [facility] Alkaline Phosphatase 123 40 - 150 U/L 10/23/2023 3:41 PM SENIOR ANDROID SOFTWARE ENGINEER [facility] ALT 36 <=55 U/L 10/23/2023 3:41 PM SENIOR ANDROID SOFTWARE ENGINEER [facility] AST 20 5 - 34 U/L 10/23/2023 3:41 PM SENIOR ANDROID SOFTWARE ENGINEER [facility] Protein Total 7.4 6.4 - 8.3 gm/dL 10/23/2023 3:41 PM SENIOR ANDROID SOFTWARE ENGINEER [facility] Albumin 3.7 3.4 - 4.8 gm/dL 10/23/2023 3:41 PM SENIOR ANDROID SOFTWARE ENGINEER [facility] Globulin Total 3.7 2.6 - 4.0 gm/dL 10/23/2023 3:41 PM SENIOR ANDROID SOFTWARE ENGINEER [facility] Albumin/Globulin Ratio 1.0 0.9 - 1.6 10/23/2023 3:41 PM SENIOR ANDROID SOFTWARE ENGINEER [facility] Bilirubin Total 0.3 0.2 - 1.2 mg/dL 10/23/2023 3:41 PM SENIOR ANDROID SOFTWARE ENGINEER [facility] eGFR >90 >90 mL/min/1.7 3m2 10/23/2023 3:41 PM SENIOR ANDROID SOFTWARE ENGINEER [facility] Comment:The GFR result was c alculated using the updated CKD-EPI Creatinine Equation (2020). Blood BLOOD SPECIMEN / Unknown Venipuncture / Unknown 10/23/2023 2:57 PM SENIOR ANDROID SOFTWARE ENGINEER 10/23/2023 3:14 PM SENIOR ANDROID SOFTWARE ENGINEER Naz Barbour COMPUTER BUILDER-PROTEIN SPECIALIST LAB - CHEMISTRY ORDERABLES F inal Result [facility] [address] [place] [address], [facility] from Last 3 Months or Most Recently Relevant to Health Maintenance Insurance MEDICARE MANAGED CARE PLAN GENERIC MEDICARE ADV Care Teams Society Reporter Relationship Specialty Start Date End Date Eliz Haywood [address] [place] [address] PCP - General 12/18/23 Dipti Viveros [address] [place] [address] Primary Care Provider 10/30/23
--- OUTSIDE RECORDS SUMMARY | 2025-03-30 13:15 | XMS_ITS | Clinical Summary ---
Author Organization [facility] Address [address] [place] [address] Phone Care Team Providers Care Maintenance Mechanic Millwright Name Role Phone Eliz Haywood KATHERIN, DARREN Primary Care Provider [phone] Allergies Active Allergy Reactions Criticality Noted Date [...] st Contact Info) Description 09/21/2025 9:30 AM TECHNICIAN HELPER INSTRUMENT Office Visit [facility] - [facility]rology - [place] [address] [place] [address] Yehuda Ortega MD [address] [place] [address] Health Maintenance Due Date Last Done Comments [...] age to complete this topic Insurance MEDICAID [facility] Care Teams Maintenance Mechanic Millwright Relationship Specialty Start Date End Date Eliz Haywood APRN, PYROTECHNICS PRESS TENDER [address] [place] [address] PCP - General Advanced Practice Nurse 03/04/25
--- OUTSIDE RECORDS SUMMARY | 2025-03-30 13:15 | XMS_ITS | Encounter Summary ---
Author Organization [facility] Address [address] [place] [address] Phone Care Team Providers Care Pbx Mechanic Name Role Phone Dipti Viveros APRN, DARREN Primary Care Pro vider Eilz Haywood APRN, CNP Primary Care Provider [phone] Reason for Referral * Radiology Services (Routine) - Closed Specialty Diagnoses / Procedures Referred By Loida t Referred To Contact Radiology Diagnoses Bilateral low back pain with bilateral sciatica, unspecified chronicity Procedures MRI L-SPINE W/O CONTRAST Dipti Viveros APRN, CNP [address] [place] [address] Phone: tel: fax: Referral ID Status Reason Start Date Expiration Date Visits Re quested Visits Authorized [id number] Closed 04/06/2023 1 1 Encounter Details Date Type Department Care Team (Late st Contact Info) Description 04/06/2023 Transcribe Orders [facility] Central Scheduling [address] [place] [id number] Dipti Viveros APRN, CNP [address] [place] [address] Bilateral low back pain with [...] st Contact Info) Description 09/21/2025 9:30 AM LEASE ADMINISTRATION SUPERVISOR Office Visit [facility] - Neurology [facility] [address] [place] [address] Yehuda Ortega MD [address] [place] [address] Scheduled Orders Name Type Priority Associated Diagnoses Orde r Schedule MRI L-SPINE W/O CONTRAST Imaging Routine Bilateral low back pain with bilateral sciatica, unspecified chronicity Expected: 04/06/2023, Expires: 04/06/2024 documented as of this encounter Visit Diagnoses Diagnosis Bilateral low back pain with bilateral sciatica, unspecified chronicity- Primary documented in this encounter Care Teams Pbx Mechanic Relationship Specialty Start Date End Date Dipti Viveros APRN, IMMIGRATION CASE WORKER [address] [place] [address] PCP - General Certified Nurse Practitioner 04/06/23 03/03/25 Eliz Haywood APRN, IMMIGRATION CASE WORKER [address] [place] [address] PCP - General Advanced Practice Nurse 03/04/25 documented as of this encounter
[2025-03-30 13:41] VITALS: BP 125/73; PULSE 87; RESP 18; O2SAT 99
[2025-03-30 14:14] LABS: Hematocrit 48.1 % (37.0-47.0); Hemoglobin 15.8 g/dL (12.0-15.0); Immature Granulocyte Percent A 0.4 % (0-0.5); Lymphocytes Absolute Auto 3.59 K/mm3 (0.9-3.2); Mean Corpuscular HGB Conc 32.8 g/dl (32-36); Mean Corpuscular Hemoglobin 29.5 pg (26-34); Mean Corpuscular Volume 89.9 fl (80-100); Nucleated Red Blood Cells Absolute Auto 0.000 K/mm3 (0.0-0.012); Nucleated Red Blood Cells Perc 0.0 % (0.0-0.2); Platelet Count Result 252 k/mm3 (150-375); Red Blood Count 5.35 M/mm3 (4.2-5.4); White Blood Count 9.7 K/mm3 (4.5-10.0)
[2025-03-30 14:15] LABS: Add Urine Microscopic? YES; Appearance Urine Clear (Clear); Glucose Urine UA 3+ mg/dL (Negative); Leukocyte Esterase Ur Negative LEU/UL (Negative); Nitrate Urine Negative (Negative); Non Pathogenic Casts 0-2; Specific Grav Ur 1.020 (1.001-1.035)
[2025-03-30 14:23] LABS: BEDSIDEPREGUCG Negative (Negative)
[2025-03-30 14:36] LABS: Alanine Aminotransferase 34 U/L (6-35); Albumin Level 4.2 g/dL (3.5-5.1); Alkaline Phosphatase 99 U/L (38-126); Anion Gap 10 mmol/L (4-12); Aspartate Amino Transferase 32 U/L (14-36); Bilirubin,Total 0.4 mg/dL (0.2-1.3); Blood Urea Nitrogen 16 mg/dL (7-17); Calcium 9.7 mg/dL (8.4-10.2); Carbon Dioxide 24 mmol/L (22-30); Chloride 101 mmol/L (98-107); Estimated CRCL calculation 109 ml/min; Estimated Glomerular Filt Rate > 60; Glucose 120 mg/dL (65-110); Lipase 89 U/L (23-300); Potassium 4.4 mmol/L (3.4-5.0); Sodium 135 mmol/L (137-145); Total Protein 7.9 g/dL (6.3-8.2)
[2025-03-30] MEDS: MORPHINE SULFATE (*CRX) 4 MG/ML INJ IV PUSH (14:46)
[2025-03-30] MEDS: ONDANSETRON INJ 4 MG/2 ML VIAL IV PUSH (14:47)
--- NOTE | 2025-03-30 15:05 | ED.GENADULT ---
HPI - General Adult General Chief complaint: Abdominal Pain Stated complaint: weakness, recent UTI on abx Time Seen by Provider: 03/30/25 14:11 History of Present Illness HPI narrative: Patient is a 52-year-old female who presents emergency department chief complaint of right flank pain. The patient reports been on antibiotics for UTI and reports that she has been having worsening pain in the right flank area. The patient reports that she has had some nausea and reports she still has frequency with urination. Patient states that she was seen in the emergency department and treated and reports that her symptoms are still there. Related Data Home Medications ?Medication ?Instructions ?Recorded ?Confirmed ?Last Taken ?Type dapagliflozin propanediol 5 mg 5 mg PO DAILY 08/03/19 02/16/24 Unknown History tablet (Farxiga) desvenlafaxine succinate 50 mg 50 mg PO DAILY 08/03/19 02/16/24 Unknown History tablet,extended release 24 hr losartan 100 mg tablet 100 mg PO DAILY 08/03/19 02/16/24 Unknown History metformin 500 mg tablet 500 mg PO BID 08/03/19 02/16/24 Unknown History metoprolol succinate 50 mg 50 mg PO DAILY 08/03/19 02/16/24 Unknown History tablet,extended release 24 hr oxybutynin chloride 5 mg 5 mg PO DAILY 11/02/20 02/16/24 Unknown History tablet,extended release 24 hr lurasidone 40 mg tablet (Latuda) 60 mg PO HS 09/25/23 02/16/24 Unknown History amoxicillin 875 mg-potassium tablet 02/16/24 02/16/24 Unknown History clavulanate 125 mg tablet sulfamethoxazole 800 1 tablet PO BID 02/16/24 02/16/24 Unknown History mg-trimethoprim 160 mg tablet Allergies Allergy/AdvReac Type Severity Reaction Status Date / Time pseudoephedrine (From Allergy Unknown Unknown Verified 03/30/25 14:23 Sudafed) [id number] Reductase AdvReac Cough Verified 03/30/25 13:04 Inhibitor sudifed Allergy Unknown Unknown Uncoded 03/30/25 13:05 Review of Systems Review of Systems: A 10 system review of systems was completed on the patient and is negative except for what is stated in the HPI. Nursing and ancillary documentation was reviewed. [facility] Past Medical History Medical History Diverticulitis of sigmoid colon Mural thickening of sigmoid colon Lumbar spinal stenosis Obstructive sleep apnea Essential hypertension Type 2 diabetes mellitus Morbid obesity with BMI of 60.0-69.9, adult Bipolar disorder Anxiety Spinal stenosis Arthritis GERD (gastroesophageal reflux disease) Diverticulitis (07/2016) With multiple episodes of diverticulitis starting in January of 2016 Sleep apnea CPAP of 11 Hypercholesteremia Seasonal allergies Mitral valve prolapse Stress fracture in right foot Surgical History Surgical History History of myringotomy History of bunionectomy Hx of cholecystectomy Bilateral Family History Family History Mother Diabetes mellitus Family history of mental disorder Hypertension Family history of cardiovascular disease Family history of arthritis Family history of chronic obstructive pulmonary disease Sibling Family history of alcoholism Father Family history of alcoholism Social History Social History Social History: Code status: Full code Surrogate decision maker: Smoking packs per day: 0.5 Smoking cigarettes per day: 10.0 Years smoked: 21 Smoking pack-years: 10.50 Smoking status: Former smoker Tobacco type: cigarettes Smoking end date: 10/24/23 Additional smoking assessment comments: She smoked from age 15 to age 36. Alcohol intake: never Substance use: never Substance use type: does not use Do You Feel Safe in your Home?: Yes Lack of Transportation: No Lack of Food: Sometimes True Current Housing: I Do Not Have Housing Concerned About Future Housing: No Difficulty Paying Gas/Electric Bills: No Difficulty Paying for Meds: No Currently Unemployed: No Education: High School Diploma/GED Difficulty w/ Childcare or Family Care: No Living arrangements: with family Additional living arrangements comments: She lives at home with her of 22 years. They have 6 children. She has 1 biological child and 5 adopted children who are all girls. Her age is [id number] who of all moved out and 3 daughters remain at home age 18 and 2 12-year-old twins. One of the twins has autism. Occupation/Education: other Additional occupation/education comments: She is on disability due to her psychiatric illnesses. 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 Gender identity (if verbalized by the patient): Female Spiritual care concerns: No Exam Narrative: GENERAL: Well-appearing, well-nourished, and in no acute distress. HEAD: Normocephalic, atraumatic. EYES: PERRLA and EOMI. ENT: Nares clear, no rhinorrhea or epistaxis. Mucous membranes moist. NECK: Supple. CHEST: Clear to auscultation. No respiratory distress. HEART: Regular rate and rhythm. No murmur heard. Normal peripheral pulses. ABDOMEN: Soft, nontender, nondistended, normal active bowel sounds. Tenderness palpation the right flank EXTREMITIES: Normal range of motion. No edema. SKIN: Warm, dry, no rash. NEURO: No focal deficits. Alert and oriented x3. PSYCH: Normal mood and affect. Course Vital Signs Vital signs: Vital Signs Temperature 36.6 C 03/30/25 13:02 Pulse Rate 85 03/30/25 13:02 Respiratory Rate 20 03/30/25 13:02 Blood Pressure 128/66 03/30/25 13:02 Pulse Oximetry 97 03/30/25 13:02 Oxygen Delivery Room Air 03/30/25 13:02 Temperature 36.6 C 03/30/25 13:02 Pulse Rate 95 03/30/25 15:20 Respiratory Rate 14 03/30/25 15:20 Blood Pressure 122/70 03/30/25 15:20 Pulse Oximetry 97 03/30/25 15:20 Oxygen Delivery Room Air 03/30/25 13:02 Medical Decision Making [facility] Narrative Medical decision making narrative: Differential diagnosis includes ureterolithiasis, pyelonephritis, intra-abdominal infection, constipation, fecal impaction Laboratory studies were obtained showed white count 9.7 electrolytes are within normal limits urinalysis showed no evidence of UTI there is 0-5 white blood cells rare bacteria and negative leukocyte esterase The patient has recently completed a course of Bactrim CT scan showed Lung bases are clear. Heart size is normal. Atherosclerotic coronary artery calcification. No pericardial or pleural effusion. Diffuse hepatic steatosis. Cholecystectomy clips at the gallbladder fossa. Spleen, pancreas and bilateral adrenal glands are normal. Kidneys and ureters are normal with no urolithiasis, hydroureteronephrosis or perinephric/ureteral stranding. Large amount of colonic stool which can be seen with constipation. Small bowel and appendix are normal. Bladder, anteverted uterus and bilateral adnexa are unremarkable. No free intraperitoneal gas or fluid. No pathologically enlarged abdominal or pelvic lymphadenopathy. Small fat-containing umbilical hernia. Mild to moderate lumbar and lower thoracic spondylosis with bridging osteophytes at multiple levels in the thoracic spine consistent with diffuse idiopathic skeletal hyperostosis (DISH). IMPRESSION: 1. No urolithiasis or acute intra-abdominal/pelvic process Given the findings of constipation on the CT scan the patient will be started on MiraLax course to cleanse her bowel patient was instructed to return precautions Vital Signs Vital Signs: Vital Signs Temperature 36.6 C 03/30/25 13:02 Pulse Rate 85 03/30/25 13:02 Respiratory Rate 20 03/30/25 13:02 Blood Pressure 128/66 03/30/25 13:02 Pulse Oximetry 97 03/30/25 13:02 Oxygen Delivery Room Air 03/30/25 13:02 Temperature 36.6 C 03/30/25 13:02 Pulse Rate 95 03/30/25 15:20 Respiratory Rate 14 03/30/25 15:20 Blood Pressure 122/70 03/30/25 15:20 Pulse Oximetry 97 03/30/25 15:20 Oxygen Delivery Room Air 03/30/25 13:02 Lab Data 03/30/25 13:59 03/30/25 13:59 Labs: Lab Results 03/30/25 03/30/25 Range/Units 13:59 14:03 WBC 9.7 (4.5-10.0) K/mm3 RBC 5.35 (4.2-5.4) M/mm3 Hgb 15.8 H (12.0-15.0) g/dL Hct 48.1 H (37.0-47.0) % MCV 89.9 (80-100) fl MCH 29.5 (26-34) pg MCHC 32.8 (32-36) g/dl RDW 12.9 (11.5-14.5) % Plt Count 252 (150-375) k/mm3 MPV 9.4 (7.4-10.4) fl Immature Gran % (Auto) 0.4 (0-0.5) % Neut % (Auto) 51.2 (45.5-73.1) % Lymph % (Auto) 37.0 (18.3-44.2) % [place] % (Auto) 7.7 (2.6-8.5) % Eos % (Auto) 3.0 (0-4.4) % Baso % (Auto) 0.7 (0.2-1.2) % Lymph # (Auto) 3.59 H (0.9-3.2) K/mm3 [place] # (Auto) 0.8 H (0.1-0.6) K/mm3 Eos # (Auto) 0.3 (0-0.3) K/mm3 Baso # (Auto) 0.1 (0.0-0.1) K/mm3 Abs Immat Gran (auto) 0.04 H (0.00-0.031) K/mm3 Absolute Neuts (auto) 5.0 (1.3-6.7) K/mm3 Absolute Nucleated RBC 0.000 (0.0-0.012) K/mm3 Nucleated RBC % 0.0 (0.0-0.2) % Sodium 135 L (137-145) mmol/L Potassium 4.4 (3.4-5.0) mmol/L Chloride 101 (98-107) mmol/L Carbon Dioxide 24 (22-30) mmol/L Anion Gap 10 (4-12) mmol/L BUN 16 (7-17) mg/dL Creatinine 0.93 (0.7-1.0) mg/dL Estim Creat Clear Calc 109 ml/min Estimated GFR > 60 (59 - ) Glucose 120 H (65-110) mg/dL Calcium 9.7 (8.4-10.2) mg/dL Total Bilirubin 0.4 (0.2-1.3) mg/dL AST 32 (14-36) U/L ALT 34 (6-35) U/L Alkaline Phosphatase 99 (38-126) U/L Total Protein 7.9 (6.3-8.2) g/dL Albumin 4.2 (3.5-5.1) g/dL Lipase 89 (23-300) U/L Urine Color Yellow (Yellow) Urine Appearance Clear (Clear) Urine pH 6.0 (5.0-9.0) Ur Specific [place] 1.020 (1.001-1.035) Urine Protein Negative (Negative) mg/dL Urine Glucose (UA) 3+ H (Negative) mg/dL Urine Ketones Negative (Negative) mg/dL Ur Blood (Man) 1+ H (Negative) Urine Nitrate Negative (Negative) Urine Bilirubin Negative (Negative) Urine Urobilinogen 0.2 (<2.0) mg/dL Leukocyte Esterase Rfl Negative (Negative) DURAN/UL Urine RBC 11-20 H (0-2) /hpf Urine WBC 0-5 (0-3) /hpf Ur Squamous Epith Cells None seen (Few) /hpf Urine Bacteria Rare /hpf Urine Casts 0-2 POC Urine HCG, Qual Negative (Negative) Discharge Plan Discharge Clinical Impression: Abdominal pain, Constipation, Acute flank pain Patient Disposition: Home Condition: Stable Instructions: Antibiotic Form, Constipation (ED), Abdominal Pain (ED), Flank Pain (ED) Patient Language: Luxembourger Prescriptions: New polyethylene glycol 3350 [Miralax] 17 gram powder in packet 17 g PO BID 5 Days Qty: 14 0RF No Action sulfamethoxazole-trimethoprim 800-160 mg tablet 1 tablet PO BID amoxicillin-pot clavulanate 875-125 mg tablet triamcinolone acetonide 0.1 % cream 1 applic topical BID 7 Days Qty: 30 0RF prednisone 20 mg tablet 40 mg PO DAILY 5 Days Qty: 10 0RF doxycycline monohydrate 100 mg capsule 100 mg PO BID 7 Days Qty: 14 0RF fluconazole 150 mg tablet 150 mg PO ONCE Qty: 2 0RF Rx Instructions: as a single dose. May repeat in 72 hours if needed. metformin 500 mg tablet 500 mg PO BID metoprolol succinate 50 mg tablet extended release 24 hr 50 mg PO DAILY losartan 100 mg tablet 100 mg PO DAILY desvenlafaxine succinate 50 mg tablet extended release 24 hr 50 mg PO DAILY dapagliflozin propanediol [Farxiga] 5 mg tablet 5 mg PO DAILY pregabalin 150 mg capsule 150 mg PO BID Qty: 180 1RF oxybutynin chloride 5 mg tablet extended release 24hr 5 mg PO DAILY lurasidone [Latuda] 40 mg tablet 60 mg PO HS cephalexin 500 mg capsule 500 mg PO Q6H 7 Days Qty: 28 0RF acetaminophen 500 mg tablet 500 mg PO Q6H PRN (Reason: pain) Qty: 30 0RF acetaminophen 500 mg capsule 1,000 mg PO Q6H PRN (Reason: pain) Qty: 30 0RF ibuprofen 800 mg tablet 800 mg PO TID PRN (Reason: pain) Qty: 30 0RF sulfamethoxazole-trimethoprim [Bactrim DS] 800-160 mg tablet 1 tablet PO Q12H 10 Days Qty: 20 0RF Rybelsus 7 mg tablet 7 mg PO DAILY Qty: 30 0RF Rx Instructions: use second Rybelsus 14 mg tablet 14 mg PO DAILY Qty: 90 0RF Rx Instructions: use 3rd and continuous months tizanidine 4 mg tablet 4 mg PO Q8H PRN (Reason: muscle spasticity) Qty: 90 2RF Rx Instructions: dc capsules...too $$$ Follow-up/Referrals: Chastity,Eliz Pate, SHELLFISH PROCESSING MACHINE TENDER [Primary Care Provider] - Time of Disposition: 15:56
--- OUTSIDE RECORDS SUMMARY | 2025-03-30 15:09 | XMS_ITS | Patient Health Record ---
Author Organization [facility] As [employer] [facility] Address [address] [facility] [address] [place] [address] Care Team Providers Care Structural Fitter Name Role Phone Eliz Whitman Primary Care Provider Unavaila Vicki Alonzo Unavailable [phone] Allergies Allergen (clinical drug ingredient) Drug/Non Drug [...] 10 MG/0.5ML as directed Subcutaneous *[facility] and Interaction Alerts* 11/27/2023 Active Immunizations Vaccine Route Administration Date Status Comme nts Influenza, seasonal, injecta ble, preservative free, 3 yrs and above Unknown 05/27/2014 Administered Influenza, unspecified formulation Unknown 06/20/2022 A dministered Novel [id number], preservative free Unknown 06/24/2019 Administered Novel [id number], preservative free Unknown 06/17/2020 Administered Social History [...] CodeDo you have a medical power of associate attorney?: NoActivities of Daily LivingAre you able [...] Status Risk Notes Problem Generalized anxiety disorder (17784065) Generalized anxiety disorder (F41.1) 4 Active confirmed Problem Posttraumatic stress disorder (86605650) Post-traumatic stress disorder, chronic (F43.12) 4 Active confirmed Problem Primary insomnia (1710092) Primary insomnia (F51.01) 4 Active confirmed Problem Long-term current use of drug therapy (982459157) 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 (Z79.899) 4 Active confirmed Problem Obsessive compulsive disorder (450360658) Other obsessive-compul sive disorder (F42.8) 4 Active confirmed Problem Primary hypertension (64154284) Primary hypertension (I10) Active confirmed Problem Bipolar disorder (80153292) Bipolar disorder with depression (F31.9) Active confirmed Vital Signs Heart Rate 77 /min 02/09/2025 Height-cm 170.18 cm 02/09/2025 Blood pressure diastolic 74 mm Hg 02/09/2025 Weight-kg 182.8 kg 02/09/2025 Height 67.00 in 02/09/2025 Blood pressure systolic 117 mm Hg 02/09/2025 Weight 403.0 lbs 02/09/2025 BMI 63.11 kg/m2 02/09/2025 Encounters Encounter Location Date Provider Diagnosis [facility] [employer] [facility] [address] [facility] [address] [address] 08/19/2024 Vicki Mobley Bipolar disorder wit h depression F31.9 ; Generalized anxiety disorder F41.1 ; Post-traumatic stress disorder, chronic F43.12 ; Other obsessive-compulsive disorder F42.8 ; Primary insomnia F51.01 ; 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 Z79.899 and Primary hypertension I10 [facility] [employer] [facility] [address] [facility] [address] [address] 09/16/2024 Vicki Mobley Bipolar disorder wit h depression F31.9 ; Generalized anxiety disorder F41.1 ; Post-traumatic stress disorder, chronic F43.12 ; Other obsessive-compulsive disorder F42.8 ; Primary insomnia F51.01 ; 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 Z79.899 and Primary hypertension I10 [facility] [employer] [facility] [address] [facility] [address] [address] 11/10/2024 Vicki Mobley Bipolar disorder wit h depression F31.9 ; Generalized anxiety disorder F41.1 ; Post-traumatic stress disorder, chronic F43.12 ; Other obsessive-compulsive disorder F42.8 ; Primary insomnia F51.01 ; Other senior care (current) drug therapy Z79.899 ; Primary hypertension I10 and Encounter for screening for depression Z13.31 [facility] [employer] [facility] [address] [place] [address] 02/09/2025 Vicki Mobley Encounter for screen ing for depression Z13.31 ; Bipolar disorder with depression F31.9 ; Encounter for screening for cardiovascular disorders Z13.6 ; Generalized anxiety disorder F41.1 ; Post-traumatic stress disorder, chronic F43.12 ; Other obsessive-compulsive disorder F42.8 ; Primary insomnia F51.01 ; 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 discuss [facility] and pill packs and patient is [...] more. AIMS= 0 10/29/23 AIMS= 0 08/19/24 [place] [facility] reviewed therapy refer EMILEE 2. [...] of the serious side effect develops. discuss [facility] and pill packs and patient is [...] more. AIMS= 0 10/29/23 AIMS= 0 08/19/24 [place] [facility] reviewed therapy refer EMILEE 2. [...] of the serious side effect develops. discuss [facility] and pill packs and patient is [...] more. AIMS= 0 10/29/23 AIMS= 0 08/19/24 [place] Prescription [facility] reviewed therapy refer EMILEE 2. [...] of the serious side effect develops. discuss [facility] and pill packs and patient is [...] more. AIMS= 0 10/29/23 AIMS= 0 08/19/24 [place] Prescription program reviewed therapy refer EMILEE 2. [...] of the serious side effect develops. discuss [facility] and pill packs and patient is [...] 10/29/23 AIMS= 0 08/19/24 AIMS= 0 02/09/25 [place] Prescription program reviewed therapy refer EMILEE 2. [...] of the serious side effect develops. discuss [facility] and pill packs and patient is [...] 10/29/23 AIMS= 0 08/19/24 AIMS= 0 02/09/25 [place] [facility]cription [facility] reviewed therapy refer EMILEE 2. [...] of the serious side effect develops. discuss [facility] and pill packs and patient is [...] 10/29/23 AIMS= 0 08/19/24 AIMS= 0 02/09/25 [place] [facility] reviewed therapy refer EMILEE 2. [...] of the serious side effect develops. discuss [facility] and pill packs and patient is [...] more. AIMS= 0 10/29/23 AIMS= 0 08/19/24 [place] Prescription program reviewed therapy refer EMILEE 2. [...] rashes requiring hospitalization and discontinue treatment including Jcaques Rudi syndrome rare case of toxic epidermal [...] of the serious side effect develops. discuss [facility] and pill packs and patient is [...] more. AIMS= 0 10/29/23 AIMS= 0 08/19/24 [place] Prescription program reviewed therapy refer EMILEE 2. [...] of the serious side effect develops. discuss [facility] and pill packs and patient is [...] more. AIMS= 0 10/29/23 AIMS= 0 08/19/24 [place] Prescription program reviewed therapy refer EMILEE 2. [...] of the serious side effect develops. discuss [facility] and pill packs and patient is [...] more. AIMS= 0 10/29/23 AIMS= 0 08/19/24 [place] Prescription program reviewed therapy refer EMILEE 2. [...] of the serious side effect develops. discuss [facility] and pill packs and patient is [...] more. AIMS= 0 10/29/23 AIMS= 0 08/19/24 [place] Prescription program reviewed therapy refer EMILEE 2. [...] of the serious side effect develops. discuss [facility] and pill packs and patient is [...] more. AIMS= 0 10/29/23 AIMS= 0 08/19/24 [place] Prescription program reviewed therapy refer EMILEE 2. [...] of the serious side effect develops. discuss [facility] and pill packs and patient is [...] 10/29/23 AIMS= 0 08/19/24 AIMS= 0 02/09/25 [place] [facility] reviewed therapy refer EMILEE 2. [...] of the serious side effect develops. discuss [facility] and pill packs and patient is [...] more. AIMS= 0 10/29/23 AIMS= 0 08/19/24 [place] Prescription program reviewed therapy refer EMILEE 2. [...] of the serious side effect develops. discuss [facility] and pill packs and patient is [...] 10/29/23 AIMS= 0 08/19/24 AIMS= 0 02/09/25 [place] [facility]cription program reviewed therapy refer EMILEE 2. [...] of the serious side effect develops. discuss [facility] and pill packs and patient is [...] more. AIMS= 0 10/29/23 AIMS= 0 08/19/24 [place] Prescription program reviewed therapy refer EMILEE 2. [...] of the serious side effect develops. discuss [facility] and pill packs and patient is [...] more. AIMS= 0 10/29/23 AIMS= 0 08/19/24 [place] Prescription program reviewed therapy refer EMILEE 2. [...] stable 6. 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 discuss [facility] and pill packs and patient is [...] more. AIMS= 0 10/29/23 AIMS= 0 08/19/24 [place] [facility]cription program reviewed therapy refer EMILEE 2. [...] of the serious side effect develops. discuss [facility] and pill packs and patient is [...] more. AIMS= 0 10/29/23 AIMS= 0 08/19/24 [place] Prescription program reviewed therapy refer EMILEE 2. [...] of the serious side effect develops. discuss [facility] and pill packs and patient is [...] more. AIMS= 0 10/29/23 AIMS= 0 08/19/24 [place] Prescription program reviewed therapy refer EMILEE 2. [...] of the serious side effect develops. discuss [facility] and pill packs and patient is [...] 10/29/23 AIMS= 0 08/19/24 AIMS= 0 02/09/25 [place] Prescription program reviewed therapy refer EMILEE 2. [...] stable 6. Long-term drug therapy 11/10/2024 Other senior care (current) drug therapy (ICD-10 - Z79.899) Medication [...] of the serious side effect develops. discuss [facility] and pill packs and patient is [...] more. AIMS= 0 10/29/23 AIMS= 0 08/19/24 [place] Prescription program reviewed therapy refer EMILEE 2. [...] of the serious side effect develops. discuss [facility] and pill packs and patient is [...] 10/29/23 AIMS= 0 08/19/24 AIMS= 0 02/09/25 [place] Prescription program reviewed therapy refer EMILEE 2. [...] stable 6. Long-term drug therapy 09/16/2024 Other senior care (current) drug therapy (ICD-10 - Z79.899) Medication [...] of the serious side effect develops. discuss [facility] and pill packs and patient is [...] more. AIMS= 0 10/29/23 AIMS= 0 08/19/24 [place] Prescription program reviewed therapy refer EMILEE 2. [...] of the serious side effect develops. discuss [facility] and pill packs and patient is [...] more. AIMS= 0 10/29/23 AIMS= 0 08/19/24 [place] Prescription program reviewed therapy refer EMILEE 2. [...] of the serious side effect develops. discuss [facility] and pill packs and patient is [...] more. AIMS= 0 10/29/23 AIMS= 0 08/19/24 [place] Prescription program reviewed therapy refer EMILEE 2. [...] of the serious side effect develops. discuss [facility] and pill packs and patient is [...] more. AIMS= 0 10/29/23 AIMS= 0 08/19/24 [place] Prescription program reviewed therapy refer EMILEE 2. [...] stable 6. 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 discuss [facility] and pill packs and patient is [...] 10/29/23 AIMS= 0 08/19/24 AIMS= 0 02/09/25 [place] Prescription program reviewed therapy refer EMILEE 2. [...] of the serious side effect develops. discuss [facility] and pill packs and patient is [...] more. AIMS= 0 10/29/23 AIMS= 0 08/19/24 [place] Prescription program reviewed therapy refer EMILEE 2. [...] of the serious side effect develops. discuss [facility] and pill packs and patient is [...] 10/29/23 AIMS= 0 08/19/24 AIMS= 0 02/09/25 [place] Prescription program reviewed therapy refer EMILEE 2. [...] Provider Name:Vicki Mobley , 05/11/2025 09:00:00 AM, [address], [address], [place], [address], Insurance Providers Payer Name Payer Address Payer Phone Subscriber Number Group Number Insured Name Patient Relationship to Insured Coverage Start Date Coverage End Date [facility] [place] - On Or After 2020 [address] [facility] [place] [address] [id number] TEETEE JAVIER PRATT Self - patient [...] Surgical History Surgery Date(Month/Year) Removal of gallbladder (16868) Removal of gallbladder gallbladder, cath , feet surgery bunion,
--- OUTSIDE RECORDS SUMMARY | 2025-03-30 15:09 | XMS_ITS | Encounter Summary ---
Author Organization [facility] Address [address] [place] [address] Phone Care Team Providers Care Quality Control Expert Name Role Phone Dipti Viveros APRN, DARREN Primary Care Pro vider Eliz Haywood APRN, CNP Primary Care Provider [phone] Reason for Referral * Radiology Services (Routine) - Closed Specialty Diagnoses / Procedures Referred By Loida t Referred To Contact Radiology Diagnoses Bilateral low back pain with bilateral sciatica, unspecified chronicity Procedures MRI L-SPINE W/O CONTRAST Dipti Viveros APRN, CNP [address] [place] [address] Phone: tel: fax: Referral ID Status Reason Start Date Expiration Date Visits Re quested Visits Authorized [id number] Closed 04/06/2023 1 1 Encounter Details Date Type Department Care Team (Late st Contact Info) Description 04/06/2023 Transcribe Orders [facility] Central Scheduling [address] [place] [id number] Dipti Viveros APRN, CNP [address] [place] [address] Bilateral low back pain with [...] st Contact Info) Description 09/21/2025 9:30 AM ASSISTED LIVING ADMINISTRATOR Office Visit [facility] - Neurology [facility] [address] [place] [address] Yehuda Ortega MD [address] [place] [address] Scheduled Orders Name Type Priority Associated Diagnoses Orde r Schedule MRI L-SPINE W/O CONTRAST Imaging Routine Bilateral low back pain with bilateral sciatica, unspecified chronicity Expected: 04/06/2023, Expires: 04/06/2024 documented as of this encounter Visit Diagnoses Diagnosis Bilateral low back pain with bilateral sciatica, unspecified chronicity- Primary documented in this encounter Care Teams Quality Control Expert Relationship Specialty Start Date End Date Dipti Viveros APRN, ENGINEER STATION MAINLINE [address] [place] [address] PCP - General Certified Nurse Practitioner 04/06/23 03/03/25 Eliz Haywood APRN, ENGINEER STATION MAINLINE [address] [place] [address] PCP - General Advanced Practice Nurse 03/04/25 documented as of this encounter
--- OUTSIDE RECORDS SUMMARY | 2025-03-30 15:09 | XMS_ITS | Patient Health Record ---
Author Organization [facility] Address [address] [address] Care Team Providers Care Health And Safety Consultant Name Role Phone Brayden Rainey Primary Care Provider [phone] Reason For Referral No Information Plan Of Treatment No Information Insurance Providers Payer Name Payer Address Payer Phone Subscriber Number Group Number Insured Name Patient Relationship to Insured Coverage Start Date Coverage End Date MEDICARE PART AB [address] [place] [address] [phone] [id number] JAVIER MAXWELL Self - patient is the insured [place] [address] [address] [place], [place] [id number] JAVIER MAXWELL Self - patient is the insured
--- OUTSIDE RECORDS SUMMARY | 2025-03-30 15:09 | XMS_ITS | Clinical Summary ---
Author Organization [facility] Address [address] [place] [address] Care Team Providers Care Engineering Faculty Member Name Role Phone Chastity Eliz Primary Care Provider [phone] Source Comments [facility],non-owned Affiliates and Associated Physician Practices is amultiple site organization consisting of ambulatory clinics and hospital sitesin [place], [place], [place] and [place]. This disclosure is being madepursuant to the Care Everywhere program and may not contain all information available regarding this patient. Last updated 18.[facility] Allergies Active Allergy Reactions Criticality Noted Date [...] Active vitamin D, ergocalciferol, (Drisdol) 1.25 MG (12913 UT) capsuleIndicati ons:Vitamin D Deficiency Take 1 [...] on file Legal Sex Female 10:10 AM BLOOD TESTER Gender Identity Not on file Sexual Orientation [...] 189.1 kg (417 lb) 08/14/2024 10:00 AM BLOOD TESTER Height 165.1 cm (5' 5) 08/14/2024 10:00 AM BLOOD TESTER Body Mass Index 69.39 08/14/2024 10:00 AM BLOOD TESTER Plan of Treatment Health Maintenance Due Date [...] COMPREHENSIVE METABOLIC PANEL Routine 10/23/2023 2:57 PM BLOOD TESTER Pre-op testing Morbid obesity HEMOGLOBIN A1C Routine 10/23/2023 2:57 PM BLOOD TESTER Pre-op testing Morbid obesity from Last 3 Months or Most Recently Relevant to Health Maintenance Results * (ABNORMAL) HEMOGLOBIN A1C (10/23/2023 2:57 PM BLOOD TESTER) Hemoglobin A1c 7.4(H) 4.2 - 5.6 % 10/23/2023 3:33 PM BLOOD TESTER [facility] Estimated Average Glucose 166 mg/dL 10/23/2023 3:33 PM BLOOD TESTER [facility] Blood BLOOD SPECIMEN / Unknown Venipuncture / Unknown 10/23/2023 2:57 PM BLOOD TESTER 10/23/2023 3:14 PM BLOOD TESTER Narrative [facility] - 10/23/2023 3:33 PM BLOOD TESTER HbA1c Interpretation: Normal: < 5.7% Pre-diabetes: 5.7-6.4% [...] Standardization Program (NGSP) certified method. Naz Barbour INTERACTIVE ART DIRECTOR-MEDIA MANAGER LAB - CHEMISTRY ORDERABLES F inal Result [facility] [address] [place], [place] [id number] [place] [id number] * (ABNORMAL) COMPREHENSIVE METABOLIC PANEL (10/23/2023 2:57 PM BLOOD TESTER) Glucose 182(H) 70 - 125 mg/dL 10/23/2023 3:41 PM BLOOD TESTER [facility] Sodium 139 136 - 145 mmol/L 10/23/2023 3:41 PM BLOOD TESTER [facility] Potassium 4.0 3.4 - 5.1 mmol/L 10/23/2023 3:41 PM BLOOD TESTER [facility] Chloride 102 98 - 107 mmol/L 10/23/2023 3:41 PM BLOOD TESTER [facility] CO2 29 22 - 29 mmol/L 10/23/2023 3:41 PM BLOOD TESTER [facility] Calcium 9.33 8.4 - 10.2 mg/dL 10/23/2023 3:41 PM BLOOD TESTER [facility] Anion Gap 8 6 - 16 mmol/L 10/23/2023 3:41 PM BLOOD TESTER [facility] BUN 12.6 9.8 - 20.1 mg/dL 10/23/2023 3:41 PM BLOOD TESTER [facility] Creatinine 0.69 0.57 - 1.11 mg/dL 10/23/2023 3:41 PM BLOOD TESTER [facility] Alkaline Phosphatase 123 40 - 150 U/L 10/23/2023 3:41 PM BLOOD TESTER [facility] ALT 36 <=55 U/L 10/23/2023 3:41 PM BLOOD TESTER [facility] AST 20 5 - 34 U/L 10/23/2023 3:41 PM BLOOD TESTER [facility] Protein Total 7.4 6.4 - 8.3 gm/dL 10/23/2023 3:41 PM BLOOD TESTER [facility] Albumin 3.7 3.4 - 4.8 gm/dL 10/23/2023 3:41 PM BLOOD TESTER [facility] Globulin Total 3.7 2.6 - 4.0 gm/dL 10/23/2023 3:41 PM BLOOD TESTER [facility] Albumin/Globulin Ratio 1.0 0.9 - 1.6 10/23/2023 3:41 PM BLOOD TESTER [facility] Bilirubin Total 0.3 0.2 - 1.2 mg/dL 10/23/2023 3:41 PM BLOOD TESTER [facility] eGFR >90 >90 mL/min/1.7 3m2 10/23/2023 3:41 PM BLOOD TESTER [facility] Comment:The GFR result was c alculated using the updated CKD-EPI Creatinine Equation (2020). Blood BLOOD SPECIMEN / Unknown Venipuncture / Unknown 10/23/2023 2:57 PM BLOOD TESTER 10/23/2023 3:14 PM BLOOD TESTER Naz Barbour INTERACTIVE ART DIRECTOR-MEDIA MANAGER LAB - CHEMISTRY ORDERABLES F inal Result [facility] [address] [place] [address], [facility] from Last 3 Months or Most Recently Relevant to Health Maintenance Insurance MEDICARE MANAGED CARE PLAN GENERIC MEDICARE ADV Care Teams Engineering Faculty Member Relationship Specialty Start Date End Date Eliz Haywood [address] [place] [address] PCP - General 12/18/23 Dipti Viveros [address] [place] [address] Primary Care Provider 10/30/23
--- OUTSIDE RECORDS SUMMARY | 2025-03-30 15:09 | XMS_ITS | Clinical Summary ---
Author Organization [facility] Address [address] [place] [address] Phone Care Team Providers Care Fruit Picker Name Role Phone Eliz Haywood KATHERIN, DARREN Primary Care Provider [phone] Allergies Active Allergy Reactions Criticality Noted Date [...] st Contact Info) Description 09/21/2025 9:30 AM PSYCHIATRIC NP Office Visit [facility] - Neurology - [address] [place] [address] Yehuda Ortega MD [address] [place] [address] Health Maintenance Due Date Last Done Comments [...] age to complete this topic Insurance MEDICAID [facility] Care Teams Fruit Picker Relationship Specialty Start Date End Date Eliz Haywood APRN, INDUSTRY OPERATIONS INVESTIGATOR [address] [place] [id number] PCP - General Advanced Practice Nurse 03/04/25
[2025-03-30 15:20] VITALS: BP 122/70; PULSE 95; RESP 14; O2SAT 97
[2025-03-30 16:45] VITALS: BP 115/57; PULSE 77; RESP 18; O2SAT 98
== END 2025-03-30 16:47 | disposition home or self-care (01) ==
PROVIDERS: Emergency Medicine; Emergency Provider Emergency Medicine
DX: K59.00 Constipation, unspecified (principal); I10 Essential (primary) hypertension; I34.1 Nonrheumatic mitral (valve) prolapse; E11.9 Type 2 diabetes mellitus without complications; E66.01 Morbid (severe) obesity due to excess calories; Z68.44 Body mass index [BMI] 60.0-69.9, adult; E78.00 Pure hypercholesterolemia, unspecified; G47.33 Obstructive sleep apnea (adult) (pediatric); K21.9 Gastro-esophageal reflux disease without esophagitis; M19.90 Unspecified osteoarthritis, unspecified site; F31.9 Bipolar disorder, unspecified; F41.9 Anxiety disorder, unspecified; Z87.891 Personal history of nicotine dependence; Z87.440 Personal history of urinary (tract) infections; Z90.49 Acquired absence of other specified parts of digestive tract; Z79.84 Long term (current) use of oral hypoglycemic drugs; Z79.899 Other long term (current) drug therapy
CPT/HCPCS: 36415; 74176; 80053; 81001; 81025; 83690; 85025; 96374; 96375; 99284; J2270; J2405

== ENCOUNTER 2025-07-12 10:29 | Emergency (ER) | payer OTHER, SELFPAY ==
--- NOTE | 2025-07-12 10:31 | ED.URI ---
HPI - URI/Sore Throat General Chief Complaint: Upper Respiratory Infection Stated Complaint: sore throat Time Seen by Provider: 07/12/25 10:36 Source: patient Mode of arrival: ambulatory Limitations: no limitations History of Present Illness HPI Narrative: Shira is a 54-year-old female patient presenting to the clinic today with complaints of a sore throat, cough, and some sores in her mouth/lip x 2 days. She reports no known fever, chills, or body aches. Feels that her face is swollen. Has taken ibuprofen this morning for her symptoms. Related Data Home Medications ?Medication ?Instructions ?Recorded ?Confirmed ?Last Taken ?Type dapagliflozin propanediol 5 mg 5 mg PO DAILY 08/03/19 02/16/24 Unknown History tablet (Farxiga) desvenlafaxine succinate 50 mg 50 mg PO DAILY 08/03/19 02/16/24 Unknown History tablet,extended release 24 hr losartan 100 mg tablet 100 mg PO DAILY 08/03/19 02/16/24 Unknown History metoprolol succinate 50 mg 50 mg PO DAILY 08/03/19 02/16/24 Unknown History tablet,extended release 24 hr oxybutynin chloride 5 mg 5 mg PO DAILY 11/02/20 02/16/24 Unknown History tablet,extended release 24 hr lurasidone 40 mg tablet (Latuda) 60 mg PO HS 09/25/23 02/16/24 Unknown History hydrocodone 7.5 mg-acetaminophen tablet 07/12/25 Unknown History 325 mg tablet Allergies Allergy/AdvReac Type Severity Reaction Status Date / Time pseudoephedrine (From Allergy Unknown Other Verified 07/12/25 10:39 Sudafed) Uykachs-AZX-QrB Reductase AdvReac Cough Verified 07/12/25 10:39 Inhibitor Review of Systems Review of Systems: Pertinent positives per HPI. Patient denies any fever, chills, rash, headache, visual changes, dizziness, cough, shortness of breath, chest pain, palpitations, nausea, vomiting, diarrhea, constipation, abdominal pain, or any urinary issues. [facility] Past Medical History Medical History Diverticulitis of sigmoid colon Mural thickening of sigmoid colon Lumbar spinal stenosis Obstructive sleep apnea Essential hypertension Type 2 diabetes mellitus Morbid obesity with BMI of 60.0-69.9, adult Bipolar disorder Anxiety Spinal stenosis Arthritis GERD (gastroesophageal reflux disease) Diverticulitis (07/2016) With multiple episodes of diverticulitis starting in January of 2016 Sleep apnea CPAP of 11 Hypercholesteremia Seasonal allergies Mitral valve prolapse Stress fracture in right foot Surgical History Surgical History History of myringotomy History of bunionectomy Hx of cholecystectomy Bilateral Family History Family History Mother Diabetes mellitus Family history of mental disorder Hypertension Family history of cardiovascular disease Family history of arthritis Family history of chronic obstructive pulmonary disease Sibling Family history of alcoholism Father Family history of alcoholism Social History Social History Social History: Code status: Full code Surrogate decision maker: Smoking packs per day: 0.5 Smoking cigarettes per day: 10.0 Years smoked: 21 Smoking pack-years: 10.50 Smoking status: Former smoker Tobacco type: cigarettes Smoking end date: 10/24/23 Additional smoking assessment comments: She smoked from age 15 to age 36. Alcohol intake: never Substance use: never Substance use type: does not use Do You Feel Safe in your Home?: Yes Lack of Transportation: No Lack of Food: Sometimes True Current Housing: I Do Not Have Housing Concerned About Future Housing: No Difficulty Paying Gas/Electric Bills: No Difficulty Paying for Meds: No Currently Unemployed: No Education: High School Diploma/GED Difficulty w/ Childcare or Family Care: No Living arrangements: with family Additional living arrangements comments: She lives at home with her of 22 years. They have 6 children. She has 1 biological child and 5 adopted children who are all girls. Her age is [id number] who of all moved out and 3 daughters remain at home age 18 and 2 12-year-old twins. One of the twins has autism. Occupation/Education: other Additional occupation/education comments: She is on disability due to her psychiatric illnesses. 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 Gender identity (if verbalized by the patient): Female Spiritual care concerns: No Comments At the time of my signature, I reviewed and agree with the nursing past medical, surgical, social, and family history. There is no relevant family history pertinent to the patient complaint. Exam Narrative: General: Well-developed, morbidly obese, in no apparent distress Head: Normocephalic, atraumatic Eyes: Pupils equally round and reactive to light bilaterally, EOM intact, sclera and conjunctive clear, no discharge, lids normal Ears: TMs intact and clear, ear canals clear, no drainage, grossly hearing normal. Nose: Nares patent, no discharge, no inflammation, no sinus tenderness. Mouth: Oral pharynx red without ulcerated lesions to bilateral inner cheeks near the posterior molar, no masses, poor dentition, MMM. Neck: Supple, trachea midline, no enlargement of anterior or posterior cervical nodes, no thyroid masses or goiter palpable. Cardio: Regular rate and rhythm, s1 and s2 normal, no murmur appreciated. Resp: Clear to auscultation bilaterally, no rhonchi, rales, wheezing or rubs Course Course Emergency Course: Portions of this record may have been created with voice recognition software. Level of Care: Express Care Visit Vital Signs Vital signs: Vital Signs Temperature 36.4 C L 07/12/25 10:38 Pulse Rate 81 07/12/25 10:38 Respiratory Rate 18 07/12/25 10:38 Blood Pressure 108/53 L 07/12/25 10:38 Pulse Oximetry 97 07/12/25 10:38 Oxygen Delivery Room Air 07/12/25 10:38 Temperature 36.4 C L 07/12/25 10:38 Pulse Rate 81 07/12/25 10:38 Respiratory Rate 18 07/12/25 10:38 Blood Pressure 108/53 L 07/12/25 10:38 Pulse Oximetry 97 07/12/25 10:38 Oxygen Delivery Room Air 07/12/25 10:38 Vital signs reviewed MDM - URI/Sore Throat MDM Narrative Medical decision making narrative: At the time of visit patient is resting comfortably on the exam table. Patient appears to be nontoxic. Complaints of a sore throat, cough, and some sores in her mouth/lip x 2 days. She reports no known fever, chills, or body aches. Feels that her face is swollen. Has taken ibuprofen this morning for her symptoms. On exam patient has bilateral TM congestion, no nasal drainage, oral pharynx mildly red, no cervical lymphadenopathy, ulcerated lesions in each cheek oral mucosa, fever blistered to the left top lip, lung sounds are clear, heart rates regular rate and rhythm. Strep test was obtained Labs: Strep test was negative in the clinic today. Plan: I suspect patient has gingival stomatitis/pharyngitis. Prescription for Magic mouthwash and Abreva was sent the pharmacy. Supportive measures were discussed with the patient and they voiced understanding discharge instructions and agrees to treatment plan. Return precautions reviewed Differential Diagnosis Differential diagnosis: Likely upper respiratory infection, otitis media, sinusitis, viral infection, bronchitis, influenza, pharyngitis and other (COVID) Discharge Plan Discharge Clinical Impression: Aphthous ulcer of mouth Pharyngitis Qualifiers: Pharyngitis/tonsillitis etiology: unspecified etiology Qualified Code(s): J02.9 - Acute pharyngitis, unspecified Patient Disposition: Home Condition: Stable Instructions: Antibiotic Form, Pharyngitis (ED), Gingivostomatitis (ED) Additional Instructions: Strep test was negative in the clinic today. We will send for culture if this comes back positive we will contact him place you on antibiotics at that time. Take prescription medications only as prescribed-Magic mouthwash Increase fluids and stay well hydrated May take Tylenol or motrin as directed on bottle for pain/fever May use Flonase 1 spray in each nare daily May take OTC antihistamines such as Zyrtec or Claritin daily as directed on bottle May apply Vicks vapor rub to chest to open sinuses Sinus rinses for congestion Cepacol spray, cough drops, throat lozenges, warm tea with honey/lemon, gargle salt water to soothe throat BRAT diet for diarrhea Clear liquids x 24 hours then advance as tolerated for nausea/vomiting Go to the ED if you develop a worsening in your condition- high fever not controlled by Tylenol or Motrin, dehydration, weakness, lethargy, shortness of breath, or chest pain. Follow up with your PCP in 3-5 days if symptoms persist. Patient Language: Palauan Prescriptions: New diphenhydramine HCl [Benadryl Allergy] 12.5 mg/5 mL liquid 12.5 mg PO QID PRN (Reason: mouth pain) 7 Days Qty: 140 0RF Rx Instructions: mix with Maalox and lidocaine alum-mag hydroxide-simeth [Mag-Al Plus] 200-200-20 mg/5 mL suspension 15 ml PO QID PRN (Reason: mouth pain) 7 Days Qty: 420 0RF Rx Instructions: mix with Benadryl and lidocaine lidocaine HCl [Lidocaine Viscous] 2 % solution 10 ml mucous membrane QID PRN (Reason: pain) 7 Days Qty: 300 0RF Rx Instructions: mix with Maalox and Benadryl docosanol [Abreva] 10 % cream 1 applic topical ONCE 7 Days Qty: 2 0RF No Action metoprolol succinate 50 mg tablet extended release 24 hr 50 mg PO DAILY losartan 100 mg tablet 100 mg PO DAILY desvenlafaxine succinate 50 mg tablet extended release 24 hr 50 mg PO DAILY dapagliflozin propanediol [Farxiga] 5 mg tablet 5 mg PO DAILY hydrocodone-acetaminophen 7.5-325 mg tablet pregabalin 150 mg capsule 150 mg PO BID Qty: 180 1RF oxybutynin chloride 5 mg tablet extended release 24hr 5 mg PO DAILY lurasidone [Latuda] 40 mg tablet 60 mg PO HS ibuprofen 800 mg tablet 800 mg PO TID PRN (Reason: pain) Qty: 30 0RF tizanidine 4 mg tablet 4 mg PO Q8H PRN (Reason: muscle spasticity) Qty: 90 2RF Rx Instructions: dc capsules...too $$$ Follow-up/Referrals: Chastity,Eliz Pate, BULB SORTER [Primary Care Provider, Unknown] Time of Disposition: 11:00 Quality NIHSS Nursing Documentation ED NIHSS nursing documentation: reviewed/agree
--- OUTSIDE RECORDS SUMMARY | 2025-07-12 10:31 | XMS_ITS | Patient Health Record ---
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 Name Role Phone Eliz Whitman Primary Care Provider Unavaila Vicki Alonzo Unavailable [phone] Allergies Allergen (clinical drug ingredient) Drug/Non Drug Allergy documented on EMR Reaction Allergy Type Onset Date Status lamotrigine lamoTRIgine Unknown Drug Allergy 11/27/2023 Ac tive Reason For Referral No Information Medications Medication SIG (Take, Route, Frequency, Duration) Notes Start Date End Date Status Diclofenac Sodium 75 MG Tablet Delayed Release Oral 11/27/2023 Active oxyBUTYnin Chloride ER 10 MG Tablet Extended Release 24 Hour Oral 11/27/2023 Active Metoprolol Succinate ER 50 MG Tablet Extended Release 24 Hour Oral 11/27/2023 Active Losartan Potassium 100 MG Tablet Oral 11/27/2023 Active hydrOXYzine HCl 50 MG Tablet 1 tablet Orally twice a day; Duration: 90 days No PA needed 05/14/2025 Active oxyBUTYnin Chloride ER 15 MG Tablet Extended Release 24 Hour Oral 11/27/2023 Active lamoTRIgine 25 MG Tablet 2 tablets daily Orally 2 tablets daily; Duration: 90 days 05/14/2025 Active Triamcinolone Acetonide 0.1% Cream External 11/27/2023 Active Ondansetron HCl 8 MG Tablet Oral PRN 11/27/2023 Active tiZANidine HCl 4 MG Capsule Oral PRN 11/27/2023 Active Mounjaro 10 MG/0.5ML Solution Auto-injector as directed Subcutaneous *Reorder from [employer] for eRx and Interaction Alerts* 11/27/2023 Active Pregabalin 150 MG Capsule Oral 11/27/2023 Active hydrOXYzine HCl 25 MG Tablet 1 tablet Orally twice a day; Duration: 90 days NO PA needed Active Desvenlafaxine Succinate ER 100 MG Tablet Extended Release 24 Hour 1 tablet Oral Once a day; Duration: 90 days 05/14/2025 Active Dicyclomine HCl 20 MG Tablet Oral 11/27/2023 Active Farxiga 10 MG Tablet Oral 11/27/2023 Active ALPRAZolam 0.5 MG Tablet 1 tablet Oral once a day; Duration: 30 days As needed 05/14/2025 Active Ketoconazole 2% Cream External 11/27/2023 Active Lurasidone HCl 60 MG Tablet 1 tablet with food Oral Once a day; Duration: 90 days 05/14/2025 Active Omeprazole 20 MG Capsule Delayed Release Oral 11/27/2023 Active Immunizations Vaccine Route Administration Date Status Comme nts Influenza, seasonal, injecta ble, preservative free, 3 yrs and above Unknown 05/27/2014 Administered Influenza, unspecified formulation Unknown 06/20/2022 A dministered Novel [id number], preservative free Unknown 06/24/2019 Administered Novel [id number], preservative free Unknown 06/17/2020 Administered Social History Tobacco Use: Social History Observation Description Date Details (start date - stop date) Former Smoker NA - NA Sex Assigned At : Social History Observation Description Sex Assigned At Female Social History Miscellaneous: Social Info Question Answer Notes Advance Care Planning Are you your own decision-maker No Do you have Power of Investigation Manager for Health or [facility]? No Drug/Alcohol: Social Info Question Answer Notes AUDIT-C (Standard) Did you have a drink containing alcohol in the past year? No Tobacco Use: Social Info Question Answer Notes Tobacco Control (Standard) Tobacco use: Former smoker Additional Details Category Social Info Options Details Migrated Social History Migrated Social History Alcohol Intake: None 12/09/2018,Tobacco Years: Former smoker 04/28/2019,Smoking Status: 15 07/30/2023 Drug/Alcohol: Do you smoke marijuana? Den ies Do you drink alcohol? No Section Notes: Do you or have [...] date was tobacco cessation counseling provided?: (Notes: kyra answered No to the Tobacco cessation counseling [...] CodeDo you have a medical power of state attorney?: NoActivities of Daily LivingAre you able [...] Status Risk Notes Problem Generalized anxiety disorder (58057218) Generalized anxiety disorder (F41.1) 4 Active confirmed Problem Posttraumatic stress disorder (19549239) Post-traumatic stress disorder, chronic (F43.12) 4 Active confirmed Problem Primary insomnia (5966257) Primary insomnia (F51.01) 4 Active confirmed Problem Long-term current use of drug therapy (094498124) 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) 4 Active confirmed Problem Obsessive compulsive disorder (994621252) Other obsessive-compul sive disorder (F42.8) 4 Active confirmed Problem Primary hypertension (59794606) Primary hypertension (I10) Active confirmed Problem Bipolar disorder (72391869) Bipolar disorder with depression (F31.9) Active confirmed Vital Signs Heart Rate 76 /min 05/14/2025 Respiratory Rate 18 /min 05/14/2025 Height-cm 170.18 cm 05/14/2025 Blood pressure diastolic 77 mm Hg 05/14/2025 Weight-kg 182.35 kg 05/14/2025 Height 67.00 in 05/14/2025 Blood pressure systolic 123 mm Hg 05/14/2025 Weight 402 lbs 05/14/2025 BMI 62.96 kg/m2 05/14/2025 Encounters Encounter Location Date Provider Diagnosis [facility] [facility] [address] [place] [address] 08/19/2024 Vicki Mobley Bipolar disorder wit h depression F31.9 ; Generalized anxiety disorder F41.1 ; Post-traumatic stress disorder, chronic F43.12 ; Other obsessive-compulsive disorder F42.8 ; Primary insomnia F51.01 ; Other bed bug exterminator (current) drug therapy Z79.899 and Primary hypertension I10 [facility] [address] [facility] [address] [place] [address] 09/16/2024 Vicki Mobley Bipolar disorder wit h depression F31.9 ; Generalized anxiety disorder F41.1 ; Post-traumatic stress disorder, chronic F43.12 ; Other obsessive-compulsive disorder F42.8 ; Primary insomnia F51.01 ; [facility] [place] [facility] drug [facility] Z79.899 and Primary hypertension I10 [place] [address] [facility] [address] [address] 11/10/2024 Vicki Mobley Bipolar disorder wit h depression F31.9 ; Generalized anxiety disorder F41.1 ; Post-traumatic stress disorder, chronic F43.12 ; Other obsessive-compulsive disorder F42.8 ; Primary insomnia F51.01 ; [facility] [place] [facility] drug therapy Z79.899 ; Primary hypertension I10 and Encounter for screening for depression Z13.31 [place] [address] [address] 02/09/2025 Vicki Thertaryn Encounter for screen ing for depression Z13.31 ; Bipolar disorder with depression F31.9 ; Encounter for screening for cardiovascular disorders Z13.6 ; Generalized anxiety disorder F41.1 ; Post-traumatic stress disorder, chronic F43.12 ; Other obsessive-compulsive disorder F42.8 ; Primary insomnia F51.01 ; [facility] [place] [facility] drug therapy Z79.899 and Primary hypertension I10 [address] [address] 05/11/2025 Vickijonn Mobley [address] [address] 05/14/2025 Vicki Thertaryn Encounter for screen ing for depression Z13.31 ; Bipolar disorder with depression F31.9 ; Generalized anxiety disorder F41.1 ; Post-traumatic stress disorder, chronic F43.12 ; Other obsessive-compulsive disorder F42.8 ; Primary insomnia F51.01 ; [facility] [place] [facility] drug therapy Z79.899 and Primary hypertension I10 [place] [address] [address] 11/10/2024 Vicki Thertaryn Assessments Encounter Date Diagnosis (ICD Code) Assessment [...] of the serious side effect develops. discuss [facility] and pill packs and patient is [...] more. AIMS= 0 10/29/23 AIMS= 0 08/19/24 [place] [facility] reviewed therapy refer E[facility] 2. [...] of the serious side effect develops. discuss [facility] and pill packs and patient is [...] more. AIMS= 0 10/29/23 AIMS= 0 08/19/24 [place] [facility] reviewed therapy refer EMILE[facility] 2. [...] of the serious side effect develops. discuss [facility] and pill packs and patient is [...] more. AIMS= 0 10/29/23 AIMS= 0 08/19/24 [place] [facility] reviewed therapy refer EMILEE 2. [...] of the serious side effect develops. discuss [facility] and pill packs and patient is [...] more. AIMS= 0 10/29/23 AIMS= 0 08/19/24 [place] [facility] reviewed therapy refer EMILEE 2. [...] of the serious side effect develops. discuss [facility] and pill packs and patient is [...] 10/29/23 AIMS= 0 08/19/24 AIMS= 0 02/09/25 [place] [facility] reviewed therapy refer EMILEE 2. [...] of the serious side effect develops. discuss [facility] and pill packs and patient is [...] 10/29/23 AIMS= 0 08/19/24 AIMS= 0 02/09/25 [place] [facility] reviewed therapy refer EMILEE 2. [...] - therapy stable 6. Long-term drug therapy 05/14/2025 Encounter for screening for depression (ICD-10 - [...] of the serious side effect develops. discuss [facility] and pill packs and patient is [...] 10/29/23 AIMS= 0 08/19/24 AIMS= 0 02/09/25 [place] [facility] reviewed therapy refer E[facility]LE[facility] 2. Generalized anxiety disorder - therapy discuss and educated on all rx Increase Vistaril 50 mg twice a day as needed for anxiety Pristiq 100 mg daily- monitor B/P -Monitor depression and anxiety Xanax 0.5 mg daily as needed - not taking rx often - educated to take daily if needed- reported [...] refer to therapy- situational stress with family will schedule with [facility] 5. Obsessive-compulsi ve disorder - therapy stable 6. Long-term drug therapy 05/14/2025 Generalized anxiety disorder (ICD-10 - F41.1) Learning [...] of the serious side effect develops. discuss [facility] and pill packs and patient is [...] 10/29/23 AIMS= 0 08/19/24 AIMS= 0 02/09/25 [place] [facility] reviewed therapy refer EMILEE 2. Generalized anxiety disorder - therapy discuss and educated on all rx Increase Vistaril 50 mg twice a day as needed for anxiety Pristiq 100 mg daily- monitor B/P -Monitor depression and anxiety Xanax 0.5 mg daily as needed - not taking rx often - educated to take daily if needed- reported [...] refer to therapy- situational stress with family will schedule with [facility] 5. Obsessive-compulsi ve disorder - therapy stable 6. Long-term drug therapy 05/14/2025 Bipolar disorder with depression (ICD-10 - F31.9) [...] of the serious side effect develops. discuss [facility] and pill packs and patient is [...] 10/29/23 AIMS= 0 08/19/24 AIMS= 0 02/09/25 [place] [facility] reviewed therapy refer EMILEE 2. Generalized anxiety disorder - therapy discuss and educated on all rx Increase Vistaril 50 mg twice a day as needed for anxiety Pristiq 100 mg daily- monitor B/P -Monitor depression and anxiety Xanax 0.5 mg daily as needed - not taking rx often - educated to take daily if needed- reported [...] refer to therapy- situational stress with family will schedule with [facility] 5. Obsessive-compulsi ve disorder - therapy stable [...] of the serious side effect develops. discuss [facility] and pill packs and patient is [...] 10/29/23 AIMS= 0 08/19/24 AIMS= 0 02/09/25 [place] [facility] reviewed therapy refer EMILEE 2. [...] of the serious side effect develops. discuss [facility] and pill packs and patient is [...] more. AIMS= 0 10/29/23 AIMS= 0 08/19/24 [place] [facility] reviewed therapy refer EMILEE 2. [...] of the serious side effect develops. discuss [facility] and pill packs and patient is [...] more. AIMS= 0 10/29/23 AIMS= 0 08/19/24 [place] [facility] reviewed therapy refer EMILEE 2. [...] of the serious side effect develops. discuss [facility] and pill packs and patient is [...] more. AIMS= 0 10/29/23 AIMS= 0 08/19/24 [place] [facility] reviewed therapy refer EMILEE 2. [...] of the serious side effect develops. discuss [facility] and pill packs and patient is [...] more. AIMS= 0 10/29/23 AIMS= 0 08/19/24 [place] [facility] reviewed therapy refer EMILEE 2. [...] of the serious side effect develops. discuss [facility] and pill packs and patient is [...] more. AIMS= 0 10/29/23 AIMS= 0 08/19/24 [place] [facility] reviewed therapy refer EMILEE 2. [...] of the serious side effect develops. discuss [facility] and pill packs and patient is [...] more. AIMS= 0 10/29/23 AIMS= 0 08/19/24 [place] [facility] reviewed therapy refer EMILEE 2. [...] of the serious side effect develops. discuss [facility] and pill packs and patient is [...] 10/29/23 AIMS= 0 08/19/24 AIMS= 0 02/09/25 [place] [facility] reviewed therapy refer EMILEE 2. [...] - therapy stable 6. Long-term drug therapy 05/14/2025 Post-traumatic stress disorder, chronic (ICD-10 - F43.12) [...] of the serious side effect develops. discuss [facility] and pill packs and patient is [...] 10/29/23 AIMS= 0 08/19/24 AIMS= 0 02/09/25 [place] [facility] reviewed therapy refer EMILEE 2. Generalized anxiety disorder - therapy discuss and educated on all rx Increase Vistaril 50 mg twice a day as needed for anxiety Pristiq 100 mg daily- monitor B/P -Monitor depression and anxiety Xanax 0.5 mg daily as needed - not taking rx often - educated to take daily if needed- reported [...] refer to therapy- situational stress with family will schedule with [facility] 5. Obsessive-compulsi ve disorder - therapy stable 6. Long-term drug therapy 05/14/2025 Other obsessive-compuls delmer disorder (ICD-10 - F42.8) [...] of the serious side effect develops. discuss [facility] and pill packs and patient is [...] 10/29/23 AIMS= 0 08/19/24 AIMS= 0 02/09/25 [place] [facility] reviewed therapy refer E[facility] 2. Generalized anxiety disorder - therapy discuss and educated on all rx Increase Vistaril 50 mg twice a day as needed for anxiety Pristiq 100 mg daily- monitor B/P -Monitor depression and anxiety Xanax 0.5 mg daily as needed - not taking rx often - educated to take daily if needed- reported [...] refer to therapy- situational stress with family will schedule with [facility] 5. Obsessive-compulsi ve disorder - therapy stable [...] of the serious side effect develops. discuss [facility] and pill packs and patient is [...] 10/29/23 AIMS= 0 08/19/24 AIMS= 0 02/09/25 [place] [facility] reviewed therapy refer EMILEE 2. [...] of the serious side effect develops. discuss [facility] and pill packs and patient is [...] more. AIMS= 0 10/29/23 AIMS= 0 08/19/24 [place] [facility] reviewed therapy refer EMILEE 2. [...] of the serious side effect develops. discuss [facility] and pill packs and patient is [...] more. AIMS= 0 10/29/23 AIMS= 0 08/19/24 [place] [facility] reviewed therapy refer EMILEE 2. [...] of the serious side effect develops. discuss [facility] and pill packs and patient is [...] more. AIMS= 0 10/29/23 AIMS= 0 08/19/24 [place] [facility] reviewed therapy refer EMILEE 2. [...] stable 6. Long-term drug therapy 08/19/2024 [facility] [place] [facility] drug [facility] (ICD-10 - Z79.899) Medication [...] of the serious side effect develops. discuss [facility] and pill packs and patient is [...] more. AIMS= 0 10/29/23 AIMS= 0 08/19/24 [place] [facility] reviewed therapy refer EMILEE 2. [...] of the serious side effect develops. discuss [facility] and pill packs and patient is [...] more. AIMS= 0 10/29/23 AIMS= 0 08/19/24 [place] [facility] reviewed therapy refer E[facility] 2. [...] of the serious side effect develops. discuss [facility] and pill packs and patient is [...] more. AIMS= 0 10/29/23 AIMS= 0 08/19/24 [place] [facility] reviewed therapy refer EMILEE 2. [...] of the serious side effect develops. discuss [facility] and pill packs and patient is [...] 10/29/23 AIMS= 0 08/19/24 AIMS= 0 02/09/25 [place] [facility] reviewed therapy refer EMILEE 2. [...] - therapy stable 6. Long-term drug therapy 05/14/2025 Primary insomnia (ICD-10 - F51.01) Insomnia: Care [...] of the serious side effect develops. discuss [facility] and pill packs and patient is [...] 10/29/23 AIMS= 0 08/19/24 AIMS= 0 02/09/25 [place] [facility] reviewed therapy refer EMILEE 2. Generalized anxiety disorder - therapy discuss and educated on all rx Increase Vistaril 50 mg twice a day as needed for anxiety Pristiq 100 mg daily- monitor B/P -Monitor depression and anxiety Xanax 0.5 mg daily as needed - not taking rx often - educated to take daily if needed- reported [...] refer to therapy- situational stress with family will schedule with [facility] 5. Obsessive-compulsi ve disorder - therapy stable 6. 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 discuss [facility] and pill packs and patient is [...] 10/29/23 AIMS= 0 08/19/24 AIMS= 0 02/09/25 [place] [facility] reviewed therapy refer EMILEE 2. Generalized anxiety disorder - therapy discuss and educated on all rx Increase Vistaril 50 mg twice a day as needed for anxiety Pristiq 100 mg daily- monitor B/P -Monitor depression and anxiety Xanax 0.5 mg daily as needed - not taking rx often - educated to take daily if needed- reported [...] refer to therapy- situational stress with family will schedule with [facility] 5. Obsessive-compulsi ve disorder - therapy stable 6. Long-term drug therapy 11/10/2024 [facility] drug [facility] (ICD-10 - Z79.899) Medication [...] of the serious side effect develops. discuss [facility] and pill packs and patient is [...] more. AIMS= 0 10/29/23 AIMS= 0 08/19/24 [place] [facility] reviewed therapy refer EMILE[facility] 2. [...] of the serious side effect develops. discuss [facility] and pill packs and patient is [...] 10/29/23 AIMS= 0 08/19/24 AIMS= 0 02/09/25 [place] [facility] reviewed therapy refer E[facility] 2. [...] stable 6. Long-term drug therapy 09/16/2024 Other bed bug exterminator (current) drug therapy (ICD-10 - Z79.899) Medication [...] of the serious side effect develops. discuss [facility] and pill packs and patient is [...] more. AIMS= 0 10/29/23 AIMS= 0 08/19/24 [place] [facility] reviewed therapy refer EMI[facility] 2. [...] of the serious side effect develops. discuss [facility] and pill packs and patient is [...] more. AIMS= 0 10/29/23 AIMS= 0 08/19/24 [place] [facility]cription program reviewed therapy refer E[facility] 2. [...] of the serious side effect develops. discuss [facility] and pill packs and patient is [...] more. AIMS= 0 10/29/23 AIMS= 0 08/19/24 [place] [facility]cription [facility] reviewed therapy refer EMILEE 2. [...] stable 6. Long-term drug therapy 02/09/2025 Other bed bug exterminator (current) drug therapy (ICD-10 - Z79.899) Medication [...] of the serious side effect develops. discuss [facility] and pill packs and patient is [...] 10/29/23 AIMS= 0 08/19/24 AIMS= 0 02/09/25 [place] Prescription [facility] reviewed therapy refer EMILEE 2. [...] of the serious side effect develops. discuss [facility] and pill packs and patient is [...] more. AIMS= 0 10/29/23 AIMS= 0 08/19/24 [place] Prescription [facility] reviewed therapy refer EMILEE 2. [...] - therapy stable 6. Long-term drug therapy 05/14/2025 Primary hypertension (ICD-10 - I10) 1. Bipolar [...] of the serious side effect develops. discuss [facility] and pill packs and patient is [...] 10/29/23 AIMS= 0 08/19/24 AIMS= 0 02/09/25 [place] [facility] reviewed therapy refer E[facility] 2. Generalized anxiety disorder - therapy discuss and educated on all rx Increase Vistaril 50 mg twice a day as needed for anxiety Pristiq 100 mg daily- monitor B/P -Monitor depression and anxiety Xanax 0.5 mg daily as needed - not taking rx often - educated to take daily if needed- reported [...] refer to therapy- situational stress with family will schedule with [facility] 5. Obsessive-compulsi ve disorder - therapy stable [...] of the serious side effect develops. discuss [facility] and pill [facility] and patient is [...] more. AIMS= 0 10/29/23 AIMS= 0 08/19/24 [place] [facility] reviewed therapy refer EMILEE 2. [...] of the serious side effect develops. discuss [facility] and pill packs and patient is [...] 10/29/23 AIMS= 0 08/19/24 AIMS= 0 02/09/25 [place] [facility] reviewed therapy refer EMILEE 2. [...] Next Appt Details Provider Name:Vicki Mobley , 08/06/2025 09:30:00 AM, [address], [address], [place], [address], Insurance Providers Payer Name Payer Address Payer Phone Subscriber Number Group Number Insured Name Patient Relationship to Insured Coverage Start Date Coverage End Date [facility] - On Or After 2020 [address] [place] [address] [id number] JAVIER VALDES Self - patient is the insured Medical [...] other: Y - to jump off bridge 2017 thoughts no FOID card Anxiety Disorder: Y Bipolar Disorder: Y Depression Major: Y Panic Episodes: Y PTSD: Y Substance Abuse: Y Alcoholism: Y Asthma: Y Colitis: Y Diabetes Mellitus: Y GERD/Reflux: Y Hypertension: Y Obesity: Y Osteoarthritis: Y Notes: spinal stenosis Surgical History Surgery Date(Month/Year) Removal of gallbladder (65563) Removal of gallbladder gallbladder, cath , feet surgery bunion,
--- OUTSIDE RECORDS SUMMARY | 2025-07-12 10:31 | XMS_ITS | Continuity of Care Document ---
Author Organization [place] [facility] [place] Address [address] [place] [address] Care Team Providers Care Hanger Off Name Role Phone REMINGTON MELISSA Primary Care Provider Assessment No assessment recorded. Plan of Treatment Reminders Order Date Submit Date Provider Last Modified By Organization Details Last Modified Time Details Appointments None recorded. Lab None recorded. Referral None recorded. Procedures None recorded. Surgeries None recorded. Imaging None recorded. Medication Orders hydrocodone 7.5 mg-acetamin ophen 325 mg tablet 2024 025 [facility] [address], [address], [address], [place], [place], [id number], 11:04:10 Patient TargetsNo targets recorded. Patient InstructionsNo instructions recorded. Reason for Referral None Reported. Problems Name Problem SNOMED Code Status Onset Date Resolution Date Notes Provider Name and Address Organization Details Recorded Time Computed tomograph y result abnormal 511799600 Active Not Available [facility] 4 19:47:47 Depressiv e disorder 66865258 Active 2018 Not Available [facility] 4 19:47:47 Body mass index 40+ - severely obese 787986832 Active 2018 Not Available [facility] 4 19:47:47 Essential hypertens ion 81161104 Active 2018 Not Available [facility] 4 19:47:47 Spinal stenosis 01832748 Active 2018 Not Available [facility] 4 19:47:47 Palpitati ons 12343770 Active 2018 Not Available [facility] 4 19:47:47 Hyperglyc emia 83635120 Completed 201806/25/2019 Not Available [facility] 3 03:11:02 Diverticu litis 322697728 Active 2019 Not Available [facility] 4 19:47:47 Dysmenorr hea 253129606 Active 2019 Not Available [facility] 4 19:47:47 Cyst of skin 353779098 Active 2019 Not Available [facility] 4 19:47:47 Seasonal allergic rhinitis 044940783 Active 2019 Not Available [facility] 4 19:47:47 Dissociat delmer disorder 75275412 Active 2020 Not Available [facility] 4 19:47:47 Sleep apnea 93535071 Active 2020 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, NATALIA [address] [facility], [facility] [address], [place], [address] , [facility] [place] [facility] 5 11:02:03 Morbid obesity 268371003 Active 2020 Not Available [facility] 4 19:47:47 Gastroeso phageal reflux disease without esophagit is 680219618 Active 2020 Not Available [facility] 4 19:47:47 Chronic low back pain 493206749 Active 2020 Not Available [facility] 4 19:47:47 Type 2 diabetes mellitus without complicat ion 617516921 Active 2020 Not Available [facility] 4 19:47:47 Osteoarth ritis 329355529 Active 2020 Not Available [facility] 4 19:47:47 CT of abdomen abnormal 87443910477 443056 Active 2021 Not Available [facility] 4 19:47:47 Tight chest 40174691 Active 2021 Not Available [facility] 4 19:47:47 Uncontrol led type 2 diabetes mellitus 493788496 Active 2021 Not Available [facility] 4 19:47:47 Obese 546439509 Active 2022 Not Available [facility] 4 19:47:47 Pain of right hand 09952406372 9109 Active 2022 Not Available [facility] 4 19:47:47 Tendiniti s of extensor pollicis longus 017422110 Active 2022 Not Available [facility] 4 19:47:47 Tenosynov itis of right radial styloid 76172890629 524897 Active 2022 Not Available [facility] 4 19:47:47 Flank pain 038459578 Active 2022 Not Available [facility] 4 19:47:47 Diverticu lar disease 134843090 Active 2022 Not Available [facility] 4 19:47:47 Fatigue 46244337 Active 2022 Not Available [facility] 4 19:47:47 Gastroeso phageal reflux disease 577089805 Active 2022 Not Available [facility] 4 19:47:47 Pain of multiple joints 59996018 Active 2022 Not Available [facility] 4 19:47:47 Low back strain 162015050 Active 2022 Not Available [facility] 4 19:47:47 Low back pain 771603930 Active 2022 Not Available [facility] 4 19:47:47 Lumbago with sciatica 121881320 Active 2022 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, 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 [address] [facility], [facility] [address], [place], [address] , [facility] 5 11:03:21 Chest pain 33917114 Active 2022 Not Available [facility] 4 19:47:47 Spinal stenosis of lumbar region 66775833 Active 2022 Not Available [facility] 4 19:47:47 Abnormal gait due to impairmen t of balance 031254296 Active 2022 Not Available [facility] 4 19:47:47 Tinea corporis 25217656 Active 2022 Not Available [facility] 4 19:47:47 Hearing loss 02663011 Active 2022 Not Available [facility] 4 19:47:47 Overactiv e urinary bladder 618601617 Active 2023 Not Available [facility] 4 19:47:47 Nausea 301703951 Active 2023 Not Available [facility] 4 19:47:47 Loss of scalp hair 228616976 Active 2023 NATALIA Cross [address], [address], [place], [address] , [facility] 4 10:08:20 Neuropath y 571378742 Active 2023 NATALIA Cross [address], [address] [facility], [place], [address] , [facility] 4 17:21:58 Peritonsi llar abscess 12599546 Active 2023 NATALIA Cross [address] [address], [place], [address] , [facility] 4 11:17:21 Abscess of tonsil 40145980 Active 2023 NATALIA Cross [address], [address], [place], [address] , [facility] 4 11:26:24 Celluliti s of right upper limb 34082913810 718452 Active 2023 NATALIA Cross [address], [address], [place], [address] , [facility] 4 10:33:38 Amygdalol ith 4982179 Active 2023 NATALIA Cross [address], [address], [place], [address] , [place] [facility] 4 10:39:05 Acute right otitis media 865321076 Active 2023 NATALIA Cross [address], [address], [place], [address] , [place] [facility] 4 14:42:18 Wheezing symptom 545372399 Active 2023 NATALIA Cross [address], [address], [place], [address] , [place] [facility] 4 14:43:04 Congestio n of nasal sinus 87118738 Active [address], [place], [address] , [place] [facility] 4 14:45:41 Weakness of bilateral lower limb Active 2023 NATALIA Cross [address], [address], [place], [address] , [place] [facility] 4 10:05:26 Type 2 diabetes mellitus 77437170 Active [address], [place], [address] , [place] [facility] 4 14:08:12 Acute bacterial sinusitis 40970051 Active 2023 NATALIA Cross [address], [address], [place], [address] , [place] [facility] 4 11:39:43 Temporoma ndibular joint disorder 76806339 Active 2024 NATALIA Cross [address], [address], [place], [address] , [place] [facility] 5 11:29:46 Pain due to varicose veins of lower extremity 797088311 Active [address], [place], [address] , [place] [facility] 5 14:33:35 Candidias is of [facility] 54519991 Active 2024 NATALIA Cross [address], [address], [place], [address] , [place] [facility] 5 14:38:24 Acute otitis media 1502793 Active 2024 NATALIA Cross [address], [address], [place], [address] , [place] [facility] 5 12:18:42 Acute otitis media 7533957 Active 2024 NATALIA Cross [address], [address], [place], [address] , [place] [facility] 5 12:18:56 Colitis 66075232 Active [address], [place], [address] , [facility] [place] [facility] 5 15:34:50 Amnesia 30179832 Active [address], [place], [address] , [facility] [place] [facility] 5 15:01:59 Chronic primary low back pain Active 2024 NATALIA Cross [address], [address], [place], [address] , [facility] [place] [facility] 5 12:02:50 Obstructi ve sleep apnea syndrome 21943906 Active 2024 NATALIA Cross [address], [address], [place], [address] , [place] [facility] 5 13:00:05 Problem Notes None recorded. 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 Procedure Notes None recorded. Medical Equipment None Reported. Allergies Allergen ID Allergen Name Allergen Category Reaction Reaction Severity Criticality Documentation Date Start Date Code Code System Note Provider Name and Address Organization Details Recorded Time 5620 Product containin g 3-hydroxy -3-methyl glutaryl- coenzyme A reductase inhibitor (product) medicatio n myalgias (muscle pain) Not available Not available 10/18/2022 [id number] [id number] SNOMED Not Available [facility] 03:16:01 71017 pseudoeph edrine Not available Not available Not available Not available 07/06/20252010 8896 RxNorm unrec ogniz ed react ion (text : Unkno wn, code: [id number]) (from [facility]) Not Available [facility] - External Data Service - prod 5 19:03:56 Medications Name Sig Start Date Stop Date Status Note LastModified by Organization Details LastModified Time quetiapine 25 mg tablet TK 1 T PO QHS 10/09 completed Not Available Not Available Not Available fluoxetine 40 mg capsule TAKE ONE CAPSULE BY MOUTH DAILY 04/17 completed Not Available Not Available Not Available cyclobenzap rine 10 mg tablet TAKE 1 TABLET BY MOUTH THREE TIMES DAILY NEEDED FOR MUSCLE SPASM 11/22 completed Not Available Not Available Not Available amoxicillin 500 mg capsule TK 1 C PO Q 8 H FOR 10 DAYS 04/17 completed Not Available Not Available Not Available metformin 500 mg tablet active Not Available Not Available Not Available promethazin e-DM 6.25 mg-15 mg/5 mL oral syrup 09/30 completed Not Available Not Available Not Available clonidine HCl 0.1 mg tablet TAKE 1 TABLET BY MOUTH EVERY DAY NEEDED 03/10 completed Not Available Not Available Not Available prednisone 10 mg tablet 12/29 completed Not Available Not Available Not Available oxybutynin chloride ER 15 mg tablet,exte nded release 24 hr TAKE 1 TABLET BY MOUTH DAILY 09/19 completed Not Available Not Available Not Available ipratropium 0.5 mg-albutero l 3 mg (2.5 mg base)/3 mL nebulizatio n soln Inhale 3 mL 4 times a day by nebulizat ion route. 11/07 completed Not Available Not Available Not Available albuterol sulfate 2.5 mg/3 mL (0.083 %) solution for nebulizatio n USE 1 VIAL IN NEBULIZER THREE TIMES DAILY NEEDED 11/07 completed Not Available Not Available Not Available divalproex 250 mg tablet,lamine yed release TK 1 T PO BID UTD FOR 30 DAYS. DISCONTIN UE LAMOTRIGI NE active Not Available Not Available No t Available polyethylen e glycol 3350 17 gram oral powder packet DISSOLVE 17 GRAMS IN LIQUID AND TAKE BY MOUTH TWICE DAILY FOR 5 DAYS active Not Available Not Available No t Available triamcinolo ne acetonide 0.5 % topical cream JUAN RAMON A THIN LAYER AA ON LEFT ARM BID 02/02 completed Not Available Not Available Not Available oxybutynin chloride ER 10 mg tablet,exte nded release 24 hr Take 2 tablets every day by oral route as directed for 90 days. 2024 active Not Available Not Available Not Avai lable azithromyci n 250 mg tablet TAKE 2 TABLETS (500 MG) BY ORAL ROUTE ONCE DAILY FOR 1 DAY THEN 1 TABLET (250 MG) BY ORAL ROUTE ONCE DAILY FOR 4 DAYS 03/02 completed Not Available Not Available Not Available ibuprofen 800 mg tablet TAKE 1 TABLET BY MOUTH THREE TIMES DAILY NEEDED FOR PAIN active Not Available Not Available No t Available tizanidine 4 mg tablet TAKE 1 TABLET BY MOUTH EVERY 8 HOURS NEEDED FOR MUSCLE SPASTICIT Y. active Not Available Not Available No t Available fluconazole 150 mg tablet TAKE 1 TABLET BY MOUTH ONE TIME FOR 1 DAY 02/04 completed Not Available Not Available Not Available benzonatate 200 mg capsule TK 1 C PO Q 8 H FOR 7 DAYS PRN active Not Available Not Available No t Available metoprolol succinate ER 50 mg tablet,exte nded release 24 hr TAKE 1 TABLET BY MOUTH EVERY DAY 11/22 completed Not Available Not Available Not Available hydrocodone 5 mg-acetamin ophen 325 mg tablet Take 1 tablet twice a day by oral route as needed for 30 days. 02/04 completed Not Available Not Available Not Available ondansetron HCl 8 mg tablet TAKE 1 TABLET BY MOUTH TWICE DAILY FOR 7 DAYS active Not Available Not Available No t Available ondansetron HCl 4 mg tablet 06/13 completed Not Available Not Available Not Available prednisone 20 mg tablet TAKE 2 TABLETS BY MOUTH DAILY FOR 5 DAYS 03/03 completed Not Available Not Available Not Available metronidazo le 500 mg tablet TAKE 1 TABLET BY MOUTH THREE TIMES DAILY FOR 10 DAYS DIRECTED 02/04 completed Not Available Not Available Not Available phentermine 37.5 mg tablet TAKE 1 TABLET BY MOUTH EVERY DAY 08/29 completed Not Available Not Available Not Available acetaminoph en 300 mg-codeine 30 mg tablet 10/09 completed Not Available Not Available Not Available ciprofloxac in 500 mg tablet TAKE 1 TABLET BY MOUTH TWICE DAILY FOR 10 DAYS DIRECTED 02/04 completed Not Available Not Available Not Available sulfamethox azole 800 mg-trimetho prim 160 mg tablet TAKE 1 TABLET BY MOUTH EVERY 12 HOURS FOR 10 DAYS 05/20 completed Not Available Not Available Not Available tramadol 50 mg tablet TK 1 T PO BID PRN P active Not Available Not Available No t Available quetiapine 100 mg tablet 04/17 completed Not Available Not Available Not Available triamcinolo ne acetonide 0.1 % topical cream APPLY TOPICALLY TO THE AFFECTED AREA TWICE DAILY FOR 7 DAYS 03/03 completed Not Available Not Available Not Available ondansetron 8 mg disintegrat ing tablet DISSOLVE 1 TABLET ON THE TONGUE EVERY 8 HOURS NEEDED 11/07 completed Not Available Not Available Not Available lamotrigine 25 mg tablet active Not Available Not Available Not Available prednisone 10 mg tablets in a dose pack Take 1 tab by mouth, 3 times a day for 3 daysTake 1 tab by mouth 2 times a day for 2 daysTake 1 tab by mouth once a day for 1 day 12/29 completed Not Available Not Available Not Available meloxicam 7.5 mg tablet TAKE 1 TABLET BY MOUTH TWICE DAILY NEEDED FOR 14 DAYS 09/30 completed Not Available Not Available Not Available oxycodone-a cetaminophe n 5 mg-325 mg tablet TAKE 1 TABLET BY MOUTH EVERY 6 HOURS NEEDED FOR PAIN 11/22 completed Not Available Not Available Not Available alprazolam 0.5 mg tablet TAKE 1 TABLET BY MOUTH THREE TIMES DAILY NEEDED active Not Available Not Available No t Available amoxicillin 875 mg tablet TAKE 1 TABLET BY MOUTH EVERY 12 HOURS FOR 7 DAYS 11/22 completed Not Available Not Available Not Available methocarbam ol 750 mg tablet Take 1 tablet 3 times a day by oral route as needed. active Not Available Not Available No t Available pravastatin 10 mg tablet 1 tab po nightly active Not Available Not Available No t Available dicyclomine 20 mg tablet TAKE 1 TABLET BY MOUTH FOUR TIMES DAILY active Not Available Not Available No t Available Kenalog 10 mg/mL suspension for injection In office injection administe red by the provider 03/10 completed [facility]: 0003- 0494- 20 Not Available Not Available Not Available baclofen 10 mg tablet TAKE 1 TABLET BY MOUTH DAILY NEEDED FOR MUSCLE SPASM 11/22 completed Not Available Not Available Not Available doxycycline monohydrate 100 mg capsule TAKE 1 CAPSULE BY MOUTH TWICE DAILY FOR 7 DAYS 03/03 completed Not Available Not Available Not Available hydrocodone 7.5 mg-acetamin ophen 325 mg tablet Take 1 tablet every 6 hours by oral route as needed for 30 days. 2024 active Not Available Not Available Not Avai lable cephalexin 500 mg capsule TAKE 1 CAPSULE BY MOUTH EVERY 6 HOURS FOR 7 DAYS 04/01 completed Not Available Not Available Not Available oseltamivir 75 mg capsule Take 1 capsule twice a day by oral route for 5 days. active Not Available Not Available No t Available nystatin 100,000 unit/gram topical cream APPLY TO THE AFFECTED AREA(S) BY TOPICAL ROUTE 2 TIMES PER DAY 09/30 completed Not Available Not Available Not Available lidocaine 5 % topical patch APPLY 1 PATCH TOPICALLY TO THE SKIN EVERY 12 HOURS NEEDED active Not Available Not Available No t Available divalproex 125 mg tablet,lamine yed release 04/17 completed Not Available Not Available Not Available oxybutynin chloride ER 5 mg tablet,exte nded release 24 hr TAKE 1 TABLET BY MOUTH EVERY DAY 09/08 completed Not Available Not Available Not Available omeprazole 20 mg capsule,del ayed release TAKE 1 CAPSULE BY MOUTH EVERY DAY NEEDED 2024 active Not Available Not Available Not Avai lable diclofenac sodium 75 mg tablet,lamine yed release TAKE 1 TABLET TWICE DAILY NEEDED 04/18 completed Not Available Not Available Not Available metoprolol succinate ER 25 mg tablet,exte nded release 24 hr Take 1 tablet(s) every day by oral route as directed for 90 days. 2024 active Not Available Not Available Not Avai lable ibuprofen 600 mg tablet 04/17 completed Not Available Not Available Not Available methylpredn isolone 4 mg tablets in a dose pack FOLLOW PACKAGE DIRECTION S 09/19 completed Not Available Not Available Not Available albuterol sulfate HFA 90 mcg/actuati on aerosol inhaler INHALE 2 PUFFS BY MOUTH EVERY 4 HOURS FOR 15 DAYS NEEDED 09/30 completed Not Available Not Available Not Available Vitamin D2 1,250 mcg (50,000 unit) capsule TAKE 1 CAPSULE BY MOUTH EVERY 7 DAYS. THIS IS A LARGE DOSE TO BE TAKEN ONLY ONCE A WEEK AND NOT MORE FREQUENTL Y. TAKE ONLY ADVISED. 02/04 completed Not Available Not Available Not Available ketoconazol e 2 % topical cream APPLY TO THE AFFECTED AREA DAILY FOR 2 WEEKS UNTIL GONE 01/24 completed Not Available Not Available Not Available oxybutynin chloride 5 mg tablet Take 1 tablet twice a day by oral route. 03/10 completed Not Available Not Available Not Available losartan 100 mg tablet TAKE 1 TABLET BY MOUTH DAILY 2024 active Not Available Not Available Not Avai lable fluticasone propionate 50 mcg/actuati on nasal spray,suspe nsion SHAKE LIQUID AND USE 2 SPRAYS IN EACH NOSTRIL EVERY DAY FOR 15 DAYS DIRECTED active Not Available Not Available No t Available clotrimazol e 1 % topical cream APPLY TO THE AFFECTED AND SURROUNDI NG AREAS OF SKIN BY TOPICAL ROUTE 2 TIMES PER DAY IN THE MORNING AND EVENING left arm for rash. 10/09 completed Not Available Not Available Not Available doxycycline hyclate 100 mg tablet Take 1 tablet twice a day by oral route as directed for 10 days. 03/03 completed Not Available Not Available Not Available Microlet Lancet USE TO TEST FASTING GLUCOSE D AND RECORD IN LOG 10/12 completed Not Available Not Available Not Available diazepam 5 mg tablet 10/09 completed Not Available Not Available Not Available amoxicillin 875 mg-potassiu m clavulanate 125 mg tablet TAKE 1 TABLET BY MOUTH TWICE DAILY 02/04 completed Not Available Not Available Not Available amoxicillin 500 mg-potassiu m clavulanate 125 mg tablet TAKE 1 TABLET BY MOUTH EVERY 12 HOURS FOR 10 DAYS 01/20 completed Not Available Not Available Not Available tizanidine 4 mg capsule Take 1 capsule every 6-8 hours by oral route as needed for 15 days. 01/24 completed Not Available Not Available Not Available pregabalin 150 mg capsule Take 1 capsule(s ) every 8 hours by oral route as needed for 30 days. 09/30 completed Not Available Not Available Not Available pregabalin 225 mg capsule Take 1 capsule(s ) twice a day by oral route as directed for 30 days. 2024 active Not Available Not Available Not Avai lable mometasone 0.1 % topical solution APPLY 2 DROPS TOPICALLY TO THE AFFECTED AREA TWICE DAILY NEEDED FOR ITCHY EARS active Not Available Not Available No t Available lidocaine (PF) 10 mg/mL (1 %) injection solution In office injection administe red by the provider 03/10 completed [facility]: 0409- 4276- 17 Not Available Not Available Not Available quetiapine 50 mg tablet TK 1 T PO QD HS FOR 30 DAYS 07/29 completed Not Available Not Available Not Available Golytely 236 gram-22.74 gram-6.74 gram-5.86 gram oral solution DIRECTED 11/07 completed Not Available Not Available Not Available desvenlafax ine succinate ER 50 mg tablet,exte nded release 24 hr TAKE 1 TABLET BY MOUTH EVERY DAY IN THE MORNING 11/22 completed Not Available Not Available Not Available desvenlafax ine succinate ER 100 mg tablet,exte nded release 24 hr TAKE 1 TABLET BY MOUTH EVERY DAY IN THE MORNING FOR DEPRESSIO N OR ANXIETY active Not Available Not Available No t Available diclofenac 1 % topical gel APPLY 2 GRAMS TOPICALLY TO THE AFFECTED AREA FOUR TIMES DAILY active Not Available Not Available No t Available Latuda 40 mg tablet TAKE 1 TABLET BY MOUTH EVERY DAY AT DINNER 10/26 completed Not Available Not Available Not Available OneTouch Verio test strips USE TO CHECK FASTING GLUCOSE DAILY active Not Available Not Available No t Available Myrbetriq 50 mg tablet,exte nded release Take 1 tablet every day by oral route as directed for 30 days. 06/18 completed Not Available Not Available Not Available Invokana 100 mg tablet 1 tab po daily 06/29 completed Not Available Not Available Not Available lurasidone 60 mg tablet TAKE 1 TABLET BY MOUTH EVERY DAY AT DINNER active Not Available Not Available No t Available Farxiga 10 mg tablet Take 1 tablet every day by oral route. 2024 active Not Available Not Available Not Avai lable Farxiga 5 mg tablet TAKE 1 TABLET BY MOUTH EVERY MORNING 03/08 completed Not Available Not Available Not Available Jardiance 10 mg tablet TAKE 1 TABLET BY MOUTH EVERY DAY IN THE MORNING 12/29 completed Not Available Not Available Not Available Vraylar 1.5 mg capsule TK 1 C PO QD IN THE MORNING FOR 30 DAYS 04/17 completed Not Available Not Available Not Available Steglatro 5 mg tablet 1 tab po every morning. 06/25 completed Not Available Not Available Not Available omeprazole 20 mg delayed release,dis integrating tablet Take 1 tablet every day by oral route as needed. 04/18 completed Not Available Not Available Not Available OneTouch Delica Plus Lancet 33 gauge USE TO TEST FASTING GLUCOSE EVERY MORNING active Not Available Not Available No t Available Rybelsus 14 mg tablet TAKE 1 TABLET BY MOUTH DAILY 01/24 completed Not Available Not Available Not Available Rybelsus 7 mg tablet TAKE 1 TABLET BY MOUTH DAILY 03/02 completed Not Available Not Available Not Available Rybelsus 3 mg tablet TAKE 1 TABLET BY MOUTH DAILY. USE FIRST 11/22 completed Not Available Not Available Not Available OneTouch Verio Reflect Meter USE TO TEST GLUCOSE EVERY MORNING DIRECTED active Not Available Not Available No t Available BinaxNOW COVID-19 Ag Self Test kit TEST DIRECTED TODAY 03/31 completed Not Available Not Available Not Available Mounjaro 7.5 mg/0.5 mL subcutaneou s pen injector INJECT 7.5MG SUBCUTANE OUSLY EVERY WEEK 07/22 completed Not Available Not Available Not Available Mounjaro 5 mg/0.5 mL subcutaneou s pen injector Inject 0.5 mL every week by subcutane ous route as directed for 28 days. 03/03 completed Not Available Not Available Not Available Mounjaro 15 mg/0.5 mL subcutaneou s pen injector Inject 15 mg every week by subcutane ous route as directed for 28 days. 2024 active Not Available Not Available Not Avai lable Mounjaro 10 mg/0.5 mL subcutaneou s pen injector Inject 10 mg every week by subcutane ous route as directed for 28 days. 02/04 completed Not Available Not Available Not Available Mounjaro 12.5 mg/0.5 mL subcutaneou s pen injector Inject 12.5 mg every week by subcutane ous route as directed for 28 days. 05/20 completed Not Available Not Available Not Available Mounjaro 2.5 mg/0.5 mL subcutaneou s pen injector ADMINISTE R 2.5 MG UNDER THE SKIN EVERY WEEK DIRECTED 01/24 completed Not Available Not Available Not Available Dexcom G7 Sensor device CHANGE EVERY 10 DAYS FOR GLUCOSE MONITORIN G active Not Available Not Available No t Available Vitals Date Recorded Body height Body mass index (BMI) Body weight Body temperature Heart rate Oxygen saturation Respiratory rate Systolic And Diastolic Provider Name and Address Organization Details Last Updated DateTime 5 170.18 cm 64.4 kg/m2 665249. 46 g 96.9 [degF] 72 /min 98 % 24 /min 112/82 mm[Hg] Dipti Andrade RN [place] - [facility] Mod[facility] 10:16:34 Social History Question Answer Notes LastModified by Organization Details LastModified Time Tobacco Smoking Status Former Smoker Quit 13 years ago Not Available [employer] 10/18/2022 03:02:15 Do You Have An Advance Directive? No MIGRATION.0301 [id number] Information not available 10/18/2022 Is Blood Transfusion Acceptable In An Emergency? Yes Information not available 12/29/2022 What Is Your Level Of Caffeine Consumption? Moderate MIGRATION.0301 [id number] Information not available 10/18/2022 How Much Tobacco Do You Chew? None MIGRATION.0301 322857 Information not available 10/18/2022 What Is Your Code Status? Full Code MIGRATION.030 188734 Information not available 10/18/2022 In The 14 Days Before Symptom Onset, Have You Had Close Contact With A Laboratory-confi rmed COVID-19 While That Case Was Ill? No MIGRATION.030 [id number] Information not available 10/18/2022 In The 14 Days Before Symptom Onset, Have You Had Close Contact With A Person Who Is Under Investigation For COVID-19 While That Person Was Ill? No MIGRATION.0301 659435 Information not available 10/18/2022 What Type Of Diet Are You Following? REGULAR MIGRATION.030 938101 Information not available 10/18/2022 Which Illicit Or Recreational Drugs Have You Used? None MIGRATION.030 223570 Information not available 10/18/2022 What Is The Highest Grade Or Level Of School You Have Completed Or The Highest Degree You Have Received? [id number] MIGRATION.030 724525 Information not available 10/18/2022 Have There Been Any Changes To Your Family Or Social Situation? No MIGRATION.030 677250 Information not available 10/18/2022 What Is The Fluoride Status Of Your Home? Unknown MIGRATION.0301 286468 Information not available 10/18/2022 When Did You Quit Smoking? 11-15yearssincelas tcigarette MIGRATION.030 300845 Information not available 10/18/2022 Do You Use Insect Repellent Routinely? No MIGRATION.030 364252 Information not available 10/18/2022 Where Do You Live? [facility] MIGRATION.0301 876167 Information not available 10/18/2022 Advance Directive- Providers Has Reviewed Directive And Consents To Follow Them (insert Provider Name With Any Objectives In Notes Field) No Information not available 09/19/2024 Presence Of Domestic Violence No Information not available 09/19/2024 Guns Present In The Home? Yes Locked Up Information not available 09/19/2024 Are You Able To Care For Yourself? Yes Information not available 09/19/2024 Are You Blind Or Do Yo Have Difficulty Seeing? No Information not available 09/19/2024 Are You Deaf Or Do You Have Serious Difficulty Hearing? Yes Information not available 09/19/2024 General Stress Level? High Information not available 09/19/2024 Live Alone Of With Others? With Others Information not available 09/19/2024 Do You Have A Medical Power Of Residential Worker? No MIGRATION.0301 102316 Information not available 10/18/2022 What Was The Date Of Your Most Recent Tobacco Screening? 07/22/2024 [email or web address] Information not available 07/22/2024 How Many Children Do You Have? 9 Information not available 09/19/2024 Do You Have Any Pets? Yes MIGRATION.0301 [id number] Information not available 10/18/2022 What Is Your Relationship Status? Single MIGRATION.0301 343301 Information not available 10/18/2022 Do You Use Your Seat Belt Or Car Seat Routinely? Yes MIGRATION.0301 189590 Information not available 10/18/2022 Do You Have Smoke And Carbon Monoxide Detectors In Your Home? Yes MIGRATION.0301 246977 Information not available 10/18/2022 Are You Passively Exposed To Smoke? No MIGRATION.0301 390255 Information not available 10/18/2022 Are There Any Smokers In Your House? No MIGRATION.0301 271638 Information not available 10/18/2022 Do You Participate In Social Media? Yes MIGRATION.0301 592675 Information not available 10/18/2022 Do You Use Sunscreen Routinely? No MIGRATION.0301 220497 Information not available 10/18/2022 Have You Recently Traveled Abroad? No MIGRATION.0301 564416 Information not available 10/18/2022 Are You Currently In School? No MIGRATION.0301 250130 Information not available 10/18/2022 Do You Have Any Dietary Restrictions? No MIGRATION.0301 758559 Information not available 10/18/2022 Sex: Female Functional Status Question Answer Note LastModified by Organizat ion Details LastModified Time Do you use any illicit or recreational drugs? No MIGRATION.484783 4591 Information not available 10/18/2022 Do you or have you ever used any other forms of tobacco or nicotine? No MIGRATION.802824 4498 Information not available 10/18/2022 What is your level of alcohol consumption? None MIGRATION.444892 5993 Information not available 10/18/2022 What is your occupation? Disabled MIGRATION.385912 3225 Information not available 10/18/2022 Do you or have you ever used e-cigarettes or vape? Never used electronic cigarettes MIGRATION.278431 4464 Information not available 10/18/2022 What is your exercise level? None MIGRATION.784990 2111 Information not available 10/18/2022 Mental Status Question Answer Note LastModified by Organization D etails LastModified Time Do you feel stressed (tense, restless, nervous, or anxious, or unable to sleep at night)? [id number] Information not available 01/25/2024 Family History Relationship Description Onset Age of this Age Resolved Age Notes LastModified by Organization Details LastModified Time Unspecified Relation Diabetes mellitus Not available 2023 14:27:34 Unspecified Relation Family history of malignant neoplasm [email or web address] Not available 2024 10:57:17 Unspecified Relation Chronic obstructive pulmonary disease [email or web address] Not available 2024 10:57:17 Unspecified Relation Heart disease Not available 2023 14:27:34 Unspecified Relation Diabetes mellitus Not available 2023 14:27:34 Unspecified Relation Family history of malignant neoplasm [email or web address] Not available 2024 10:57:17 Unspecified Relation Chronic obstructive pulmonary disease [email or web address] Not available 2024 10:57:17 Unspecified Relation Heart disease Not available 2023 14:27:34 Unspecified Relation Hypertensive disorder MIGRATION.139 [id number] Not available 10/18/2022 03:07:24 Unspecified Relation Hypertensive disorder MIGRATION.339 [id number] Not available 10/18/2022 10:41:03 Notes:NO ENT Medical History Condition Response BLINDNESS N RHEUMATIC FEVER N BLADDER PROBLEMS N KIDNEY STONES N MRSA N OTHER # 1 N POLIO N LUNG DISEASE/DISORDER N RADIATION / CHEMOTHERAPY N COPD N Other # 2 N BLOOD DISEASES N SURGERY N EAR OR HEARING PROBLEMS N MUMPS N FEMALE PROBLEMS / INFECTIONS N DEPRESSION (INCLUDING POST ) N BOWEL PROBLEMS N STROKE/TIA N THYROID DISEASE N ULCERS N BENIGN PROSTATIC HYPERPLASIA N MEASLES N CERVICALGIA N TB SKIN TEST N MYOCARDIAL INFARCTION N PARAPELGIA N OBESITY Y GERD/NAUSEA Y ANEURYSM N URINARY/BLADDER/KIDNEY PROBLEMS N CORONARY ARTERY DISEASE (CAD) N MENIERE'S DISEASE N ADDICTION CONCERNS N ENDOMETRIOSIS N USE OF BLOOD THINNERS N SKIN PROBLEMS N EMPHYSEMA N GASTROINTESTINAL DISORDER N MUSCLE,JOINT OR BONE PROBLEMS N GASTROINTESTINAL BLEEDING N BLOOD CLOTS N ASTHMA N CATARACTS N ERECTILE DYSFUNCTION N GI PROBLEMS N CHF N Low Testosterone N NEUROPATHY N INFERTILITY N AIDS/HIV N FRACTURES N CHEMOTHERAPY / RADIATION N VISION/EYE PROBLEMS N LIVER DISEASE N MALE HYPOGONADISM N HYPERTENSION Y ANXIETY DISORDER N BLOOD TRANSFUSION N ANEMIA/BLOOD DISORDER N CHRONIC EAR INFECTIONS N BRONCHITIS N TUBERCULOSIS N GLAUCOMA N FOOT PROBLEM N DIVERTICULITIS Y SLEEP APNEA Y CHICKENPOX N ALLERGIES/HAYFEVER N INFECTIOUS DISEASE N PROSTATE N HEART ARRHYTHMIA N INSOMNIA Y HIGH CHOLESTEROL / HYPERLIPIDEMIA Y EYE PROBLEMS N HYPERTHYROIDISM N EATING DISORDER N NEUROLOGICAL PROBLEMS N EDEMA N CHRONIC PAIN SYNDROME N HYPOTHYROIDISM N CAROTID BLOCKAGE N CONSTIPATION N BACK / NECK PROBLEMS N HAVE YOU BEEN HOSPITALIZED OR SEEN IN [facility] IN THE PAST YEAR ? N ATHEROSCLEROSIS N BREAST PROBLEMS N DIALYSIS N ECZEMA N FIBROMYALGIA N OSTEOPOROSIS N ARTHRITIS Y NO SIGNIFICANT PAST MEDICAL HISTORY N APPENDICITIS N DIABETES, TYPE Y BAD TEETH N ENT Y HEARTBURN / REFLUX N ADD/ADHD N AUTISM SPECTRUM DISORDER (ASD) N HEPATITIS / LIVER DISEASE N PULMONARY DISEASE N GOUT N SLEEP DISORDER N ALZHEIMER'S DISEASE N PAIN Y DEMENTIA N HERPES N SEIZURES/EPILEPSY N HEADACHES/MIGRAINES N VASCULAR DISEASE N PACEMAKER N DIZZINESS N HEART DISEASE/HEART PROBLEMS N KIDNEY DISEASE N SCARLET FEVER N MULTIPLE SCLEROSIS N DEVELOPMENTAL OR BEHAVIORAL DISORDERS N MENTAL DISORDER/ILLNESS N CANCER: SPECIFY N CARDIAC ARRHYTHMIA N PNEUMONIA N ATRIAL FIBRILLATION N Gall Stones N PULMONARY EMBOLISM N AUTOIMMUNE DISEASE N Gynecological History Statement/Question Response Flow Moderate Date of LMP 01/24/2023 Duration of Flow (days) 4 Age at Menarche 12 Most Recent Mammogram Breast Problems none If Post Menopausal, Age at Menopause 53 Date of Last Colonoscopy Frequency of Cycle (Q days) Most Recent Bone Density Sexually Active? N Menses Monthly N Discharge none Obstetrics History GPAL:G 1 P 1 0 0 1 Type Value Full Term 1 Living 1 Total 1 Immunizations Vaccine Type Date Status Note Provider Nam e and Address Organization Details Recorded Time Influenza, split virus, quadrivalent, PF 07/21/2022 completed Not Available [facility] 4 19:47:48 Influenza, split virus, quadrivalent, PF 06/17/2020 completed Not Available [facility] 4 19:47:48 Influenza, split virus, quadrivalent, PF 05/30/2021 completed Not Available [facility] 4 19:47:48 Influenza, split virus, quadrivalent, PF 06/24/2019 completed Not Available [facility] 4 19:47:48 Past Encounters Encounter ID Performer Location Encounter Start Date Encounter Closed Date Diagnosis/Indication Diagnosis SNOMED-CT Code Diagnosis ICD10 Code Diagnosis IMO Codes Diagnosis Note [id number] Rudolph Quiroz MD S_G [address] [address] 05/20/2025 10:03:37 05/20/2025 11:07:00 Spinal stenosis of lumbar region 61459252 M48.061 Imaging many years ago, per pt spinal stenosis, herniated discsUnabl e to fit in CT machineReq uiring motorized scooter or mobility chair Long-term current use of drug therapy 664584999 Z79.899 [id number] Last dose of hydrocodon e Sunday, alprazolam many weeks ago Health Concerns Section Related Observation LastModified by Organization Detai ls LastModified Time None Recorded Concern Status LastModified by Organization Details LastModified Time None Recorded Payers Encounter Date Sequence Insurance Name Policy Number Policy [place] Covered Member ID [place] Member ID Guarantor Name 05/20/2025 1 [facility] (MEDICARE REPLACEMENT/ ADVANTAGE - HMO) [id number] [facility] [id number] Shira FlorezBreannaIsaacs Notes Date Note Type Note Provider Name and Address Organization Details Recorded Time 05/20/2025 text/html Shira Sandhu is a 54 year old female patient here today for concerns of a lump She had a lump behind her left earThis has now resolved. She has no other concerns. She is still taking Hydrocodone 7.5-325 mg PRN. She has taken 120 tabs over the last 4 months. 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, 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 [address] [facility], [facility] [address], [place], [address], [place] - [facility] 05/20/2025 11:04:12 OBGyn Episode No OBEpisode recorded.
--- OUTSIDE RECORDS SUMMARY | 2025-07-12 10:31 | XMS_ITS | Clinical Summary ---
Author Organization [facility] Address [address] [place] [address] Phone Care Team Providers Care Stitch Cleaner Name Role Phone Eliz Haywood KATHERIN, DARREN Primary Care Provider [phone] Allergies Active Allergy Reactions Criticality Noted Date [...] st Contact Info) Description 09/21/2025 9:30 AM PRISON TEACHER Office Visit [facility] - Neurology - [place] [address] [place] [address] Yehuda Ortega MD [address] [place] [address] Health Maintenance Due Date Last Done Comments Hepatitis C Virus (HCV) Screening 1972 Mammogram 1972 TdaP Immunization 1972 Hepatitis B Immunization (1 of 3 - 19+ 3-dose series) 10/26/1991 Pap Smear 1993 Cervical Cancer Screening (CCS) 2002 HPV/Cotest 2002 Cologuard 2017 Colonoscopy 2017 Colorectal Cancer Screening 2017 Immunochemical Fecal Occult Blood 2017 Pneumococcal Immunization (50+ years) (1 of 1 - PCV) 2022 Respiratory Syncytial Virus (RSV) Immunization (Adult) (1 - Risk 50-74 years 1-dose series) 2022 Zoster Immunization (1 of 2) 2022 Influenza Immunization (#1) 04/20/202505/20, 06/17/2020, 06/24/2019, Additional history exists SARS-COV-2 Immunization ( - 2024- season) 2025 Human Papillomavirus (HPV) Immunization Aged Out No longer eligible based on patient's age to complete this topic Meningococcal Immunization (ACWY) Aged Out No longer eligible based on patient's age to complete this topic Rotavirus Immunization Aged Out No lo nger eligible based on patient's age to complete this topic Insurance MEDICAID [facility] Care Teams Stitch Cleaner Relationship Specialty Start Date End Date Eliz Haywood APRN, SANDING MACHINE BUFFER [address] [place] [address] [id number] PCP - General Advanced Practice Nurse 03/04/25
--- OUTSIDE RECORDS SUMMARY | 2025-07-12 10:31 | XMS_ITS | Patient Health Record ---
Author Organization [facility] Address [address] [address] Care Team Providers Care Crm Analyst Name Role Phone Brayden Rainey Primary Care Provider Reason For Referral No Information Plan Of Treatment No Information Insurance Providers Payer Name Payer Address Payer Phone Subscriber Number Group Number Insured Name Patient Relationship to Insured Coverage Start Date Coverage End Date MEDICARE PART AB [address] [facility] [place] [address] [id number] JAVIER MAXWELL Self - patient is the insured [place] [address] [address] [place], [place] [id number] JAVIER MAXWELL Self - patient is the insured
--- OUTSIDE RECORDS SUMMARY | 2025-07-12 10:31 | XMS_ITS | Clinical Summary ---
Author Organization [facility] Address [address] [place] [address] Care Team Providers Care Dining Car Conductor Name Role Phone Chastity Eliz Primary Care Provider [phone] Source Comments [facility],non-owned Affiliates and Associated Physician Practices is amultiple site organization consisting of ambulatory clinics and hospital sitesin [place], [place], [place] and [place]. This disclosure is being madepursuant to the Care Everywhere program and may not contain all information available regarding this patient. Last updated 18.[facility] Allergies Active Allergy Reactions Criticality Noted Date [...] Active vitamin D, ergocalciferol, (Drisdol) 1.25 MG (74451 UT) capsuleIndicati ons:Vitamin D Deficiency Take 1 [...] Years Used Date Smoking Tobacco: Former Cigarettes 0 Q uit: 2006 Smokeless Tobacco: Never Tobacco Cessation:Counseling Given: Not Answered Alcohol Use Standard Drinks/Week Comments Not Currently 0 (1 standard drink = 0.6 oz pur e alcohol) PHQ-2 Answer Date Recorded Patient Health Questionnaire-2 Score 6 06/16/2024 Comments No Sex and Gender Information Value Date Recorded Sex Assigned at Not on file Legal Sex Female 10:10 AM VAULT CLERK Gender Identity Not on file Sexual Orientation [...] 189.1 kg (417 lb) 08/14/2024 10:00 AM VAULT CLERK Height 165.1 cm (5' 5) 08/14/2024 10:00 AM VAULT CLERK Body Mass Index 69.39 08/14/2024 10:00 AM VAULT CLERK Plan of Treatment Health Maintenance Due Date [...] 50+ (1 of 2 - PCV) 10/26/1991 Cervical Cancer Screening 1993 PAP SMEAR 1993 PAP with HPV 2002 ZOSTER VACCINE (1 of 2) 2022 DIABETES RETINOPATHY SCREENING 10/23/2023 DIABETES-FOOT EXAM WITH MONOFILAMENT 10/23/2023 DIABETES-HGB A1C 04/24/2024 10/23/2023, 01/18/2022 DEPRESSION SCREENING 08/20/2024 10/23/2023 DIABETES - URINE PROTEIN SCREENING 08/20/2024 DIABETES-SERUM CREATININE 10/22/2024 10/23/2023, 08/2021 COVID-19 VACCINE ( season) 2025 INFLUENZA VACCINE (#1) 2025 2, 05/30/2021, 06/17/2020, [...] COMPREHENSIVE METABOLIC PANEL Routine 10/23/2023 2:57 PM VAULT CLERK Pre-op testing Morbid obesity HEMOGLOBIN A1C Routine 10/23/2023 2:57 PM VAULT CLERK Pre-op testing Morbid obesity from Last 3 Months or Most Recently Relevant to Health Maintenance Results * (ABNORMAL) HEMOGLOBIN A1C (10/23/2023 2:57 PM VAULT CLERK) Hemoglobin A1c 7.4(H) 4.2 - 5.6 % 10/23/2023 3:33 PM VAULT CLERK [facility] Estimated Average Glucose 166 mg/dL 10/23/2023 3:33 PM VAULT CLERK [facility] Blood BLOOD SPECIMEN / Unknown Venipuncture / Unknown 10/23/2023 2:57 PM VAULT CLERK 10/23/2023 3:14 PM VAULT CLERK Narrative [facility] - 10/23/2023 3:33 PM VAULT CLERK HbA1c Interpretation: Normal: < 5.7% Pre-diabetes: 5.7-6.4% [...] Standardization Program (NGSP) certified method. Naz Barbour FEEDER LOADER-FOREST EXAMINER LAB - CHEMISTRY ORDERABLES F inal Result [facility] [address] [place] [address], [facility] * (ABNORMAL) COMPREHENSIVE METABOLIC PANEL (10/23/2023 2:57 PM VAULT CLERK) Glucose 182(H) 70 - 125 mg/dL 10/23/2023 3:41 PM VAULT CLERK [facility] Sodium 139 136 - 145 mmol/L 10/23/2023 3:41 PM VAULT CLERK [facility] Potassium 4.0 3.4 - 5.1 mmol/L 10/23/2023 3:41 PM VAULT CLERK [facility] Chloride 102 98 - 107 mmol/L 10/23/2023 3:41 PM VAULT CLERK [facility] CO2 29 22 - 29 mmol/L 10/23/2023 3:41 PM VAULT CLERK [facility] Calcium 9.33 8.4 - 10.2 mg/dL 10/23/2023 3:41 PM VAULT CLERK [facility] Anion Gap 8 6 - 16 mmol/L 10/23/2023 3:41 PM VAULT CLERK [facility] BUN 12.6 9.8 - 20.1 mg/dL 10/23/2023 3:41 PM VAULT CLERK [facility] Creatinine 0.69 0.57 - 1.11 mg/dL 10/23/2023 3:41 PM VAULT CLERK [facility] Alkaline Phosphatase 123 40 - 150 U/L 10/23/2023 3:41 PM VAULT CLERK [facility] ALT 36 <=55 U/L 10/23/2023 3:41 PM VAULT CLERK [facility] AST 20 5 - 34 U/L 10/23/2023 3:41 PM VAULT CLERK [facility] Protein Total 7.4 6.4 - 8.3 gm/dL 10/23/2023 3:41 PM VAULT CLERK [facility] Albumin 3.7 3.4 - 4.8 gm/dL 10/23/2023 3:41 PM VAULT CLERK [facility] Globulin Total 3.7 2.6 - 4.0 gm/dL 10/23/2023 3:41 PM VAULT CLERK [facility] Albumin/Globulin Ratio 1.0 0.9 - 1.6 10/23/2023 3:41 PM VAULT CLERK [facility] Bilirubin Total 0.3 0.2 - 1.2 mg/dL 10/23/2023 3:41 PM VAULT CLERK [facility] eGFR >90 >90 mL/min/1.7 3m2 10/23/2023 3:41 PM VAULT CLERK [facility] Comment:The GFR result was c alculated using the updated CKD-EPI Creatinine Equation (2020). Blood BLOOD SPECIMEN / Unknown Venipuncture / Unknown 10/23/2023 2:57 PM VAULT CLERK 10/23/2023 3:14 PM VAULT CLERK Naz Barbour FEEDER LOADER-FOREST EXAMINER LAB - CHEMISTRY ORDERABLES F inal Result [facility] [address] [place] [address], [facility] from Last 3 Months or Most Recently Relevant to Health Maintenance Insurance Care Teams Dining Car Conductor Relationship Specialty Start Date End Date Eliz Haywood [address] [place] [id number] PCP - General 12/18/23 Dipti Viveros [address] [place] [address] Primary Care Provider 10/30/23
--- OUTSIDE RECORDS SUMMARY | 2025-07-12 10:31 | XMS_ITS | Encounter Summary ---
Author Organization [facility] Address [address] [place] [address] Phone Care Team Providers Care Editorial Intern Name Role Phone Dipti Viveros APRN, DARREN Primary Care Pro vider Eliz Haywood APRN, CNP Primary Care Provider [phone] Reason for Referral * Radiology Services (Routine) - Closed Specialty Diagnoses / Procedures Referred By Loida t Referred To Contact Radiology Diagnoses Bilateral low back pain with bilateral sciatica, unspecified chronicity Procedures MRI L-SPINE W/O CONTRAST Dipti Viveros APRN, CNP [address] [place] [address] Phone: tel: fax: Referral ID Status Reason Start Date Expiration Date Visits Re quested Visits Authorized [id number] Closed 04/06/2023 1 1 Encounter Details Date Type Department Care Team (Late st Contact Info) Description 04/06/2023 Transcribe Orders [facility] Scheduling [address] [place] [address] Dipti Viveros APRN, CNP [address] [place] [address] Bilateral low back pain with [...] st Contact Info) Description 09/21/2025 9:30 AM ECHOCARDIOGRAPHY RADIOLOGY TECHNOLOGIST Office Visit [facility] - Neurology [facility] [address] [place] [address] Yehuda Ortega MD [address] [place] [address] Scheduled Orders Name Type Priority Associated Diagnoses Orde r Schedule MRI L-SPINE W/O CONTRAST Imaging Routine Bilateral low back pain with bilateral sciatica, unspecified chronicity Expected: 04/06/2023, Expires: 04/06/2024 documented as of this encounter Visit Diagnoses Diagnosis Bilateral low back pain with bilateral sciatica, unspecified chronicity- Primary documented in this encounter Care Teams Editorial Intern Relationship Specialty Start Date End Date Dipti Viveros APRN, REPAIRER SCREEN CRUSHER [address] [place] [address] PCP - General Certified Nurse Practitioner 04/06/23 03/03/25 Eliz Haywood APRN, REPAIRER SCREEN CRUSHER [address] [place] [address] PCP - General Advanced Practice Nurse 03/04/25 documented as of this encounter
--- OUTSIDE RECORDS SUMMARY | 2025-07-12 10:32 | XMS_ITS | Continuity of Care Document ---
Author Organization [place] [facility], [facility] [place] Address [address] [place] [address] Care Team Providers Care Gold Leaf Roller Name Role Phone REMINGTON MELISSA Primary Care Provider [phone] Assessment No assessment recorded. Plan of Treatment Reminders Order Date Submit Date Provider Last Modified By Organization Details Last Modified Time Details Appointments None recorded. Lab None recorded. Referral pain management referral - Please call patient to schedule an appointmen t. Thank you. 2024 025 ESSIE Norris MD, [address], [address], 5 13:20:38 Procedures None recorded. Surgeries None recorded. Imaging MRI, lumbar spine, w/o contrast - Please call patient to schedule. 2024 025 [email or web address] [facility] Scheduling, [address] [place] [address], [address], 5 15:55:43 Medication Orders None recorded. Patient TargetsNo targets recorded. Patient InstructionsNo instructions recorded. Reason for Referral Pain Management Referral for Lumbago with sciatica Please call patient to schedule an appointment. Thank you. Referring Physician: 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 [facility], Encounter Date: 05/29/2025 Problems Name Problem SNOMED Code Status Onset Date Resolution Date Notes Provider Name and Address Organization Details Recorded Time Computed tomograph y result abnormal 153385645 Active Not Available [employer] 4 19:47:47 Depressiv e disorder 29422377 Active 2018 Not Available [facility] 4 19:47:47 Body mass index 40+ - severely obese 932175194 Active 2018 Not Available [facility] 4 19:47:47 Essential hypertens ion 03383003 Active 2018 Not Available [facility] 4 19:47:47 Spinal stenosis 93239709 Active 2018 Not Available [facility] 4 19:47:47 Palpitati ons 63020906 Active 2018 Not Available [facility] 4 19:47:47 Hyperglyc emia 23026194 Completed 201806/25/2019 Not Available [facility] 3 03:11:02 Diverticu litis 458155732 Active 2019 Not Available [facility] 4 19:47:47 Dysmenorr hea 741983286 Active 2019 Not Available [facility] 4 19:47:47 Cyst of skin 280988897 Active 2019 Not Available [facility] 4 19:47:47 Seasonal allergic rhinitis 492857565 Active 2019 Not Available [facility] 4 19:47:47 Dissociat delmer disorder 82416977 Active 2020 Not Available [facility] 4 19:47:47 Sleep apnea 80145550 Active 2020 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, NATALIA [address] [facility], [facility] [address], [place], [address] , [facility] [email or web address] GROUP [facility] 5 11:02:03 Morbid obesity 563004264 Active 2020 Not Available [facility] 4 19:47:47 Gastroeso phageal reflux disease without esophagit is 774783798 Active 2020 Not Available [facility] 4 19:47:47 Chronic low back pain 933378403 Active 2020 Not Available [facility] 4 19:47:47 Type 2 diabetes mellitus without complicat ion 589521579 Active 2020 Not Available [facility] 4 19:47:47 Osteoarth ritis 553119571 Active 2020 Not Available [facility] 4 19:47:47 CT of abdomen abnormal 53668632858 162093 Active 2021 Not Available [facility] 4 19:47:47 Tight chest 75929685 Active 2021 Not Available [facility] 4 19:47:47 Uncontrol led type 2 diabetes mellitus 454136046 Active 2021 Not Available [facility] 4 19:47:47 Obese 392352988 Active 2022 Not Available [facility] 4 19:47:47 Pain of right hand 93650286200 9109 Active 2022 Not Available [facility] 4 19:47:47 Tendiniti s of extensor pollicis longus 611491129 Active 2022 Not Available [facility] 4 19:47:47 Tenosynov itis of right radial styloid 09273939922 410332 Active 2022 Not Available [facility] 4 19:47:47 Flank pain 687044190 Active 2022 Not Available [facility] 4 19:47:47 Diverticu lar disease 183438385 Active 2022 Not Available [facility] 4 19:47:47 Fatigue 21603097 Active 2022 Not Available [facility] 4 19:47:47 Gastroeso phageal reflux disease 763842573 Active 2022 Not Available [facility] 4 19:47:47 Pain of multiple joints 61580146 Active 2022 Not Available [facility] 4 19:47:47 Low back strain 054063208 Active 2022 Not Available [facility] 4 19:47:47 Low back pain 496673499 Active 2022 Not Available [facility] 4 19:47:47 Lumbago with sciatica 612177123 Active 2022 NAT[address] Cross [address], [place], [address] , [facility] [employer] [facility] [email or web address] GROUP [facility] 5 11:03:21 Chest pain 91929290 Active 2022 Not Available [facility] 4 19:47:47 Spinal stenosis of lumbar region 53078171 Active 2022 Not Available [facility] 4 19:47:47 Abnormal gait due to impairmen t of balance 264676242 Active 2022 Not Available [facility] 4 19:47:47 Tinea corporis 65506627 Active 2022 Not Available [facility] 4 19:47:47 Hearing loss 40029895 Active 2022 Not Available [facility] 4 19:47:47 Overactiv e urinary bladder 404938669 Active 2023 Not Available [facility] 4 19:47:47 Nausea 746309166 Active 2023 Not Available [facility] 4 19:47:47 Loss of scalp hair 583270053 Active 2023 [address] Cross [address], [address], [place], [address] , [employer] [facility] [employer] [facility] 4 10:08:20 Neuropath y 278154365 Active 2023 NAT[address] Cross [address], [address], [place], [address] , [employer] [facility] [email or web address] [facility] 4 17:21:58 Peritonsi llar abscess 37864525 Active 2023 [address] Cross [address], [address], [place], [address] , [facility] [employer] [facility] [email or web address] [facility] 4 11:17:21 Abscess of tonsil 85511521 Active 2023 NATALIA Cross [address], [address], [place], [address] , [facility] 4 11:26:24 Celluliti s of right upper limb 78713367925 029237 Active 2023 NATAL[address] Cross [address], [address], [place], [address] , [place] - [facility] 4 10:33:38 Amygdalol ith 4701711 Active 2023 NAT[address] Cross [address], [place], [address] , [facility] - [facility] 4 10:39:05 Acute right otitis media 969526338 Active 2023 NATALIA Cross [address], [place], [address] , [facility] - [facility] 4 14:42:18 Wheezing symptom 147264537 Active [address], [place], [address] , [employer] [facility] 4 14:43:04 Congestio n of nasal sinus 10460321 Active [address], [place], [address] , [employer] - [facility] [place] [facility] 4 14:45:41 Weakness of bilateral lower limb Active [address], [place], [address] , [employer] - [facility] 4 10:05:26 Type 2 diabetes mellitus 86069332 Active [address], [place], [address] , [facility] 4 14:08:12 Acute bacterial sinusitis 20045590 Active 2023 Remington Thilker, [employer] [address], [place], [address] , [place] [facility] 4 11:39:43 Temporoma ndibular joint disorder 86443418 Active 2024 NATALIA Cross [address], [place], [address] , [place] [facility] 5 11:29:46 Pain due to varicose veins of lower extremity 028245759 Active [address], [place], [address] , [place] [facility] 5 14:33:35 Candidias is of vagina 13516419 Active [address], [place], [address] , [place] [facility] 5 14:38:24 Acute otitis media 7635805 Active [address], [place], [address] , [place] [facility] 5 12:18:42 Acute otitis media 4047116 Active 2024 NATALIA Cross [address], [place], [address] , [place] [facility] 5 12:18:56 Colitis 47173702 Active 2024 NATALIA Cross [address], [address], [place], [address] , [place] [facility] 5 15:34:50 Amnesia 05944083 Active 2024 NATAL[address] Cross [address], [place], [address] , [place] [facility] 5 15:01:59 Chronic primary low back pain Active [address], [place], [address] , [employer] 12:02:50 Obstructi ve sleep apnea syndrome 55686181 Active 2024 NATALIA Cross [address] [facility], [place], [address] , [employer] 13:00:05 Problem Notes None recorded. Procedures Surgical History Date Name Laterality Status Provider Name and Address Organization Details Recorded Time 07/22/20 24 Medicare Wellness CPT Code, subsequent completed NATALIA Cross [address] [facility], [place], [address], [employer] 07/22/2024 11:46:50 Cholecystectomy completed Not Available [facility] 10/18/2022 03:07:20 excision of bunion completed Not Available [facility] 10/18/2022 03:07:20 Ear Tubes completed [facility] [employer] 04/02/2024 09:48:49 Imaging Results None recorded. Procedure Notes None recorded. Medical Equipment None Reported. Allergies Allergen ID Allergen Name Allergen Category Reaction Reaction Severity Criticality Documentation Date Start Date Code Code System Note Provider Name and Address Organization Details Recorded Time 5620 Product containin g 3-hydroxy -3-methyl glutaryl- coenzyme A reductase inhibitor (product) medicatio n myalgias (muscle pain) Not available Not available 10/18/2022 21101 009 SNOMED Not Available [facility] 3 03:16:01 73829 pseudoeph edrine Not available Not available Not available Not available 07/06/20252010 8896 RxNorm unrec ogniz ed react ion (text : Unkno wn, code: 35107 [id number]) (from ext heidi [facility]) Not Available [employer] - External Data Service - prod 5 [...] administe red by the provider 03/10 completed [facility]: 0003- 0494- 20 Not Available Not Available [...] administe red by the provider 03/10 completed [facility]: 0409- 4276- 17 Not Available Not Available [...] (BMI) Body weight Body temperature Heart rate Respiratory rate Pain severity - 0-10 verbal numeric rating [Score] - Reported Oxygen saturation Systolic And Diastolic Provider Name and Address Organization Details Last Updated DateTime 5 170.18 cm 64.1 kg/m2 805426. 68 g 96.8 [degF] 76 /min 24 /min 10 97 % 120/80 mm[Hg] Dipti Andrade RN [place] [facility] [email or web address] [facility] 5 10:34:03 Social History Question Answer Notes LastModified by Organization Details LastModified Time Tobacco Smoking Status Former Smoker Quit 13 years ago Not Available [employer] 10/18/2022 03:02:15 Do You Have An Advance Directive? No MIGRATION.030 045573 Information not available 10/18/2022 Is Blood Transfusion Acceptable In An Emergency? Yes Information not available 12/29/2022 What Is Your Level Of Caffeine Consumption? Moderate MIGRATION.030 128620 Information not available 10/18/2022 How Much Tobacco Do You Chew? None MIGRATION.030 997079 Information not available 10/18/2022 What Is Your Code Status? Full Code MIGRATION.030 [id number] Information not available 10/18/2022 In The 14 Days Before Symptom Onset, Have You Had Close Contact With A Laboratory-confi rmed COVID-19 While That Case Was Ill? No MIGRATION.030 368559 Information not available 10/18/2022 In The 14 Days Before Symptom Onset, Have You Had Close Contact With A Person Who Is Under Investigation For COVID-19 While That Person Was Ill? No MIGRATION.030 315785 Information not available 10/18/2022 What Type Of Diet Are You Following? REGULAR MIGRATION.030 578123 Information not available 10/18/2022 Which Illicit Or Recreational Drugs Have You Used? None MIGRATION.030 857167 Information not available 10/18/2022 What Is The Highest Grade Or Level Of School You Have Completed Or The Highest Degree You Have Received? PF83358-3 MIGRATION.030 142653 Information not available 10/18/2022 Have There Been Any Changes To Your Family Or Social Situation? No MIGRATION.030 943147 Information not available 10/18/2022 What Is The Fluoride Status Of Your Home? Unknown MIGRATION.030 730109 Information not available 10/18/2022 When Did You Quit Smoking? 11-15yearssincelas tcigarette MIGRATION.030 094477 Information not available 10/18/2022 Do You Use Insect Repellent Routinely? No MIGRATION.0301 949939 Information not available 10/18/2022 [facility] You [facility] MIGRATION.0301 935380 Information not available 10/18/2022 Advance Directive- Providers [...] Do You Have A Medical Power Of Automotive Lot Attendant? No MIGRATION.0301 375781 Information not available 10/18/2022 What Was The Date Of Your Most Recent Tobacco Screening? 07/22/2024 [email or web address] Information not available 07/22/2024 How Many Children Do You Have? 9 Information not available 09/19/2024 Do You Have Any Pets? Yes MIGRATION.0301 [id number] Information not available 10/18/2022 What Is Your Relationship Status? Single MIGRATION.0301 557124 Information not available 10/18/2022 Do You Use Your Seat Belt Or Car Seat Routinely? Yes MIGRATION.0301 378570 Information not available 10/18/2022 Do You Have Smoke And Carbon Monoxide Detectors In Your Home? Yes MIGRATION.0301 295318 Information not available 10/18/2022 Are You Passively Exposed To Smoke? No MIGRATION.0301 738834 Information not available 10/18/2022 Are There Any Smokers In Your House? No MIGRATION.0301 556133 Information not available 10/18/2022 Do You Participate In Social Media? Yes MIGRATION.0301 799466 Information not available 10/18/2022 Do You Use Sunscreen Routinely? No MIGRATION.0301 051408 Information not available 10/18/2022 Have You Recently Traveled Abroad? No MIGRATION.0301 657600 Information not available 10/18/2022 Are You Currently In School? No MIGRATION.0301 025106 Information not available 10/18/2022 Do You Have Any Dietary Restrictions? No MIGRATION.0301 612617 Information not available 10/18/2022 Sex: Female Functional Status Question Answer Note LastModified by Organizat ion Details LastModified Time Do you use any illicit or recreational drugs? No MIGRATION.771260 3664 Information not available 10/18/2022 Do you or have you ever used any other forms of tobacco or nicotine? No MIGRATION.644561 8919 Information not available 10/18/2022 What is your level of alcohol consumption? None MIGRATION.972382 7339 Information not available 10/18/2022 What is your occupation? Disabled MIGRATION.514195 6720 Information not available 10/18/2022 Do you or have you ever used e-cigarettes or vape? Never used electronic cigarettes MIGRATION.240543 3088 Information not available 10/18/2022 What is your exercise level? None MIGRATION.944811 5708 Information not available 10/18/2022 Mental Status Question Answer Note LastModified by Organization D etails LastModified Time Do you feel stressed (tense, restless, nervous, or anxious, or unable to sleep at night)? [id number] Information not available 01/25/2024 Family History Relationship [...] available 2023 14:27:34 Unspecified Relation Hypertensive disorder MIGRATION.599 [id number] Not available 10/18/2022 03:07:24 Unspecified Relation Hypertensive disorder MIGRATION.759 8467045 Not available 10/18/2022 10:41:03 Notes:NO ENT Medical History Condition Response BLINDNESS N RHEUMATIC FEVER N KIDNEY STONES N BLADDER PROBLEMS N MRSA N OTHER # 1 N [...] HAVE YOU BEEN HOSPITALIZED OR SEEN IN [facility] IN THE PAST YEAR ? N [...] virus, quadrivalent, PF 07/21/2022 completed Not Available [facility] 4 19:47:48 Influenza, split virus, quadrivalent, PF 06/17/2020 completed Not Available [facility] 4 19:47:48 Influenza, split virus, quadrivalent, PF 05/30/2021 completed Not Available [facility] 4 19:47:48 Influenza, split virus, quadrivalent, PF 06/24/2019 completed Not Available [facility] 4 19:47:48 Past Encounters Encounter ID Performer Location Encounter Start Date Encounter Closed Date Diagnosis/Indication Diagnosis SNOMED-CT Code Diagnosis ICD10 Code Diagnosis IMO Codes Diagnosis Note [id number] Rudolph Quiroz MD [address] [address] 05/20/2025 10:03:37 05/20/2025 11:07:00 Spinal stenosis of lumbar region 18835533 M48.061 Imaging many years ago, per pt spinal stenosis, herniated discsUnabl e to fit in CT machineReq uiring motorized scooter or mobility chair Long-term current use of drug therapy 723715828 Z79.899 29173131 Last dose of hydrocodon e Sunday, alprazolam many weeks ago [id number] Rudolph Quiroz MD [address] [address] 05/29/2025 10:21:35 05/29/2025 11:08:11 Sleep apnea 68556795 G47.30 Well controlled with current CPAP Lumbago with sciatica 20 9266808 M54.40 Severe, has not had imaging due to body habitus. Health Concerns Section Related Observation LastModified by Organization Detai ls LastModified Time None Recorded Concern Status LastModified by Organization Details LastModified Time None Recorded Payers Encounter Date Sequence Insurance Name Policy Number Policy [place] Covered Member ID [place] Member ID Guarantor Name 05/29/2025 1 [facility] (MEDICARE REPLACEMENT/ ADVANTAGE - HMO) [id number] Shira Sandhu Notes Date Note Type Note Provider Name and Address Organization Details Recorded Time 05/29/2025 text/html Shira Sandhu is a 54 year old female patient here today for a 3 month FU She has sleep apnea, she recently got a new CPAP. This is working well. She admits to good quality sleep. She denies snoring, headaches, or night time waking She has concerns with CAMILA leg pain, this is worsening. She states she is afraid to get up and walk and carry her children.She does have chronic back painShe is taking Hydrocodone 7.5 mg PRN, states at most will take once per day. She is taking excedrin and motrin, pregabalin, and tizanidine 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, [employer] [address] [facility], [facility] [address], [place], [address], [facility] [employer] 05/29/2025 11:03:42 OBGyn Episode No OBEpisode recorded.
--- OUTSIDE RECORDS SUMMARY | 2025-07-12 10:32 | XMS_ITS | Data Portability ---
Author Organization [place] - [facility], Main Office Address [address] [place] [address] Care Team Providers Care Jalousie Installer Name Role Phone CRYSTALAlejaSTEVEN REMINGTON Primary Care Provider Assessment No assessment recorded. Plan of Treatment Reminders Order Date Submit Date Provider Last Modified By Organization Details Last Modified Time Details Appointments None recorded. Lab None recorded. Referral pain management referral - Please call patient to schedule an appointmen t. Thank you. 2024 025 ESSIE Norris MD, [address], [address], 13:20:38 neurologis t referral - Please call patient to schedule an appointmen t. Thank you. 2024 025 [email or web address] Yehuda Ortega, [address] [place], [address], 10:38:10 Procedures None recorded. Surgeries None recorded. Imaging MRI, lumbar spine, w/o contrast - Please call patient to schedule. 2024 025 [email or web address] [facility] Scheduling, [address] [place], [address], 5 15:55:43 Medication Orders hydrocodon e 7.5 mg-acetami nophen 325 mg tablet 2024 025 [facility] [address], [address], [address], [place], [place], [id number], 5 11:04:10 lidocaine 5 % topical patch 2024 [facility] #10312, [address], [place], [place], [id number], 5 12:21:12 Mounjaro 15 mg/0.5 mL subcutaneo us pen injector 2024 [facility] [address], [address], [address], [place], [place], [id number], 12:04:45 hydrocodon e 7.5 mg-acetami nophen 325 mg tablet 2024 [facility] [address], [address], [address], [place], [place], [id number], 5 15:10:59 Voltaren Arthritis Pain 1 % topical gel 2024 [facility]08[facility], [address] [facility], [place], [place], [id number], 15:10:11 Patient TargetsNo targets recorded. Patient InstructionsNo instructions recorded. Reason for Referral Neurologist Referral for Amn esia Please call patient to schedule an appointment. Thank you. Referring Physician: [facility], Encounter Date: 02/04/2025 Pain Management Referral for Lumbago with sciatica Please call patient to schedule an appointment. Thank you. Referring Physician: [facility], Encounter Date: 05/29/2025 Results Created Date Observation Date Name Description Value Unit Range Abnormal Flag Note LastModifiedBy Organization Detail LastModifiedTime 03/26/20 25 03/25/2025 CT, abdom en + pelvi s, w/ contr ast No observ ation record ed. [facility] [address], [place], [address], 03/26/2025 14:12:12 Result Notes None recorded. Problems Name Problem SNOMED Code Status Onset Date Resolution Date Notes Provider Name and Address Organization Details Recorded Time Computed tomograph y result abnormal 087863176 Active Not Available [facility] 4 19:47:47 Depressiv e disorder 87755550 Active 2018 Not Available [facility] 4 19:47:47 Body mass index 40+ - severely obese 058027988 Active 2018 Not Available [facility] 4 19:47:47 Essential hypertens ion 32514624 Active 2018 Not Available [facility] 4 19:47:47 Spinal stenosis 05117948 Active 2018 Not Available [facility] 4 19:47:47 Palpitati ons 89657113 Active 2018 Not Available [facility] 4 19:47:47 Hyperglyc emia 22849259 Completed 201806/25/2019 Not Available [facility] 3 03:11:02 Diverticu litis 268405327 Active 2019 Not Available [facility] 4 19:47:47 Dysmenorr hea 560556147 Active 2019 Not Available [facility] 4 19:47:47 Cyst of skin 658401671 Active 2019 Not Available [facility] 4 19:47:47 Seasonal allergic rhinitis 584995910 Active 2019 Not Available [facility] 4 19:47:47 Dissociat delmer disorder 43712908 Active 2020 Not Available [facility] 4 19:47:47 Sleep apnea 59387300 Active 2020 NATALIA Cross [address] [facility], [place], [address] , [facility] [employer] 5 11:02:03 Morbid obesity 552342049 Active 2020 Not Available [facility] 4 19:47:47 Gastroeso phageal reflux disease without esophagit is 525373463 Active 2020 Not Available [facility] 4 19:47:47 Chronic low back pain 244480220 Active 2020 Not Available [facility] 4 19:47:47 Type 2 diabetes mellitus without complicat ion 401447396 Active 2020 Not Available [facility] 4 19:47:47 Osteoarth ritis 937785052 Active 2020 Not Available [facility] 4 19:47:47 CT of abdomen abnormal 29079688732 067710 Active 2021 Not Available [facility] 4 19:47:47 Tight chest 90036297 Active 2021 Not Available [facility] 4 19:47:47 Uncontrol led type 2 diabetes mellitus 969601015 Active 2021 Not Available [facility] 4 19:47:47 Obese 717182107 Active 2022 Not Available [facility] 4 19:47:47 Pain of right hand 53950449698 9109 Active 2022 Not Available [facility] 4 19:47:47 Tendiniti s of extensor pollicis longus 342783481 Active 2022 Not Available [facility] 4 19:47:47 Tenosynov itis of right radial styloid 05671450038 245859 Active 2022 Not Available [facility] 4 19:47:47 Flank pain 442787376 Active 2022 Not Available [facility] 4 19:47:47 Diverticu lar disease 802942406 Active 2022 Not Available [facility] 4 19:47:47 Fatigue 50685371 Active 2022 Not Available [facility] 4 19:47:47 Gastroeso phageal reflux disease 785989434 Active 2022 Not Available [facility] 4 19:47:47 Pain of multiple joints 67199475 Active 2022 Not Available [facility] 4 19:47:47 Low back strain 225908842 Active 2022 Not Available [facility] 4 19:47:47 Low back pain 632855485 Active 2022 Not Available [facility] 4 19:47:47 Lumbago with sciatica 055006445 Active 2022 NATALIA Cross [address], [address], [place], [address] , [employer] [facility] [employer] [facility] 5 11:03:21 Chest pain 49148435 Active 2022 Not Available [facility] 4 19:47:47 Spinal stenosis of lumbar region 95086849 Active 2022 Not Available [facility] 4 19:47:47 Abnormal gait due to impairmen t of balance 785062369 Active 2022 Not Available [facility] 4 19:47:47 Tinea corporis 51493976 Active 2022 Not Available [facility] 4 19:47:47 Hearing loss 07051098 Active 2022 Not Available [facility] 4 19:47:47 Overactiv e urinary bladder 998405457 Active 2023 Not Available [facility] 4 19:47:47 Nausea 809381784 Active 2023 Not Available [facility] 4 19:47:47 Loss of scalp hair 704376474 Active 2023 NATALIA Cross [address], [address], [place], [address] , [employer] 4 10:08:20 Neuropath y 823791429 Active 2023 NATALIA Cross [address], [address], [place], [address] , [employer] [facility] [employer] [facility] 4 17:21:58 Peritonsi llar abscess 68959753 Active 2023 NATALIA Cross [address], [address], [place], [address] , [facility] 4 11:17:21 Abscess of tonsil 04457581 Active 2023 NATALIA Cross [address], [address], [place], [address] , [facility] 4 11:26:24 Celluliti s of right upper limb 26018501551 491831 Active 2023 NATALIA Cross [address], [address], [place], [address] , [facility] 10:33:38 Amygdalol ith 6645932 Active 2023 NATALIA Cross [address], [address], [place], [address] , [facility] 4 10:39:05 Acute right otitis media 108213246 Active 2023 NATALIA Cross [address], [address], [place], [address] , [employer] [facility] 14:42:18 Wheezing symptom 494598283 Active 2023 NATALIA Cross [address], [address], [place], [address] , [facility] 4 14:43:04 Congestio n of nasal sinus 45595766 Active 2023 NATALIA Cross [address], [address], [place], [address] , [facility] 4 14:45:41 Weakness of bilateral lower limb Active 2023 NATALIA Cross [address], [address], [place], [address] , [facility] 4 10:05:26 Type 2 diabetes mellitus 60846830 Active [address], [place], [address] , [place] [facility] 4 14:08:12 Acute bacterial sinusitis 88511038 Active 2023 NATALIA Cross [address], [address], [place], [address] , [place] [facility] 4 11:39:43 Temporoma ndibular joint disorder 15380354 Active 2024 NATALIA Cross [address], [address], [place], [address] , [place] [facility] [place] [facility] 5 11:29:46 Pain due to varicose veins of lower extremity 832875454 Active 2024 NATALIA Cross [address], [address], [place], [address] , [place] [facility] 5 14:33:35 Candidias is of vagina 92093772 Active 2024 NATALIA Cross [address], [address], [place], [address] , [place] [facility] 5 14:38:24 Acute otitis media 0357313 Active 2024 NATALIA Cross [address], [address], [place], [address] , [place] [facility] 5 12:18:42 Acute otitis media 8390357 Active 2024 NATALIA Cross [address], [address], [place], [address] , [place] [facility] 5 12:18:56 Colitis 14740459 Active 2024 NATALIA Cross [address], [address], [place], [address] , [place] [facility] 5 15:34:50 Amnesia 73988462 Active 2024 NATALIA Cross [address], [place], [address] , [facility] 15:01:59 Chronic primary low back pain Active 2024 NATALIA Cross [address], [address], [place], [address] , [facility] 5 12:02:50 Obstructi ve sleep apnea syndrome 71434815 Active 2024 NATALIA Cross [address], [address], [place], [address] , [facility] 13:00:05 Problem Notes None recorded. Procedures Surgical History Date Name Laterality Status Provider Name and Address Organization Details Recorded Time 07/22/20 24 Medicare Wellness CPT Code, subsequent completed NATALIA Cross [address], [address], [place], [address], [facility] 07/22/2024 11:46:50 Cholecystectomy completed Not Available [facility] [place] [facility] 10/18/2022 03:07:20 excision of bunion completed Not Available [facility] 10/18/2022 03:07:20 Ear Tubes completed [facility] 04/02/2024 09:48:49 Imaging Results None recorded. Procedure Notes None recorded. Medical Equipment None Reported. Allergies Allergen ID Allergen Name Allergen Category Reaction Reaction Severity Criticality Documentation Date Start Date Code Code System Note Provider Name and Address Organization Details Recorded Time 5620 Product containin g 3-hydroxy -3-methyl glutaryl- coenzyme A reductase inhibitor (product) medicatio n myalgias (muscle pain) Not available Not available 10/18/2022 83836 009 SNOMED Not Available [facility] 03:16:01 14902 pseudoeph edrine Not available Not available Not available Not available 07/06/20252010 8896 RxNorm unrec ogniz ed react ion (text : Unkno wn, code: [id number]) (from exter n[facility] e) Not Available mckenzie - External Data Service - prod 19:03:56 Medications Name Sig Start Date Stop [...] administe red by the provider 03/10 completed [facility]: 0003- 0494- 20 Not Available Not Available [...] administe red by the provider 03/10 completed [facility]: 0409- 4276- 17 Not Available Not Available [...] height Body mass index (BMI) Body weight Provider Name and Address Organization Details Last Updated DateTime 01/28/2025 170.18 cm 64 kg/m2 178984.49 g Buffy Skinner RN [facility] 01/28/2025 15:28:36 Date Recorded Body height Body mass index (BMI) Body weight Body temperature Heart rate Respiratory rate Oxygen saturation Pain severity - 0-10 verbal numeric rating [Score] - Reported Systolic And Diastolic Provider Name and Address Organization Details Last Updated DateTime 5 170.18 cm 63.2 kg/m2 966118. 13 g 96.8 [degF] 82 /min 20 /min 97 % 5 110/70.01 mm[Hg] Dipti Andrade RN [facility] 14:52:41 Date Recorded Body height Body mass index (BMI) Body weight Body temperature Heart rate Respiratory rate Oxygen saturation Pain severity - 0-10 verbal numeric rating [Score] - Reported Systolic And Diastolic Provider Name and Address Organization Details Last Updated DateTime 5 170.18 cm 63.6 kg/m2 724922. 9 g 97 [degF] 69 /min 20 /min 94 % 7 106/76 mm[Hg] Dipti Andrade RN [facility] 11:46:02 Date Recorded Body height Body mass index (BMI) Body weight Body temperature Heart rate Oxygen saturation Respiratory rate Systolic And Diastolic Provider Name and Address Organization Details Last Updated DateTime 5 170.18 cm 64.4 kg/m2 282778. 46 g 96.9 [degF] 72 /min 98 % 24 /min 112/82 mm[Hg] Dipti Andrade RN [facility] 5 10:16:34 Date Recorded Body height Body mass index (BMI) Body weight Body temperature Heart rate Respiratory rate Pain severity - 0-10 verbal numeric rating [Score] - Reported Oxygen saturation Systolic And Diastolic Provider Name and Address Organization Details Last Updated DateTime 5 170.18 cm 64.1 kg/m2 853614. 68 g 96.8 [degF] 76 /min 24 /min 10 97 % 120/80 mm[Hg] Dipti Andrade RN [place] [facility] 5 10:34:03 Social History Question Answer Notes LastModified by Organization Details LastModified Time Tobacco Smoking Status Former Smoker Quit 13 years ago Not Available [facility] 10/18/2022 03:02:15 Do You Have An Advance Directive? No MIGRATION.030 [id number] Information not available 10/18/2022 Is Blood Transfusion Acceptable In An Emergency? Yes Information not available 12/29/2022 What Is Your Level Of Caffeine Consumption? Moderate MIGRATION.0301 [id number] Information not available 10/18/2022 How Much Tobacco Do You Chew? None MIGRATION.0301 255788 Information not available 10/18/2022 What Is Your Code Status? Full Code MIGRATION.030 [id number] Information not available 10/18/2022 In The 14 Days Before Symptom Onset, Have You Had Close Contact With A Laboratory-confi rmed COVID-19 While That Case Was Ill? No MIGRATION.030 759455 Information not available 10/18/2022 In The 14 Days Before Symptom Onset, Have You Had Close Contact With A Person Who Is Under Investigation For COVID-19 While That Person Was Ill? No MIGRATION.0301 918091 Information not available 10/18/2022 What Type Of Diet Are You Following? REGULAR MIGRATION.030 358670 Information not available 10/18/2022 Which Illicit Or Recreational Drugs Have You Used? None MIGRATION.030 915213 Information not available 10/18/2022 What Is The Highest Grade Or Level Of School You Have Completed Or The Highest Degree You Have Received? [id number] MIGRATION.030 656099 Information not available 10/18/2022 Have There Been Any Changes To Your Family Or Social Situation? No MIGRATION.030 082712 Information not available 10/18/2022 What Is The Fluoride Status Of Your Home? Unknown MIGRATION.030 930695 Information not available 10/18/2022 When Did You Quit Smoking? 11-15yearssincelas tcigarette MIGRATION.0301 509801 Information not available 10/18/2022 Do You Use Insect Repellent Routinely? No MIGRATION.0301 282652 Information not available 10/18/2022 Where Do You Live? [place] MIGRATION.0301 956716 Information not available 10/18/2022 Advance Directive- Providers [...] Do You Have A Medical Power Of Scrap Crane Operator? No MIGRATION.0301 311531 Information not available 10/18/2022 What Was The Date Of Your Most Recent Tobacco Screening? 07/22/2024 [email or web address] Information not available 07/22/2024 How Many Children Do You Have? 9 Information not available 09/19/2024 Do You Have Any Pets? Yes MIGRATION.0301 [id number] Information not available 10/18/2022 What Is Your Relationship Status? Single MIGRATION.0301 616857 Information not available 10/18/2022 Do You Use Your Seat Belt Or Car Seat Routinely? Yes MIGRATION.0301 183539 Information not available 10/18/2022 Do You Have Smoke And Carbon Monoxide Detectors In Your Home? Yes MIGRATION.0301 380459 Information not available 10/18/2022 Are You Passively Exposed To Smoke? No MIGRATION.0301 549807 Information not available 10/18/2022 Are There Any Smokers In Your House? No MIGRATION.0301 067857 Information not available 10/18/2022 Do You Participate In Social Media? Yes MIGRATION.0301 256460 Information not available 10/18/2022 Do You Use Sunscreen Routinely? No MIGRATION.0301 567655 Information not available 10/18/2022 Have You Recently Traveled Abroad? No MIGRATION.0301 084912 Information not available 10/18/2022 Are You Currently In School? No MIGRATION.0301 530538 Information not available 10/18/2022 Do You Have Any Dietary Restrictions? No MIGRATION.0301 452254 Information not available 10/18/2022 Sex: Female Functional Status Question Answer Note LastModified by Organizat ion Details LastModified Time Do you use any illicit or recreational drugs? No MIGRATION.663084 5751 Information not available 10/18/2022 Do you or have you ever used any other forms of tobacco or nicotine? No MIGRATION.653408 6555 Information not available 10/18/2022 What is your level of alcohol consumption? None MIGRATION.914649 2524 Information not available 10/18/2022 What is your occupation? Disabled MIGRATION.156895 3115 Information not available 10/18/2022 Do you or have you ever used e-cigarettes or vape? Never used electronic cigarettes MIGRATION.920765 3177 Information not available 10/18/2022 What is your exercise level? None MIGRATION.012220 7548 Information not available 10/18/2022 Mental Status Question Answer Note LastModified by Organization D etails LastModified Time Do you feel stressed (tense, restless, nervous, or anxious, or unable to sleep at night)? GN30026-4 Information not available 01/25/2024 Family History Relationship [...] available 2023 14:27:34 Unspecified Relation Hypertensive disorder MIGRATION.060 [id number] Not available 10/18/2022 03:07:24 Unspecified Relation Hypertensive disorder MIGRATION.145 [id number] Not available 10/18/2022 10:41:03 Notes:NO ENT Medical History Condition Response BLINDNESS N RHEUMATIC FEVER N KIDNEY STONES N BLADDER PROBLEMS N MRSA N OTHER # 1 N POLIO N LUNG DISEASE/DISORDER N RADIATION / CHEMOTHERAPY N COPD N Other # 2 N BLOOD DISEASES N SURGERY N EAR OR HEARING PROBLEMS N MUMPS N FEMALE PROBLEMS / INFECTIONS N BOWEL PROBLEMS N DEPRESSION (INCLUDING POST ) N STROKE/TIA N THYROID DISEASE N ULCERS [...] N CHRONIC PAIN SYNDROME N HYPOTHYROIDISM N CONSTIPATION N CAROTID BLOCKAGE N BACK / NECK PROBLEMS N HAVE YOU BEEN HOSPITALIZED OR SEEN IN [facility] IN THE PAST YEAR ? N ATHEROSCLEROSIS [...] virus, quadrivalent, PF 07/21/2022 completed Not Available [facility] 4 19:47:48 Influenza, split virus, quadrivalent, PF 06/17/2020 completed Not Available [facility] 4 19:47:48 Influenza, split virus, quadrivalent, PF 05/30/2021 completed Not Available [facility] 4 19:47:48 Influenza, split virus, quadrivalent, PF 06/24/2019 completed Not Available [facility] 4 19:47:48 Past Encounters Encounter ID Performer Location Encounter Start Date Encounter Closed Date Diagnosis/Indication Diagnosis SNOMED-CT Code Diagnosis ICD10 Code Diagnosis IMO Codes Diagnosis Note [id number] Rudolph Quiroz MD [address] [address] 11/16/2020 00:00:00 11/16/2020 17:22:45 [id number] Rudolph Quiroz MD [facility] [address] [address] 12/14/2020 00:00:00 12/14/2020 09:58:54 [id number] Rudolph Quiroz MD [address] [address] 01/05/2021 00:00:00 01/05/2021 14:35:15 [id number] Rudolph Quiroz MD [address] [address] 01/14/2021 00:00:00 01/14/2021 12:59:24 [id number] Rudolph Quiroz MD [facility] [address] [place] [address] 01/20/2021 00:00:00 01/20/2021 15:11:03 [id number] _ATHN_MIGR ATION_1 _ATHENA_M IGRATION_ DEFAULT_1 _1 , 03/10/2021 00:00:00 03/11/2021 13:29:26 [id number] _ATHN_MIGR ATION_1 _ATHENA_M IGRATION_ DEFAULT_1 _1 , 04/07/2021 00:00:00 04/07/2021 13:23:10 [id number] Rudolph Quiroz MD [facility] [place] [address] [place] [address] 05/26/2021 00:00:00 05/26/2021 16:55:02 [id number] Rudolph Quiroz MD [facility] [address] [address] 06/24/2021 00:00:00 06/24/2021 18:26:38 [id number] [facility] [place] [address] [place] [address] 06/29/2021 00:00:00 06/29/2021 09:45:33 [id number] Rudolph Quiroz MD [facility] [address] [address] 07/20/2021 00:00:00 07/20/2021 16:45:04 [id number] Rudolph Quiroz MD [facility] [place] [address] [place] [address] 09/08/2021 00:00:00 09/08/2021 14:45:28 [id number] Rudolph Quiroz MD [facility] [address] [address] 09/30/2021 00:00:00 09/30/2021 10:01:07 [id number] _ATHN_MIGR ATION_1 _ATHENA_M IGRATION_ DEFAULT_1 _1 , 10/19/2021 00:00:00 10/19/2021 12:26:31 [id number] Rudolph Quiroz MD [facility] [place] [address] [place] [address] 01/05/2022 00:00:00 01/05/2022 09:26:34 [id number] Rudolph Quiroz MD [facility] [place] [address] [place] [address] 01/31/2022 00:00:00 01/31/2022 09:50:17 [id number] Rudolph Quiroz MD [facility] [place] [address] [place] [address] 02/14/2022 00:00:00 02/14/2022 16:32:10 [id number] Dipti Viveros NP [facility] [place] [address] [place] [address] 03/02/2022 00:00:00 03/02/2022 09:48:16 [id number] Dipti Viveros NP [facility] [place] [address] [place] [address] 03/31/2022 00:00:00 03/31/2022 09:25:18 [id number] Dipti Viveros NP [facility] [place] [address] [place] [address] 05/16/2022 00:00:00 05/16/2022 09:28:37 [id number] Rudolph Quiroz MD [facility] [place] [address] [place] [address] 06/13/2022 00:00:00 06/13/2022 10:04:45 [id number] Rudolph Quiroz MD [facility] [place] [address] [facility] [place] [address] 07/21/2022 00:00:00 07/21/2022 11:56:04 [id number] Rudolph Quiroz MD [address] [address] 09/29/2022 00:00:00 09/29/2022 12:14:19 [id number] Dipti Viveros NP [address] [address] 10/26/2022 08:56:30 10/26/2022 09:33:36 Obese [id number] E66.9 Diet and exercise encouraged and recommende d. Phentermin e 37. 5 mg po nightly. Type 2 lisa betes mellitus without complication 922082990 E11.9 CMP, A1C, lipid. Osteoarthritis 819492333 M19.90 Sleep apnea 66422155 G47 .30 [id number] Bam Siddiqui MD [facility] [place] [address] [place] [address] 11/07/2022 13:44:36 11/07/2022 15:25:00 Pain of right hand 1318542632 76797 M79.641 Tendinitis of extensor pollicis longus 765772661 M67.849 Tenosynovi tis of right radial styloid [id number] 3552372 M65.4 [id number] Dipti Viveros NP [address] [address] 12/29/2022 12:36:14 12/29/2022 13:58:46 Flank pain 402586970 R10.9 Unsure if kidney stone. Pt doesn't want CT scan as it is a sunday. Ok to try meds and see. Diverticular disease 397 308755 K57.90 metronidaz ole and cipro. Fatigue 14279218 R53.83 need to clean up diet and avoid excess carbs and sugar. Gastroesop hageal reflux disease 774807817 K21.9 omeprazole [id number] Dipti Viveros NP [address] [address] 01/31/2023 13:53:40 01/31/2023 14:34:49 Pain of multiple joints 88650875 M25.50 Unsure if kidney stone. Pt doesn't want CT scan as it is a sunday. Ok to try meds and see. Morbid obesity 615896934 E66.01 Has to be under 400 LBS to have surgery. Keeps gaining. Type 2 lisa betes mellitus without complication 905553420 E11.9 CMP, A1C, lipid. Essential hypertension 17572110 I10 Low back strain 06662904 1 S39.012A [id number] Dipti Viveros NP [address] [address] 02/02/2023 08:19:04 02/02/2023 08:52:09 [id number] Dipti Viveros NP [address] [address] 03/08/2023 10:52:37 03/08/2023 11:57:33 Lumbago with sciatica 283200952 M54.40 Will try to get MRI if pt can get into a machine. Having progressin g symptoms. Generally 3 flares annually, but has had 3 flares in 6 mo. Chest pain 29957806 R07. 9 if suspected NH, pt aware to seek ER care. Spinal rodrigo nosis of lumbar region 69383621 M48.062 need updated MRI. [id number] Dipti Viveros NP [address] [address] 04/18/2023 10:01:03 04/18/2023 11:05:56 Tinea corporis 05186427 B35.4 Ketoconazo le 2% topically. Hearing loss 11364687 H9 1.91 Referring to audiologis t for testing and to get new right ear hearing aide. Morbid obesity 887289235 E66.01 Has to be under 400 LBS to have surgery. Keeps gaining- working on diet. Avoid fast food and sweet tea. [id number] Dipti Viveros NP [address] [address] 08/29/2023 09:14:56 08/29/2023 18:30:21 Depressive disorder 70509845 F32.9 seeing psych Essential hypertension 49169681 I10 Losartan 100 gm po daily. Gastroesop hageal reflux disease 060892169 K21.9 omeprazole Obese 890595858 E66.9 Diet and exercise encouraged and recommende d. Phentermin e 37. 5 mg po nightly. Spinal stenosis 31502887 M48.00 hard to walk. Jovany sosa completed 08/29/23 Type 2 lisa betes mellitus without complication 933971745 E11.9 CMP, A1C, lipid.Metf ormin 500 mg po bid.Rybels us 14 mg po daily Overactive urinary bladder 640912207 N32.81 Oxybutynin ER 10 mg po daily. Screening for malignant neoplasm of colon 431745764 Z12.11 Tuberculos is screening 858861264 Z11.1 [id number] Rudolph Quiroz MD [address] [address] 11/23/2023 09:34:22 11/23/2023 11:32:37 Uncontrolled type 2 diabetes mellitus 271712599 E11.65 Essential hypertension 43381856 I10 Overactive urinary bladder 633028973 N32.81 Spinal rodrigo nosis of lumbar region 65627230 M48.563 [id number] Rudolph Quiroz MD [address] [address] 01/25/2024 09:23:58 01/25/2024 10:20:39 Loss of scalp hair 438006862 L65.9 Uncontroll ed type 2 diabetes mellitus 163259865 E11.65 Patient given samples of Freestyle Jonathan in clinic, states improved dietary management and awareness of glucose. 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 Advised to gargle salt water [id number] Tyrone Erickson MD [facility] Chelsy Valdez [address] [place] [address] 04/10/2024 11:08:16 04/10/2024 11:38:53 Amygdalolith 0250927 J35.8 [id number] Rudolph Quiroz MD [address] [address] 04/15/2024 14:14:19 04/15/2024 14:49:56 Acute right otitis media 043315665 H66.91 Wheezing symptom 0873847 08 R06.2 Congestion of nasal sinus 49316669 R09.81 Advised to take mucinex DM, additional water intake, allergy medication , nasal spray [id number] Rudolph Quiroz MD [address] [address] 05/02/2024 09:51:21 05/02/2024 10:22:09 Weakness of bilateral lower limb 7029301792 93814 M62.81 Recommende d to stop doing shake plateIf not resolved in 1 week will do imaging of lower back Overactive urinary bladder 862306834 N32.81 Neuropathy 649107830 G62 .9 [id number] Rudolph Quiroz MD [address] [address] 06/18/2024 11:10:30 06/18/2024 11:48:41 Uncontrolled type 2 diabetes mellitus 536001425 E11.65 Overactive urinary bladder 634191029 N32.81 Acute bact erial sinusitis 89976667 J01.90 [id number] Rudolph Quiroz MD [address] [address] 07/22/2024 10:55:35 07/22/2024 12:11:39 Adult health examination 888316608 Z00.00 Screening for disorder 015124684 Z13.9 Screening mammography 24 220693 Z12.31 Uncontroll ed type 2 diabetes mellitus 236749922 E11.65 Tinea corporis 36839743 B35.4 [id number] Rudolph Quiroz MD [address] [address] 09/19/2024 10:56:03 09/19/2024 12:30:57 Spinal stenosis of lumbar region 47184111 M48.061 Imaging many years ago, per pt spinal stenosis, herniated discsUnabl e to fit in CT machine Neuropathy 259999263 G62 .9 Worsening, diabetes well controlled Temporoman dibular joint disorder 34010767 M26.609 Pain in right jaw radiating to ear. Notes tense and grinds teeth Uncontroll ed type 2 diabetes mellitus 059402049 E11.65 [id number] Rudolph Quiroz MD [address] [address] 09/30/2024 13:58:03 09/30/2024 16:49:04 Diverticulitis 696039750 K57.92 Hx of diverticul osis, diverticul itis in the past, similar symptoms Pain due t o varicose veins of lower extremity 812083540 I83.819 Pain, varicose veins, swelling CAMILA legs Candidiasis of vagina 72 271340 B37.31 Related to abx use [id number] Rudolph Quiroz MD [address] [address] 11/07/2024 11:44:00 11/07/2024 12:48:30 Spinal stenosis of lumbar region 56900500 M48.061 Imaging many years ago, per pt spinal stenosis, herniated discsUnabl e to fit in CT machineReq uiring motorized scooter or mobility chair Temporoman dibular joint disorder 77932275 M26.609 Pain in right jaw radiating to ear. Notes tense and grinds teeth Acute otitis media 35084 03 H66.91 Serous w drainage [id number] Rudolph Quiroz MD [address] [address] 01/28/2025 15:23:55 01/28/2025 17:22:50 [id number] Rudolph Quiroz MD [address] [address] 02/04/2025 14:34:48 02/04/2025 15:45:00 Spinal stenosis of lumbar region 18312430 M48.061 Imaging many years ago, per pt spinal stenosis, herniated discsUnabl e to fit in CT machineReq uiring motorized scooter or mobility chair Amnesia 74062561 R41.3 61424 Notes she is forgetting common things like her kids names and her location. Uncontroll ed type 2 diabetes mellitus 762318795 E11.65 [id number] Rudolph Quiroz MD [address] [address] 03/11/2025 11:31:18 03/11/2025 12:21:43 Uncontrolled type 2 diabetes mellitus 383770512 E11.65 Has been having injections site reaction, welts, itching. Will try a different box as this has never happened before. Advised to utilize triamcinol one on these spots Chronic pr imary low back pain 5863345308 7100 M54.59 G89.29 7235291731 Imaging many years ago, per pt spinal stenosis, herniated discsUnabl e to fit in CT machineReq uiring motorized scooter or mobility chair Abnormal g ait due to impairment of balance 821554810 R26.89 Requires power wheel chair [id number] Rudolph Quiroz MD [address] [address] 05/20/2025 10:03:37 05/20/2025 11:07:00 Spinal stenosis of lumbar region 91356117 M48.061 Imaging many years ago, per pt spinal stenosis, herniated discsUnabl e to fit in CT machineReq uiring motorized scooter or mobility chair Long-term current use of drug therapy 175165199 Z79.899 [id number] Last dose of hydrocodon e Sunday, alprazolam many weeks ago [id number] Rudolph Quiroz MD [facility] [address] [address] 05/29/2025 10:21:35 05/29/2025 11:08:11 Sleep apnea 94679272 G47.30 Well controlled with current CPAP Lumbago with sciatica 20 2589810 M54.40 Severe, has not had imaging due to body habitus. Health Concerns Section Related Observation LastModified by Organization Detai ls LastModified Time None Recorded Concern Status LastModified by Organization Details LastModified Time None Recorded Advance Directives Directive N: Payers Insurance Date Sequence Insurance Name Policy Number Policy [place] Covered Member ID [place] Member ID Guarantor Name 06/01/2025 1 [facility] (MEDICARE REPLACEMENT/ ADVANTAGE - HMO) [id number] [id number] Shira FlorezSam 10/28/2024 1 [facility] - DOS ON OR AFTER 2020 - DUAL ELIGIBLE (MEDICARE REPLACEMENT/ ADVANTAGE - HMO) [id number] Shira G Gautam Isaacs [id number] Shira Edson Notes Date Note Type Note Provider Name and Address Organization Details Recorded Time 02/04/2025 text/html Shira Sandhu is a 54 year old female patient here today for memory concerns She states she is having issues remembering her children's names lately. She states these episodes of memory loss are scary to her. She does note that her life is very stressful and thinks this may be related to memory loss. She has been taking hydrocodone for spinal stenosis, she states she takes this as needed. When she takes this she can move and feels better. Remington Haywood, [employer] [address] [facility], [facility] [address], [place], [address], [facility] [employer] 02/04/2025 15:12:17 03/11/2025 text/html Shira Sandhu is a 54 year old female patient here today for a consultation for a mobility scooter. She struggles with CAMILA LE weakness, spinal stenosis, and neuropathy. She notes she has had falls due to this weakness. She states that she will become numb in CAMILA LE while she is walking long distances and this will cause her fall. This does occur within her home, too. She often requires help from family members after a fall. Use of a power chair would allow her to reach destinations within her home safely, without the risk of falls. She is able to complete ADLs from a power chair and has adaptations in her home that would allow her to maneuver her home with this chair, including a wheel chair ramps and wheel chair accessible bathroom. Nicole would not benefit from a cane due to lower extremity weakness. She is unable to propel and manual wheelchair due to cervical radiculopathy and upper extremity weakness. Nicole's home is not compatible with scooter use. An HD power wheelchair is the safest device for Nicole, other devices will not meet her requirements. Nicole is willing and capable to operate a power chair. NATALIA Cross [address] [facility], [address], [place], [address], [employer] 03/11/2025 15:38:50 05/20/2025 text/html Shira Sandhu is a 54 year old female patient here today for concerns of a lump She had a lump behind her left earThis has now resolved. She has no other concerns. She is still taking Hydrocodone 7.5-325 mg PRN. She has taken 120 tabs over the last 4 months. NATALIA Cross [address] [facility], [address], [place], [address], [employer] 05/20/2025 11:04:12 05/29/2025 text/html Shira Sandhu is a 54 [...] excedrin and motrin, pregabalin, and tizanidine Remington Haywood, [employer] [address] [facility], [facility] [address], [place], [address], [facility] 05/29/2025 11:03:42 OBGyn Episode No OBEpisode recorded.
[2025-07-12 10:38] VITALS: BP 108/53; PULSE 81; RESP 18; TEMP 36.4; O2SAT 97
[2025-07-13 11:52] LABS: EDSTREPNEGPOS1 Negative (Negative)
== END 2025-07-12 11:04 | disposition home or self-care (01) ==
PROVIDERS: Emergency Provider Nurse Practitioner Family
DX: K12.0 Recurrent oral aphthae (principal); J02.9 Acute pharyngitis, unspecified; I10 Essential (primary) hypertension; E11.9 Type 2 diabetes mellitus without complications; E78.00 Pure hypercholesterolemia, unspecified; I34.1 Nonrheumatic mitral (valve) prolapse; G47.30 Sleep apnea, unspecified; K21.9 Gastro-esophageal reflux disease without esophagitis; M19.90 Unspecified osteoarthritis, unspecified site; E66.01 Morbid (severe) obesity due to excess calories; Z68.44 Body mass index [BMI] 60.0-69.9, adult; M48.061 Spinal stenosis, lumbar region without neurogenic claudication; F31.9 Bipolar disorder, unspecified; Z87.891 Personal history of nicotine dependence
CPT/HCPCS: 87081; 87880; 99213; G0463